=== PATIENT | male | born 1955 | race Caucasian/White ===

== ENCOUNTER 2021-09-05 16:20 | Inpatient (IN) | payer MEDICARE, SELFPAY ==
--- NOTE | ~2021-09-05 | XR_ITS ---
EXAMINATION: XR CHEST CLINICAL INFORMATION: Shortness of breath COMPARISON: 10/08/[address] from 10/10/2021 TECHNIQUE: Frontal view of the chest was obtained. FINDINGS: Cardiac leads overlie the chest. The lungs are well expanded. Patchy bilateral airspace opacities are noted, similar in appearance to prior. No pleural effusion or pneumothorax. The cardiomediastinal silhouette is within normal limits. XR/XR chest 1V IMPRESSION: Similar appearance of patchy bilateral airspace opacities. The cavitation seen on CT is not clearly visualized on this radiograph.
--- NOTE | ~2021-09-05 | XR_ITS ---
EXAMINATION: XR CHEST CLINICAL INFORMATION: Fever COMPARISON: CTA chest 09/23/2021, chest radiographs 09/23/2021, 09/19/2021 TECHNIQUE: Portable upright AP view of the chest was obtained. FINDINGS: There are low lung volumes similar to prior studies. Again, scattered bilateral airspace opacities are present similar in distribution and severity to prior radiographs. There is no interval lobar or segmental airspace consolidation or effusion. The vascularity is normal. The heart is normal in size. XR/XR chest 1V IMPRESSION: Scattered bilateral airspace opacities similar to prior exam.
--- NOTE | ~2021-09-05 | US_ITS ---
EXAMINATION: US ABDOMEN COMPLETE CLINICAL INFORMATION: Elevated liver function tests. COMPARISON: Chest CT from 09/05/2021 TECHNIQUE: Real-time imaging of the abdominal viscera. FINDINGS: PANCREAS: The pancreas is partially obscured by bowel gas. The visualized portions have normal echotexture. No pancreatic ductal dilatation. ABDOMINAL AORTA: The mid, and distal segments are normal in caliber. The proximal segment is obscured by bowel gas. INFERIOR VENA CAVA: Visualized portions are normal. LIVER: Liver has normal size, contour and parenchymal echotexture. No evidence of liver mass or intrahepatic bile duct dilatation. GALLBLADDER: Normal. The gallbladder is underdistended. No evidence of stones, sludge, polyps, wall thickening or pericholecystic fluid. COMMON BILE DUCT: Normal in caliber measuring 0.3 cm in diameter. RIGHT KIDNEY: The kidney measures 10.9 cm in maximum dimension. No nephrolithiasis or hydronephrosis. 1 cm simple cortical cyst in the mid kidney. Renal imaging follow-up is not recommended for simple cysts. Also, there appears to be a 1.8 cm cyst in the interpolar region. LEFT KIDNEY: The kidney measures 11.4 cm in length. Normal cortical thickness and echotexture. No nephrolithiasis, hydronephrosis or mass. SPLEEN: The spleen is incompletely visualized. It measured up to 15.5 cm on the chest CT of 09/05/2021. The spleen measures up to approximately 14 cm maximum dimension on this exam. No perisplenic fluid. FREE FLUID: None. US/US abdomen complete IMPRESSION: * The gallbladder and liver aresonographically normal. * Splenomegaly is noted. * No abdominal free fluid.
--- NOTE | ~2021-09-05 | CT_ITS ---
EXAMINATION: CT ANGIOGRAM OF THE CHEST WITH AND WITHOUT CONTRAST (CT PULMONARY ANGIOGRAM FOR PE) CLINICAL INFORMATION: Elevated d-dimer, hypoxia. COMPARISON: CTA chest dated from 09/12/2021. TECHNIQUE: Prior to contrast administration, noncontrast localization images were obtained. Subsequently, multidetector volumetric imaging was performed from the thoracic inlet to below the diaphragms following the administration of 70 mL Omnipaque 350 intravenous contrast. No contrast reaction reported Sagittal, coronal, and MIP oblique sagittal reformatted images were obtained on the CT workstation, uploaded to PACS, and reviewed. This CT examination was performed using dose optimization techniques as appropriate, variously including the following: *Automated exposure control *Adjustment of mA and/or kV according to patient size (this includes techniques or standardized protocols for targeted exams where dose is matched to indication/reason for exam; i.e. extremities or head) *Use of iterative reconstruction technique Total exam dose-length product 240 mGy-cm FINDINGS: QUALITY OF STUDY/CONTRAST BOLUS: Satisfactory. PULMONARY ARTERIES: As on priors, evaluation of pulmonary emboli is in part limited due to motion and overlying airspace disease. However, accounting for these limitations, no discrete central or segmental pulmonary emboli are identified. THORACIC AORTA: Mild atherosclerotic disease. No aneurysm or dissection. LUNG: There is redemonstration of extensive patchy and groundglass opacities throughout both lungs with increased and new patchy opacities in the anterior aspect of the left upper lobe (for instance image 153 of series 7), new opacities in the right middle lobe and anterior right upper lobe (for example image 217 of series 7) and increase denser opacities in the lung bases. The main airways are patent. PLEURA: There are new small bilateral pleural effusions, larger on the right side with fluid tracking across the major fissure. No pneumothorax. MEDIASTINUM: Normal heart size. No pericardial effusion. No evidence of septal bowing or right heart strain. Coronary calcifications. Mediastinal and hilar lymphadenopathy is not significantly changed. CHEST WALL/AXILLA: No axillary or internal mammary lymphadenopathy. OSSEOUS STRUCTURES: No acute or suspicious osseous abnormality. UPPER ABDOMEN: Unchanged splenomegaly with redemonstration of a hyperattenuating focus in the anterior aspect of the spleen (image 50 of series 5) stable since prior. A too small to characterize hypodensity in the left upper renal pole is unchanged and statistically is likely to represent a simple cyst. No reflux of contrast into the hepatic veins to suggest elevated right heart pressures. CT/CT angio chest PE protocol IMPRESSION: As before, evaluation of pulmonary emboli is somewhat limited due to motion and airspace opacities. However, accounting for these limitations, no discrete central segmental pulmonary emboli identified. No findings to suggest increased right-sided heart pressure. Worsening multifocal airspace opacities with multiple new patchy and more denser opacities in the anterior aspect of both lungs and in the lung bases. There are also new small bilateral pleural effusions, larger on the right side. VTE: negative
--- NOTE | ~2021-09-05 | CT_ITS ---
EXAMINATION: CT ABDOMEN AND PELVIS WITH CONTRAST CLINICAL INFORMATION: fever, gram negative michela bacteremia COMPARISON: CT chest September 23, 2021. Ultrasound abdomen September 07, 2021. TECHNIQUE: Multidetector volumetric images were obtained from the superior aspect of the liver through the pubic symphysis following administration 85 mL of Omnipaque 350 intravenous contrast. Sagittal and coronal reformatted images were obtained on the technologist's workstation. Oral contrast: No This CT examination was performed using dose optimization techniques as appropriate, variously including the following: *Automated exposure control *Adjustment of mA and/or kV according to patient size (this includes techniques or standardized protocols for targeted exams where dose is matched to indication/reason for exam; i.e. extremities or head) *Use of iterative reconstruction technique DLP: 432 mGy-cm FINDINGS: LUNG BASES: Multifocal airspace opacities at both lung bases. There is bronchiectasis at both lung bases with intermixed groundglass opacities. Airspace disease similar to prior CAT scan September 23, 2021. LIVER, GALLBLADDER, AND BILIARY TREE: The liver is normal in size, shape, and attenuation. No focal hepatic lesion or biliary ductal dilatation is present. The gallbladder is unremarkable with no evidence of radiopaque gallstones, gallbladder wall thickening, or obvious pericholecystic inflammatory changes. PANCREAS: Unremarkable. SPLEEN: The spleen is enlarged. Spleen measures about 16 cm AP. There are small segments of poor perfusion at the lower pole of the spleen which could be due to the splenomegaly and timing of the enhancement versus splenic infarct.. There is a persistent hyperdense focus of enhancement at the anterior splenic margin axial image 22/96 series 3 unchanged since prior studies. ADRENAL GLANDS: Unremarkable. KIDNEYS AND URETERS: The kidneys are normal in size, shape, and attenuation. No hydronephrosis, hydroureter, or calculi seen. No perinephric stranding. Stable 7 mm cyst at the upper pole cortex of the left kidney. No follow-up imaging is recommended for simple renal cyst.. BLADDER: Unremarkable. GASTROINTESTINAL TRACT: No acute abnormality. There is no bowel wall thickening /edema. There is no bowel obstruction. There is a moderate to large volume of stool in the colon. The appendix is nonvisualized . The small bowel loops are unremarkable. The stomach is normal. There is no hiatal hernia. ABDOMINAL WALL: No significant hernia is appreciated. LYMPH NODES: Normal. VASCULAR: Unremarkable. PELVIC VISCERA: Unremarkable. OSSEOUS STRUCTURES: Unremarkable. CT/CT abdomen pelvis w con IMPRESSION: 1. Multifocal airspace opacities at both lung bases. There is bronchiectasis at both lung bases with intermixed groundglass opacities. Airspace disease similar to prior CT chest September 23, 2021. 2. No acute abnormality CT scan abdomen and pelvis. 3. Redemonstration of known splenomegaly. Persistent small hypoattenuating focus in the anterior spleen. Regions of low enhancement at the lower pole likely due to timing of enhancement though small infarcts are not excluded.
--- NOTE | ~2021-09-05 | CT_ITS ---
EXAMINATION: CT ANGIOGRAM OF THE CHEST WITH AND WITHOUT CONTRAST (CT PULMONARY ANGIOGRAM FOR PE) CLINICAL INFORMATION: Reason for Exam covid + hypoxia ?PE COMPARISON: CTA of the chest dated from 09/05/2021. TECHNIQUE: Prior to contrast administration, noncontrast localization images were obtained. Subsequently, multidetector volumetric imaging was performed from the thoracic inlet to below the diaphragms following the administration of 80 mL Omnipaque 350 intravenous contrast. No contrast reaction reported Sagittal, coronal, and MIP oblique sagittal reformatted images were obtained on the CT workstation, uploaded to PACS, and reviewed. This CT examination was performed using dose optimization techniques as appropriate, variously including the following: *Automated exposure control *Adjustment of mA and/or kV according to patient size (this includes techniques or standardized protocols for targeted exams where dose is matched to indication/reason for exam; i.e. extremities or head) *Use of iterative reconstruction technique Total exam dose-length product 147 mGy-cm FINDINGS: QUALITY OF STUDY/CONTRAST BOLUS: Suboptimal. PULMONARY ARTERIES: Evaluation of pulmonary emboli is in part limited due to motion and overlying airspace disease. Accounting for these limitations, no discrete central or segmental pulmonary emboli are identified. THORACIC AORTA: Mild atherosclerotic disease. No aneurysm or dissection. LUNG: There are increased and multiple new areas of patchy and groundglass opacities bilaterally, now extending across the entirety of the lungs. The main airways are patent. PLEURA: No pleural effusion or pneumothorax. MEDIASTINUM: Normal heart size. No pericardial effusion. Coronary calcifications. A few enlarged mediastinal lymph nodes are not significantly changed, for instance measuring up to 1.2 cm in maximum short axis in the subcarinal region on image 260 of series 7. No evidence of septal bowing or right heart strain. CHEST WALL/AXILLA: No axillary or internal mammary lymphadenopathy. OSSEOUS STRUCTURES: No acute or suspicious osseous abnormality. Thoracic spondylosis. UPPER ABDOMEN: Similar degree of splenomegaly with redemonstration of a hyperattenuating focus anteriorly within the splenic parenchyma on image 57 of series 5 which is likely perfusional in etiology. No reflux of contrast into the hepatic veins to suggest elevated right heart pressures. CT/CT angio chest PE protocol IMPRESSION: Evaluation of pulmonary emboli is somewhat limited due to motion and airspace opacities. However, accounting for these limitations, no central or segmental pulmonary emboli are identified. No findings to suggest increased right-sided heart pressure. Multifocal airspace opacities are significantly increased since prior, suggesting worsening multifocal pneumonia. Enlarged mediastinal lymph nodes are unchanged. VTE: negative
--- NOTE | ~2021-09-05 | US_ITS ---
EXAMINATION: US VENOUS ULTRASOUND WITH DOPPLER LOWER EXTREMITY, BILATERAL CLINICAL INFORMATION: Edema and pain. COMPARISON: None TECHNIQUE: Ultrasound of the deep veins is performed from the hip to the calf with compression sonography and color and pulse Doppler assessment. Spectral analysis with color-flow imaging is performed. FINDINGS: RIGHT: There is normal venous compression and respiratory variation and augmented flow. The visualized common femoral vein, superficial femoral vein, profunda femoral vein, popliteal vein, and the trifurcation region shows no evidence of deep venous thrombosis. There is no significant popliteal fossa cyst. LEFT: There is normal venous compression and respiratory variation and augmented flow. The visualized common femoral vein, superficial femoral vein, profunda femoral vein, popliteal vein, and the trifurcation region shows no evidence of deep venous thrombosis. There is no significant popliteal fossa cyst. If the patient's symptoms persist, followup ultrasound in 5 days 7 days might be of value to exclude proximal propagation from a non-visualized calf vein. There is prominent cardiac phasicity bilaterally which may be seen with tricuspid regurgitation/right heart dysfunction. US/US venous duplex LE BI IMPRESSION: No DVT demonstrated in the bilateral lower extremities. There is prominent cardiac phasicity in both lower extremities which may be seen with tricuspid regurgitation/right heart dysfunction.
--- NOTE | ~2021-09-05 | CT_ITS ---
EXAMINATION: CT ANGIOGRAM OF THE CHEST WITH AND WITHOUT CONTRAST (CT PULMONARY ANGIOGRAM FOR PE) CLINICAL INFORMATION: Reason for Exam SOB/Tachy COMPARISON: Chest radiograph 10/08/2021. CT 09/23/2021. TECHNIQUE: Prior to contrast administration, noncontrast localization images were obtained. Subsequently, multidetector volumetric imaging was performed from the thoracic inlet to below the diaphragms following the administration of 65 mL Omnipaque 350 intravenous contrast. No contrast reaction reported Sagittal, coronal, and MIP oblique sagittal reformatted images were obtained on the CT workstation, uploaded to PACS, and reviewed. This CT examination was performed using dose optimization techniques as appropriate, variously including the following: *Automated exposure control *Adjustment of mA and/or kV according to patient size (this includes techniques or standardized protocols for targeted exams where dose is matched to indication/reason for exam; i.e. extremities or head) *Use of iterative reconstruction technique Total exam dose-length product 144 mGy-cm FINDINGS: QUALITY OF STUDY/CONTRAST BOLUS: Satisfactory. PULMONARY ARTERIES: No central or segmental pulmonary emboli. THORACIC AORTA: No aneurysm or dissection. LUNG: The central airways are patent. There is worsening multifocal consolidation, now with multiple cavitating lesions seen bilaterally. For instance there is a new cavitation at the left upper lobe measuring 7 cm. Area of cavitation anteriorly in the right upper lobe measures 3.5 cm. Air bronchograms are seen within the separate areas of consolidation. PLEURA: No pleural effusion or pneumothorax. MEDIASTINUM: Normal heart size. No pericardial effusion. No hilar or mediastinal lymphadenopathy. No evidence of septal bowing or right heart strain. CHEST WALL/AXILLA: No axillary or internal mammary lymphadenopathy. OSSEOUS STRUCTURES: No acute or suspicious osseous abnormality. Degenerative changes are seen in the spine. UPPER ABDOMEN: Unremarkable. No reflux of contrast into the hepatic veins to suggest elevated right heart pressures. CT/CT angio chest PE protocol IMPRESSION: 1. No pulmonary embolism. 2. Worsening multifocal consolidation now with multiple areas of cavitation. This is highly concerning for pneumonia. Septic emboli are possible, though this is not the typical appearance. VTE: negative
--- NOTE | ~2021-09-05 | XR_ITS ---
EXAMINATION: XR CHEST CLINICAL INFORMATION: Hypoxia COMPARISON: Previous chest x-ray most recent from yesterday TECHNIQUE: Frontal view of the chest was obtained. FINDINGS: There is an endotracheal tube with tip 0 cm above the reshma. There is a right jugular line with tip projecting over the cavoatrial junction. There is a nasogastric tube projects over the stomach. The cardiac silhouette is enlarged. There is bilateral airspace disease, left greater than right. There is lucency at the left lung apex, likely related to cavitary lesion when compared with previous chest CT scan. This appears unchanged. There are degenerative changes of the spine. No significant pleural effusion. No pneumothorax. There is no pneumothorax. XR/XR chest 1V IMPRESSION: Satisfactory position of support line and tubes. Enlarged cardiac silhouette. Bilateral airspace disease and lucency at the left lung apex likely related to known cavitary lesion.
--- NOTE | ~2021-09-05 | XR_ITS ---
EXAMINATION: XR CHEST CLINICAL INFORMATION: Hypoxia. Covid infection. COMPARISON: Previous chest x-ray most recent 09/19/2021 TECHNIQUE: Frontal view of the chest was obtained. FINDINGS: The cardiac and mediastinal contours are stable. There is diffuse airspace disease similar to previous exam. There is no pleural effusion or pneumothorax. There are degenerative changes of the spine. XR/XR chest 1V IMPRESSION: Diffuse airspace disease similar to previous exam.
--- NOTE | ~2021-09-05 | XR_ITS ---
EXAMINATION: XR CHEST CLINICAL INFORMATION: Hypoxia COMPARISON: CT scan of September 12, 2021 TECHNIQUE: AP portable view of the chest was obtained. FINDINGS: There is again noted to be bilateral diffuse interstitial and airspace disease. Heart normal size. No definite evidence to suggest pulmonary edema. No pneumothorax or significant pleural effusion. XR/XR chest 1V IMPRESSION: Diffuse bilateral interstitial and airspace disease similar to previous CT scan of September 12, 2021
--- NOTE | ~2021-09-05 | XR_ITS ---
EXAMINATION: XR CHEST CLINICAL INFORMATION: Status post lyle catheter placement. COMPARISON: Chest radiograph done earlier today at 3:20 PM, 10/17/2021. CT chest dated from 10/10/2021. TECHNIQUE: AP view of the chest was obtained. FINDINGS: The endotracheal tube terminates at 4.9 cm above the reshma. A right internal jugular approach central venous catheter terminates overlying the proximal right atrium, unchanged. An enteric tube terminates in the gastroesophageal junction/proximal stomach. A left internal jugular approach central venous catheter terminates overlying the area of the left innominate vein. Stable prominence of the cardiomediastinal silhouette. Redemonstration of diffuse airspace opacities, more prominent in the left lung without significant change. Lucencies in the left upper lobe are likely related with cavitation, best seen on the prior CT. No pneumothorax. No acute osseous findings. XR/XR chest 1V IMPRESSION: 1. Endotracheal tube terminates at 4.9 cm above the reshma. 2. New left internal jugular central venous catheter terminates overlying the region of the innominate veins. Correlate for appropriate functioning and consider repositioning. 3. The enteric tube terminates at the level of the gastroesophageal junction/proximal stomach. Consider advancement. 4. Multifocal airspace opacities with cavitation without significant change. The report will be called to the ordering clinician by a [facility] Physician Folder Stitcher Operator.
--- NOTE | ~2021-09-05 | XR_ITS ---
EXAMINATION: XR CHEST CLINICAL INFORMATION: Shortness of breath COMPARISON: Portable chest x-ray October 02, 2021, 8:03 AM TECHNIQUE: Frontal portable view of the chest was obtained. 4:32 PM FINDINGS: Persistent bilateral multifocal airspace opacities. Airspace opacities worse on the left than the right. Severity is similar to prior chest x-ray October 02, 2021. No pleural effusion or pneumothorax. The cardiac and mediastinal contours are unchanged. XR/XR chest 1V IMPRESSION: Persistent multifocal bilateral airspace opacities unchanged since prior study October 02, 2021.
--- NOTE | ~2021-09-05 | CT_ITS ---
EXAMINATION: CT ANGIOGRAM OF THE CHEST WITH AND WITHOUT CONTRAST (CT PULMONARY ANGIOGRAM FOR PE) CLINICAL INFORMATION: Dyspnea, hypoxia, hx of CLL. COMPARISON: None TECHNIQUE: Prior to contrast administration, noncontrast localization images were obtained. Subsequently, multidetector volumetric imaging was performed from the thoracic inlet to below the diaphragms following the administration of 85 mL Omnipaque 350 intravenous contrast. No contrast reaction reported Sagittal, coronal, and MIP oblique sagittal reformatted images were obtained on the CT workstation, uploaded to PACS, and reviewed. This CT examination was performed using dose optimization techniques as appropriate, variously including the following: *Automated exposure control *Adjustment of mA and/or kV according to patient size (this includes techniques or standardized protocols for targeted exams where dose is matched to indication/reason for exam; i.e. extremities or head) *Use of iterative reconstruction technique Total exam dose-length product 301 mGy-cm FINDINGS: QUALITY OF STUDY/CONTRAST BOLUS: Suboptimal. The timing for the intravenous contrast is appropriate. However, evaluation of segmental and subsegmental branches is limited due to motion and overlying airspace opacities. PULMONARY ARTERIES: No central or segmental pulmonary emboli. THORACIC AORTA: Mild atherosclerotic disease. No aneurysm. LUNG: Multifocal patchy airspace opacities which are more prominent in the lower lobes, and posterior upper lobes evaluation of small pulmonary nodules is suboptimal due to motion and overlying airspace opacities. The main airways are patent. PLEURA: No pleural effusion or pneumothorax. MEDIASTINUM: Normal heart size. No pericardial effusion. There are a few enlarged mediastinal lymph nodes, for example measuring up to 1.3 cm in maximum short axis in the subcarinal space (197:7) and 1.4 cm in maximum short axis to the right of the trachea (159:7). No evidence of septal bowing or right heart strain. CHEST WALL/AXILLA: No axillary or internal mammary lymphadenopathy. OSSEOUS STRUCTURES: No acute or suspicious osseous abnormality. Thoracic spondylosis. UPPER ABDOMEN: Splenomegaly measuring up to 15.5 cm. An indeterminate hyperattenuating focus in the spleen (56:5) is likely perfusional due to timing of intravenous contrast. No reflux of contrast into the hepatic veins to suggest elevated right heart pressures. CT/CT angio chest PE protocol IMPRESSION: Evaluation of segmental and subsegmental pulmonary emboli is somewhat limited due to motion and overlying airspace opacities. However, accounting for these limitations, no definite pulmonary emboli are identified. No findings to suggest increased right-sided heart pressures. Multifocal airspace opacities could be related with a multifocal pneumonia. Correlate clinically and follow-up to ensure resolution. Enlarged mediastinal lymph nodes are likely reactive. Mild splenomegaly of uncertain etiology. VTE: negative
--- NOTE | ~2021-09-05 | XR_ITS ---
EXAMINATION: XR CHEST CLINICAL INFORMATION: Status post CPR. COMPARISON: Chest radiograph . CT 10/10/2021. TECHNIQUE: AP view of the chest was obtained. FINDINGS: The endotracheal tube terminates at 1.5 cm above the reshma oriented towards the entrance of the right main bronchus. Increased multifocal airspace opacities since 10/11/2021. I suspect small bilateral pleural effusions. No pneumothorax. No acute osseous findings. XR/XR chest 1V IMPRESSION: The endotracheal tube terminates at 1.5 cm above the reshma. Recommend repositioning. Worsening pulmonary aeration with increased and new patchy airspace opacities bilaterally. Cavitation of some of these airspace opacities are best appreciated on a prior CT This critical result was discussed with Dr. Shruthi Aden at 10/16/2021 6:48 PM and it was ascertained that the content and urgency of the report was understood at the time of direct communication.
--- NOTE | ~2021-09-05 | XR_ITS ---
EXAMINATION: XR CHEST CLINICAL INFORMATION: Hypoxia COMPARISON: September 18, [address] angiography of September 12, 2021 TECHNIQUE: AP portable view of the chest was obtained. FINDINGS: Bilateral regions of interstitial and airspace disease are present similar to previous day's study. No pneumothorax or pleural effusion. Heart normal size. No evidence of pulmonary edema. XR/XR chest 1V IMPRESSION: Stable bilateral regions of interstitial and airspace disease.
[2021-09-05 16:56] VITALS: BP 123/68; PULSE 95; RESP 14; TEMP 37.1; O2SAT 89; BMI 26.6
--- NOTE | 2021-09-05 18:11 | ED_ITS ---
HPI - SOB/Dyspnea General Chief Complaint: Upper Respiratory Symptoms Stated Complaint: SoB, Difficulty Breathing Time Seen by Provider: 09/05/21 18:10 Source: patient Mode of arrival: ambulatory Limitations: no limitations History of Present Illness MD elicited complaint: shortness of breath and cough Pertinent past history: other (CLL remission this year. Dx with COVID 6 weeks ago never got better per him but worsened this past year. He had Moderna vaccines (at the start of availability) and a booster as well) Onset (ago): week(s) (6) Context: recent illness Timing: progressively worsening Severity: severe Exacerbating factors: exertion and coughing Relieving factors: oxygen and rest Known history of: other (COVID) Associated symptoms: cough and sputum production Treatment prior to arrival: oxygen (from triage sats 89%) Related Data Home Medications Medication Instructions Recorded Confirmed allopurinol 300 mg tablet 1 tab PO DAILY 09/05/21 09/05/21 rosuvastatin 40 mg tablet 1 tab PO DAILY 09/05/21 09/05/21 Allergies Allergy/AdvReac Type Severity Reaction Status Date / Time oxacillin Allergy Unknown Unknown Verified 09/05/21 18:16 Review of Systems Review of Systems: Constitutional : No Fever, No Chills ENT/Mouth : No sore throat, No Rhinorrhea, No Swallowing Difficulty Eyes: No Eye Pain, No Swelling, No Redness Cardiovascular : No Chest Pain, positive SOB, No Orthopnea, no Edema Respiratory : pos Cough, pos Sputum, No Wheezing, positive dyspnea Gastrointestinal : No Nausea, No Vomiting, No Diarrhea, No abdominal Pain, No Hematochezia, No Melena Genitourinary : No Dysuria, No Urinary Frequency, No Hematuria Musculoskeletal : No joint pain, No Myalgias Skin : No Skin Lesions, No rash Neuro : No Weakness, No Numbness, No Dizziness, No Headache Psych : No Anxiety/Panic, No Depression Heme/Lymph: No Bruising, No Lymphadenopathy Endocrine : No Polyuria, No Polydipsia All other systems reviewed and are negative [facility] Past Medical History Medical History CLL (chronic lymphocytic leukemia) COVID-19 Social History Social History (Updated 09/05/21 @ 18:21 by Carlene Echevarria DO) Patient Tobacco Use Status: Never used Tobacco Advance Directives: No Advance Directives Information Provided: Yes Physical Exam Vital Signs: Vital Signs: Last Vital Signs Temp 98.7 F 09/05/21 20:00 Pulse 96 09/05/21 20:00 Resp 26 H 09/05/21 20:00 BP 134/79 09/05/21 20:00 Pulse Ox 94 09/05/21 20:00 Body Mass Index 26.6 Appearance: Alert. Oriented X3. mild acute distress. Eyes: Pupils equal, round and reactive to light. ENT: Pharynx normal. Neck: Normal inspection. Neck supple. CVS: Normal heart rate and rhythm. Pulses normal. Respiratory: Mild respiratory distress - appears easily winded, short phrases, mild tachypnea. Breath sounds rhonchi and diminished throughout Abdomen: Soft and nontender. Skin: Skin warm and dry. Normal skin color. Normal skin turgor. Extremities: No lower extremity edema. No calf ttp Neuro: Oriented X 3. No motor deficit. No sensory deficit. Course Course Course Narrative: responding well to O2 supplementation, steroids ordered given positive COVID test and labs concerning for acute COVID though patient reports a pos test 6 weeks ago at this time possible infection suspected will add on antibiotics 818pm 89% on RA, responding to O2 but desats without it. has multifocal pneumonia on CT chest and hypoxia will admit MDM - SOB/Dyspnea MDM Narrative Medical decision making narrative: 66 yo male in remission from CLL dx with COVID 6 weeks ago has felt sick since but notes much worse over the past week - came in hypoxic. He notes a productive cough as well. At this time will need labs, EKG, CTA for PE/pneumonia given his CLL dx and COVID dx. Dispo per results and findings. Has never used O2 in the past Lab Data Result diagrams: 09/05/21 18:43 09/05/21 18:43 Labs: Lab Results 09/05/21 09/05/21 09/05/21 Range/Units 18:43 18:43 18:43 WBC 3.7 L (4.8-10.8) X10*3/uL RBC 3.72 L (4.60-5.80) X10*6/uL Hgb 12.0 L (14.0-18.0) g/dl Hct 34.7 L (42-52) % MCV 93.3 (80-98) fL MCH 32.3 (27.0-33.0) pg MCHC 34.6 (31.0-36.0) g/dl RDW 13.3 (11.0-16.0) % Plt Count 187 (160-400) X10*3/uL MPV 10.6 (9.4-12.4) fL Immature Gran % (Auto) 0.5 H (0.0-0.4) % Neut % (Auto) 83.1 H (45-73) % Lymph % (Auto) 12.0 L (20-40) % Traverse % (Auto) 4.1 (2-11) % Eos % (Auto) 0.3 (0-4) % Baso % (Auto) 0.0 (0-2) % Lymph # (Auto) 0.4 L (1.2-4.9) X10*3/uL Traverse # (Auto) 0.2 (0.1-1.2) X10*3/uL Eos # (Auto) 0.0 (0.0-0.4) X10*3/uL Baso # (Auto) 0.0 (0.0-0.2) X10*3/uL Abs Immat Gran (auto) 0.02 (0.00-0.03) X10*3/uL Absolute Neuts (auto) 3.1 (2.0-8.3) X10*3/uL Absolute Nucleated RBC 0.000 (0.0-0.012) X10*3/uL Nucleated RBC % (auto) 0.0 (0.0-0.2) /100WBC VBG pH (7.32-7.43) VBG pCO2 mmHg VBG pO2 mmHg VBG HCO3 (22-26) mmol/L VBG O2 Saturation % VBG Base Excess mmol/L Sodium 133 L (135-145) mmol/L Potassium 4.2 (3.3-5.1) mmol/L Chloride 97 (96-108) mmol/L Carbon Dioxide 25 (22-29) mmol/L Anion Gap 15 (12-20) BUN 24 H (9-16) mg/dL Creatinine 1.15 (0.5-1.4) mg/dL Estim Creat Clear Calc 58.2 Estimated GFR > 60 Random Glucose 117 H (60-115) mg/dL Lactic Acid 1.9 (0.5-2.0) mmol/L Calcium 8.2 L (8.4-10.2) mg/dL Magnesium 2.3 (1.6-2.6) mg/dL Total Bilirubin 1.8 H (0.0-1.0) mg/dL Direct Bilirubin 1.2 H (0.0-0.5) mg/dL AST 164 H (5-37) U/L ALT 189 H (0-40) U/L Alkaline Phosphatase 213 H (39-117) U/L Lactate Dehydrogenase 761 H (118-273) U/L Troponin I High Sens (<3.5-35.0) ng/L C-Reactive Protein 10.38 H (< or = 0.50) mg/dL B-Natriuretic Peptide (<100) pg/mL Total Protein 5.7 L (6.5-8.0) g/dL Albumin 3.5 (3.5-5.0) g/dL COVID-19 (DAVIDA) (Negative) COVID-19 Clin Com 09/05/21 09/05/21 09/05/21 Range/Units 18:43 18:43 18:55 WBC (4.8-10.8) X10*3/uL RBC (4.60-5.80) X10*6/uL Hgb (14.0-18.0) g/dl Hct (42-52) % MCV (80-98) fL MCH (27.0-33.0) pg MCHC (31.0-36.0) g/dl RDW (11.0-16.0) % Plt Count (160-400) X10*3/uL MPV (9.4-12.4) fL Immature Gran % (Auto) (0.0-0.4) % Neut % (Auto) (45-73) % Lymph % (Auto) (20-40) % Traverse % (Auto) (2-11) % Eos % (Auto) (0-4) % Baso % (Auto) (0-2) % Lymph # (Auto) (1.2-4.9) X10*3/uL Traverse # (Auto) (0.1-1.2) X10*3/uL Eos # (Auto) (0.0-0.4) X10*3/uL Baso # (Auto) (0.0-0.2) X10*3/uL Abs Immat Gran (auto) (0.00-0.03) X10*3/uL Absolute Neuts (auto) (2.0-8.3) X10*3/uL Absolute Nucleated RBC (0.0-0.012) X10*3/uL Nucleated RBC % (auto) (0.0-0.2) /100WBC VBG pH 7.36 (7.32-7.43) VBG pCO2 43 mmHg VBG pO2 37 mmHg VBG HCO3 24 (22-26) mmol/L VBG O2 Saturation 49.0 % VBG Base Excess -0.5 mmol/L Sodium (135-145) mmol/L Potassium (3.3-5.1) mmol/L Chloride (96-108) mmol/L Carbon Dioxide (22-29) mmol/L Anion Gap (12-20) BUN (9-16) mg/dL Creatinine (0.5-1.4) mg/dL Estim Creat Clear Calc Estimated GFR Random Glucose (60-115) mg/dL Lactic Acid (0.5-2.0) mmol/L Calcium (8.4-10.2) mg/dL Magnesium (1.6-2.6) mg/dL Total Bilirubin (0.0-1.0) mg/dL Direct Bilirubin (0.0-0.5) mg/dL AST (5-37) U/L ALT (0-40) U/L Alkaline Phosphatase (39-117) U/L Lactate Dehydrogenase (118-273) U/L Troponin I High Sens 5.5 (<3.5-35.0) ng/L C-Reactive Protein (< or = 0.50) mg/dL B-Natriuretic Peptide < 10 (<100) pg/mL Total Protein (6.5-8.0) g/dL Albumin (3.5-5.0) g/dL COVID-19 (DAVIDA) Positive A (Negative) COVID-19 Clin Com See Note ECG Data Attestation: I personally reviewed and interpreted this ECG as follows: ECG interpretation date: 09/05/21 ECG interpretation time: 18:51 Interpretation: Rate:94 Rhythm: NSR [place]arat: normal Normal P waves. Normal SOFÍA. Normal QRS complex. ST T wave : no ALEXA, normal qTC: normal prior studies: no acute ischemia The study has been interpreted contemporaneously by me. . Critical Care Time Critical Care Time Critical Care Time: Yes Total Critical Care Time: 35 Attestation: O2 supplementation and correction of hypoxia, reassessments I attest to this time spent taking care of the patient Discharge Plan Discharge Clinical Impression: Multifocal pneumonia, COVID-19, Abnormal LFTs Patient Disposition: Admitted As Inpatient
[2021-09-05 18:13] LABS: Adenovirus PCR Not Detected (Not Detect.); Bordetella parapertussis PCR Not Detected (Not Detect.); Bordetella pertussis PCR Not Detected (Not Detect.); Chlamydia pneumoniae PCR Not Detected (Not Detect.); Coronavirus 229E PCR Not Detected (Not Detect.); Coronavirus HKU1 PCR Not Detected (Not Detect.); Coronavirus NL63 PCR Not Detected (Not Detect.); Coronavirus OC43 PCR Not Detected (Not Detect.); Human metapneumovirus PCR Not Detected (Not Detect.); Influenza A PCR Not Detected (Not Detect.); Influenza B PCR Not Detected (Not Detect.); Mycoplasma pneumoniae PCR Not Detected (Not Detect.); Parainfluenza 1 PCR Not Detected (Not Detect.); Parainfluenza 2 PCR Not Detected (Not Detect.); Parainfluenza 3 PCR Not Detected (Not Detect.); Parainfluenza 4 PCR Not Detected (Not Detect.); RSV PCR Not Detected (Not Detect.); Rhino/Enterovirus PCR Not Detected (Not Detect.)
--- NOTE | 2021-09-05 18:17 | ECG_ITS ---
Test Reason : DYSPNEA Blood Pressure : / mmHG Vent. Rate : 094 BPM Atrial Rate : 094 BPM P-R Int : 154 ms QRS Dur : 078 ms QT Int : 368 ms P-R-T Axes : 023 042 034 degrees QTc Int : 460 ms Normal sinus rhythm Normal ECG No previous ECGs available Referred By: Carlene Echevarria Electronically Signed By:DANIELLE ORTA MD
[2021-09-05 18:55] LABS: MANUAL DIFF FLAG NO
[2021-09-05 18:57] LABS: Eosinophils Percent Auto 0.3 % (0-4); Hematocrit 34.7 % (42-52); Imm Gran Abs Auto 0.02 X10*3/uL (0.00-0.03); Imm Gran Pct Auto 0.5 % (0.0-0.4); Lymphocytes Absolute Auto 0.4 X10*3/uL (1.2-4.9); Mean Corpuscular HGB Conc 34.6 g/dl (31.0-36.0); Mean Corpuscular Hemoglobin 32.3 pg (27.0-33.0); Mean Corpuscular Volume 93.3 fL (80-98); Mean Platelet Volume 10.6 fL (9.4-12.4); Monocytes Absolute Auto 0.2 X10*3/uL (0.1-1.2); Monocytes Percent Auto 4.1 % (2-11); Neutrophils Absolute Auto 3.1 X10*3/uL (2.0-8.3); Neutrophils Percent Auto 83.1 % (45-73); Platelet Count 187 X10*3/uL (160-400); Red Blood Count 3.72 X10*6/uL (4.60-5.80); Red Cell Distribution Width 13.3 % (11.0-16.0); White Blood Count 3.7 X10*3/uL (4.8-10.8)
[2021-09-05 19:04] LABS: COVID-19 Test Positive (Negative)
[2021-09-05 19:08] LABS: VBG Base Excess -0.5 mmol/L; VBG HCO3 24 mmol/L (22-26); VBG pCO2 43 mmHg; VBG pH 7.36 (7.32-7.43); VBG pO2 37 mmHg
[2021-09-05 19:12] LABS: Lactic Acid 1.9 mmol/L (0.5-2.0)
[2021-09-05 19:17] LABS: Alanine Aminotransferase 189 U/L (0-40); Albumin Level 3.5 g/dL (3.5-5.0); Alkaline Phosphatase 213 U/L (39-117); Anion Gap 15 (12-20); Aspartate Amino Transferase 164 U/L (5-37); Bilirubin Direct 1.2 mg/dL (0.0-0.5); Bilirubin Total 1.8 mg/dL (0.0-1.0); Blood Urea Nitrogen 24 mg/dL (9-16); C Reactive Protein 10.38 mg/dL (< or = 0.50); Calcium 8.2 mg/dL (8.4-10.2); Carbon Dioxide 25 mmol/L (22-29); Chloride 97 mmol/L (96-108); Creatinine Clr Calc Pharmacy 58.2; Estimated Glomerular Filt Rate > 60; Glucose Random 117 mg/dL (60-115); Magnesium 2.3 mg/dL (1.6-2.6); Potassium 4.2 mmol/L (3.3-5.1); Sodium 133 mmol/L (135-145); Total Protein 5.7 g/dL (6.5-8.0); Venous Blood Gas Refer to POC result
[2021-09-05 19:20] LABS: Troponin-I High Sensitivity 5.5 ng/L (<3.5-35.0)
[2021-09-05 19:29] LABS: Lactate Dehydrogenase 761 U/L (118-273)
[2021-09-05] MEDS: iohexoL 350 MG/ML 100 ML INFUS..BTL 65 ML IV (19:36)
[2021-09-05 20:00] VITALS: BP 134/79; PULSE 96; RESP 26; TEMP 37.1; O2SAT 94
[2021-09-05] MEDS: cefTRIAXone sodium 1 GM in 0.9 % Sodium Chloride 50 ML IV (21:16)
[2021-09-05] MEDS: dexAMETHasone sod phosphate 4 MG/ML VIAL 6 MG IVPUSH (21:16)
[2021-09-05] MEDS: Azithromycin 500 MG in 0.9 % Sodium Chloride 250 ML 125 MG IV (22:13)
--- NOTE | 2021-09-05 23:01 | P.HPHOSP_ITS ---
History of Present Illness Date of Service: 09/05/21 Chief Complaint: Shortness of breath, cough, fever This is a 66-year-old male with past medical history of HLD, as well as gout who presents to the hospital with complaints of non resolving cold symptoms. Patient reports that about 4-5 weeks ago he developed few symptoms compatible with COVID, including shortness of breath, fever, cough, as well as generalized fatigue, that time he was tested positive for COVID-19 but reports that his symptoms have not improved and he is just not feeling or getting any better and therefore decided to come to the hospital. According to him they have a nurse neighbor who checked his oxygen which was low and told him to come to the hospital right away. He does not know or remember how low his oxygen level was. Patient is triple vaccinated and received his 3rd booster shot more than 1 month ago. Patient has history of CLL that is in remission at this time. Patient reports continuous shortness of breath, cough, fever, nausea and vomiting, diarrhea, loss of appetite, fatigue, intermittent headaches. Denies any chest pain, no abdominal pain, no urinary symptoms and no lower extremity edema. On arrival to the ED patient's vitals are significant for temp of 98.7?, heart rate of 95, respiratory rate of 14, satting 89% on room air\ Labs are significant for WBC count of 3.7, hemoglobin of 12, sodium of 133, BUN of 24, creatinine of 1.15, total bili of 1.8, AST of 164, ALT of 189, alk-phos of 213, COVID-[address] angiogram shows no significant evidence for PE, no findings to suggest increased right-sided heart pressure, multifocal airspace opacities and large mediastinal lymph nodes most likely reactive. Patient will be admitted for further management given his hypoxia Review of Systems Review of Systems: Yes all other systems are reviewed and are negative [facility] Medical History (Updated 09/06/21 @ 06:17 by Gilma Dawson MD) CLL (chronic lymphocytic leukemia) COVID-19 Gout Hyperlipidemia Pertinent family history: Denies any family history Surgical History (Updated 09/06/21 @ 06:16 by Gilma Dawson MD) No pertinent past surgical history Social History Patient Tobacco Use Status: Never used Tobacco Advance Directives: No Advance Directives Information Provided: Yes Meds Allergies Allergy/AdvReac Type Severity Reaction Status Date / Time oxacillin Allergy Unknown Unknown Verified 09/05/21 18:16 Active Medications: Current Medications Azithromycin 500 mg/ Sodium (Chloride) 250 mls @ 125 mls/hr IV ONCE ONE Stop: 09/05/21 23:14 Last Infusion: 09/05/21 22:43 Dose: Infused Documented by: Pharmacy Consult (Consult Rx Perform Med Rec) 1 each MISCELLANE ONCE PRN PRN Reason: Consult order Home Medications Medication Instructions Recorded Confirmed Last Taken Type allopurinol 300 mg tablet 1 tab PO DAILY 09/05/21 09/05/21 09/04/21 History rosuvastatin 40 mg tablet 1 tab PO DAILY 09/05/21 09/05/21 09/04/21 History Physical Exam Vital Signs and Narrative: Vital Signs: Last Vital Signs Temp 98.7 F 09/05/21 20:00 Pulse 96 09/05/21 20:00 Resp 26 H 09/05/21 20:00 BP 134/79 09/05/21 20:00 Pulse Ox 94 09/05/21 20:00 Body Mass Index 26.6 Const: General: cooperative and no acute distress Orientation/consciousness: patient oriented x3 Eyes: General: appearance normal, both eyes and all related structures Pupils: Equal, round and reactive pupils present Resp: Other: Crackles throughout the lungs Effort & Inspection: normal respiratory effort Cardio: Rate: regular rate Rhythm: regular rhythm GI: Palpation (GI): Soft to palpation Auscultation: normal bowel sounds Skin: General skin exam: no rashes or lesions noted Neuro: General: patient oriented x3 Cranial nerves: Yes Equal, round and reactive pupils present Cognition (Neuro): normal cognition Extrem: General: Yes normal to inspection and Yes no pedal edema Results Labs CBC and Chem 7: 09/05/21 18:43 09/05/21 18:43 Labs: Laboratory Results - last 24 hr 09/05/21 09/05/21 09/05/21 18:43 18:43 18:43 MCV 93.3 MCH 32.3 MCHC 34.6 RDW 13.3 Plt Count 187 MPV 10.6 Immature Gran % (Auto) 0.5 H Neut % (Auto) 83.1 H Lymph % (Auto) 12.0 L Stevens % (Auto) 4.1 Eos % (Auto) 0.3 Baso % (Auto) 0.0 Lymph # (Auto) 0.4 L Stevens # (Auto) 0.2 Eos # (Auto) 0.0 Baso # (Auto) 0.0 Abs Immat Gran (auto) 0.02 Absolute Neuts (auto) 3.1 Absolute Nucleated RBC 0.000 Nucleated RBC % (auto) 0.0 VBG pH VBG pCO2 VBG pO2 VBG HCO3 VBG O2 Saturation VBG Base Excess Anion Gap 15 Estim Creat Clear Calc 58.2 Estimated GFR > 60 Random Glucose 117 H Lactic Acid 1.9 Calcium 8.2 L Magnesium 2.3 Total Bilirubin 1.8 H Direct Bilirubin 1.2 H AST 164 H ALT 189 H Alkaline Phosphatase 213 H Lactate Dehydrogenase 761 H Troponin I High Sens C-Reactive Protein 10.38 H Total Protein 5.7 L Albumin 3.5 COVID-19 (DAVIDA) COVID-TransferGo 09/05/21 09/05/21 09/05/21 18:43 18:43 18:55 MCV MCH MCHC RDW Plt Count MPV Immature Gran % (Auto) Neut % (Auto) Lymph % (Auto) Stevens % (Auto) Eos % (Auto) Baso % (Auto) Lymph # (Auto) Stevens # (Auto) Eos # (Auto) Baso # (Auto) Abs Immat Gran (auto) Absolute Neuts (auto) Absolute Nucleated RBC Nucleated RBC % (auto) VBG pH 7.36 VBG pCO2 43 VBG pO2 37 VBG HCO3 24 VBG O2 Saturation 49.0 VBG Base Excess -0.5 Anion Gap Estim Creat Clear Calc Estimated GFR Random Glucose Lactic Acid Calcium Magnesium Total Bilirubin Direct Bilirubin AST ALT Alkaline Phosphatase Lactate Dehydrogenase Troponin I High Sens 5.5 C-Reactive Protein Total Protein Albumin COVID-19 (DAVIDA) Positive A COVID-19 Mayi Zhaopin See Note Imaging Radiologist's Impressions: Impressions Chest CTA 09/05/21 18:17 IMPRESSION: Evaluation of segmental and subsegmental pulmonary emboli is somewhat limited due to motion and overlying airspace opacities. However, accounting for these limitations, no definite pulmonary emboli are identified. No findings to suggest increased right-sided heart pressures. Multifocal airspace opacities could be related with a multifocal pneumonia. Correlate clinically and follow-up to ensure resolution. Enlarged mediastinal lymph nodes are likely reactive. Mild splenomegaly of uncertain etiology. VTE: negative Assessment and Plan (1) Multifocal pneumonia: Status: Acute (2) COVID-19: Status: Acute (3) Acute respiratory failure with hypoxia: Status: Acute 66-year-old male past medical history of CLL who presents to the hospital with shortness of breath found to be hypoxic secondary to COVID-19 pneumonia. # acute hypoxic respiratory failure - most likely secondary to COVID-19 pneumonia, no evidence of fluid overload, no PE on CT angiogram - will start patient on dexamethasone - continue O2 supplement # COVID-19 pneumonia - patient is status post 3 doses of COVID-19 vaccination - hypoxic - will consult Infectious Disease - continue med dexamethasone and O2 as required # elevated LFTs - most likely secondary to COVID-19 - follow CMP # gout - continue allopurinol # hyperlipidemia - continue statin DVT prophylaxis: Heparin subQ Quality Stroke Does the patient have a stroke diagnosis?: No VTE Prior VTE?: No VTE Risk Level:: Medical - moderate - high VTE Device Contraindication: Treatment Not Indicated VTE Drug Contraindication: N/A - Med Ordered
[2021-09-06 00:19] LABS: B Type Natriuretic Peptide < 10 pg/mL (<100)
[2021-09-06 02:32] VITALS: PULSE 70; RESP 31; O2SAT 93; O2SAT 94
--- NOTE | 2021-09-06 05:04 | PC.NURSE ---
report from bharath DASILVA at 23:00. pt came in for dyspnea, spo2 89% room air while in triage and not recovering following covid positive dx 3 weeks ago. pt remains on 2 lpm via nc and maintains spo2 in the low 90's. checked on pt around 2 am, pt did not wake when spo2 sensor placed on finger. pt in no distress, good respiratory effort and rate. hospitalist report mentions no P.E. but pt does still have multifocal airspace opacities. pt was given dexamethasone and antibiotics while in er.
--- NOTE | 2021-09-06 05:30 | PC.NURSE ---
REPORT GIVEN TO RN ON FLOOR. PT READY FOR TRANSPORT.
[2021-09-06 05:48] VITALS: BP 112/62; PULSE 84; RESP 16; O2SAT 93
[2021-09-06] MEDS: 0.9 % Sodium Chloride Flush 3 ML SYRINGE IVFLUSH ×4 (05:49→21:52)
[2021-09-06] MEDS: Heparin Sodium,Porcine 5,000 UNIT/ML VIAL 5000 UNIT SUBCUT ×2 (05:54→16:06)
[2021-09-06 06:58] LABS: Hematocrit 33.8 % (42-52); Hemoglobin 11.5 g/dl (14.0-18.0); Imm Gran Abs Auto 0.03 X10*3/uL (0.00-0.03); Imm Gran Pct Auto 0.9 % (0.0-0.4); Lymphocytes Absolute Auto 0.3 X10*3/uL (1.2-4.9); MANUAL DIFF FLAG SCAN; Mean Corpuscular Hemoglobin 31.9 pg (27.0-33.0); Mean Corpuscular Volume 93.9 fL (80-98); Mean Platelet Volume 10.4 fL (9.4-12.4); Monocytes Absolute Auto 0.1 X10*3/uL (0.1-1.2); Monocytes Percent Auto 2.1 % (2-11); Neutrophils Absolute Auto 2.9 X10*3/uL (2.0-8.3); Platelet Count 158 X10*3/uL (160-400); Red Cell Distribution Width 13.2 % (11.0-16.0); SCAN SMEAR FLAG 1; White Blood Count 3.3 X10*3/uL (4.8-10.8)
[2021-09-06 07:21] LABS: Anion Gap 16 (12-20); Blood Urea Nitrogen 25 mg/dL (9-16); Calcium 8.2 mg/dL (8.4-10.2); Carbon Dioxide 23 mmol/L (22-29); Chloride 100 mmol/L (96-108); Creatinine Clr Calc Pharmacy 64.4; Estimated Glomerular Filt Rate > 60; Glucose Random 188 mg/dL (60-115); Potassium 4.6 mmol/L (3.3-5.1); Sodium 134 mmol/L (135-145)
[2021-09-06 07:29] LABS: SLIDE REVIEW VERIFIED
[2021-09-06 08:00] VITALS: BP 101/64; PULSE 75; RESP 24; TEMP 36.4; O2SAT 93
[2021-09-06 08:45] LABS: SARS-CoV-2 PCR Detected (Not Detect.)
[2021-09-06] MEDS: dexAMETHasone sod phosphate 4 MG/ML VIAL 6 MG IVPUSH (08:53)
[2021-09-06] MEDS: Atorvastatin Calcium 80 MG TABLET PO (08:54)
[2021-09-06] MEDS: allopurinoL 300 MG TABLET PO (08:54)
[2021-09-06 12:00] VITALS: BP 106/62; PULSE 79; RESP 20; TEMP 36.6; O2SAT 86
--- NOTE | 2021-09-06 13:56 | HO.PM.IMPN ---
Subjective Subjective Date of Service: 09/06/21 Interval History: seen and examined this morning follow up for COVID 19 mild sob, no significant cough desatrates with ambulation Review of Systems Review of Systems: Yes all other systems are reviewed and are negative Constitutional Constitutional: Denies chills and Denies fever(s) Cardiovascular Cardiovascular: Denies chest pain Respiratory Respiratory: Denies cough Gastrointestinal Gastrointestinal: Denies abdominal pain Physical Exam Vital Signs: Vital Signs: Last Vital Signs Temp 97.8 F 09/06/21 12:00 Pulse 79 09/06/21 12:00 Resp 20 09/06/21 12:00 BP 106/62 09/06/21 12:00 Pulse Ox 86 L 09/06/21 12:00 Oxygen Flow Rate 2 09/06/21 02:32 Body Mass Index 26.6 Const: Nutritional Appearance: well nourished Orientation/consciousness: patient oriented x3 HENMT: Head: Yes normocephalic and Yes atraumatic Eyes: Sclerae: sclerae normal Chest: Chest palpation & inspection: normal inspection of the chest Resp: Effort & Inspection: tachypneic Auscultation: clear to auscultation bilaterally Cardio: Rate: regular rate Rhythm: regular rhythm GI: Palpation (GI): Soft to palpation and nontender Neuro: General: patient oriented x3 Cranial nerves: Yes CN's II-XII intact bilaterally and Yes Bilaterally intact EOM present Objective Data Active Medications Acetaminophen (Acetaminophen 325 Mg Tablet) 650 mg PO Q6H PRN PRN Reason: Pain, Mild (Pain Scale 1-3) Allopurinol (Allopurinol 300 Mg Tablet) 300 mg PO DAILY [facility] Last Admin: 09/06/21 08:54 Dose: 300 mg Documented by: GUY Atorvastatin Calcium (Atorvastatin Calcium 80 Mg Tablet) 80 mg PO DAILY [facility] Last Admin: 09/06/21 08:54 Dose: 80 mg Documented by: GUY Dexamethasone Sodium Phosphate (Dexamethasone Sod Phosphate 4 Mg/Ml Vial) 6 mg IVPUSH DAILY [facility] Last Admin: 09/06/21 08:53 Dose: 6 mg Documented by: GUY Docusate Sodium (Docusate Sodium 100 Mg Capsule) 100 mg PO DAILY PRN PRN Reason: Constipation Heparin Sodium (Porcine) (Heparin Sodium,Porcine 5,000 Unit/Ml Vial) 5,000 unit SUBCUT Q12H [facility] Last Admin: 09/06/21 05:54 Dose: 5,000 unit Documented by: DARVIN Ceftriaxone Sodium 1 gm/ (Sodium Chloride) 50 mls @ 100 mls/hr IV Q24H [facility] Azithromycin 500 mg/ Sodium (Chloride) 250 mls @ 125 mls/hr IV Q24H [facility] Ondansetron HCl (Ondansetron Hcl 4 Mg/2 Ml Vial) 4 mg IVPUSH Q8H PRN PRN Reason: Nausea and Vomiting Pharmacy Consult (Consult Rx Perform Med Rec) 1 each MISCELLANE ONCE PRN PRN Reason: Consult order Sodium Chloride (0.9 % Sodium Chloride Flush 3 Ml Syringe) 3 ml IVFLUSH QSHIFT [facility] Last Admin: 09/06/21 08:54 Dose: 3 ml Documented by: GUY Labs CBC & Chem 7: 09/06/21 06:43 09/06/21 06:43 Labs: Laboratory Results - last 24 hr 09/05/21 09/05/21 09/05/21 17:09 18:43 18:43 MCV 93.3 MCH 32.3 MCHC 34.6 RDW 13.3 Plt Count 187 MPV 10.6 Immature Gran % (Auto) 0.5 H Neut % (Auto) 83.1 H Lymph % (Auto) 12.0 L Cassia % (Auto) 4.1 Eos % (Auto) 0.3 Baso % (Auto) 0.0 Lymph # (Auto) 0.4 L Cassia # (Auto) 0.2 Eos # (Auto) 0.0 Baso # (Auto) 0.0 Abs Immat Gran (auto) 0.02 Absolute Neuts (auto) 3.1 Absolute Nucleated RBC 0.000 Nucleated RBC % (auto) 0.0 Smear Tech's Comments VBG pH VBG pCO2 VBG pO2 VBG HCO3 VBG O2 Saturation VBG Base Excess Anion Gap 15 Estim Creat Clear Calc 58.2 Estimated GFR > 60 Random Glucose 117 H Lactic Acid Calcium 8.2 L Magnesium 2.3 Total Bilirubin 1.8 H Direct Bilirubin 1.2 H AST 164 H ALT 189 H Alkaline Phosphatase 213 H Lactate Dehydrogenase 761 H Troponin I High Sens C-Reactive Protein 10.38 H B-Natriuretic Peptide Total Protein 5.7 L Albumin 3.5 Respiratory Panel Dey See Note Adenovirus (Rapid PCR) Not Detected B.pert (TEM-PCR) Not Detected B.parapertussis DNA PCR Not Detected C. pneumoniae DNA (PCR) Not Detected Coronavirus OC43 (PCR) Not Detected Coronavirus HKU1 (PCR) Not Detected Coronavirus 229E (PCR) Not Detected COVID-19 (DAVIDA) COVID-19 Clin Com Coronavirus NL63 (PCR) Not Detected Human Metapneumovir PCR Not Detected Influenza A (RT-PCR) Not Detected Influenza B (RT-PCR) Not Detected M. pneumoniae (PCR) Not Detected Parainfluenza 1 (PCR) Not Detected Parainfluenza 2 (PCR) Not Detected Parainfluenza 3 (PCR) Not Detected Parainfluenza 4 (PCR) Not Detected RSV (PCR) Not Detected Entero/Rhino (PCR) Not Detected SARS-CoV-2 RNA (RT-PCR) Detected A 09/05/21 09/05/21 09/05/21 18:43 18:43 18:43 MCV MCH MCHC RDW Plt Count MPV Immature Gran % (Auto) Neut % (Auto) Lymph % (Auto) Cassia % (Auto) Eos % (Auto) Baso % (Auto) Lymph # (Auto) Cassia # (Auto) Eos # (Auto) Baso # (Auto) Abs Immat Gran (auto) Absolute Neuts (auto) Absolute Nucleated RBC Nucleated RBC % (auto) Smear Tech's Comments VBG pH VBG pCO2 VBG pO2 VBG HCO3 VBG O2 Saturation VBG Base Excess Anion Gap Estim Creat Clear Calc Estimated GFR Random Glucose Lactic Acid 1.9 Calcium Magnesium Total Bilirubin Direct Bilirubin AST ALT Alkaline Phosphatase Lactate Dehydrogenase Troponin I High Sens 5.5 C-Reactive Protein B-Natriuretic Peptide < 10 Total Protein Albumin Respiratory Panel Dey Adenovirus (Rapid PCR) B.pert (TEM-PCR) B.parapertussis DNA PCR C. pneumoniae DNA (PCR) Coronavirus OC43 (PCR) Coronavirus HKU1 (PCR) Coronavirus 229E (PCR) COVID-19 (DAVIDA) Positive A COVID-19 Clin Com See Note Coronavirus NL63 (PCR) Human Metapneumovir PCR Influenza A (RT-PCR) Influenza B (RT-PCR) M. pneumoniae (PCR) Parainfluenza 1 (PCR) Parainfluenza 2 (PCR) Parainfluenza 3 (PCR) Parainfluenza 4 (PCR) RSV (PCR) Entero/Rhino (PCR) SARS-CoV-2 RNA (RT-PCR) 09/05/21 09/06/21 09/06/21 18:55 06:43 06:43 MCV 93.9 MCH 31.9 MCHC 34.0 RDW 13.2 Plt Count 158 L MPV 10.4 Immature Gran % (Auto) 0.9 H Neut % (Auto) 89.0 H Lymph % (Auto) 8.0 L Cassia % (Auto) 2.1 Eos % (Auto) 0.0 Baso % (Auto) 0.0 Lymph # (Auto) 0.3 L Cassia # (Auto) 0.1 Eos # (Auto) 0.0 Baso # (Auto) 0.0 Abs Immat Gran (auto) 0.03 Absolute Neuts (auto) 2.9 Absolute Nucleated RBC 0.000 Nucleated RBC % (auto) 0.0 Smear Tech's Comments VERIFIED VBG pH 7.36 VBG pCO2 43 VBG pO2 37 VBG HCO3 24 VBG O2 Saturation 49.0 VBG Base Excess -0.5 Anion Gap 16 Estim Creat Clear Calc 64.4 Estimated GFR > 60 Random Glucose 188 H D Lactic Acid Calcium 8.2 L Magnesium Total Bilirubin Direct Bilirubin AST ALT Alkaline Phosphatase Lactate Dehydrogenase Troponin I High Sens C-Reactive Protein B-Natriuretic Peptide Total Protein Albumin Respiratory Panel Dey Adenovirus (Rapid PCR) B.pert (TEM-PCR) B.parapertussis DNA PCR C. pneumoniae DNA (PCR) Coronavirus OC43 (PCR) Coronavirus HKU1 (PCR) Coronavirus 229E (PCR) COVID-19 (DAVIDA) COVID-19 Clin Com Coronavirus NL63 (PCR) Human Metapneumovir PCR Influenza A (RT-PCR) Influenza B (RT-PCR) M. pneumoniae (PCR) Parainfluenza 1 (PCR) Parainfluenza 2 (PCR) Parainfluenza 3 (PCR) Parainfluenza 4 (PCR) RSV (PCR) Entero/Rhino (PCR) SARS-CoV-2 RNA (RT-PCR) Assessment and Plan (1) Acute respiratory failure with hypoxia: Status: Acute (2) Multifocal pneumonia: Status: Acute (3) COVID-19: Status: Acute (4) Abnormal LFTs: Status: Acute Assessment and Plan: 66-year-old male past medical history of CLL who presents to the hospital with shortness of breath found to be hypoxic secondary to COVID-19 pneumonia. acute hypoxic respiratory failure -r/t to underlying pneumonia. no evidence of fluid overload, no PE on CT angiogram COVID-19 pneumonia Patient states he initially tested positive for COVID 3 weeks ago Both DAVIDA and PCR test for covid are + CRP 10.38 Fully vaccinated + has received booster -continue supplemental oxygen as needed -continue IV ceftriaxone/azithromycin for any bacterial component -continue IV dexamethasone -will consult Infectious Disease -check procalcitonin elevated LFTs most likely secondary to COVID-19 no abdominal pain -trend LFTs gout - continue allopurinol hyperlipidemia - continue statin DVT prophylaxis: Heparin subQ Attending-Dr. Lovell Quality Stroke Does the patient have a stroke diagnosis?: No VTE Prior VTE?: No VTE Risk Level:: Medical - moderate - high VTE Device Contraindication: Treatment Not Indicated VTE Drug Contraindication: N/A - Med Ordered
[2021-09-06 14:24] LABS: Alanine Aminotransferase 158 U/L (0-40); Albumin Level 3.3 g/dL (3.5-5.0); Alkaline Phosphatase 202 U/L (39-117); Aspartate Amino Transferase 120 U/L (5-37); Bilirubin Direct 0.9 mg/dL (0.0-0.5); Bilirubin Total 1.6 mg/dL (0.0-1.0); Total Protein 5.4 g/dL (6.5-8.0)
[2021-09-06 15:01] VITALS: BP 113/69; PULSE 82; RESP 20; TEMP 36.6; O2SAT 92
[2021-09-06 19:09] VITALS: BP 114/61; PULSE 98; RESP 20; TEMP 36.1; O2SAT 90
[2021-09-06] MEDS: cefTRIAXone sodium 1 GM in 0.9 % Sodium Chloride 50 ML IV (21:53)
[2021-09-06] MEDS: Azithromycin 500 MG in 0.9 % Sodium Chloride 250 ML 125 MG IV (22:37)
--- NOTE | 2021-09-06 22:50 | P.CNID_ITS ---
History of Present Illness Data of Consult Service Date: 09/06/21 Requesting physician: Sharon Epperson Primary Care Provider: Mabel Alvarez NP HPI Reason for consult: shortness of breath He presents to hospital with shortness of breath as well as dry cough. He reports having COVID six weeks ago. He reports COVID vaccine Moderna 12/25,01/30 and 07/17/ [facility] [place] Review of Systems Review of Systems: Yes all other systems are reviewed and are negative [facility] Past Medical History Medical History CLL (chronic lymphocytic leukemia) COVID-19 Gout Hyperlipidemia Family History Family history: reviewed and not pertinent Surgical History Surgical History No pertinent past surgical history Social History Social History Household Members: Spouse and Children Household Members Other:: & daughter Housing: House Do you presently have visiting nurse or other home services: No Patient Tobacco Use Status: Never used Tobacco Meds Allergies Allergy/AdvReac Type Severity Reaction Status Date / Time oxacillin Allergy Unknown Unknown Verified 09/05/21 18:16 Active Medications: Current Medications Acetaminophen (Acetaminophen 325 Mg Tablet) 650 mg PO Q6H PRN PRN Reason: Pain, Mild (Pain Scale 1-3) Allopurinol (Allopurinol 300 Mg Tablet) 300 mg PO DAILY [facility] Last Admin: 09/06/21 08:54 Dose: 300 mg Documented by: Dexamethasone Sodium Phosphate (Dexamethasone Sod Phosphate 4 Mg/Ml Vial) 6 mg IVPUSH DAILY [facility] Last Admin: 09/06/21 08:53 Dose: 6 mg Documented by: Docusate Sodium (Docusate Sodium 100 Mg Capsule) 100 mg PO DAILY PRN PRN Reason: Constipation Heparin Sodium (Porcine) (Heparin Sodium,Porcine 5,000 Unit/Ml Vial) 5,000 unit SUBCUT Q12H [facility] Last Admin: 09/06/21 16:06 Dose: 5,000 unit Documented by: Ceftriaxone Sodium 1 gm/ (Sodium Chloride) 50 mls @ 100 mls/hr IV Q24H [facility] Last Infusion: 09/06/21 22:37 Dose: Infused Documented by: Azithromycin 500 mg/ Sodium (Chloride) 250 mls @ 125 mls/hr IV Q24H [facility] Last Admin: 09/06/21 22:37 Dose: 125 mls/hr Documented by: Ondansetron HCl (Ondansetron Hcl 4 Mg/2 Ml Vial) 4 mg IVPUSH Q8H PRN PRN Reason: Nausea and Vomiting Pharmacy Consult (Consult Rx Perform Med Rec) 1 each MISCELLANE ONCE PRN PRN Reason: Consult order Sodium Chloride (0.9 % Sodium Chloride Flush 3 Ml Syringe) 3 ml IVFLUSH QSHIFT [facility] Last Admin: 09/06/21 21:52 Dose: 3 ml Documented by: Home Medications Medication Instructions Recorded Confirmed Last Taken Type allopurinol 300 mg tablet 1 tab PO DAILY 09/05/21 09/05/21 09/04/21 History rosuvastatin 40 mg tablet 1 tab PO DAILY 09/05/21 09/05/21 09/04/21 History Physical Exam Vital Signs: Vital Signs: Last Vital Signs Temp 96.9 F 09/06/21 19:09 Pulse 98 09/06/21 19:09 Resp 20 09/06/21 19:09 BP 114/61 09/06/21 19:09 Pulse Ox 90 L 09/06/21 19:09 Oxygen Flow Rate 2 09/06/21 02:32 Body Mass Index 26.6 Const: General: cooperative Orientation/consciousness: patient oriented x3 HENMT: Head: Yes normal to inspection Mouth: Normal oral and palatal mucosa present Resp: Other: 2 liters,comfortable Effort & Inspection: able to speak in complete sentences Cardio: Rate: regular rate Rhythm: regular rhythm GI: Palpation (GI): Soft to palpation and nontender Skin: General skin exam: no rashes or lesions noted Neuro: General: patient oriented x3 Results Labs CBC & Chem 7: 09/06/21 06:43 09/06/21 06:43 Labs: Short CBC 09/06/21 Range/Units 06:43 WBC 3.3 L (4.8-10.8) X10*3/uL Hgb 11.5 L (14.0-18.0) g/dl Hct 33.8 L (42-52) % Plt Count 158 L (160-400) X10*3/uL BMP 09/06/21 06:43 Sodium 134 L Potassium 4.6 Chloride 100 Carbon Dioxide 23 BUN 25 H Creatinine 1.04 Calcium 8.2 L Liver Function 09/06/21 Range/Units 06:43 Total Bilirubin 1.6 H (0.0-1.0) mg/dL Direct Bilirubin 0.9 H (0.0-0.5) mg/dL AST 120 H (5-37) U/L ALT 158 H (0-40) U/L Alkaline Phosphatase 202 H (39-117) U/L Albumin 3.3 L (3.5-5.0) g/dL Microbiology Microbiology Results: Microbiology 09/05/21 18:43 Blood - Venous Blood Culture - Preliminary No growth after 24 hours. 09/05/21 18:43 Blood - Venous Blood Culture - Preliminary No growth after 24 hours. Assessment and Plan (1) Acute respiratory failure with hypoxia: Status: Acute He has likely atypical or typical pneumonia such as Legionella,strep pneum onia COVID test shows persistent presence as may happen after active COVID is done He shouldnt have active COVID if had positive test 6 weeks ago,not supposed to retest 90 d (2) Multifocal pneumonia: Status: Acute No active COVID treatment at this time if true that had COVID six weeks at this time. Likely COVID vaccine didnt work as low cell mediated immunity in CLL even though three vaccines. Would give Ceftriaxone and Zmax as doing then po Ceftin and Zmax finish 7-10 days
[2021-09-07] VITALS (10 sets, daily range): BP systolic 101–131; BP diastolic 47–66; PULSE 91–111; RESP 16–20; TEMP 36.9–39.8; O2SAT 84–95
[2021-09-07] MEDS: Heparin Sodium,Porcine 5,000 UNIT/ML VIAL 5000 UNIT SUBCUT ×2 (00:44→15:10)
[2021-09-07] MEDS: Acetaminophen 325 MG TABLET 650 MG PO (01:19)
[2021-09-07 06:53] LABS: Alanine Aminotransferase 363 U/L (0-40); Albumin Level 2.9 g/dL (3.5-5.0); Alkaline Phosphatase 283 U/L (39-117); Aspartate Amino Transferase 386 U/L (5-37); Bilirubin Total 2.6 mg/dL (0.0-1.0); Total Protein 4.8 g/dL (6.5-8.0)
[2021-09-07] MEDS: 0.9 % Sodium Chloride Flush 3 ML SYRINGE IVFLUSH ×2 (09:51→20:17)
[2021-09-07] MEDS: allopurinoL 300 MG TABLET PO (09:51)
--- NOTE | 2021-09-07 12:32 | P.PNIM_ITS ---
Subjective Subjective Date of Service: 09/07/21 Interval History: seen and examined this morning follow up for pneumonia fever 103 overnight, 100.6 this am mild sob, dry cough oxygen requirement increasing Review of Systems Review of Systems: Yes all other systems are reviewed and are negative Constitutional Constitutional: Denies chills and Reports fever(s) Cardiovascular Cardiovascular: Denies chest pain and Reports dyspnea Respiratory Respiratory: Reports cough and Reports dyspnea Gastrointestinal Gastrointestinal: Denies abdominal pain Physical Exam Vital Signs: Vital Signs: Last Vital Signs Temp 100.5 F H 09/07/21 11:26 Pulse 102 H 09/07/21 11:26 Resp 20 09/07/21 11:26 BP 116/64 09/07/21 11:26 Pulse Ox 89 L 09/07/21 11:26 Oxygen Flow Rate 2 09/06/21 02:32 Body Mass Index 26.6 Const: Nutritional Appearance: well nourished Orientation/consciousness: patient oriented x3 HENMT: Head: Yes normocephalic and Yes atraumatic Eyes: Sclerae: sclerae normal Chest: Chest palpation & inspection: normal inspection of the chest Resp: Other: course breath sounds Effort & Inspection: tachypneic Cardio: Rate: regular rate Rhythm: regular rhythm GI: Palpation (GI): Soft to palpation and nontender Neuro: General: patient oriented x3 Cranial nerves: Yes CN's II-XII intact bilaterally and Yes Bilaterally intact EOM present Objective Data Active Medications Acetaminophen (Acetaminophen 325 Mg Tablet) 650 mg PO Q6H PRN PRN Reason: Pain, Mild (Pain Scale 1-3) Last Admin: 09/07/21 01:19 Dose: 650 mg Documented by: MAC Allopurinol (Allopurinol 300 Mg Tablet) 300 mg PO DAILY [facility] Last Admin: 09/07/21 09:51 Dose: 300 mg Documented by: JI Docusate Sodium (Docusate Sodium 100 Mg Capsule) 100 mg PO DAILY PRN PRN Reason: Constipation Heparin Sodium (Porcine) (Heparin Sodium,Porcine 5,000 Unit/Ml Vial) 5,000 unit SUBCUT Q12H [facility] Last Admin: 09/07/21 00:44 Dose: 5,000 unit Documented by: MAC Levofloxacin (Levaquin) 500 mg in 100 mls @ 100 mls/hr IV Q24H [facility] Doxycycline Hyclate 100 mg/ (Sodium Chloride) 250 mls @ 166.67 mls/hr IV Q12H [facility] Ondansetron HCl (Ondansetron Hcl 4 Mg/2 Ml Vial) 4 mg IVPUSH Q8H PRN PRN Reason: Nausea and Vomiting Pharmacy Consult (Consult Rx Perform Med Rec) 1 each MISCELLANE ONCE PRN PRN Reason: Consult order Sodium Chloride (0.9 % Sodium Chloride Flush 3 Ml Syringe) 3 ml IVFLUSH QSHIFT [facility] Last Admin: 09/07/21 09:51 Dose: 3 ml Documented by: JI Labs CBC & Chem 7: 09/06/21 06:43 09/06/21 06:43 Labs: Laboratory Results - last 24 hr 09/06/21 09/06/21 09/07/21 06:43 06:43 06:01 Total Bilirubin 1.6 H 2.6 H Direct Bilirubin 0.9 H 2.0 H AST 120 H 386 H ALT 158 H 363 H Alkaline Phosphatase 202 H 283 H D Total Protein 5.4 L 4.8 L Albumin 3.3 L 2.9 L Procalcitonin 0.20 Microbiology Microbiology Results: Microbiology 09/05/21 18:43 Blood Culture - Preliminary Blood - Venous No growth after 24 hours. 09/05/21 18:43 Blood Culture - Preliminary Blood - Venous No growth after 24 hours. Assessment and Plan (1) Acute respiratory failure with hypoxia: Status: Acute (2) Multifocal pneumonia: Status: Acute (3) Abnormal LFTs: Status: Acute Assessment and Plan: 66-year-old male past medical history of CLL who presents to the hospital with shortness of breath found to be hypoxic secondary to COVID-19 pneumonia. acute hypoxic respiratory failure -r/t to underlying pneumonia. no evidence of fluid overload, no PE on CT angiogram pneumonia Patient states he initially tested positive for COVID 3 weeks ago (other notes state 6 weeks) Both DAVIDA and PCR test for covid are positive; remainder of RPP negative. Procalcitonin 0.20 Fully vaccinated (moderna) + has received booster Seen by ID, does not feel that this represents active covid at this time, treat for possible bacterial pna -continue supplemental oxygen as needed -dexamethasone d/c -initially started on ceftriaxone, azithromycin, but given elevated LFTs, will d/c ceftriaxone and change to Levaquin and Doxycycline (hives with oxacillin, will avoid zosyn) elevated LFTs. trending up ? r/t possible viral illness vs medication related (ceftraixone), vs primary biliary although no abdominal pain -d/c ceftriaxone -abdominal US -d/c statin -trend LFTs gout - continue allopurinol hyperlipidemia - continue statin DVT prophylaxis: Heparin subQ Attending-Dr. Plaza Quality Stroke Does the patient have a stroke diagnosis?: No VTE Prior VTE?: No VTE Risk Level:: Medical - moderate - high VTE Device Contraindication: Treatment Not Indicated VTE Drug Contraindication: N/A - Med Ordered
[2021-09-07] MEDS: levoFLOXacin/D5W 500 MG/100 ML PIGGYBACK 100 MG IV (13:21)
--- NOTE | 2021-09-07 13:26 | MHC.CM.PN ---
Lives at home with and adult special needs daughter. Fully independent prior to [facility] admission. No prior services or equipment, still drives. Plan is home w/ via at D/C readiness. CM to follow.
[2021-09-07] MEDS: Doxycycline Hyclate 100 MG in 0.9 % Sodium Chloride 250 ML 166.67 MG IV (15:10)
[2021-09-08] MEDS: Doxycycline Hyclate 100 MG in 0.9 % Sodium Chloride 250 ML 166.67 MG IV ×2 (02:37→14:50)
[2021-09-08] MEDS: Heparin Sodium,Porcine 5,000 UNIT/ML VIAL 5000 UNIT SUBCUT ×2 (02:37→14:50)
[2021-09-08 03:11] VITALS: BP 113/53; PULSE 99; RESP 17; TEMP 37.6; O2SAT 95
[2021-09-08 06:43] LABS: Hematocrit 31.8 % (42-52); Hemoglobin 10.7 g/dl (14.0-18.0); Mean Corpuscular HGB Conc 33.6 g/dl (31.0-36.0); Mean Corpuscular Hemoglobin 31.2 pg (27.0-33.0); Mean Corpuscular Volume 92.7 fL (80-98); Mean Platelet Volume 10.9 fL (9.4-12.4); Platelet Count 152 X10*3/uL (160-400); Red Blood Count 3.43 X10*6/uL (4.60-5.80); Red Cell Distribution Width 13.2 % (11.0-16.0); White Blood Count 3.1 X10*3/uL (4.8-10.8)
[2021-09-08 07:17] LABS: Alanine Aminotransferase 224 U/L (0-40); Albumin Level 2.9 g/dL (3.5-5.0); Alkaline Phosphatase 224 U/L (39-117); Anion Gap 12 (12-20); Aspartate Amino Transferase 165 U/L (5-37); Bilirubin Direct 0.9 mg/dL (0.0-0.5); Bilirubin Total 1.5 mg/dL (0.0-1.0); Blood Urea Nitrogen 22 mg/dL (9-16); Calcium 7.9 mg/dL (8.4-10.2); Carbon Dioxide 25 mmol/L (22-29); Chloride 98 mmol/L (96-108); Creatinine Clr Calc Pharmacy 66.3; Estimated Glomerular Filt Rate > 60; Glucose Random 101 mg/dL (60-115); Potassium 4.8 mmol/L (3.3-5.1); Sodium 130 mmol/L (135-145); Total Protein 4.7 g/dL (6.5-8.0)
[2021-09-08 07:29] VITALS: BP 117/61; PULSE 95; RESP 20; TEMP 37.2; O2SAT 94
[2021-09-08] MEDS: 0.9 % Sodium Chloride Flush 3 ML SYRINGE IVFLUSH ×2 (08:14→14:51)
[2021-09-08] MEDS: allopurinoL 300 MG TABLET PO (08:14)
[2021-09-08 11:27] VITALS: BP 106/68; PULSE 94; RESP 20; TEMP 37.1; O2SAT 93
--- NOTE | 2021-09-08 12:11 | PM.IMPN ---
Progress Note: A&P (1) Acute respiratory failure with hypoxia: Status: Acute (2) Multifocal pneumonia: Status: Acute (3) Abnormal LFTs: Status: Acute (4) Hyponatremia: Status: Acute (5) Pancytopenia: Status: Acute Assessment and Plan: 66-year-old male past medical history of CLL who presents to the hospital with shortness of breath found to be hypoxic secondary to COVID-19 pneumonia. Patient states he initially tested positive for COVID 3 weeks ago (other notes state 6 weeks). Fully vaccinated (moderna) + has received booster Covid 19 Seen by ID, does not feel that this represents active covid at this time and more likely bacterial pna -Both DAVIDA and PCR test for covid are positive; remainder of RPP negative. Procalcitonin 0.20 -continue supplemental oxygen as needed -dexamethasone stopped Acute hypoxic respiratory failure, r/t to underlying pneumonia. No evidence of fluid overload, no PE on CT angiogram Levaquin and Doxycycline (hives with oxacillin, will avoid zosyn) Hyponatremia Mild check urine studies trend elevated LFTs. trending up ? r/t possible viral illness vs medication related (ceftraixone), vs primary biliary although no abdominal pain -abdominal US no acute abnormality -d/c statin -trend LFTs Pancytopenia secondary to CLL gout - continue allopurinol hyperlipidemia - continue statin DVT prophylaxis:? Heparin subQ Attending-Dr.? Plaza Subjective Subjective Date of Service: 09/08/21 Interval History: Follow up Hypoxia Breathing is fine, no cough or sob Denies chest pain, nausea, vomiting, diarrhea All other systems reviewed are negative Physical Exam Vital Signs: Vital Signs: Last Vital Signs Temp 98.8 F 09/08/21 11:27 Pulse 94 09/08/21 11:27 Resp 20 09/08/21 11:27 BP 106/68 09/08/21 11:27 Pulse Ox 93 09/08/21 11:27 Oxygen Flow Rate 2 09/06/21 02:32 Body Mass Index 26.6 Appearing in no acute distress lungs normal expansion heart regular rate rhythm, clear S1, S2 positive bowel sounds, abdomen is soft, nontender neuro patient is alert x3, no focal deficits Objective Data Current Medications Acetaminophen (Acetaminophen 325 Mg Tablet) 650 mg PO Q6H PRN PRN Reason: Pain, Mild (Pain Scale 1-3) Last Admin: 09/07/21 01:19 Dose: 650 mg Documented by: Allopurinol (Allopurinol 300 Mg Tablet) 300 mg PO DAILY [facility] Last Admin: 09/08/21 08:14 Dose: 300 mg Documented by: Docusate Sodium (Docusate Sodium 100 Mg Capsule) 100 mg PO DAILY PRN PRN Reason: Constipation Heparin Sodium (Porcine) (Heparin Sodium,Porcine 5,000 Unit/Ml Vial) 5,000 unit SUBCUT Q12H [facility] Last Admin: 09/08/21 02:37 Dose: 5,000 unit Documented by: Levofloxacin (Levaquin) 500 mg in 100 mls @ 100 mls/hr IV Q24H [facility] Last Infusion: 09/07/21 14:23 Dose: Infused Documented by: Doxycycline Hyclate 100 mg/ (Sodium Chloride) 250 mls @ 166.67 mls/hr IV Q12H [facility] Last Infusion: 09/08/21 04:08 Dose: Infused Documented by: Ondansetron HCl (Ondansetron Hcl 4 Mg/2 Ml Vial) 4 mg IVPUSH Q8H PRN PRN Reason: Nausea and Vomiting Pharmacy Consult (Consult Rx Perform Med Rec) 1 each MISCELLANE ONCE PRN PRN Reason: Consult order Sodium Chloride (0.9 % Sodium Chloride Flush 3 Ml Syringe) 3 ml IVFLUSH QSHIFT [facility] Last Admin: 09/08/21 08:14 Dose: 3 ml Documented by: Labs CBC & Chem 7: 09/08/21 05:54 09/08/21 05:54 Labs: Laboratory Results - last 24 hr 09/07/21 09/08/21 09/08/21 12:17 05:54 05:54 MCV 92.7 MCH 31.2 MCHC 33.6 RDW 13.2 Plt Count 152 L MPV 10.9 Absolute Nucleated RBC 0.000 Nucleated RBC % (auto) 0.0 Anion Gap 12 Estim Creat Clear Calc 66.3 Estimated GFR > 60 Random Glucose 101 D Calcium 7.9 L Total Bilirubin 1.5 H Direct Bilirubin 0.9 H AST 165 H ALT 224 H Alkaline Phosphatase 224 H D Total Protein 4.7 L Albumin 2.9 L Ur Strep pneumoniae Ag Cancelled Microbiology Microbiology Results: Microbiology 09/05/21 18:43 Blood - Venous Blood Culture - Preliminary No growth after 48 hours. 09/05/21 18:43 Blood - Venous Blood Culture - Preliminary No growth after 48 hours. Quality Stroke Does the patient have a stroke diagnosis?: No VTE Prior VTE?: No VTE Risk Level:: Medical - moderate - high VTE Device Contraindication: Treatment Not Indicated VTE Drug Contraindication: N/A - Med Ordered
[2021-09-08] MEDS: levoFLOXacin/D5W 500 MG/100 ML PIGGYBACK 100 MG IV (12:41)
[2021-09-08 13:17] LABS: Potassium Urine Random 75.5 mmol/L
[2021-09-08 13:18] LABS: Osmolality Urine 874 mosm/kg (373-1093)
[2021-09-08 15:11] VITALS: BP 111/59; PULSE 98; RESP 20; TEMP 37.3; O2SAT 92
[2021-09-08 19:13] VITALS: BP 109/57; PULSE 90; RESP 20; TEMP 36.7; O2SAT 95
[2021-09-08 23:51] VITALS: BP 114/66; PULSE 95; RESP 20; TEMP 36.6; O2SAT 97
[2021-09-09] VITALS (7 sets, daily range): BP systolic 112–123; BP diastolic 59–69; PULSE 91–104; RESP 20–30; TEMP 36.4–37.3; O2SAT 90–96
[2021-09-09] MEDS: Heparin Sodium,Porcine 5,000 UNIT/ML VIAL 5000 UNIT SUBCUT ×2 (02:32→14:56)
[2021-09-09] MEDS: Doxycycline Hyclate 100 MG in 0.9 % Sodium Chloride 250 ML 166.67 MG IV ×2 (02:32→14:56)
[2021-09-09] MEDS: 0.9 % Sodium Chloride Flush 3 ML SYRINGE IVFLUSH ×3 (02:32→15:07)
[2021-09-09 07:06] LABS: Alanine Aminotransferase 157 U/L (0-40); Albumin Level 2.9 g/dL (3.5-5.0); Alkaline Phosphatase 198 U/L (39-117); Anion Gap 11 (12-20); Aspartate Amino Transferase 108 U/L (5-37); Bilirubin Direct 0.9 mg/dL (0.0-0.5); Bilirubin Total 1.2 mg/dL (0.0-1.0); Blood Urea Nitrogen 20 mg/dL (9-16); Calcium 7.8 mg/dL (8.4-10.2); Carbon Dioxide 25 mmol/L (22-29); Chloride 99 mmol/L (96-108); Estimated Glomerular Filt Rate > 60; Glucose Random 105 mg/dL (60-115); Potassium 4.6 mmol/L (3.3-5.1); Sodium 130 mmol/L (135-145); Total Protein 4.7 g/dL (6.5-8.0)
[2021-09-09] MEDS: allopurinoL 300 MG TABLET PO (07:56)
[2021-09-09] MEDS: 0.9 % Sodium Chloride 500 ML 100 ML IVCONT (08:14)
[2021-09-09 08:53] LABS: ~HepC Num1 0.04 S/CO (0.00-0.79); ~Hepatitis C Antibody Nonreactive (Nonreactive)
[2021-09-09 08:57] LABS: HBS Num1 3.31 mIU/mL (0-7.99); HBc Num1 0.03 S/CO (0.00-0.79); HBsAGNum1 0.19 S/CO (0.00-0.99); Hepatitis B Core Antibody Nonreactive (Nonreactive); Hepatitis B Surface Antigen Negative (Negative); ~Hepatitis B Surface Antibody NONREACTIVE (Nonreactive)
--- NOTE | 2021-09-09 12:55 | PM.IMPN ---
Progress Note: A&P (1) Acute respiratory failure with hypoxia: Status: Acute (2) Multifocal pneumonia: Status: Acute (3) COVID-19: Status: Acute (4) Pancytopenia: Status: Acute (5) Hyponatremia: Status: Acute Assessment and Plan: 66-year-old male past medical history of CLL who presents to the hospital with shortness of breath found to be hypoxic secondary to COVID-19 pneumonia. Patient states he initially tested positive for COVID 3 weeks ago (other notes state 6 weeks). Fully vaccinated (moderna) + has received booster Covid 19 Seen by ID, does not feel that this represents active covid at this time and more likely bacterial pna -Both DAVIDA and PCR test for covid are positive; remainder of RPP negative. Procalcitonin 0.20 -continue supplemental oxygen as needed -dexamethasone stopped Acute hypoxic respiratory failure, r/t to underlying pneumonia. No evidence of fluid overload, no PE on CT angiogram Levaquin and Doxycycline (hives with oxacillin, will avoid zosyn) Titrate oxygen down Hyponatremia Mild check urine studies trend elevated LFTs. trending up ? r/t possible viral illness vs medication related (ceftriaxone), vs primary biliary although no abdominal pain -abdominal US no acute abnormality -d/c statin -trend LFTs Pancytopenia secondary to CLL gout - continue allopurinol hyperlipidemia - continue statin DVT prophylaxis:? Heparin subQ Attending- Subjective Subjective Date of Service: 09/09/21 Review of Systems Follow up with Multifocal pneumonia Feels fine today no resp distress Physical Exam Vital Signs: Vital Signs: Last Vital Signs Temp 98.1 F 09/09/21 11:12 Pulse 94 09/09/21 11:12 Resp 23 H 09/09/21 11:12 BP 122/66 09/09/21 11:12 Pulse Ox 92 09/09/21 12:22 Oxygen Flow Rate 2 09/06/21 02:32 Body Mass Index 26.6 Appearing in no acute distress lungs normal expansion heart regular rate rhythm, clear S1, S2 positive bowel sounds, abdomen is soft, nontender neuro patient is alert x3, no focal deficits Objective Data Current Medications Acetaminophen (Acetaminophen 325 Mg Tablet) 650 mg PO Q6H PRN PRN Reason: Pain, Mild (Pain Scale 1-3) Last Admin: 09/07/21 01:19 Dose: 650 mg Documented by: Allopurinol (Allopurinol 300 Mg Tablet) 300 mg PO DAILY [facility] Last Admin: 09/09/21 07:56 Dose: 300 mg Documented by: Docusate Sodium (Docusate Sodium 100 Mg Capsule) 100 mg PO DAILY PRN PRN Reason: Constipation Heparin Sodium (Porcine) (Heparin Sodium,Porcine 5,000 Unit/Ml Vial) 5,000 unit SUBCUT Q12H [facility] Last Admin: 09/09/21 02:32 Dose: 5,000 unit Documented by: Levofloxacin (Levaquin) 500 mg in 100 mls @ 100 mls/hr IV Q24H [facility] Last Infusion: 09/08/21 13:44 Dose: Infused Documented by: Doxycycline Hyclate 100 mg/ (Sodium Chloride) 250 mls @ 166.67 mls/hr IV Q12H [facility] Last Infusion: 09/09/21 04:09 Dose: Infused Documented by: Sodium Chloride (Ns) 500 mls @ 100 mls/hr IVCONT .Q5H ONE Stop: 09/09/21 13:14 Last Admin: 09/09/21 08:14 Dose: 100 mls/hr Documented by: Ondansetron HCl (Ondansetron Hcl 4 Mg/2 Ml Vial) 4 mg IVPUSH Q8H PRN PRN Reason: Nausea and Vomiting Pharmacy Consult (Consult Rx Perform Med Rec) 1 each MISCELLANE ONCE PRN PRN Reason: Consult order Sodium Chloride (0.9 % Sodium Chloride Flush 3 Ml Syringe) 3 ml IVFLUSH QSHIFT [facility] Last Admin: 09/09/21 08:01 Dose: 3 ml Documented by: Labs CBC & Chem 7: 09/08/21 05:54 09/09/21 06:02 Labs: Laboratory Results - last 24 hr 09/07/21 09/08/21 09/08/21 06:01 13:01 13:01 Anion Gap Estim Creat Clear Calc Estimated GFR Random Glucose Calcium Total Bilirubin Direct Bilirubin AST ALT Alkaline Phosphatase Total Protein Albumin Urine Osmolality 874 Ur Random Sodium 49.0 Ur Random Potassium 75.5 Ur Random Chloride 57.0 Hep Bs Antigen Negative Hep Bs Antibody NONREACTIVE Hep B Core Total Ab Nonreactive Hepatitis C Ab (EIA) Nonreactive 09/09/21 06:02 Anion Gap 11 L Estim Creat Clear Calc 67.0 Estimated GFR > 60 Random Glucose 105 Calcium 7.8 L Total Bilirubin 1.2 H Direct Bilirubin 0.9 H AST 108 H ALT 157 H Alkaline Phosphatase 198 H Total Protein 4.7 L Albumin 2.9 L Urine Osmolality Ur Random Sodium Ur Random Potassium Ur Random Chloride Hep Bs Antigen Hep Bs Antibody Hep B Core Total Ab Hepatitis C Ab (EIA) Microbiology Microbiology Results: Microbiology 09/05/21 18:43 Blood - Venous Blood Culture - Preliminary No growth after 48 hours. 09/05/21 18:43 Blood - Venous Blood Culture - Preliminary No growth after 48 hours. Quality Stroke Does the patient have a stroke diagnosis?: No VTE Prior VTE?: No VTE Risk Level:: Medical - moderate - high VTE Device Contraindication: Treatment Not Indicated VTE Drug Contraindication: N/A - Med Ordered
[2021-09-09] MEDS: levoFLOXacin/D5W 500 MG/100 ML PIGGYBACK 100 MG IV (13:09)
[2021-09-09 16:48] LABS: Anion Gap 14 (12-20); Blood Urea Nitrogen 18 mg/dL (9-16); Calcium 7.5 mg/dL (8.4-10.2); Carbon Dioxide 20 mmol/L (22-29); Chloride 101 mmol/L (96-108); Creatinine Clr Calc Pharmacy 78.8; Estimated Glomerular Filt Rate > 60; Glucose Random 108 mg/dL (60-115); Potassium 4.6 mmol/L (3.3-5.1); Sodium 130 mmol/L (135-145)
[2021-09-10] MEDS: Doxycycline Hyclate 100 MG in 0.9 % Sodium Chloride 250 ML 166.67 MG IV (01:17)
[2021-09-10] MEDS: 0.9 % Sodium Chloride Flush 3 ML SYRINGE IVFLUSH ×3 (01:24→16:52)
[2021-09-10] MEDS: Heparin Sodium,Porcine 5,000 UNIT/ML VIAL 5000 UNIT SUBCUT ×2 (03:02→16:52)
[2021-09-10 03:51] VITALS: BP 123/65; PULSE 98; RESP 18; TEMP 37.1; O2SAT 90
[2021-09-10 07:12] LABS: Anion Gap 13 (12-20); Blood Urea Nitrogen 16 mg/dL (9-16); Calcium 7.8 mg/dL (8.4-10.2); Carbon Dioxide 22 mmol/L (22-29); Chloride 100 mmol/L (96-108); Creatinine Clr Calc Pharmacy 79.7; Estimated Glomerular Filt Rate > 60; Glucose Random 99 mg/dL (60-115); Potassium 4.3 mmol/L (3.3-5.1); Sodium 131 mmol/L (135-145)
[2021-09-10 07:37] LABS: Lactate Dehydrogenase 665 U/L (118-273)
[2021-09-10 08:00] VITALS: BP 100/46; PULSE 100; RESP 36; TEMP 36.8; O2SAT 92
[2021-09-10 08:14] LABS: Ferritin 10122 ng/mL (20-250)
--- NOTE | 2021-09-10 08:59 | PHA.PROG ---
Admission Date/Time: September 05, 2021 23:01 Indication: RESP INFECTION Weight in k.111 kg Adjusted body weight in Kg: [place] body weight in Kg: Obesity Dosing Indication % IBW: Serum Creatinine - Last 168 Hours 09/05/21 09/06/21 09/08/21 18:43 06:43 05:54 Creatinine 1.15 1.04 1.01 09/09/21 09/09/21 09/10/21 06:02 16:17 06:04 Creatinine 1.00 0.85 0.84 Estimated CrCl and GFR - Last 168 Hours 09/05/21 09/06/21 09/08/21 18:43 06:43 05:54 Estim Creat Clear Calc 58.2 64.4 66.3 Estimated GFR > 60 > 60 > 60 09/09/21 09/09/21 09/10/21 06:02 16:17 06:04 Estim Creat Clear Calc 67.0 78.8 79.7 Estimated GFR > 60 > 60 > 60 Vancomycin Loading Dose: Current Vancomycin Dosing Regimen: 1500 MG Q24H Vancomycin Monitoring using AUC goal of 400 - 600 range with trough as surrogate marker: 442 ESTIMATED TROUGH OF 12.0 Date and Time for next Vancomycin Level to be drawn: 09/13 @0800 Pharmacist Comments on Vancomycin Plan: Vancomycin dosing will take advantage of Scheduling Employee Sched[employer] Software as a clinical decision support tool that uses Bayesian modeling to calculate individual patient's pharmacokinetic parameters and forecast the patient's drug concentration time course with the target goal AUC 24 range of 400 - 600 mg/L/hr.
[2021-09-10 09:16] LABS: MANUAL DIFF FLAG NO
[2021-09-10] MEDS: allopurinoL 300 MG TABLET PO (09:19)
[2021-09-10] MEDS: vancomycin HCL 1,500 MG in 0.9 % Sodium Chloride 500 ML 333.33 MG IV (09:19)
[2021-09-10] MEDS: methylPREDNISolone Sod Succ 40 MG/ML VIAL IVPUSH ×2 (09:19→16:52)
[2021-09-10 09:21] LABS: Eosinophils Percent Auto 0.3 % (0-4); Hematocrit 29.3 % (42-52); Hemoglobin 10.1 g/dl (14.0-18.0); Imm Gran Abs Auto 0.02 X10*3/uL (0.00-0.03); Imm Gran Pct Auto 0.6 % (0.0-0.4); Lymphocytes Absolute Auto 0.4 X10*3/uL (1.2-4.9); Lymphocytes Percent Auto 10.6 % (20-40); Mean Corpuscular HGB Conc 34.5 g/dl (31.0-36.0); Mean Corpuscular Hemoglobin 31.3 pg (27.0-33.0); Mean Corpuscular Volume 90.7 fL (80-98); Mean Platelet Volume 11.1 fL (9.4-12.4); Monocytes Absolute Auto 0.1 X10*3/uL (0.1-1.2); Monocytes Percent Auto 3.4 % (2-11); Neutrophils Absolute Auto 3.1 X10*3/uL (2.0-8.3); Neutrophils Percent Auto 85.1 % (45-73); Platelet Count 143 X10*3/uL (160-400); Red Blood Count 3.23 X10*6/uL (4.60-5.80); Red Cell Distribution Width 13.5 % (11.0-16.0); White Blood Count 3.6 X10*3/uL (4.8-10.8)
[2021-09-10 09:30] LABS: D Dimer 1025 NG/ML
--- NOTE | 2021-09-10 09:59 | PM.CNPUL ---
History of Present Illness History of Present Illness Consult date: 09/10/21 Chief complaint: Covid 19 PNA, hypoxic Narrative: THIS 66 YEARS OLD GENTLEMAN, HAS PAST HISTORY OF CLL. WHICH HAS BEEN IN REMISSION OVER THE PAST MANY YEARS. HE DOES NOT HAVE ANY UNDERLYING CHRONIC PULMONARY DISEASE. AND HE DENIES SMOKING. SINCE ABOUT 4 WEEKS HE HAS HISTORY OF INCREASED SHORTNESS OF BREATH SOME COUGH AND LOW-GRADE FEVER, HE WAS CHECKED FOR COVID-19 AND THE TEST WAS POSITIVE ON 09/05/21 INITIALLY HE WAS RECOVERING FAIRLY WELL AT HOME. BUT HAS CONTINUED TO HAVE POOR APPETITE, MILD NAUSEA ONLY OCCASIONAL VOMITING MILD DIARRHEA, JUST BEFORE ADMISSION HERE HE BECAME MORE SHORT OF BREATH AND HIS O2 SAT WAS NOTED TO BE LOW. THUS HE CAME TO THE EMERGENCY ROOM AND HAS BEEN HOSPITALIZED, BECAUSE OF HYPOXEMIA, EVIDENCE OF THE MULTIFOCAL PNEUMONIA. AND GENERAL WEAKNESS. PATIENT IS BEING TREATED WITH THE IV SOLU-MEDROL 40 MG Q.12 HOURS, OXYGEN BY NASAL CANNULA, ON AND ALSO ON [employer]. HIS IMPROVEMENT IS QUITE SLOW. Review of Systems Review of Systems: Yes all other systems are reviewed and are negative Constitutional: Constitutional: Reports fatigue and Reports lethargy Eyes: Eyes: Reports no additional eye complaints ENT: Reports system reviewed and no additional complaints, except as documented Cardiovascular: Cardiovascular: Denies chest pain, Denies irregular heart rhythm and Denies leg edema Respiratory: Respiratory: Reports as per HPI Gastrointestinal: Gastrointestinal: Reports diarrhea and Reports nausea Genitourinary: Genitourinary: Reports no additional male genitourinary complaints Musculoskeletal: Musculoskeletal: Reports muscle weakness Integumentary/Breasts: Skin/Breast: Reports system reviewed and no additional complaints, except as docu Neurologic: Reports system reviewed and no additional complaints, except as documented Psychiatric: Psychiatric: Reports no additional psychiatric complaints Endocrine: Endocrine: Reports fatigue PMFSH Past Medical History Medical History CLL (chronic lymphocytic leukemia) COVID-19 Gout Hyperlipidemia Family History Family history: reviewed and not pertinent Surgical History Surgical History No pertinent past surgical history Social History Social History Household Members: Spouse and Children Household Members Other:: & daughter Housing: House Do you presently have visiting nurse or other home services: No Patient Tobacco Use Status: Never used Tobacco Current occupational status: disabled Meds Allergies Allergy/AdvReac Type Severity Reaction Status Date / Time oxacillin Allergy Unknown Unknown Verified 09/05/21 18:16 Active Medications: Current Medications Acetaminophen (Acetaminophen 325 Mg Tablet) 650 mg PO Q6H PRN PRN Reason: Pain, Mild (Pain Scale 1-3) Last Admin: 09/07/21 01:19 Dose: 650 mg Documented by: Allopurinol (Allopurinol 300 Mg Tablet) 300 mg PO DAILY [facility] Last Admin: 09/10/21 09:19 Dose: 300 mg Documented by: Docusate Sodium (Docusate Sodium 100 Mg Capsule) 100 mg PO DAILY PRN PRN Reason: Constipation Heparin Sodium (Porcine) (Heparin Sodium,Porcine 5,000 Unit/Ml Vial) 5,000 unit SUBCUT Q12H [facility] Last Admin: 09/10/21 03:02 Dose: 5,000 unit Documented by: Vancomycin HCl 1,500 mg/ (Sodium Chloride) 500 mls @ 333.333 mls/hr IV Q24H [facility] Last Admin: 09/10/21 09:19 Dose: 333.33 mls/hr Documented by: Cefepime HCl 2 gm/ Sodium (Chloride) 50 mls @ 100 mls/hr IV Q8H [facility] Levalbuterol HCl (Levalbuterol Hcl 1.25 Mg/0.5 Ml Vial.Neb) 1.25 mg INHALE RQ4H WHILE AWAKE [facility] Methylprednisolone Sodium Succinate (Methylprednisolone Sod Succ 40 Mg/Ml Vial) 40 mg IVPUSH Q8H [facility] Last Admin: 09/10/21 09:19 Dose: 40 mg Documented by: Ondansetron HCl (Ondansetron Hcl 4 Mg/2 Ml Vial) 4 mg IVPUSH Q8H PRN PRN Reason: Nausea and Vomiting Pharmacy Consult (Consult Rx Perform Med Rec) 1 each MISCELLANE ONCE PRN PRN Reason: Consult order Pharmacy Consult (Consult Rx Vancomycin Dosing) 1 each MISCELLANE DAILY PRN PRN Reason: Consult order Sodium Chloride (0.9 % Sodium Chloride Flush 3 Ml Syringe) 3 ml IVFLUSH QSHIFT [facility] Last Admin: 09/10/21 09:19 Dose: 3 ml Documented by: Home Medications Medication Instructions Recorded Confirmed Last Taken Type allopurinol 300 mg tablet 1 tab PO DAILY 09/05/21 09/05/21 09/04/21 History rosuvastatin 40 mg tablet 1 tab PO DAILY 09/05/21 09/05/21 09/04/21 History Physical Exam Vital Signs: Vital Signs: Last Vital Signs Temp 98.2 F 09/10/21 08:00 Pulse 100 09/10/21 08:00 Resp 36 H 09/10/21 08:00 BP 100/46 L 09/10/21 08:00 Pulse Ox 92 09/10/21 08:00 Oxygen Flow Rate 2 09/06/21 02:32 Body Mass Index 26.6 Const: General: comfortable, no acute distress, alert and awake Orientation/consciousness: patient oriented x3 HENMT: Head: Yes normal to inspection General nose exam: No nasal polyps present and No nasal discharge present Face and sinus: Yes sinuses nontender Mouth: oropharynx normal Throat: Yes posterior oropharynx normal Eyes: General: appearance normal, both eyes and all related structures Neck: Neck: Yes normal visual inspection, Yes no lymphadenopathy, Yes trachea midline and Yes no JVD Thyroid: Thyroid normal Chest: Chest palpation & inspection: normal inspection of the chest, normal palpation of entire chest wall and no tenderness Resp: Other: PERCUSSION NOTE RESONANT, BREATH SOUNDS ARE EQUAL ON BOTH SIDES. SCATTERED INTER SPIT [place] CREPITATIONS ARE PRESENT , OVER THE LOWER LOBES ON BOTH SIDES. Cardio: Palpation: normal PMI Rate: regular rate Rhythm: regular rhythm Heart sounds: no gallops and no murmurs GI: Palpation (GI): Soft to palpation, nontender, No hepatosplenomegaly present and no masses Auscultation: normal bowel sounds Back/Spine/Pelvis: Thoracic/Lumbar Spine: thoracic and lumbar spine normal to inspection Skin: General skin exam: no rashes or lesions noted Neuro: General: patient oriented x3 and no focal motor deficits Cranial nerves: Yes CN's II-XII intact bilaterally Extrem: General: Yes normal to inspection, Yes no clubbing, cyanosis or edema and Yes no calf tenderness Psych: Appearance: grossly normal Speech and movement: Normal speech and movement present Results Laboratory Findings CBC and BMP: 09/10/21 09:07 09/10/21 06:04 ABG, PT/INR, D-dimer: PT/INR, D-dimer D-Dimer 1025 NG/ML 09/10/21 09:08 Abnormal lab findings: Abnormal Labs 09/05/21 09/05/21 09/05/21 17:09 18:43 18:43 WBC 3.7 L RBC 3.72 L Hgb 12.0 L Hct 34.7 L Plt Count Immature Gran % (Auto) 0.5 H Neut % (Auto) 83.1 H Lymph % (Auto) 12.0 L Lymph # (Auto) 0.4 L Sodium 133 L Carbon Dioxide Anion Gap BUN 24 H Random Glucose 117 H Calcium 8.2 L Ferritin Total Bilirubin 1.8 H Direct Bilirubin 1.2 H AST 164 H ALT 189 H Alkaline Phosphatase 213 H Lactate Dehydrogenase 761 H C-Reactive Protein 10.38 H Total Protein 5.7 L Albumin COVID-19 (DAVIDA) SARS-CoV-2 RNA (RT-PCR) Detected A 09/05/21 09/06/21 09/06/21 18:43 06:43 06:43 WBC 3.3 L RBC 3.60 L Hgb 11.5 L Hct 33.8 L Plt Count 158 L Immature Gran % (Auto) 0.9 H Neut % (Auto) 89.0 H Lymph % (Auto) 8.0 L Lymph # (Auto) 0.3 L Sodium 134 L Carbon Dioxide Anion Gap BUN 25 H Random Glucose 188 H D Calcium 8.2 L Ferritin Total Bilirubin 1.6 H Direct Bilirubin 0.9 H AST 120 H ALT 158 H Alkaline Phosphatase 202 H Lactate Dehydrogenase C-Reactive Protein Total Protein 5.4 L Albumin 3.3 L COVID-19 (DAVIDA) Positive A SARS-CoV-2 RNA (RT-PCR) 09/07/21 09/08/21 09/08/21 06:01 05:54 05:54 WBC 3.1 L RBC 3.43 L Hgb 10.7 L Hct 31.8 L Plt Count 152 L Immature Gran % (Auto) Neut % (Auto) Lymph % (Auto) Lymph # (Auto) Sodium 130 L Carbon Dioxide Anion Gap BUN 22 H Random Glucose Calcium 7.9 L Ferritin Total Bilirubin 2.6 H 1.5 H Direct Bilirubin 2.0 H 0.9 H AST 386 H 165 H ALT 363 H 224 H Alkaline Phosphatase 283 H D 224 H D Lactate Dehydrogenase C-Reactive Protein Total Protein 4.8 L 4.7 L Albumin 2.9 L 2.9 L COVID-19 (DAVIDA) SARS-CoV-2 RNA (RT-PCR) 09/09/21 09/09/21 09/10/21 06:02 16:17 06:04 WBC RBC Hgb Hct Plt Count Immature Gran % (Auto) Neut % (Auto) Lymph % (Auto) Lymph # (Auto) Sodium 130 L 130 L 131 L Carbon Dioxide 20 L Anion Gap 11 L BUN 20 H 18 H Random Glucose Calcium 7.8 L 7.5 L 7.8 L Ferritin 78624 H Total Bilirubin 1.2 H Direct Bilirubin 0.9 H AST 108 H ALT 157 H Alkaline Phosphatase 198 H Lactate Dehydrogenase 665 H C-Reactive Protein Total Protein 4.7 L Albumin 2.9 L COVID-19 (DAVIDA) SARS-CoV-2 RNA (RT-PCR) 09/10/21 09:07 WBC 3.6 L RBC 3.23 L Hgb 10.1 L Hct 29.3 L Plt Count 143 L Immature Gran % (Auto) 0.6 H Neut % (Auto) 85.1 H Lymph % (Auto) 10.6 L Lymph # (Auto) 0.4 L Sodium Carbon Dioxide Anion Gap BUN Random Glucose Calcium Ferritin Total Bilirubin Direct Bilirubin AST ALT Alkaline Phosphatase Lactate Dehydrogenase C-Reactive Protein Total Protein Albumin COVID-19 (DAVIDA) SARS-CoV-2 RNA (RT-PCR) Microbiology: Microbiology 09/05/21 18:43 Blood - Venous Blood Culture - Preliminary No growth after 48 hours. 09/05/21 18:43 Blood - Venous Blood Culture - Preliminary No growth after 48 hours. Diagnostic Findings Chest x-ray: report reviewed and image reviewed CT scan - chest: report reviewed and image reviewed Assessment and Plan (1) Multifocal pneumonia: Status: Acute I HAVE REVIEWED THE CT SCAN. THE FINDINGS ARE CONSISTENT WITH BILATERAL POST COVID PNEUMONITIS. I DOUBT THAT HE HAS SECONDARY BACTERIAL INFECTION. TX IV SOLU-MEDROL 40 MG Q.8 HOURS FOR A FEW MORE DAYS AND THEN MAY BE ON PREDNISONE TAPER. MAY CONTINUE [employer] C[employer] EMPIRICALLY FOR THE NEXT FEW DAYS. (2) COVID-19: Status: Acute COVID-19 TEST POSITIVE ON 09/05, SO CURRENTLY HE IS SUFFERING FROM POST COVID, SYNDROME, PREDOMINANTLY WITH COVID PNEUMONIA. (3) Acute respiratory failure with hypoxia: Status: Acute HE HAS PICTURE OF ARDS DUE TO COVID PNEUMONIA/ PNEUMONITIS. CONTINUE TO TREAT WITH OXYGEN SUPPLEMENTATION, WITH THE GOAL TO MAINTAIN O2 SAT 92% OR ABOVE. IF HYPOXEMIA GETS WORSE THAN HE COULD BE STARTED ON HIGH-FLOW O2. Procedures Date of Service Date of Service: 09/10/21
[2021-09-10] MEDS: cefEPime HCl 2 GM in 0.9 % Sodium Chloride 50 ML IV ×2 (11:00→18:18)
[2021-09-10 11:32] VITALS: BP 115/66; PULSE 93; RESP 35; TEMP 36.8; O2SAT 92
--- NOTE | 2021-09-10 14:22 | PM.IMPN ---
Progress Note: A&P (1) Post-COVID syndrome: Status: Acute (2) Hyponatremia: Status: Acute (3) Acute respiratory failure with hypoxia: Status: Acute (4) Multifocal pneumonia: Status: Acute (5) Abnormal LFTs: Status: Acute Assessment and Plan: 66-year-old male past medical history of CLL who presents to the hospital with shortness of breath found to be hypoxic secondary to COVID-19 pneumonia. Patient states he initially tested positive for COVID 3 weeks ago (other notes state 6 weeks). Fully vaccinated (moderna) + has received booster Post Covid 19 syndrome Both DAVIDA and PCR test for covid are positive; remainder of RPP negative. Procalcitonin 0.20 Seen by pulmonology with rec to continue IV Solumedrol, oxygen and abx slow recovery inflammatory markers high Acute hypoxic respiratory failure, r/t to post covid pneumonia/pneumonitis No evidence of fluid overload, no PE on CT angiogram Antibiotics escalated to vancomycin and Cefepime due to worsening symptoms. oxygen requirements still high, goal sat 92% start high flow if hypoxemia gets worse Hyponatremia Mild urine studies ok trend elevated LFTs. trending up ? r/t possible viral illness vs medication related (ceftriaxone), vs primary biliary although no abdominal pain -abdominal US no acute abnormality -d/c statin -trend LFTs Pancytopenia secondary to CLL gout - continue allopurinol hyperlipidemia - continue statin DVT prophylaxis:? Heparin subQ Attending- Subjective Subjective Date of Service: 09/10/21 Review of Systems Follow up post covid pneumonia laying in bed no pain good appetite Physical Exam Vital Signs: Vital Signs: Last Vital Signs Temp 98.3 F 09/10/21 11:32 Pulse 93 09/10/21 11:32 Resp 35 H 09/10/21 11:32 BP 115/66 09/10/21 11:32 Pulse Ox 92 09/10/21 11:32 Oxygen Flow Rate 2 09/06/21 02:32 Body Mass Index 26.6 Appearing in no acute distress lung sounds normal expansion heart regular rate rhythm, clear S1, S2 positive bowel sounds, abdomen is soft, nontender neuro patient is alert x3, no focal deficits Objective Data Current Medications Acetaminophen (Acetaminophen 325 Mg Tablet) 650 mg PO Q6H PRN PRN Reason: Pain, Mild (Pain Scale 1-3) Last Admin: 09/07/21 01:19 Dose: 650 mg Documented by: Allopurinol (Allopurinol 300 Mg Tablet) 300 mg PO DAILY [facility] Last Admin: 09/10/21 09:19 Dose: 300 mg Documented by: Docusate Sodium (Docusate Sodium 100 Mg Capsule) 100 mg PO DAILY PRN PRN Reason: Constipation Heparin Sodium (Porcine) (Heparin Sodium,Porcine 5,000 Unit/Ml Vial) 5,000 unit SUBCUT Q12H [facility] Last Admin: 09/10/21 03:02 Dose: 5,000 unit Documented by: Vancomycin HCl 1,500 mg/ (Sodium Chloride) 500 mls @ 333.333 mls/hr IV Q24H [facility] Last Infusion: 09/10/21 11:00 Dose: Infused Documented by: Cefepime HCl 2 gm/ Sodium (Chloride) 50 mls @ 100 mls/hr IV Q8H [facility] Levalbuterol HCl (Levalbuterol Hcl 1.25 Mg/0.5 Ml Vial.Neb) 1.25 mg INHALE RQ4H WHILE AWAKE [facility] Last Admin: 09/10/21 12:09 Dose: Not Given Documented by: Methylprednisolone Sodium Succinate (Methylprednisolone Sod Succ 40 Mg/Ml Vial) 40 mg IVPUSH Q8H [facility] Last Admin: 09/10/21 09:19 Dose: 40 mg Documented by: Ondansetron HCl (Ondansetron Hcl 4 Mg/2 Ml Vial) 4 mg IVPUSH Q8H PRN PRN Reason: Nausea and Vomiting Pharmacy Consult (Consult Rx Perform Med Rec) 1 each MISCELLANE ONCE PRN PRN Reason: Consult order Pharmacy Consult (Consult Rx Vancomycin Dosing) 1 each MISCELLANE DAILY PRN PRN Reason: Consult order Sodium Chloride (0.9 % Sodium Chloride Flush 3 Ml Syringe) 3 ml IVFLUSH QSHIFT [facility] Last Admin: 09/10/21 09:19 Dose: 3 ml Documented by: Labs CBC & Chem 7: 09/10/21 09:07 09/10/21 06:04 Labs: Laboratory Results - last 24 hr 09/09/21 09/10/21 09/10/21 16:17 06:04 09:07 MCV 90.7 MCH 31.3 MCHC 34.5 RDW 13.5 Plt Count 143 L MPV 11.1 Immature Gran % (Auto) 0.6 H Neut % (Auto) 85.1 H Lymph % (Auto) 10.6 L [place] % (Auto) 3.4 Eos % (Auto) 0.3 Baso % (Auto) 0.0 Lymph # (Auto) 0.4 L [place] # (Auto) 0.1 Eos # (Auto) 0.0 Baso # (Auto) 0.0 Abs Immat Gran (auto) 0.02 Absolute Neuts (auto) 3.1 Absolute Nucleated RBC 0.000 Nucleated RBC % (auto) 0.0 D-Dimer Anion Gap 14 13 Estim Creat Clear Calc 78.8 79.7 Estimated GFR > 60 > 60 Random Glucose 108 99 Calcium 7.5 L 7.8 L Ferritin 93872 H Lactate Dehydrogenase 665 H 09/10/21 09:08 MCV MCH MCHC RDW Plt Count MPV Immature Gran % (Auto) Neut % (Auto) Lymph % (Auto) [place] % (Auto) Eos % (Auto) Baso % (Auto) Lymph # (Auto) [place] # (Auto) Eos # (Auto) Baso # (Auto) Abs Immat Gran (auto) Absolute Neuts (auto) Absolute Nucleated RBC Nucleated RBC % (auto) D-Dimer 1025 Anion Gap Estim Creat Clear Calc Estimated GFR Random Glucose Calcium Ferritin Lactate Dehydrogenase Microbiology Microbiology Results: Microbiology 09/05/21 18:43 Blood - Venous Blood Culture - Preliminary No growth after 48 hours. 09/05/21 18:43 Blood - Venous Blood Culture - Preliminary No growth after 48 hours. Quality Stroke Does the patient have a stroke diagnosis?: No VTE Prior VTE?: No VTE Risk Level:: Medical - moderate - high VTE Device Contraindication: Treatment Not Indicated VTE Drug Contraindication: N/A - Med Ordered
[2021-09-10 15:22] VITALS: BP 99/51; PULSE 81; RESP 20; TEMP 36.7; O2SAT 98
--- NOTE | 2021-09-10 16:16 | MHC.CM.PN ---
Male 66 DX Covid lives w . He is independent. DP home no services family transport. Pulmonary consult ordered today.
[2021-09-10 19:14] VITALS: BP 100/53; PULSE 73; RESP 20; TEMP 36.7; O2SAT 97
[2021-09-10 23:12] VITALS: BP 99/60; PULSE 75; RESP 18; TEMP 36; O2SAT 97
[2021-09-11] VITALS (11 sets, daily range): BP systolic 100–119; BP diastolic 56–62; PULSE 65–101; RESP 15–20; TEMP 36.1–37; O2SAT 92–98
[2021-09-11 00:27] LABS: Strep Pneumo Ag urine Not Detected (Not Detected)
[2021-09-11] MEDS: methylPREDNISolone Sod Succ 40 MG/ML VIAL IVPUSH ×3 (00:45→15:09)
[2021-09-11] MEDS: 0.9 % Sodium Chloride Flush 3 ML SYRINGE IVFLUSH ×3 (00:45→15:09)
[2021-09-11] MEDS: cefEPime HCl 2 GM in 0.9 % Sodium Chloride 50 ML IV ×3 (03:31→18:44)
[2021-09-11] MEDS: Heparin Sodium,Porcine 5,000 UNIT/ML VIAL 5000 UNIT SUBCUT ×2 (03:45→15:09)
[2021-09-11 06:35] LABS: Anion Gap 11 (12-20); Blood Urea Nitrogen 25 mg/dL (9-16); Calcium 7.6 mg/dL (8.4-10.2); Carbon Dioxide 22 mmol/L (22-29); Chloride 104 mmol/L (96-108); Estimated Glomerular Filt Rate > 60; Glucose Random 217 mg/dL (60-115); Potassium 4.4 mmol/L (3.3-5.1); Sodium 133 mmol/L (135-145)
[2021-09-11 07:43] LABS: Ferritin 9279 ng/mL (20-250)
[2021-09-11 08:22] LABS: Lactate Dehydrogenase 478 U/L (118-273)
[2021-09-11] MEDS: vancomycin HCL 1,500 MG in 0.9 % Sodium Chloride 500 ML 333.33 MG IV (08:30)
[2021-09-11] MEDS: allopurinoL 300 MG TABLET PO (08:30)
[2021-09-11 08:47] LABS: C Reactive Protein 11.85 mg/dL (< or = 0.50)
--- NOTE | 2021-09-11 12:31 | HO.PM.IMPN ---
Subjective Subjective Date of Service: 09/11/21 Interval History: Seen and examined this morning Follow-up for post COVID syndrome Still requiring oxygen Review of Systems Review of Systems: Yes all other systems are reviewed and are negative Cardiovascular Cardiovascular: Denies chest pain Gastrointestinal Gastrointestinal: Denies abdominal pain Physical Exam Vital Signs: Vital Signs: Last Vital Signs Temp 97 F 09/11/21 11:15 Pulse 87 09/11/21 11:42 Resp 20 09/11/21 11:15 BP 100/62 09/11/21 11:15 Pulse Ox 97 09/11/21 11:49 Oxygen Flow Rate 2 09/06/21 02:32 Body Mass Index 26.6 Const: General: alert and awake Nutritional Appearance: well nourished Orientation/consciousness: patient oriented x3 HENMT: Head: Yes normocephalic and Yes atraumatic Eyes: Sclerae: sclerae normal Resp: Effort & Inspection: normal respiratory effort and no respiratory distress Cardio: Rate: regular rate Rhythm: regular rhythm GI: Palpation (GI): Soft to palpation and nontender Neuro: General: patient oriented x3 Cranial nerves: Yes CN's II-XII intact bilaterally and Yes Bilaterally intact EOM present Objective Data Active Medications Acetaminophen (Acetaminophen 325 Mg Tablet) 650 mg PO Q6H PRN PRN Reason: Pain, Mild (Pain Scale 1-3) Last Admin: 09/07/21 01:19 Dose: 650 mg Documented by: MAC Allopurinol (Allopurinol 300 Mg Tablet) 300 mg PO DAILY [facility] Last Admin: 09/11/21 08:30 Dose: 300 mg Documented by: JOSE GUADALUPE Docusate Sodium (Docusate Sodium 100 Mg Capsule) 100 mg PO DAILY PRN PRN Reason: Constipation Heparin Sodium (Porcine) (Heparin Sodium,Porcine 5,000 Unit/Ml Vial) 5,000 unit SUBCUT Q12H [facility] Last Admin: 09/11/21 03:45 Dose: 5,000 unit Documented by: LIANA Vancomycin HCl 1,500 mg/ (Sodium Chloride) 500 mls @ 333.333 mls/hr IV Q24H [facility] Last Infusion: 09/11/21 10:37 Dose: 0 mls/hr Documented by: JOSE GUADALUPE Cefepime HCl 2 gm/ Sodium (Chloride) 50 mls @ 100 mls/hr IV Q8H [facility] Last Infusion: 09/11/21 11:47 Dose: 0 mls/hr Documented by: JOSE GUADALUPE Levalbuterol HCl (Levalbuterol Hcl 1.25 Mg/0.5 Ml Vial.Neb) 1.25 mg INHALE RQ4H WHILE AWAKE [facility] Last Admin: 09/11/21 11:42 Dose: 1.25 mg Documented by: ALISSON Methylprednisolone Sodium Succinate (Methylprednisolone Sod Succ 40 Mg/Ml Vial) 40 mg IVPUSH Q8H [facility] Last Admin: 09/11/21 08:30 Dose: 40 mg Documented by: JOSE GUADALUPE Ondansetron HCl (Ondansetron Hcl 4 Mg/2 Ml Vial) 4 mg IVPUSH Q8H PRN PRN Reason: Nausea and Vomiting Pharmacy Consult (Consult Rx Perform Med Rec) 1 each MISCELLANE ONCE PRN PRN Reason: Consult order Pharmacy Consult (Consult Rx Vancomycin Dosing) 1 each MISCELLANE DAILY PRN PRN Reason: Consult order Sodium Chloride (0.9 % Sodium Chloride Flush 3 Ml Syringe) 3 ml IVFLUSH QSHIFT [facility] Last Admin: 09/11/21 08:30 Dose: 3 ml Documented by: JOSE GUADALUPE Labs CBC & Chem 7: 09/10/21 09:07 09/11/21 05:54 Labs: Laboratory Results - last 24 hr 09/07/21 09/11/21 12:17 05:54 Anion Gap 11 L Estim Creat Clear Calc 93.0 Estimated GFR > 60 Random Glucose 217 H D Calcium 7.6 L Ferritin 9279 H Lactate Dehydrogenase 478 H C-Reactive Protein 11.85 H Ur Strep pneumoniae Ag Not Detected Microbiology Microbiology Results: Microbiology 09/05/21 18:43 Blood Culture - Final Blood - Venous No growth after 5 days. 09/05/21 18:43 Blood Culture - Final Blood - Venous No growth after 5 days. Assessment and Plan (1) Post-COVID syndrome: Status: Acute (2) Pancytopenia: Status: Acute (3) Hyponatremia: Status: Acute (4) Acute respiratory failure with hypoxia: Status: Acute (5) Multifocal pneumonia: Status: Acute Assessment and Plan: 66-year-old male past medical history of CLL who presents to the hospital with shortness of breath found to be hypoxic secondary to COVID-19 pneumonia. Patient states he initially tested positive for COVID 3 weeks ago (other notes state 6 weeks). Fully vaccinated (moderna) + has received booster Post Covid 19 syndrome/pneumonitis Both DAVIDA and PCR test for covid are positive; remainder of RPP negative. Procalcitonin 0.20 Seen by pulmonology with rec to continue IV Solumedrol, abx although less likey bacterial component inflammatory markers high Acute hypoxic respiratory failure, r/t to post covid pneumonia/pneumonitis No evidence of fluid overload, no PE on CT angiogram Antibiotics escalated to vancomycin and Cefepime due to worsening symptoms. oxygen requirements still high, goal sat 92% start high flow if hypoxemia gets worse Hyponatremia Mild urine studies ok elevated LFTs. ? r/t possible viral illness vs medication related (ceftriaxone), vs primary biliary although no abdominal pain abdominal US no acute abnormality. Hepatitis screen negative d/c statin trending down Pancytopenia secondary to CLL gout - continue allopurinol hyperlipidemia -statin on hold DVT prophylaxis:? Heparin subQ Attending-Dr.?Patel Miller Stroke Does the patient have a stroke diagnosis?: No VTE Prior VTE?: No VTE Risk Level:: Medical - moderate - high VTE Device Contraindication: Treatment Not Indicated VTE Drug Contraindication: N/A - Med Ordered
--- NOTE | 2021-09-11 17:07 | P.PNPL_ITS ---
Subjective Subjective Date of Service: 09/11/21 Interval history: This gentleman is relatively comfortable and claims that he is feeling somewhat better. Denies any respiratory distress, has no fever or chills. Remains quite weak in general. Objective Data Labs CBC & Chem 7: 09/10/21 09:07 09/11/21 05:54 Labs: Laboratory Results - last 24 hr 09/07/21 09/11/21 12:17 05:54 Sodium 133 L Potassium 4.4 Chloride 104 Carbon Dioxide 22 Anion Gap 11 L BUN 25 H D Creatinine 0.72 Estim Creat Clear Calc 93.0 Estimated GFR > 60 Random Glucose 217 H D Calcium 7.6 L Ferritin 9279 H Lactate Dehydrogenase 478 H C-Reactive Protein 11.85 H Ur Strep pneumoniae Ag Not Detected Microbiology Microbiology Results: Microbiology 09/05/21 18:43 Blood - Venous Blood Culture - Final No growth after 5 days. 09/05/21 18:43 Blood - Venous Blood Culture - Final No growth after 5 days. Physical Exam Vital Signs: Vital Signs: Last Vital Signs Temp 98.0 F 09/11/21 16:00 Pulse 93 09/11/21 16:00 Resp 18 09/11/21 16:00 BP 104/57 L 09/11/21 16:00 Pulse Ox 93 09/11/21 16:00 Oxygen Flow Rate 2 09/06/21 02:32 Body Mass Index 26.6 Const: General: comfortable (But quite weak), no acute distress, alert and awake Orientation/consciousness: patient oriented x3 HENMT: Head: Yes normal to inspection General nose exam: No nasal polyps present and No nasal discharge present Face and sinus: Yes sinuses nontender Mouth: oropharynx normal Throat: Yes posterior oropharynx normal Eyes: General: appearance normal, both eyes and all related structures Neck: Neck: Yes normal visual inspection, Yes no lymphadenopathy, Yes trachea midline and Yes no JVD Thyroid: Thyroid normal Chest: Chest palpation & inspection: normal inspection of the chest, normal palpation of entire chest wall and no tenderness Resp: Other: Percussion note is resonant. Breath sounds are somewhat diminished but equal on both sides. Has scattered inspiratory crackles over the lower lobes Cardio: Palpation: normal PMI Rate: regular rate Rhythm: regular rhythm Heart sounds: no gallops and no murmurs GI: Palpation (GI): Soft to palpation, nontender, No hepatosplenomegaly present and no masses Auscultation: normal bowel sounds Back/Spine/Pelvis: Other: Could not examine Skin: General skin exam: no rashes or lesions noted Neuro: General: patient oriented x3 and no focal motor deficits Cranial nerves: Yes CN's II-XII intact bilaterally Extrem: General: Yes normal to inspection, Yes no clubbing, cyanosis or edema and Yes no calf tenderness Psych: Speech and movement: Normal speech and movement present Procedures Date of Service Date of Service: 09/11/21 Assessment and Plan Assessment and plan (1) Post-COVID syndrome: Problem details: He is recovering from acute COVID infection, still has general deconditioning and weakness. Status: Acute (2) Multifocal pneumonia: Problem details: Bilateral multi focal pneumonitis, secondary to COVID pneumonia. [place] : Continue IV Solu-Medrol Status: Acute (3) Acute respiratory failure with hypoxia: Problem details: He has ARDS, secondary to COVID pneumonia. O2 requirement is gradually improving. Now he is comfortable at 8 L/minute. Status: Acute Time Spent With Patient Time: Total time spent is greater than 50% in coordination of care (as docum ented) at patient's floor/unit and/or counseling patient: Time with patient: 15 - 24 minutes Progress Note: Quality Stroke Does the patient have a stroke diagnosis?: No
[2021-09-12] VITALS (7 sets, daily range): BP systolic 107–141; BP diastolic 54–81; PULSE 85–95; RESP 20–22; TEMP 36.1–36.7; O2SAT 90–97
[2021-09-12] MEDS: methylPREDNISolone Sod Succ 40 MG/ML VIAL IVPUSH ×3 (00:34→16:46)
[2021-09-12] MEDS: 0.9 % Sodium Chloride Flush 3 ML SYRINGE IVFLUSH ×3 (00:34→16:47)
[2021-09-12] MEDS: cefEPime HCl 2 GM in 0.9 % Sodium Chloride 50 ML IV ×3 (03:37→18:47)
[2021-09-12] MEDS: Heparin Sodium,Porcine 5,000 UNIT/ML VIAL 5000 UNIT SUBCUT ×2 (03:38→16:46)
[2021-09-12 07:06] LABS: D Dimer 891 NG/ML
[2021-09-12] MEDS: vancomycin HCL 1,500 MG in 0.9 % Sodium Chloride 500 ML 333.33 MG IV (09:10)
[2021-09-12] MEDS: allopurinoL 300 MG TABLET PO (09:10)
[2021-09-12 09:13] LABS: Anion Gap 9 (12-20); Blood Urea Nitrogen 24 mg/dL (9-16); Calcium 7.7 mg/dL (8.4-10.2); Carbon Dioxide 25 mmol/L (22-29); Chloride 103 mmol/L (96-108); Creatinine Clr Calc Pharmacy 91.8; Estimated Glomerular Filt Rate > 60; Glucose Random 192 mg/dL (60-115); Potassium 4.8 mmol/L (3.3-5.1); Sodium 132 mmol/L (135-145)
--- NOTE | 2021-09-12 11:24 | MHC.CM.PN ---
Per ROUNDS discussion, Patient is not yet medically cleared for dc (desated, O2 increased to 7L). Home is the goal for dc and CM will continue to follow.
--- NOTE | 2021-09-12 15:29 | HO.PM.IMPN ---
Subjective Subjective Date of Service: 09/12/21 Interval History: seen and examined this morning follow up for hypoxic respiratory failure/post covid syndrome continues to desaturate with movement, oxygen requirements increased again overnight denies shortness of breath/cough no fever/chills Review of Systems Review of Systems: Yes all other systems are reviewed and are negative Constitutional Constitutional: Denies chills and Denies fever(s) Cardiovascular Cardiovascular: Denies chest pain Respiratory Respiratory: Denies cough Gastrointestinal Gastrointestinal: Denies abdominal pain Physical Exam Vital Signs: Vital Signs: Last Vital Signs Temp 96.9 F 09/12/21 15:06 Pulse 87 09/12/21 15:06 Resp 20 09/12/21 15:06 BP 116/58 L 09/12/21 15:06 Pulse Ox 90 L 09/12/21 15:06 Oxygen Flow Rate 2 09/06/21 02:32 Body Mass Index 26.6 Const: General: alert and awake Nutritional Appearance: well nourished Orientation/consciousness: patient oriented x3 HENMT: Head: Yes normocephalic and Yes atraumatic Eyes: Sclerae: sclerae normal Chest: Chest palpation & inspection: normal inspection of the chest Resp: Other: course breath sounds Effort & Inspection: normal respiratory effort, no respiratory distress and tachypneic Auscultation: clear to auscultation bilaterally Cardio: Rate: regular rate Rhythm: regular rhythm GI: Palpation (GI): Soft to palpation and nontender Neuro: General: patient oriented x3 Cranial nerves: Yes CN's II-XII intact bilaterally and Yes Bilaterally intact EOM present Objective Data Active Medications Acetaminophen (Acetaminophen 325 Mg Tablet) 650 mg PO Q6H PRN PRN Reason: Pain, Mild (Pain Scale 1-3) Last Admin: 09/07/21 01:19 Dose: 650 mg Documented by: ANTJO-ANN Allopurinol (Allopurinol 300 Mg Tablet) 300 mg PO DAILY [facility] Last Admin: 09/12/21 09:10 Dose: 300 mg Documented by: JOSE GUADALUPE Docusate Sodium (Docusate Sodium 100 Mg Capsule) 100 mg PO DAILY PRN PRN Reason: Constipation Heparin Sodium (Porcine) (Heparin Sodium,Porcine 5,000 Unit/Ml Vial) 5,000 unit SUBCUT Q12H [facility] Last Admin: 09/12/21 03:38 Dose: 5,000 unit Documented by: LIANA Vancomycin HCl 1,500 mg/ (Sodium Chloride) 500 mls @ 333.333 mls/hr IV Q24H [facility] Last Infusion: 09/12/21 10:52 Dose: 0 mls/hr Documented by: JOSE GUADALUPE Cefepime HCl 2 gm/ Sodium (Chloride) 50 mls @ 100 mls/hr IV Q8H [facility] Last Infusion: 09/12/21 12:01 Dose: 0 mls/hr Documented by: JOSE GUADALUPE Levalbuterol HCl (Levalbuterol Hcl 1.25 Mg/0.5 Ml Vial.Neb) 1.25 mg INHALE RQ4H WHILE AWAKE [facility] Last Admin: 09/12/21 11:32 Dose: Not Given Documented by: SAUL Non-Admin Reason: pt unavail Methylprednisolone Sodium Succinate (Methylprednisolone Sod Succ 40 Mg/Ml Vial) 40 mg IVPUSH Q8H [facility] Last Admin: 09/12/21 09:10 Dose: 40 mg Documented by: JOSE GUADALUPE Ondansetron HCl (Ondansetron Hcl 4 Mg/2 Ml Vial) 4 mg IVPUSH Q8H PRN PRN Reason: Nausea and Vomiting Pharmacy Consult (Consult Rx Perform Med Rec) 1 each MISCELLANE ONCE PRN PRN Reason: Consult order Pharmacy Consult (Consult Rx Vancomycin Dosing) 1 each MISCELLANE DAILY PRN PRN Reason: Consult order Sodium Chloride (0.9 % Sodium Chloride Flush 3 Ml Syringe) 3 ml IVFLUSH QSHIFT [facility] Last Admin: 09/12/21 09:10 Dose: 3 ml Documented by: JOSE GUADALUPE Labs CBC & Chem 7: 09/10/21 09:07 09/12/21 08:09 Labs: Laboratory Results - last 24 hr 09/12/21 09/12/21 06:09 08:09 D-Dimer 891 Anion Gap 9 L Estim Creat Clear Calc 91.8 Estimated GFR > 60 Random Glucose 192 H Calcium 7.7 L Assessment and Plan (1) Post-COVID syndrome: Status: Acute (2) Acute respiratory failure with hypoxia: Status: Acute (3) Pancytopenia: Status: Acute (4) Hyponatremia: Status: Acute (5) COVID-19: Status: Acute Assessment and Plan: 66-year-old male past medical history of CLL who presents to the hospital with shortness of breath found to be hypoxic secondary to COVID-19 pneumonia. Patient states he initially tested positive for COVID 3 weeks ago (other notes state 6 weeks). Fully vaccinated (moderna) + has received booster Acute hypoxic respiratory failure, r/t to post covid 19 pneumonia/pneumonitis. worsening oxygen requirements overnight Both DAVIDA and PCR test for covid are positive; remainder of RPP negative. Procalcitonin 0.20 Seen by pulmonology with rec to continue IV Solumedrol, abx although less likey bacterial component inflammatory markers high Antibiotics escalated to vancomycin and Cefepime due to worsening symptoms. oxygen requirements still high, goal sat 92% start high flow if hypoxemia gets worse Hyponatremia Mild urine studies ok elevated LFTs. ? r/t possible viral illness vs medication related (ceftriaxone), vs primary biliary although no abdominal pain abdominal US no acute abnormality. Hepatitis screen negative d/c statin Pancytopenia secondary to CLL gout - continue allopurinol hyperlipidemia -statin on hold DVT prophylaxis:? Heparin subQ Attending-?Patricio Quality Stroke Does the patient have a stroke diagnosis?: No VTE Prior VTE?: No VTE Risk Level:: Medical - moderate - high VTE Device Contraindication: Treatment Not Indicated VTE Drug Contraindication: N/A - Med Ordered
[2021-09-12 19:36] LABS: Legionella Ag Urine Not Detected (Not Detected)
--- NOTE | 2021-09-12 19:40 | PC.NURSE ---
CT angio vs IV insertion Radiology called for a CT angio, however he only has 22 gauge in his left wrist and they need one for contrast or the CT. I attempted twice for insertion and unfortunately didn't have any success, I then asked the blackjack supervisor who them attempted and got the same results as I. Called back the hospitalist, who directed me that pt can eat and be NPO for 3 hours prior to scan; which was also confirmed with radiology. Someone else will attempt the insertion and if successful will call radiology for the scan . PT and RN that took over is aware.
[2021-09-13] VITALS (12 sets, daily range): BP systolic 118–138; BP diastolic 59–71; PULSE 78–125; RESP 18–20; TEMP 35.8–37.3; O2SAT 84–100
[2021-09-13] MEDS: iohexoL 350 MG/ML 100 ML INFUS..BTL 65 ML IV (00:09)
[2021-09-13] MEDS: methylPREDNISolone Sod Succ 40 MG/ML VIAL IVPUSH ×4 (00:11→23:04)
[2021-09-13] MEDS: 0.9 % Sodium Chloride Flush 3 ML SYRINGE IVFLUSH ×4 (00:11→20:42)
[2021-09-13] MEDS: Heparin Sodium,Porcine 5,000 UNIT/ML VIAL 5000 UNIT SUBCUT ×2 (03:05→15:58)
[2021-09-13] MEDS: cefEPime HCl 2 GM in 0.9 % Sodium Chloride 50 ML IV ×3 (03:05→20:42)
[2021-09-13] MEDS: vancomycin HCL 1,500 MG in 0.9 % Sodium Chloride 500 ML 333.33 MG IV (08:25)
[2021-09-13] MEDS: allopurinoL 300 MG TABLET PO (08:26)
[2021-09-13 08:58] LABS: Vancomycin Trough 3.9 mcg/mL (10.0-20.0)
--- NOTE | 2021-09-13 09:10 | HE.PHANOTE ---
Vancomycin Dosing Addendum Vanco trough low 3.9. Adjusted dose to vancomycin 1250 mg q12h for a predicted AUC of 486 nad predicted trough of 13.1. Ordered Scr for today and daily therafter. Continue to monitor renal fxn. Next trough due 09/14/21 @1900.
--- NOTE | 2021-09-13 11:37 | PM.PNPUL ---
Subjective Subjective Date of Service: 09/13/21 Principal diagnosis: COVID PNEUMINA Interval history: This 66 years old gentleman was slowly improving, But since yesterday he has developed increased shortness of breath and increased requirement for O2. Still doing okay with nasal cannula, and FiO2 12-15 L/minute. Denies any chest pain fever or chills. Objective Data Labs CBC & Chem 7: 09/10/21 09:07 09/12/21 08:09 Labs: Laboratory Results - last 24 hr 09/07/21 09/13/21 12:17 07:52 Vancomycin Trough 3.9 L Ur L.pneumophila Ag Not Detected Microbiology Microbiology Results: Microbiology 09/05/21 18:43 Blood - Venous Blood Culture - Final No growth after 5 days. 09/05/21 18:43 Blood - Venous Blood Culture - Final No growth after 5 days. Review of Systems Review of Systems Patient remains generally weak, and short of breath on minimal exertion. Denies chest pain, denies fever or chills Yes all other systems are reviewed and are negative Physical Exam Vital Signs: Vital Signs: Last Vital Signs Temp 99.2 F 09/13/21 11:08 Pulse 90 09/13/21 11:33 Resp 20 09/13/21 11:08 BP 122/64 09/13/21 11:08 Pulse Ox 85 L 09/13/21 11:08 Oxygen Flow Rate 2 09/06/21 02:32 Body Mass Index 26.6 Const: General: comfortable (But more weak), no acute distress, alert and awake Orientation/consciousness: patient oriented x3 HENMT: Head: Yes normal to inspection General nose exam: No nasal polyps present and No nasal discharge present Face and sinus: Yes sinuses nontender Mouth: oropharynx normal Throat: Yes posterior oropharynx normal Eyes: General: appearance normal, both eyes and all related structures Neck: Neck: Yes normal visual inspection, Yes no lymphadenopathy, Yes trachea midline and Yes no JVD Thyroid: Thyroid normal Chest: Chest palpation & inspection: normal inspection of the chest, normal palpation of entire chest wall and no tenderness Resp: Other: He does have good and equal breath sounds on both sides. There are inspiratory crepitations over lower lobes, no wheezes . Cardio: Palpation: normal PMI Rate: regular rate Rhythm: regular rhythm Heart sounds: no gallops and no murmurs Peripheral pulses: Peripheral pulses 2+ throughout GI: Palpation (GI): Soft to palpation, nontender, No hepatosplenomegaly present and no masses Auscultation: normal bowel sounds Back/Spine/Pelvis: Thoracic/Lumbar Spine: thoracic and lumbar spine normal to inspection Skin: General skin exam: no rashes or lesions noted Neuro: General: patient oriented x3 and no focal motor deficits Cranial nerves: Yes CN's II-XII intact bilaterally Extrem: General: Yes normal to inspection, Yes no clubbing, cyanosis or edema and Yes no calf tenderness Psych: Appearance: grossly normal Speech and movement: Normal speech and movement present Procedures Date of Service Date of Service: 09/13/21 Assessment and Plan Assessment and plan (1) Post-COVID syndrome: Problem details: He is recovering from acute COVID infection, still h slowly. I think we are dealing with a long COVID syndrome. Status: Acute (2) Multifocal pneumonia: Problem details: Bilateral multi focal pneumonitis, secondary to COVID pneumonia. Repeat CT scan on 09/12, show somewhat more prominent bilateral Alveolar/ Interstitial opacities, I think these represent, slight worsening of the COVID pneumonitis, and not essentially any bacterial pneumonia. [place] : Continue IV Solu-Medrol 40 mg q 8 hrs Patient is on vancomycin and cefepime , I suggest that we can DC vancomycin, continue cefepime I am over the weekend and then consider discontinuing this agent also. I added famotidine 20 mg b.i.d. empirically. Status: Acute (3) Acute respiratory failure with hypoxia: Problem details: He has ARDS, secondary to COVID pneumonia. Still requiring high E concentrations of FiO2. Recc . Continue O2 10-14 L/minute via nasal cannula and wean down slowly as tolerated, goal is to keep O2 sat above 90% Status: Acute Time Spent With Patient Time: Total time spent is greater than 50% in coordination of care (as documented) at patient's floor/unit and/or counseling patient: Time with patient: 15 - 24 minutes Progress Note: Quality Stroke Does the patient have a stroke diagnosis?: No
[2021-09-13 12:02] LABS: Creatinine Clr Calc Pharmacy 95.7; Estimated Glomerular Filt Rate > 60
--- NOTE | 2021-09-13 15:04 | PM.IMPN ---
Progress Note: A&P (1) Post-COVID syndrome: Status: Acute (2) Abnormal LFTs: Status: Acute (3) Pancytopenia: Status: Acute (4) Hyponatremia: Status: Acute Assessment and Plan: 66-year-old male past medical history of CLL who presents to the hospital with shortness of breath found to be hypoxic secondary to COVID-19 pneumonia. Patient states he initially tested positive for COVID 3 weeks ago (other notes state 6 weeks). Fully vaccinated (moderna) + has received booster Acute hypoxic respiratory failure, r/t to post covid 19 pneumonia/pneumonitis. worsening oxygen requirements Both DAVIDA and PCR test for covid are positive; remainder of RPP negative. Procalcitonin 0.20 Seen by pulmonology with rec to continue IV Solumedrol, stop vanco and continue cefepime over the weekend and then stop oxygen requirements still high, goal sat 92% start high flow if hypoxemia gets worse Famotidine 20mg BID added Hyponatremia Mild urine studies ok elevated LFTs. ? r/t possible viral illness vs medication related (ceftriaxone), vs primary biliary although no abdominal pain abdominal US no acute abnormality. Hepatitis screen negative d/c statin Pancytopenia secondary to CLL gout continue allopurinol hyperlipidemia statin on hold DVT prophylaxis:? Heparin subQ Attending- Subjective Subjective Date of Service: 09/13/21 Review of Systems Follow up covid 19 no sob oxygen demand increasing Physical Exam Vital Signs: Vital Signs: Last Vital Signs Temp 99.2 F 09/13/21 11:08 Pulse 90 09/13/21 11:33 Resp 20 09/13/21 11:08 BP 122/64 09/13/21 11:08 Pulse Ox 85 L 09/13/21 11:08 Oxygen Flow Rate 2 09/06/21 02:32 Body Mass Index 26.6 Appearing in no acute distress lung sounds normal expansion heart regular rate rhythm, clear S1, S2 positive bowel sounds, abdomen is soft, nontender neuro patient is alert x3, no focal deficits Objective Data Current Medications Acetaminophen (Acetaminophen 325 Mg Tablet) 650 mg PO Q6H PRN PRN Reason: Pain, Mild (Pain Scale 1-3) Last Admin: 09/07/21 01:19 Dose: 650 mg Documented by: Allopurinol (Allopurinol 300 Mg Tablet) 300 mg PO DAILY [facility] Last Admin: 09/13/21 08:26 Dose: 300 mg Documented by: Docusate Sodium (Docusate Sodium 100 Mg Capsule) 100 mg PO DAILY PRN PRN Reason: Constipation Famotidine (Famotidine 20 Mg Tablet) 20 mg PO BID [facility] Heparin Sodium (Porcine) (Heparin Sodium,Porcine 5,000 Unit/Ml Vial) 5,000 unit SUBCUT Q12H [facility] Last Admin: 09/13/21 03:05 Dose: 5,000 unit Documented by: Cefepime HCl 2 gm/ Sodium (Chloride) 50 mls @ 100 mls/hr IV Q8H [facility] Last Infusion: 09/13/21 10:52 Dose: Infused Documented by: Vancomycin HCl 1,250 mg/ (Sodium Chloride) 250 mls @ 166.667 mls/hr IV Q12H [facility] Levalbuterol HCl (Levalbuterol Hcl 1.25 Mg/0.5 Ml Vial.Neb) 1.25 mg INHALE RQ4H WHILE AWAKE [facility] Last Admin: 09/13/21 11:32 Dose: 1.25 mg Documented by: Methylprednisolone Sodium Succinate (Methylprednisolone Sod Succ 40 Mg/Ml Vial) 40 mg IVPUSH Q8H [facility] Last Admin: 09/13/21 08:26 Dose: 40 mg Documented by: Ondansetron HCl (Ondansetron Hcl 4 Mg/2 Ml Vial) 4 mg IVPUSH Q8H PRN PRN Reason: Nausea and Vomiting Pharmacy Consult (Consult Rx Perform Med Rec) 1 each MISCELLANE ONCE PRN PRN Reason: Consult order Pharmacy Consult (Consult Rx Vancomycin Dosing) 1 each MISCELLANE DAILY PRN PRN Reason: Consult order Sodium Chloride (0.9 % Sodium Chloride Flush 3 Ml Syringe) 3 ml IVFLUSH QSHIFT [facility] Last Admin: 09/13/21 08:26 Dose: 3 ml Documented by: Labs CBC & Chem 7: 09/10/21 09:07 09/13/21 07:52 Labs: Laboratory Results - last 24 hr 09/07/21 09/13/21 09/13/21 12:17 07:52 07:52 Estim Creat Clear Calc 95.7 Estimated GFR > 60 Vancomycin Trough 3.9 L Ur L.pneumophila Ag Not Detected Microbiology Microbiology Results: Microbiology 09/05/21 18:43 Blood - Venous Blood Culture - Final No growth after 5 days. 09/05/21 18:43 Blood - Venous Blood Culture - Final No growth after 5 days. Quality Stroke Does the patient have a stroke diagnosis?: No VTE Prior VTE?: No VTE Risk Level:: Medical - moderate - high VTE Device Contraindication: Treatment Not Indicated VTE Drug Contraindication: N/A - Med Ordered
--- NOTE | 2021-09-13 19:16 | PC.NURSE ---
Patient continuously de-satting to 70s; placed NRB on top of 15L Raza. Patient satting mid 90s at rest, in recliner for most of the day. Will pass to oncoming RN.
[2021-09-13] MEDS: Famotidine 20 MG TABLET PO (20:41)
[2021-09-14] VITALS (12 sets, daily range): BP systolic 117–140; BP diastolic 64–76; PULSE 72–111; RESP 17–22; TEMP 36.3–38; O2SAT 91–98
[2021-09-14] MEDS: Heparin Sodium,Porcine 5,000 UNIT/ML VIAL 5000 UNIT SUBCUT ×2 (03:01→15:08)
[2021-09-14] MEDS: cefEPime HCl 2 GM in 0.9 % Sodium Chloride 50 ML IV (03:02)
[2021-09-14 07:41] LABS: Creatinine Clr Calc Pharmacy 103.1; Estimated Glomerular Filt Rate > 60
--- NOTE | 2021-09-14 08:47 | P.PNIM_ITS ---
Progress Note: A&P (1) Acute respiratory failure with hypoxia: Status: Acute (2) COVID-19: Status: Acute (3) Post-COVID syndrome: Status: Acute (4) Pancytopenia: Status: Acute Assessment and Plan: 66-year-old male past medical history of CLL who presents to the hospital with shortness of breath found to be hypoxic secondary to COVID-19 pneumonia. Patient states he initially tested positive for COVID 3 weeks ago (other notes state 6 weeks). Fully vaccinated (moderna) + has received booster Acute hypoxic respiratory failure, r/t to post covid 19 pneumonia/pneumonitis. worsening oxygen requirements Both DAVIDA and PCR test for covid are positive; remainder of RPP negative. Procalcitonin 0.20 Seen by pulmonology with rec to continue IV Solumedrol, stop vanco and continue cefepime over the weekend and then stop oxygen requirements still high, goal sat 92% start high flow if hypoxemia gets worse Famotidine 20mg BID added Hyponatremia Mild urine studies ok elevated LFTs. ? r/t possible viral illness vs medication related (ceftriaxone), vs primary biliary although no abdominal pain abdominal US no acute abnormality. Hepatitis screen negative d/c statin Pancytopenia secondary to CLL gout continue allopurinol hyperlipidemia statin on hold DVT prophylaxis:? Heparin subQ Attending- Subjective Subjective Date of Service: 09/14/21 Review of Systems Follow up covid 19 no sob oxygen demand increasing Physical Exam Vital Signs: Vital Signs: Last Vital Signs Temp 97.5 F 09/14/21 08:00 Pulse 72 09/14/21 08:00 Resp 18 09/14/21 08:00 BP 135/76 09/14/21 08:00 Pulse Ox 98 09/14/21 08:00 Oxygen Flow Rate 2 09/06/21 02:32 Body Mass Index 26.6 Appearing in no acute distress lung sounds normal expansion heart regular rate rhythm, clear S1, S2 positive bowel sounds, abdomen is soft, nontender neuro patient is alert x3, no focal deficits Objective Data Current Medications Acetaminophen (Acetaminophen 325 Mg Tablet) 650 mg PO Q6H PRN PRN Reason: Pain, Mild (Pain Scale 1-3) Last Admin: 09/07/21 01:19 Dose: 650 mg Documented by: Allopurinol (Allopurinol 300 Mg Tablet) 300 mg PO DAILY [facility] Last Admin: 09/13/21 08:26 Dose: 300 mg Documented by: Docusate Sodium (Docusate Sodium 100 Mg Capsule) 100 mg PO DAILY PRN PRN Reason: Constipation Famotidine (Famotidine 20 Mg Tablet) 20 mg PO BID [facility] Last Admin: 09/13/21 20:41 Dose: 20 mg Documented by: Heparin Sodium (Porcine) (Heparin Sodium,Porcine 5,000 Unit/Ml Vial) 5,000 unit SUBCUT Q12H [facility] Last Admin: 09/14/21 03:01 Dose: 5,000 unit Documented by: Levalbuterol HCl (Levalbuterol Hcl 1.25 Mg/0.5 Ml Vial.Neb) 1.25 mg INHALE RQ4H WHILE AWAKE [facility] Last Admin: 09/13/21 19:24 Dose: 1.25 mg Documented by: Methylprednisolone Sodium Succinate (Methylprednisolone Sod Succ 40 Mg/Ml Vial) 40 mg IVPUSH Q8H [facility] Last Admin: 09/13/21 23:04 Dose: 40 mg Documented by: Ondansetron HCl (Ondansetron Hcl 4 Mg/2 Ml Vial) 4 mg IVPUSH Q8H PRN PRN Reason: Nausea and Vomiting Pharmacy Consult (Consult Rx Perform Med Rec) 1 each MISCELLANE ONCE PRN PRN Reason: Consult order Pharmacy Consult (Consult Rx Vancomycin Dosing) 1 each MISCELLANE DAILY PRN PRN Reason: Consult order Sodium Chloride (0.9 % Sodium Chloride Flush 3 Ml Syringe) 3 ml IVFLUSH QSHIFT [facility] Last Admin: 09/13/21 20:42 Dose: 3 ml Documented by: Labs CBC & Chem 7: 09/10/21 09:07 09/14/21 06:33 Labs: Laboratory Results - last 24 hr 09/13/21 09/13/21 09/14/21 07:52 07:52 06:33 Estim Creat Clear Calc 95.7 103.1 Estimated GFR > 60 > 60 Vancomycin Trough 3.9 L Microbiology Microbiology Results: Microbiology 09/05/21 18:43 Blood - Venous Blood Culture - Final No growth after 5 days. 09/05/21 18:43 Blood - Venous Blood Culture - Final No growth after 5 days. Quality Stroke Does the patient have a stroke diagnosis?: No VTE Prior VTE?: No VTE Risk Level:: Medical - moderate - high VTE Device Contraindication: Treatment Not Indicated VTE Drug Contraindication: N/A - Med Ordered
[2021-09-14] MEDS: methylPREDNISolone Sod Succ 40 MG/ML VIAL IVPUSH ×2 (09:23→17:41)
[2021-09-14] MEDS: 0.9 % Sodium Chloride Flush 3 ML SYRINGE IVFLUSH ×2 (09:23→15:08)
[2021-09-14] MEDS: Famotidine 20 MG TABLET PO ×2 (09:23→21:53)
[2021-09-14] MEDS: allopurinoL 300 MG TABLET PO (09:23)
[2021-09-15] VITALS (13 sets, daily range): BP systolic 101–126; BP diastolic 59–69; PULSE 74–100; RESP 18–22; TEMP 36.1–36.7; O2SAT 86–99
[2021-09-15] MEDS: 0.9 % Sodium Chloride Flush 3 ML SYRINGE IVFLUSH ×4 (00:47→22:00)
[2021-09-15] MEDS: methylPREDNISolone Sod Succ 40 MG/ML VIAL IVPUSH ×2 (00:47→11:32)
[2021-09-15] MEDS: Heparin Sodium,Porcine 5,000 UNIT/ML VIAL 5000 UNIT SUBCUT ×2 (03:40→17:04)
--- NOTE | 2021-09-15 06:32 | PC.NURSE ---
Pt still desatting with minimal activity and taking a fair amount of time to recover to baseline O2 sat. Pt is on high-flow 50L, 80% satting 91-95% at rest.
[2021-09-15 07:20] LABS: Creatinine Clr Calc Pharmacy 97.1; Estimated Glomerular Filt Rate > 60
[2021-09-15] MEDS: allopurinoL 300 MG TABLET PO (11:32)
[2021-09-15] MEDS: Famotidine 20 MG TABLET PO ×2 (11:32→22:00)
--- NOTE | 2021-09-15 11:41 | P.PNIM_ITS ---
Progress Note: A&P (1) Post-COVID syndrome: Status: Acute (2) Acute respiratory failure with hypoxia: Status: Acute Assessment and Plan: 66-year-old male past medical history of CLL who presents to the hospital with shortness of breath found to be hypoxic secondary to COVID-19 pneumonia. Patient states he initially tested positive for COVID 3 weeks ago (other notes state 6 weeks). Fully vaccinated (moderna) + has received booster Acute hypoxic respiratory failure, r/t to post covid 19 pneumonia/pneumonitis. worsening oxygen requirements Now on high flow oxygen Increase solumedrol to 80mg BID Famotidine 20mg BID added IV abx stopped as per rec from pumonology, not bacterial Long haul post covid syndrome Hyponatremia Mild urine studies ok elevated LFTs. ? r/t possible viral illness vs medication related (ceftriaxone), vs primary biliary although no abdominal pain abdominal US no acute abnormality. Hepatitis screen negative d/c statin Pancytopenia secondary to CLL gout continue allopurinol hyperlipidemia statin on hold DVT prophylaxis:? Heparin subQ Attending-Dr. Curry Subjective Subjective Date of Service: 09/15/21 Review of Systems Follow up covid 19/post covid syndrome no sob, but more hypoxic On high flow denies chest pain, nausea or vomiting Physical Exam Vital Signs: Vital Signs: Last Vital Signs Temp 96.9 F 09/15/21 07:41 Pulse 74 09/15/21 07:41 Resp 20 09/15/21 11:17 BP 110/68 09/15/21 07:41 Pulse Ox 96 09/15/21 07:41 Oxygen Flow Rate 2 09/06/21 02:32 Body Mass Index 26.6 Appearing in no acute distress lung sounds normal expansion heart regular rate rhythm, clear S1, S2 positive bowel sounds, abdomen is soft, nontender neuro patient is alert x3, no focal deficits Objective Data Current Medications Acetaminophen (Acetaminophen 325 Mg Tablet) 650 mg PO Q6H PRN PRN Reason: Pain, Mild (Pain Scale 1-3) Last Admin: 09/07/21 01:19 Dose: 650 mg Documented by: Allopurinol (Allopurinol 300 Mg Tablet) 300 mg PO DAILY [facility] Last Admin: 09/15/21 11:32 Dose: 300 mg Documented by: Docusate Sodium (Docusate Sodium 100 Mg Capsule) 100 mg PO DAILY PRN PRN Reason: Constipation Famotidine (Famotidine 20 Mg Tablet) 20 mg PO BID [facility] Last Admin: 09/15/21 11:32 Dose: 20 mg Documented by: Heparin Sodium (Porcine) (Heparin Sodium,Porcine 5,000 Unit/Ml Vial) 5,000 unit SUBCUT Q12H [facility] Last Admin: 09/15/21 03:40 Dose: 5,000 unit Documented by: Levalbuterol HCl (Levalbuterol Hcl 1.25 Mg/0.5 Ml Vial.Neb) 1.25 mg INHALE RQ4H WHILE AWAKE [facility] Last Admin: 09/15/21 11:17 Dose: 1.25 mg Documented by: Methylprednisolone Sodium Succinate (Methylprednisolone Sod Succ 40 Mg/Ml Vial) 40 mg IVPUSH Q8H [facility] Last Admin: 09/15/21 11:32 Dose: 40 mg Documented by: Ondansetron HCl (Ondansetron Hcl 4 Mg/2 Ml Vial) 4 mg IVPUSH Q8H PRN PRN Reason: Nausea and Vomiting Pharmacy Consult (Consult Rx Perform Med Rec) 1 each MISCELLANE ONCE PRN PRN Reason: Consult order Pharmacy Consult (Consult Rx Vancomycin Dosing) 1 each MISCELLANE DAILY PRN PRN Reason: Consult order Sodium Chloride (0.9 % Sodium Chloride Flush 3 Ml Syringe) 3 ml IVFLUSH QSHIFT [facility] Last Admin: 09/15/21 11:32 Dose: 3 ml Documented by: Labs CBC & Chem 7: 09/10/21 09:07 09/15/21 06:33 Labs: Laboratory Results - last 24 hr 09/15/21 06:33 Estim Creat Clear Calc 97.1 Estimated GFR > 60 Microbiology Microbiology Results: Microbiology 09/05/21 18:43 Blood - Venous Blood Culture - Final No growth after 5 days. 09/05/21 18:43 Blood - Venous Blood Culture - Final No growth after 5 days. Quality Stroke Does the patient have a stroke diagnosis?: No VTE Prior VTE?: No VTE Risk Level:: Medical - moderate - high VTE Device Contraindication: Treatment Not Indicated VTE Drug Contraindication: N/A - Med Ordered
[2021-09-15] MEDS: methylPREDNISolone Sod Succ 40 MG/ML VIAL 80 MG IVPUSH (21:59)
[2021-09-16] VITALS (12 sets, daily range): BP systolic 109–154; BP diastolic 57–69; PULSE 65–94; RESP 18–24; TEMP 36.1–37.1; O2SAT 90–98
[2021-09-16 04:25] LABS: SARS COV2 IgG Negative (Negative)
[2021-09-16] MEDS: Heparin Sodium,Porcine 5,000 UNIT/ML VIAL 5000 UNIT SUBCUT (06:02)
[2021-09-16 06:50] LABS: Hematocrit 30.2 % (42-52); Hemoglobin 10.5 g/dl (14.0-18.0); Mean Corpuscular HGB Conc 34.8 g/dl (31.0-36.0); Mean Corpuscular Volume 92.1 fL (80-98); Mean Platelet Volume 11.2 fL (9.4-12.4); Platelet Count 115 X10*3/uL (160-400); Red Blood Count 3.28 X10*6/uL (4.60-5.80); Red Cell Distribution Width 13.7 % (11.0-16.0); White Blood Count 5.4 X10*3/uL (4.8-10.8)
[2021-09-16 07:07] LABS: Anion Gap 15 (12-20); Blood Urea Nitrogen 20 mg/dL (9-16); Carbon Dioxide 25 mmol/L (22-29); Chloride 98 mmol/L (96-108); Creatinine Clr Calc Pharmacy 91.8; Estimated Glomerular Filt Rate > 60; Glucose Random 238 mg/dL (60-115); Lactate Dehydrogenase 604 U/L (118-273); Potassium 4.9 mmol/L (3.3-5.1); Sodium 133 mmol/L (135-145)
[2021-09-16 08:10] LABS: Ferritin 5968 ng/mL (20-250)
[2021-09-16 08:54] LABS: C Reactive Protein 5.53 mg/dL (< or = 0.50)
[2021-09-16] MEDS: Famotidine 20 MG TABLET PO ×2 (09:12→23:01)
[2021-09-16] MEDS: methylPREDNISolone Sod Succ 40 MG/ML VIAL 80 MG IVPUSH ×2 (09:12→23:01)
[2021-09-16] MEDS: 0.9 % Sodium Chloride Flush 3 ML SYRINGE IVFLUSH (09:12)
[2021-09-16] MEDS: allopurinoL 300 MG TABLET PO (09:12)
--- NOTE | 2021-09-16 10:03 | PM.IMPN ---
Progress Note: A&P (1) Post-COVID syndrome: Status: Acute (2) Pancytopenia: Status: Acute (3) Hyponatremia: Status: Acute (4) Acute respiratory failure with hypoxia: Status: Acute (5) COVID-19: Status: Acute Assessment and Plan: 66-year-old male past medical history of CLL who presents to the hospital with shortness of breath found to be hypoxic secondary to COVID-19 pneumonia. Patient states he initially tested positive for COVID 3 weeks ago (other notes state 6 weeks). Fully vaccinated (moderna) + has received booster Acute hypoxic respiratory failure, r/t to post covid 19 pneumonia/pneumonitis. worsening oxygen requirements Now on high flow oxygen 90% Increase solumedrol to 80mg BID Famotidine 20mg BID added IV abx stopped as per rec from pumonology, not bacterial Also compliance nurse thought patient would benefit from convalescent plasma Long haul post covid syndrome Hyponatremia Mild urine studies ok elevated LFTs. ? r/t possible viral illness vs medication related (ceftriaxone), vs primary biliary although no abdominal pain abdominal US no acute abnormality. Hepatitis screen negative d/c statin Pancytopenia secondary to CLL gout continue allopurinol hyperlipidemia statin on hold DVT prophylaxis Lovenox Attending-Dr. Curry Subjective Subjective Date of Service: 09/16/21 Review of Systems Follow up Covid 19/post covid syndrome no sob, mild non productive cough Physical Exam Vital Signs: Vital Signs: Last Vital Signs Temp 97.7 F 09/16/21 07:56 Pulse 90 09/16/21 07:56 Resp 22 H 09/16/21 07:56 BP 120/58 L 09/16/21 07:56 Pulse Ox 96 09/16/21 07:56 Oxygen Flow Rate 2 09/06/21 02:32 Body Mass Index 26.6 Appearing in no acute distress lung sounds normal lung expansion heart regular rate rhythm, clear S1, S2 positive bowel sounds, abdomen is soft, nontender neuro patient is alert x3, no focal deficits Objective Data Current Medications Acetaminophen (Acetaminophen 325 Mg Tablet) 650 mg PO Q6H PRN PRN Reason: Pain, Mild (Pain Scale 1-3) Last Admin: 09/07/21 01:19 Dose: 650 mg Documented by: Allopurinol (Allopurinol 300 Mg Tablet) 300 mg PO DAILY [facility] Last Admin: 09/16/21 09:12 Dose: 300 mg Documented by: Docusate Sodium (Docusate Sodium 100 Mg Capsule) 100 mg PO DAILY PRN PRN Reason: Constipation Famotidine (Famotidine 20 Mg Tablet) 20 mg PO BID [facility] Last Admin: 09/16/21 09:12 Dose: 20 mg Documented by: Heparin Sodium (Porcine) (Heparin Sodium,Porcine 5,000 Unit/Ml Vial) 5,000 unit SUBCUT Q12H [facility] Last Admin: 09/16/21 06:02 Dose: 5,000 unit Documented by: Levalbuterol HCl (Levalbuterol Hcl 1.25 Mg/0.5 Ml Vial.Neb) 1.25 mg INHALE RQ4H WHILE AWAKE [facility] Last Admin: 09/16/21 07:42 Dose: 1.25 mg Documented by: Methylprednisolone Sodium Succinate (Methylprednisolone Sod Succ 40 Mg/Ml Vial) 80 mg IVPUSH BID [facility] Last Admin: 09/16/21 09:12 Dose: 80 mg Documented by: Ondansetron HCl (Ondansetron Hcl 4 Mg/2 Ml Vial) 4 mg IVPUSH Q8H PRN PRN Reason: Nausea and Vomiting Pharmacy Consult (Consult Rx Perform Med Rec) 1 each MISCELLANE ONCE PRN PRN Reason: Consult order Pharmacy Consult (Consult Rx Vancomycin Dosing) 1 each MISCELLANE DAILY PRN PRN Reason: Consult order Sodium Chloride (0.9 % Sodium Chloride Flush 3 Ml Syringe) 3 ml IVFLUSH QSHIFT [facility] Last Admin: 09/16/21 09:12 Dose: 3 ml Documented by: Labs CBC & Chem 7: 09/16/21 06:20 09/16/21 06:20 Labs: Laboratory Results - last 24 hr 09/15/21 09/16/21 09/16/21 08:52 06:20 06:20 MCV 92.1 MCH 32.0 MCHC 34.8 RDW 13.7 Plt Count 115 L MPV 11.2 Absolute Nucleated RBC 0.000 Nucleated RBC % (auto) 0.0 Anion Gap 15 Estim Creat Clear Calc 91.8 Estimated GFR > 60 Random Glucose 238 H Calcium 8.0 L Ferritin 5968 H Lactate Dehydrogenase 604 H C-Reactive Protein 5.53 H SARS-CoV-2 IgG Ab Negative Microbiology Microbiology Results: Microbiology 09/05/21 18:43 Blood - Venous Blood Culture - Final No growth after 5 days. 09/05/21 18:43 Blood - Venous Blood Culture - Final No growth after 5 days. Quality Stroke Does the patient have a stroke diagnosis?: No VTE Prior VTE?: No VTE Risk Level:: Medical - moderate - high VTE Device Contraindication: Treatment Not Indicated VTE Drug Contraindication: N/A - Med Ordered
[2021-09-16] MEDS: Enoxaparin Sodium 40 MG/0.4 ML SYRINGE SUBCUT (14:40)
[2021-09-16 14:51] LABS: Immunoglobulin G 248 mg/dL (600-1540)
--- NOTE | 2021-09-16 16:39 | PM.PNPUL ---
Subjective Subjective Date of Service: 09/16/21 Principal diagnosis: COVID PNEUMINA Interval history: The patient was seen and examined. Continues to require high-flow. His COVID-19 antibodies have been negative. Therefore, we talked about considering convalescent plasma. However, the convalescent plasma is not available at this time. Only way to get it is if there is a donor. Therefore recheck the IgG levels that were critically low Objective Data Labs CBC & Chem 7: 09/16/21 06:20 09/16/21 06:20 Labs: Laboratory Results - last 24 hr 09/15/21 09/15/21 09/16/21 08:52 14:08 06:20 WBC 5.4 RBC 3.28 L Hgb 10.5 L Hct 30.2 L MCV 92.1 MCH 32.0 MCHC 34.8 RDW 13.7 Plt Count 115 L MPV 11.2 Absolute Nucleated RBC 0.000 Nucleated RBC % (auto) 0.0 Sodium Potassium Chloride Carbon Dioxide Anion Gap BUN Creatinine Estim Creat Clear Calc Estimated GFR Random Glucose Calcium Ferritin Lactate Dehydrogenase C-Reactive Protein IgG 248 L SARS-CoV-2 IgG Ab Negative Blood Type Antibody Screen 09/16/21 09/16/21 06:20 13:43 WBC RBC Hgb Hct MCV MCH MCHC RDW Plt Count MPV Absolute Nucleated RBC Nucleated RBC % (auto) Sodium 133 L Potassium 4.9 Chloride 98 Carbon Dioxide 25 Anion Gap 15 BUN 20 H Creatinine 0.73 Estim Creat Clear Calc 91.8 Estimated GFR > 60 Random Glucose 238 H Calcium 8.0 L Ferritin 5968 H Lactate Dehydrogenase 604 H C-Reactive Protein 5.53 H IgG SARS-CoV-2 IgG Ab Blood Type A Negative Antibody Screen NEGATIVE Microbiology Microbiology Results: Microbiology 09/05/21 18:43 Blood - Venous Blood Culture - Final No growth after 5 days. 09/05/21 18:43 Blood - Venous Blood Culture - Final No growth after 5 days. Review of Systems Review of Systems Yes all other systems are reviewed and are negative Constitutional: Reports fatigue and Reports lethargy Eyes: Reports no additional eye complaints Reports system reviewed and no additional complaints, except as documented Cardiovascular: Denies chest pain, Denies irregular heart rhythm and Denies leg edema Respiratory: Reports as per HPI Gastrointestinal: Reports diarrhea and Reports nausea Genitourinary: Reports no additional male genitourinary complaints Musculoskeletal: Reports muscle weakness Skin/Breast: Reports system reviewed and no additional complaints, except as docu Reports system reviewed and no additional complaints, except as documented Psychiatric: Reports no additional psychiatric complaints Endocrine: Reports fatigue Physical Exam Vital Signs: Vital Signs: Last Vital Signs Temp 98.7 F 09/16/21 16:00 Pulse 65 09/16/21 16:00 Resp 20 09/16/21 16:00 BP 154/66 H 09/16/21 16:00 Pulse Ox 97 09/16/21 16:00 Oxygen Flow Rate 2 09/06/21 02:32 Body Mass Index 26.6 Const: General: alert Neck: Neck: Yes normal visual inspection, Yes full ROM and Yes no lymphadenopathy Chest: Chest palpation & inspection: normal inspection of the chest Resp: Auscultation: diminished lung sounds Cardio: Rate: regular rate Rhythm: regular rhythm Heart sounds: S1 normal heart sound present and S2 normal heart sound present GI: Palpation (GI): Soft to palpation and nontender Auscultation: normal bowel sounds Skin: General skin exam: rashes and/or lesions noted Procedures Date of Service Date of Service: 09/16/21 Assessment and Plan Assessment and plan (1) COVID-19: Status: Acute (2) Acute respiratory failure with hypoxia: Problem details: He has ARDS, secondary to COVID pneumonia. Still requiring high E concentrations of FiO2. Recc . Continue O2 10-14 L/minute via nasal cannula and wean down slowly as tolerated, goal is to keep O2 sat above 90% Status: Acute (3) CLL (chronic lymphocytic leukemia): Status: Acute (4) Hypogammaglobulinemia: Status: Acute Assessment and Plan: give IVIG 40gm x 1 now Time Spent With Patient Time: Total time spent is greater than 50% in coordination of care (as documented) at patient's floor/unit and/or counseling patient: Time with patient: 25 - 35 minutes Progress Note: Quality Stroke Does the patient have a stroke diagnosis?: No
--- NOTE | 2021-09-16 22:23 | PC.NURSE ---
pt desatted to 70% while on HF 90% 55L. PT sat upright in bed and instructed to deep breathe and cough a few times. O2 slowly recovering - currently at 88-90%. Pt alert and oriented, no complaints of shortness of breath or chest pain.
[2021-09-17] VITALS (18 sets, daily range): BP systolic 107–133; BP diastolic 60–67; PULSE 80–99; RESP 18–22; TEMP 36.1–36.8; O2SAT 89–95
[2021-09-17] MEDS: 0.9 % Sodium Chloride Flush 3 ML SYRINGE IVFLUSH ×4 (00:39→21:05)
[2021-09-17] MEDS: Famotidine 20 MG TABLET PO ×2 (09:26→21:05)
[2021-09-17] MEDS: allopurinoL 300 MG TABLET PO (09:26)
[2021-09-17] MEDS: methylPREDNISolone Sod Succ 40 MG/ML VIAL 80 MG IVPUSH (09:26)
[2021-09-17 10:33] LABS: Hematocrit 30.8 % (42-52); Hemoglobin 10.6 g/dl (14.0-18.0); Mean Corpuscular HGB Conc 34.4 g/dl (31.0-36.0); Mean Corpuscular Hemoglobin 31.5 pg (27.0-33.0); Mean Corpuscular Volume 91.7 fL (80-98); Mean Platelet Volume 11.3 fL (9.4-12.4); Platelet Count 121 X10*3/uL (160-400); Red Blood Count 3.36 X10*6/uL (4.60-5.80); Red Cell Distribution Width 13.7 % (11.0-16.0); White Blood Count 4.1 X10*3/uL (4.8-10.8)
[2021-09-17 10:46] LABS: Anion Gap 14 (12-20); Blood Urea Nitrogen 26 mg/dL (9-16); C Reactive Protein 5.78 mg/dL (< or = 0.50); Carbon Dioxide 26 mmol/L (22-29); Chloride 96 mmol/L (96-108); Creatinine Clr Calc Pharmacy 89.3; Estimated Glomerular Filt Rate > 60; Glucose Random 189 mg/dL (60-115); Potassium 5.1 mmol/L (3.3-5.1); Sodium 131 mmol/L (135-145)
--- NOTE | 2021-09-17 12:27 | PM.PNPUL ---
Subjective Subjective Date of Service: 09/17/21 Principal diagnosis: COVID PNEUMINA Interval history: Patient was seen. He did receive the IVIG 40 g last night. Tolerated well. The patient has critically low IgG. I am hopeful that the IVIG will provide some support. There is also beta about using IgG for the treatment severe COVID-19 infections. Will continue to monitor the patient's progress. Consider give him additional IVIG tomorrow. Objective Data Labs CBC & Chem 7: 09/17/21 10:20 09/17/21 10:20 Labs: Laboratory Results - last 24 hr 09/15/21 09/16/21 09/17/21 14:08 13:43 10:20 WBC 4.1 L RBC 3.36 L Hgb 10.6 L Hct 30.8 L MCV 91.7 MCH 31.5 MCHC 34.4 RDW 13.7 Plt Count 121 L MPV 11.3 Absolute Nucleated RBC 0.000 Nucleated RBC % (auto) 0.0 Sodium Potassium Chloride Carbon Dioxide Anion Gap BUN Creatinine Estim Creat Clear Calc Estimated GFR Random Glucose Calcium C-Reactive Protein IgG 248 L Blood Type A Negative Antibody Screen NEGATIVE 09/17/21 10:20 WBC RBC Hgb Hct MCV MCH MCHC RDW Plt Count MPV Absolute Nucleated RBC Nucleated RBC % (auto) Sodium 131 L Potassium 5.1 Chloride 96 Carbon Dioxide 26 Anion Gap 14 BUN 26 H Creatinine 0.75 Estim Creat Clear Calc 89.3 Estimated GFR > 60 Random Glucose 189 H Calcium 8.0 L C-Reactive Protein 5.78 H IgG Blood Type Antibody Screen Microbiology Microbiology Results: Microbiology 09/05/21 18:43 Blood - Venous Blood Culture - Final No growth after 5 days. 09/05/21 18:43 Blood - Venous Blood Culture - Final No growth after 5 days. Review of Systems Review of Systems Yes all other systems are reviewed and are negative Constitutional: Reports fatigue and Reports lethargy Eyes: Reports no additional eye complaints Reports system reviewed and no additional complaints, except as documented Cardiovascular: Denies chest pain, Denies irregular heart rhythm and Denies leg edema Respiratory: Reports as per HPI Gastrointestinal: Reports diarrhea and Reports nausea Genitourinary: Reports no additional male genitourinary complaints Musculoskeletal: Reports muscle weakness Skin/Breast: Reports system reviewed and no additional complaints, except as docu Reports system reviewed and no additional complaints, except as documented Psychiatric: Reports no additional psychiatric complaints Endocrine: Reports fatigue Physical Exam Vital Signs: Vital Signs: Last Vital Signs Temp 97 F 09/17/21 11:45 Pulse 94 09/17/21 11:45 Resp 18 09/17/21 11:45 BP 107/64 09/17/21 11:45 Pulse Ox 91 L 09/17/21 11:45 Oxygen Flow Rate 2 09/06/21 02:32 Body Mass Index 26.6 Const: General: alert Eyes: Pupils: Equal, round and reactive pupils present Neck: Neck: Yes normal visual inspection, Yes full ROM and Yes no lymphadenopathy Chest: Chest palpation & inspection: normal inspection of the chest Resp: Effort & Inspection: normal respiratory effort Cardio: Rate: regular rate Rhythm: regular rhythm Skin: General skin exam: rashes and/or lesions noted Neuro: Cranial nerves: Yes Equal, round and reactive pupils present Procedures Date of Service Date of Service: 09/17/21 Assessment and Plan Assessment and plan (1) Hypogammaglobulinemia: Status: Acute (2) CLL (chronic lymphocytic leukemia): Status: Acute (3) COVID-19: Status: Acute (4) Acute respiratory failure with hypoxia: Status: Acute Assessment and Plan: Titrate oxygen to maintain a pulse ox above 87%, hopefully wean to an Oxymizer pendant Change to p.o. prednisone Repeat chest x-ray in the morning Consider repeating IVIG tomorrow Time Spent With Patient Time: Total time spent is greater than 50% in coordination of care (as documented) at patient's floor/unit and/or counseling patient: Time with patient: 15 - 24 minutes Progress Note: Quality Stroke Does the patient have a stroke diagnosis?: No
[2021-09-17] MEDS: Enoxaparin Sodium 40 MG/0.4 ML SYRINGE SUBCUT (14:19)
--- NOTE | 2021-09-17 14:37 | HO.PM.IMPN ---
Subjective Subjective Date of Service: 09/17/21 Interval History: seen and examined tolerated IVIG last night he reports no new complaints breathing comfortable on HFNC continues to desaturate with minimal movement Review of Systems no fevers or chills no cp +sob no abd pain Physical Exam Vital Signs: Vital Signs: Last Vital Signs Temp 97 F 09/17/21 11:45 Pulse 94 09/17/21 11:45 Resp 18 09/17/21 11:45 BP 107/64 09/17/21 11:45 Pulse Ox 91 L 09/17/21 11:45 Oxygen Flow Rate 2 09/06/21 02:32 Body Mass Index 26.6 Const: Other: General - comfortable on HFNC but desaturates with prolonged recovery with minimal movement/exertion Cardiovascular - regular rate and rhythm, S1-S2 Lungs - saturations in the 90s, no tachypnea when at rest Abdomen - soft, nontender, no rebound or guarding Extremities - no edema bilaterally Neuro - awake and alert, no focal deficits Objective Data Active Medications Acetaminophen (Acetaminophen 325 Mg Tablet) 650 mg PO Q6H PRN PRN Reason: Pain, Mild (Pain Scale 1-3) Last Admin: 09/07/21 01:19 Dose: 650 mg Documented by: ANTOIC Allopurinol (Allopurinol 300 Mg Tablet) 300 mg PO DAILY [facility] Last Admin: 09/17/21 09:26 Dose: 300 mg Documented by: TRACEY Docusate Sodium (Docusate Sodium 100 Mg Capsule) 100 mg PO DAILY PRN PRN Reason: Constipation Enoxaparin Sodium (Enoxaparin Sodium 40 Mg/0.4 Ml Syringe) 40 mg SUBCUT Q24H [facility] Last Admin: 09/17/21 14:19 Dose: 40 mg Documented by: TRACEY Famotidine (Famotidine 20 Mg Tablet) 20 mg PO BID [facility] Last Admin: 09/17/21 09:26 Dose: 20 mg Documented by: TRACEY Levalbuterol HCl (Levalbuterol Hcl 1.25 Mg/0.5 Ml Vial.Neb) 1.25 mg INHALE RQ4H WHILE AWAKE [facility] Last Admin: 09/17/21 11:18 Dose: 1.25 mg Documented by: JIA Ondansetron HCl (Ondansetron Hcl 4 Mg/2 Ml Vial) 4 mg IVPUSH Q8H PRN PRN Reason: Nausea and Vomiting Pharmacy Consult (Consult Rx Perform Med Rec) 1 each MISCELLANE ONCE PRN PRN Reason: Consult order Prednisone (Prednisone 20 Mg Tablet) 40 mg PO DAILY [facility] Sodium Chloride (0.9 % Sodium Chloride Flush 3 Ml Syringe) 3 ml IVFLUSH QSHIFT [facility] Last Admin: 09/17/21 09:26 Dose: 3 ml Documented by: TRACEY Labs CBC & Chem 7: 09/17/21 10:20 09/17/21 10:20 Labs: Laboratory Results - last 24 hr 09/15/21 09/17/21 09/17/21 14:08 10:20 10:20 MCV 91.7 MCH 31.5 MCHC 34.4 RDW 13.7 Plt Count 121 L MPV 11.3 Absolute Nucleated RBC 0.000 Nucleated RBC % (auto) 0.0 Anion Gap 14 Estim Creat Clear Calc 89.3 Estimated GFR > 60 Random Glucose 189 H Calcium 8.0 L C-Reactive Protein 5.78 H IgG 248 L Assessment and Plan (1) Acute respiratory failure with hypoxia: Status: Acute Assessment and Plan: 66-year-old male past medical history of CLL who presents to the hospital with shortness of breath found to be hypoxic secondary to COVID-19 pneumonia. Patient states he initially tested positive for COVID 3 weeks ago (other notes state 6 weeks). Fully vaccinated (moderna) + has received booster Acute hypoxic respiratory failure Prolonged COVID s/p treatment with broad spec IV antibitoics -- discontinued as his infection deemed COVID related and no secondary superimposed bacterial infection continue HFNC taper solu-medrol to prednisone 40mg daily starting tomorrow pecid 20mg bid s/p IVIG 09/16; may repeat tomorrow trend biomakers (generally a downward trend) Hyponatremia monitor elevated LFTs. trend tomorrow likely due to viral infection history of CLL pt reports he is in remission gout continue allopurinol hyperlipidemia statin on hold -- if LFTs improved, restart full code dvt pptx, lovenox Quality Stroke Does the patient have a stroke diagnosis?: No VTE Prior VTE?: No VTE Risk Level:: Medical - moderate - high VTE Device Contraindication: Treatment Not Indicated VTE Drug Contraindication: N/A - Med Ordered
[2021-09-18] VITALS (16 sets, daily range): BP systolic 86–127; BP diastolic 50–72; PULSE 78–122; RESP 18–28; TEMP 36.1–37.3; O2SAT 85–99
[2021-09-18 06:45] LABS: Hematocrit 34.3 % (42-52); Hemoglobin 11.5 g/dl (14.0-18.0); Mean Corpuscular HGB Conc 33.5 g/dl (31.0-36.0); Mean Corpuscular Hemoglobin 30.9 pg (27.0-33.0); Mean Corpuscular Volume 92.2 fL (80-98); Mean Platelet Volume 10.9 fL (9.4-12.4); Platelet Count 118 X10*3/uL (160-400); Red Blood Count 3.72 X10*6/uL (4.60-5.80); Red Cell Distribution Width 13.8 % (11.0-16.0); White Blood Count 5.8 X10*3/uL (4.8-10.8)
[2021-09-18 07:08] LABS: Anion Gap 12 (12-20); Blood Urea Nitrogen 24 mg/dL (9-16); Calcium 8.1 mg/dL (8.4-10.2); Carbon Dioxide 29 mmol/L (22-29); Chloride 97 mmol/L (96-108); Creatinine Clr Calc Pharmacy 91.8; Estimated Glomerular Filt Rate > 60; Glucose Random 117 mg/dL (60-115); Potassium 4.9 mmol/L (3.3-5.1); Sodium 133 mmol/L (135-145)
[2021-09-18 07:17] LABS: Procalcitonin 0.14 ng/mL
[2021-09-18 07:31] LABS: Alanine Aminotransferase 111 U/L (0-40); Albumin Level 2.8 g/dL (3.5-5.0); Alkaline Phosphatase 188 U/L (39-117); Aspartate Amino Transferase 51 U/L (5-37); Bilirubin Direct 0.6 mg/dL (0.0-0.5); C Reactive Protein 6.37 mg/dL (< or = 0.50); Total Protein 5.8 g/dL (6.5-8.0)
[2021-09-18] MEDS: predniSONE 20 MG TABLET 40 MG PO (10:08)
[2021-09-18] MEDS: allopurinoL 300 MG TABLET PO (10:08)
[2021-09-18] MEDS: 0.9 % Sodium Chloride Flush 3 ML SYRINGE IVFLUSH ×3 (10:09→22:41)
[2021-09-18] MEDS: Famotidine 20 MG TABLET PO ×2 (10:09→22:41)
--- NOTE | 2021-09-18 11:43 | P.PNIM_ITS ---
Subjective Subjective Date of Service: 09/18/21 Interval History: seen and examined this morning patient reporting shortness of breathing with any movement ongoing coughing, primarily dry repeat cxr this morning unchanged Review of Systems Review of Systems: Yes all other systems are reviewed and are negative Constitutional Constitutional: Denies chills and Denies fever(s) Cardiovascular Cardiovascular: Denies chest pain and Reports dyspnea Respiratory Respiratory: Reports cough and Reports dyspnea Gastrointestinal Gastrointestinal: Denies abdominal pain Physical Exam Vital Signs: Vital Signs: Last Vital Signs Temp 98.1 F 09/18/21 11:23 Pulse 117 H 09/18/21 11:40 Resp 28 H 09/18/21 11:38 BP 86/61 L 09/18/21 11:23 Pulse Ox 85 L 09/18/21 11:23 Oxygen Flow Rate 2 09/06/21 02:32 Body Mass Index 26.6 Const: General: alert and awake Nutritional Appearance: well nourished Orientation/consciousness: patient oriented x3 HENMT: Head: Yes normocephalic and Yes atraumatic Eyes: Sclerae: sclerae normal Chest: Chest palpation & inspection: normal inspection of the chest Resp: Effort & Inspection: tachypneic Auscultation: diminished lung sounds Cardio: Rate: regular rate Rhythm: regular rhythm GI: Palpation (GI): Soft to palpation and nontender Neuro: General: patient oriented x3 Cranial nerves: Yes CN's II-XII intact bilaterally and Yes Bilaterally intact EOM present Objective Data Active Medications Acetaminophen (Acetaminophen 325 Mg Tablet) 650 mg PO Q6H PRN PRN Reason: Pain, Mild (Pain Scale 1-3) Last Admin: 09/07/21 01:19 Dose: 650 mg Documented by: ANTOIC Allopurinol (Allopurinol 300 Mg Tablet) 300 mg PO DAILY [facility] Last Admin: 09/18/21 10:08 Dose: 300 mg Documented by: DOBROB Docusate Sodium (Docusate Sodium 100 Mg Capsule) 100 mg PO DAILY PRN PRN Reason: Constipation Enoxaparin Sodium (Enoxaparin Sodium 40 Mg/0.4 Ml Syringe) 40 mg SUBCUT Q24H [facility] Last Admin: 09/17/21 14:19 Dose: 40 mg Documented by: DOBROB Famotidine (Famotidine 20 Mg Tablet) 20 mg PO BID [facility] Last Admin: 09/18/21 10:09 Dose: 20 mg Documented by: TRACEY Immune Globulin (Gammagard 10%) 200 mls @ 40 mls/hr IV ONCE ONE Stop: 09/18/21 15:59 Immune Globulin (Gammagard 10%) 200 mls @ 40 mls/hr IV ONCE ONE Stop: 09/18/21 20:59 Levalbuterol HCl (Levalbuterol Hcl 1.25 Mg/0.5 Ml Vial.Neb) 1.25 mg INHALE RQ4H WHILE AWAKE [facility] Last Admin: 09/18/21 11:34 Dose: 1.25 mg Documented by: JIA Ondansetron HCl (Ondansetron Hcl 4 Mg/2 Ml Vial) 4 mg IVPUSH Q8H PRN PRN Reason: Nausea and Vomiting Pharmacy Consult (Consult Rx Perform Med Rec) 1 each MISCELLANE ONCE PRN PRN Reason: Consult order Prednisone (Prednisone 20 Mg Tablet) 40 mg PO DAILY [facility] Last Admin: 09/18/21 10:08 Dose: 40 mg Documented by: TRACEY Sodium Chloride (0.9 % Sodium Chloride Flush 3 Ml Syringe) 3 ml IVFLUSH QSHIFT [facility] Last Admin: 09/18/21 10:09 Dose: 3 ml Documented by: TRACEY Labs CBC & Chem 7: 09/18/21 06:03 09/18/21 06:03 Labs: Laboratory Results - last 24 hr 09/18/21 09/18/21 09/18/21 06:03 06:03 06:03 MCV 92.2 MCH 30.9 MCHC 33.5 RDW 13.8 Plt Count 118 L MPV 10.9 Absolute Nucleated RBC 0.000 Nucleated RBC % (auto) 0.0 Anion Gap 12 Estim Creat Clear Calc 91.8 Estimated GFR > 60 Random Glucose 117 H D Calcium 8.1 L Total Bilirubin 1.0 Direct Bilirubin 0.6 H AST 51 H ALT 111 H Alkaline Phosphatase 188 H C-Reactive Protein 6.37 H Total Protein 5.8 L D Albumin 2.8 L Procalcitonin 09/18/21 06:03 MCV MCH MCHC RDW Plt Count MPV Absolute Nucleated RBC Nucleated RBC % (auto) Anion Gap Estim Creat Clear Calc Estimated GFR Random Glucose Calcium Total Bilirubin Direct Bilirubin AST ALT Alkaline Phosphatase C-Reactive Protein Total Protein Albumin Procalcitonin 0.14 Assessment and Plan (1) Acute respiratory failure with hypoxia: Status: Acute (2) Post-COVID syndrome: Status: Acute (3) Pancytopenia: Status: Acute (4) Hyponatremia: Status: Acute (5) Hypogammaglobulinemia: Status: Acute (6) COVID-19: Status: Acute Assessment and Plan: 66-year-old male past medical history of CLL who presents to the hospital with shortness of breath found to be hypoxic secondary to COVID-19 pneumonia. Patient states he initially tested positive for COVID 3 weeks ago (other notes state 6 weeks). Fully vaccinated (moderna) + has received booster Acute hypoxic respiratory failure r/t prolonged COVID. Tachypneic today, desaturates with movement. still requiring high flow - monitor respiratory status closely s/p treatment with broad spec IV antibiotics - discontinued as his infection deemed COVID related and no secondary superimposed bacterial infection continue HFNC taper solu-medrol to prednisone 40mg daily starting tomorrow pecid 20mg bid s/p IVIG 09/16; will repeat today per pulm rec trend biomakers (generally a downward trend) Hyponatremia monitor elevated LFTs. trend tomorrow likely due to viral infection history of CLL pt reports he is in remission gout continue allopurinol hyperlipidemia statin on hold -- if LFTs improved, restart full code dvt lety malone Attending; Dr. Curry Quality Stroke Does the patient have a stroke diagnosis?: No VTE Prior VTE?: No VTE Risk Level:: Medical - moderate - high VTE Device Contraindication: Treatment Not Indicated VTE Drug Contraindication: N/A - Med Ordered
[2021-09-18] MEDS: Immun Glob G(IgG)/Gly/IGA Ov50 200 ML IV ×2 (12:31→17:36)
--- NOTE | 2021-09-18 12:56 | PM.PNPUL ---
Subjective Subjective Date of Service: 09/18/21 Principal diagnosis: COVID PNEUMINA Interval history: The patient continues to require high-flow oxygen. He has been working awake proning. CXR is about the same. He is considered immunocompromised with severe hypogammaglobulinemia. Will plan to give my dish in all IVIG today. Objective Data Labs CBC & Chem 7: 09/18/21 06:03 09/18/21 06:03 Labs: Laboratory Results - last 24 hr 09/18/21 09/18/21 09/18/21 06:03 06:03 06:03 WBC 5.8 RBC 3.72 L Hgb 11.5 L Hct 34.3 L MCV 92.2 MCH 30.9 MCHC 33.5 RDW 13.8 Plt Count 118 L MPV 10.9 Absolute Nucleated RBC 0.000 Nucleated RBC % (auto) 0.0 Sodium 133 L Potassium 4.9 Chloride 97 Carbon Dioxide 29 Anion Gap 12 BUN 24 H Creatinine 0.73 Estim Creat Clear Calc 91.8 Estimated GFR > 60 Random Glucose 117 H D Calcium 8.1 L Total Bilirubin 1.0 Direct Bilirubin 0.6 H AST 51 H ALT 111 H Alkaline Phosphatase 188 H C-Reactive Protein 6.37 H Total Protein 5.8 L D Albumin 2.8 L Procalcitonin 09/18/21 06:03 WBC RBC Hgb Hct MCV MCH MCHC RDW Plt Count MPV Absolute Nucleated RBC Nucleated RBC % (auto) Sodium Potassium Chloride Carbon Dioxide Anion Gap BUN Creatinine Estim Creat Clear Calc Estimated GFR Random Glucose Calcium Total Bilirubin Direct Bilirubin AST ALT Alkaline Phosphatase C-Reactive Protein Total Protein Albumin Procalcitonin 0.14 Microbiology Microbiology Results: Microbiology 09/05/21 18:43 Blood - Venous Blood Culture - Final No growth after 5 days. 09/05/21 18:43 Blood - Venous Blood Culture - Final No growth after 5 days. Review of Systems Review of Systems Yes all other systems are reviewed and are negative Constitutional: Reports fatigue and Reports lethargy Eyes: Reports no additional eye complaints Reports system reviewed and no additional complaints, except as documented Cardiovascular: Denies chest pain, Denies irregular heart rhythm and Denies leg edema Respiratory: Reports as per HPI Gastrointestinal: Reports diarrhea and Reports nausea Genitourinary: Reports no additional male genitourinary complaints Musculoskeletal: Reports muscle weakness Skin/Breast: Reports system reviewed and no additional complaints, except as docu Reports system reviewed and no additional complaints, except as documented Psychiatric: Reports no additional psychiatric complaints Endocrine: Reports fatigue Physical Exam Vital Signs: Vital Signs: Last Vital Signs Temp 98.1 F 09/18/21 11:23 Pulse 117 H 09/18/21 11:40 Resp 28 H 09/18/21 11:38 BP 96/60 09/18/21 11:50 Pulse Ox 87 L 09/18/21 11:50 Oxygen Flow Rate 2 09/06/21 02:32 Body Mass Index 26.6 Const: General: alert Neck: Neck: Yes normal visual inspection, Yes full ROM and Yes no lymphadenopathy Chest: Chest palpation & inspection: normal inspection of the chest Resp: Effort & Inspection: normal respiratory effort Cardio: Rate: regular rate Rhythm: regular rhythm GI: Inspection: Yes normal to inspection Skin: General skin exam: rashes and/or lesions noted Procedures Date of Service Date of Service: 09/18/21 Assessment and Plan Assessment and plan (1) Hypogammaglobulinemia: Status: Acute (2) CLL (chronic lymphocytic leukemia): Status: Acute (3) COVID-19: Status: Acute (4) Multifocal pneumonia: Problem details: Bilateral multi focal pneumonitis, secondary to COVID pneumonia. Repeat CT scan on 09/12, show somewhat more prominent bilateral Alveolar/ Interstitial opacities, I think these represent, slight worsening of the COVID pneumonitis, and not essentially any bacterial pneumonia. [place] : Continue IV Solu-Medrol 40 mg q 8 hrs Patient is on vancomycin and cefepime , I suggest that we can DC vancomycin, continue cefepime I am over the weekend and then consider discontinuing this agent also. I added famotidine 20 mg b.i.d. empirically. Status: Acute (5) Acute respiratory failure with hypoxia: Status: Acute Assessment and Plan: Continue HF Awake proning corticosteroids Additional IVIG 40gm x 1 Monitor volume status, keep negative Time Spent With Patient Time: Total time spent is greater than 50% in coordination of care (as documented) at patient's floor/unit and/or counseling patient: Time with patient: 15 - 24 minutes Progress Note: Quality Stroke Does the patient have a stroke diagnosis?: No
[2021-09-18] MEDS: Enoxaparin Sodium 40 MG/0.4 ML SYRINGE SUBCUT (14:44)
[2021-09-19] VITALS (11 sets, daily range): BP systolic 97–116; BP diastolic 52–63; PULSE 82–117; RESP 18–30; TEMP 35.5–36.8; O2SAT 85–98
[2021-09-19 09:07] LABS: Venous Blood Gas Refer to POC result
[2021-09-19 09:07] LABS: VBG Base Excess 8.1 mmol/L; VBG HCO3 33 mmol/L (22-26); VBG pCO2 48 mmHg; VBG pH 7.44 (7.32-7.43); VBG pO2 28 mmHg
--- NOTE | 2021-09-19 10:04 | PM.PNPUL ---
Subjective Subjective Date of Service: 09/19/21 Principal diagnosis: COVID PNEUMINA Interval history: The patient was seen and examined. Received 2nd dose of IVIG yesterday. Still on high levels of oxygen requirement. Trying to perform the awake proninig. His CXR today did look a little better. Objective Data Labs CBC & Chem 7: 09/18/21 06:03 09/18/21 06:03 Labs: Laboratory Results - last 24 hr 09/19/21 09:02 VBG pH 7.44 H VBG pCO2 48 VBG pO2 28 VBG HCO3 33 H VBG O2 Saturation 33.0 VBG Base Excess 8.1 Microbiology Microbiology Results: Microbiology 09/05/21 18:43 Blood - Venous Blood Culture - Final No growth after 5 days. 09/05/21 18:43 Blood - Venous Blood Culture - Final No growth after 5 days. Review of Systems Review of Systems Yes all other systems are reviewed and are negative Constitutional: Reports fatigue and Reports lethargy Eyes: Reports no additional eye complaints Reports system reviewed and no additional complaints, except as documented Cardiovascular: Denies chest pain, Denies irregular heart rhythm, Denies leg edema, Reports dyspnea and Reports dyspnea on exertion Respiratory: Reports cough, Reports dyspnea and Reports dyspnea on exertion Gastrointestinal: Reports nausea Genitourinary: Reports no additional male genitourinary complaints Musculoskeletal: Reports muscle weakness Skin/Breast: Reports system reviewed and no additional complaints, except as docu Reports system reviewed and no additional complaints, except as documented Psychiatric: Reports no additional psychiatric complaints Endocrine: Reports fatigue Physical Exam Vital Signs: Vital Signs: Last Vital Signs Temp 98.2 F 09/19/21 07:13 Pulse 112 H 09/19/21 08:19 Resp 30 H 09/19/21 08:20 BP 114/59 L 09/19/21 07:13 Pulse Ox 89 L 09/19/21 07:13 Oxygen Flow Rate 2 09/06/21 02:32 Body Mass Index 26.6 Const: General: alert Neck: Neck: Yes normal visual inspection, Yes full ROM and Yes no lymphadenopathy Chest: Chest palpation & inspection: normal inspection of the chest Resp: Auscultation: diminished lung sounds Cardio: Rate: regular rate Rhythm: regular rhythm Heart sounds: S1 normal heart sound present and S2 normal heart sound present GI: Palpation (GI): Soft to palpation and nontender Auscultation: normal bowel sounds Skin: General skin exam: rashes and/or lesions noted Procedures Date of Service Date of Service: 09/19/21 Assessment and Plan Assessment and plan (1) Hypogammaglobulinemia: Status: Acute (2) CLL (chronic lymphocytic leukemia): Status: Acute (3) Post-COVID syndrome: Problem details: He is recovering from acute COVID infection, still h slowly. I think we are dealing with a long COVID syndrome. Status: Acute (4) Multifocal pneumonia: Problem details: Bilateral multi focal pneumonitis, secondary to COVID pneumonia. Repeat CT scan on 09/12, show somewhat more prominent bilateral Alveolar/ Interstitial opacities, I think these represent, slight worsening of the COVID pneumonitis, and not essentially any bacterial pneumonia. [place] : Continue IV Solu-Medrol 40 mg q 8 hrs Patient is on vancomycin and cefepime , I suggest that we can DC vancomycin, continue cefepime I am over the weekend and then consider discontinuing this agent also. I added famotidine 20 mg b.i.d. empirically. Status: Acute (5) Acute respiratory failure with hypoxia: Status: Acute Assessment and Plan: Continue HF/NRB mask Start Doxy awake proning Time Spent With Patient Time: Total time spent is greater than 50% in coordination of care (as documented) at patient's floor/unit and/or counseling patient: Time with patient: 15 - 24 minutes Progress Note: Quality Stroke Does the patient have a stroke diagnosis?: No
[2021-09-19] MEDS: allopurinoL 300 MG TABLET PO (11:14)
[2021-09-19] MEDS: predniSONE 20 MG TABLET 40 MG PO (11:14)
[2021-09-19] MEDS: Famotidine 20 MG TABLET PO ×2 (11:14→20:19)
[2021-09-19] MEDS: 0.9 % Sodium Chloride Flush 3 ML SYRINGE IVFLUSH ×3 (11:15→20:19)
--- NOTE | 2021-09-19 12:08 | P.PNIM_ITS ---
Subjective Subjective Date of Service: 09/19/21 Interval History: seen and examined this morning still requiring high flow oxygen; desaturates with movement awake proning when able feels sob with movement Review of Systems Review of Systems: Yes all other systems are reviewed and are negative Constitutional Constitutional: Denies chills and Denies fever(s) Cardiovascular Cardiovascular: Denies chest pain and Reports dyspnea Respiratory Respiratory: Reports cough and Reports dyspnea Gastrointestinal Gastrointestinal: Denies abdominal pain Physical Exam Vital Signs: Vital Signs: Last Vital Signs Temp 96 F L 09/19/21 11:23 Pulse 110 H 09/19/21 11:23 Resp 24 H 09/19/21 11:41 BP 111/59 L 09/19/21 11:23 Pulse Ox 95 09/19/21 11:23 Oxygen Flow Rate 2 09/06/21 02:32 Body Mass Index 26.6 Const: Other: appears more tired General: alert, awake and tired appearing Nutritional Appearance: well nourished Orientation/consciousness: patient oriented x3 HENMT: Head: Yes normocephalic and Yes atraumatic Eyes: Sclerae: sclerae normal Pupils: Equal, round and reactive pupils present Resp: Effort & Inspection: tachypneic Auscultation: diminished lung sounds GI: Palpation (GI): Soft to palpation and nontender Neuro: General: patient oriented x3 Cranial nerves: Yes CN's II-XII intact bilaterally, Yes Equal, round and reactive pupils present and Yes Bilaterally intact EOM present Extrem: Other: no leg edema Objective Data Active Medications Acetaminophen (Acetaminophen 325 Mg Tablet) 650 mg PO Q6H PRN PRN Reason: Pain, Mild (Pain Scale 1-3) Last Admin: 09/07/21 01:19 Dose: 650 mg Documented by: MAC Allopurinol (Allopurinol 300 Mg Tablet) 300 mg PO DAILY [facility] Last Admin: 09/19/21 11:14 Dose: 300 mg Documented by: LEONARDA Docusate Sodium (Docusate Sodium 100 Mg Capsule) 100 mg PO DAILY PRN PRN Reason: Constipation Doxycycline Hyclate (Doxycycline Hyclate 100 Mg Tablet) 100 mg PO Q12H [facility] Last Admin: 09/19/21 11:14 Dose: 100 mg Documented by: LEONARDA Enoxaparin Sodium (Enoxaparin Sodium 40 Mg/0.4 Ml Syringe) 40 mg SUBCUT Q24H [facility] Last Admin: 09/18/21 14:44 Dose: 40 mg Documented by: TRACEY Famotidine (Famotidine 20 Mg Tablet) 20 mg PO BID [facility] Last Admin: 09/19/21 11:14 Dose: 20 mg Documented by: LEONARDA Ondansetron HCl (Ondansetron Hcl 4 Mg/2 Ml Vial) 4 mg IVPUSH Q8H PRN PRN Reason: Nausea and Vomiting Pharmacy Consult (Consult Rx Perform Med Rec) 1 each MISCELLANE ONCE PRN PRN Reason: Consult order Prednisone (Prednisone 20 Mg Tablet) 40 mg PO DAILY [facility] Last Admin: 09/19/21 11:14 Dose: 40 mg Documented by: LEONARDA Sodium Chloride (0.9 % Sodium Chloride Flush 3 Ml Syringe) 3 ml IVFLUSH QSHIFT [facility] Last Admin: 09/19/21 11:15 Dose: 3 ml Documented by: LEONARDA Labs CBC & Chem 7: 09/18/21 06:03 09/18/21 06:03 Labs: Laboratory Results - last 24 hr 09/19/21 09:02 VBG pH 7.44 H VBG pCO2 48 VBG pO2 28 VBG HCO3 33 H VBG O2 Saturation 33.0 VBG Base Excess 8.1 Assessment and Plan (1) Hypogammaglobulinemia: Status: Acute (2) CLL (chronic lymphocytic leukemia): Status: Acute (3) Post-COVID syndrome: Status: Acute (4) COVID-19: Status: Acute Assessment and Plan: 66-year-old male past medical history of CLL who presents to the hospital with shortness of breath found to be hypoxic secondary to COVID-19 pneumonia. Patient states he initially tested positive for COVID 3 weeks ago (other notes state 6 weeks). Fully vaccinated (moderna) + has received booster Acute hypoxic respiratory failure r/t prolonged COVID. Tachypneic, desaturates with movement. still requiring high flow s/p treatment with broad spec IV antibiotics - now started on doxycycline per pulmonolgy continue HFNC continue po prednisone pepcid 20mg bid s/p IVIG 09/16 and 09/18 trend biomakers (generally a downward trend) pulmonology following monitor respiratory status closely. Hyponatremia monitor elevated LFTs. trending down likely due to viral infection history of CLL pt reports he is in remission gout continue allopurinol hyperlipidemia statin on hold -- if LFTs improved, restart full code dvt pptx, lety Attending; Dr. Curry Quality Stroke Does the patient have a stroke diagnosis?: No VTE Prior VTE?: No VTE Risk Level:: Medical - moderate - high VTE Device Contraindication: Treatment Not Indicated VTE Drug Contraindication: N/A - Med Ordered
--- NOTE | 2021-09-19 14:43 | MHC.CM.PN ---
Male 66 DX Covid
[2021-09-19] MEDS: Enoxaparin Sodium 40 MG/0.4 ML SYRINGE SUBCUT (15:08)
[2021-09-20] VITALS (10 sets, daily range): BP systolic 100–125; BP diastolic 54–73; PULSE 82–100; RESP 18–24; TEMP 36.4–37.1; O2SAT 90–99
[2021-09-20 07:33] LABS: Hematocrit 30.6 % (42-52); Hemoglobin 10.5 g/dl (14.0-18.0); Imm Gran Abs Auto 0.03 X10*3/uL (0.00-0.03); Imm Gran Pct Auto 0.5 % (0.0-0.4); Lymphocytes Absolute Auto 0.4 X10*3/uL (1.2-4.9); Lymphocytes Percent Auto 6.5 % (20-40); MANUAL DIFF FLAG SCAN; Mean Corpuscular HGB Conc 34.3 g/dl (31.0-36.0); Mean Corpuscular Hemoglobin 31.3 pg (27.0-33.0); Mean Corpuscular Volume 91.3 fL (80-98); Mean Platelet Volume 11.9 fL (9.4-12.4); Monocytes Absolute Auto 0.1 X10*3/uL (0.1-1.2); Monocytes Percent Auto 2.3 % (2-11); Neutrophils Absolute Auto 5.6 X10*3/uL (2.0-8.3); Neutrophils Percent Auto 90.7 % (45-73); Red Blood Count 3.35 X10*6/uL (4.60-5.80); Red Cell Distribution Width 13.6 % (11.0-16.0); SCAN SMEAR FLAG 1; White Blood Count 6.2 X10*3/uL (4.8-10.8)
[2021-09-20 07:43] LABS: Platelet Count 87 X10*3/uL (160-400)
[2021-09-20 07:57] LABS: SLIDE REVIEW VERIFIED
[2021-09-20 07:58] LABS: Anion Gap 11 (12-20); Blood Urea Nitrogen 24 mg/dL (9-16); Calcium 7.7 mg/dL (8.4-10.2); Carbon Dioxide 28 mmol/L (22-29); Chloride 96 mmol/L (96-108); Creatinine Clr Calc Pharmacy 98.5; Estimated Glomerular Filt Rate > 60; Glucose Random 117 mg/dL (60-115); Potassium 4.6 mmol/L (3.3-5.1); Sodium 130 mmol/L (135-145)
[2021-09-20] MEDS: Famotidine 20 MG TABLET PO ×2 (09:09→20:20)
[2021-09-20] MEDS: predniSONE 20 MG TABLET 40 MG PO (09:09)
[2021-09-20] MEDS: allopurinoL 300 MG TABLET PO (09:09)
[2021-09-20] MEDS: 0.9 % Sodium Chloride Flush 3 ML SYRINGE IVFLUSH ×3 (09:09→20:21)
--- NOTE | 2021-09-20 10:41 | P.PNIM_ITS ---
Subjective Subjective Date of Service: 09/20/21 Interval History: seen and examined this morning follow up for respiratory failure on high flow, need NRB in addition with exertion Review of Systems Review of Systems: Yes all other systems are reviewed and are negative Constitutional Constitutional: Denies chills and Denies fever(s) Cardiovascular Cardiovascular: Denies chest pain Gastrointestinal Gastrointestinal: Denies abdominal pain Physical Exam Vital Signs: Vital Signs: Last Vital Signs Temp 97.9 F 09/20/21 08:00 Pulse 99 09/20/21 08:00 Resp 24 H 09/20/21 08:12 BP 111/60 09/20/21 08:00 Pulse Ox 97 09/20/21 08:00 Oxygen Flow Rate 2 09/06/21 02:32 Body Mass Index 26.6 Const: Other: appears more tired General: alert, awake and tired appearing Nutritional Appearance: well nourished Orientation/consciousness: patient oriented x3 HENMT: Head: Yes normocephalic and Yes atraumatic Eyes: Sclerae: sclerae normal Pupils: Equal, round and reactive pupils present Chest: Chest palpation & inspection: normal inspection of the chest Resp: Other: course breath sounds Effort & Inspection: tachypneic Ausc ultation: clear to auscultation bilaterally and diminished lung sounds Cardio: Rate: regular rate Rhythm: regular rhythm GI: Palpation (GI): Soft to palpation and nontender Neuro: General: patient oriented x3 Cranial nerves: Yes CN's II-XII intact bilaterally, Yes Equal, round and reactive pupils present and Yes Bilaterally intact EOM present Extrem: Other: no leg edema Objective Data Active Medications Acetaminophen (Acetaminophen 325 Mg Tablet) 650 mg PO Q6H PRN PRN Reason: Pain, Mild (Pain Scale 1-3) Last Admin: 09/07/21 01:19 Dose: 650 mg Documented by: MAC Allopurinol (Allopurinol 300 Mg Tablet) 300 mg PO DAILY [facility] Last Admin: 09/20/21 09:09 Dose: 300 mg Documented by: JOSE GUADALUPE Docusate Sodium (Docusate Sodium 100 Mg Capsule) 100 mg PO DAILY PRN PRN Reason: Constipation Doxycycline Hyclate (Doxycycline Hyclate 100 Mg Tablet) 100 mg PO Q12H [facility] Last Admin: 09/20/21 09:12 Dose: 100 mg Documented by: JOSE GUADALUPE Enoxaparin Sodium (Enoxaparin Sodium 40 Mg/0.4 Ml Syringe) 40 mg SUBCUT Q24H [facility] Last Admin: 09/19/21 15:08 Dose: 40 mg Documented by: LEONARDA Famotidine (Famotidine 20 Mg Tablet) 20 mg PO BID [facility] Last Admin: 09/20/21 09:09 Dose: 20 mg Documented by: JOSE GUADALUPE Ondansetron HCl (Ondansetron Hcl 4 Mg/2 Ml Vial) 4 mg IVPUSH Q8H PRN PRN Reason: Nausea and Vomiting Pharmacy Consult (Consult Rx Perform Med Rec) 1 each MISCELLANE ONCE PRN PRN Reason: Consult order Prednisone (Prednisone 20 Mg Tablet) 40 mg PO DAILY [facility] Last Admin: 09/20/21 09:09 Dose: 40 mg Documented by: JOSE GUADALUPE Sodium Chloride (0.9 % Sodium Chloride Flush 3 Ml Syringe) 3 ml IVFLUSH QSHIFT [facility] Last Admin: 09/20/21 09:09 Dose: 3 ml Documented by: JOSE GUADALUPE Labs CBC & Chem 7: 09/20/21 06:32 09/20/21 06:32 Labs: Laboratory Results - last 24 hr 09/20/21 09/20/21 06:32 06:32 MCV 91.3 MCH 31.3 MCHC 34.3 RDW 13.6 Plt Count 87 L D MPV 11.9 Immature Gran % (Auto) 0.5 H Neut % (Auto) 90.7 H Lymph % (Auto) 6.5 L [place] % (Auto) 2.3 Eos % (Auto) 0.0 Baso % (Auto) 0.0 Lymph # (Auto) 0.4 L [place] # (Auto) 0.1 Eos # (Auto) 0.0 Baso # (Auto) 0.0 Abs Immat Gran (auto) 0.03 Absolute Neuts (auto) 5.6 Absolute Nucleated RBC 0.000 Nucleated RBC % (auto) 0.0 Smear Tech's Comments VERIFIED Anion Gap 11 L Estim Creat Clear Calc 98.5 Estimated GFR > 60 Random Glucose 117 H Calcium 7.7 L Assessment and Plan (1) Post-COVID syndrome: Status: Acute (2) Acute respiratory failure with hypoxia: Status: Acute Assessment and Plan: 66-year-old male past medical history of CLL who presents to the hospital with shortness of breath found to be hypoxic secondary to COVID-19 pneumonia. Patient states he initially tested positive for COVID 3 weeks ago (other notes state 6 weeks). Fully vaccinated (moderna) + has received booster Acute hypoxic respiratory failure r/t prolonged COVID. Tachypneic, desaturates with movement. still requiring high flow s/p treatment with broad spec IV antibiotics - now started on doxycycline per pulmonology continue HFNC continue po prednisone pepcid 20mg bid s/p IVIG 09/16 and 09/18 trend biomakers (generally a downward trend) pulmonology following monitor respiratory status closely. Hyponatremia sodium up and down monitor thrombocytopenia platelets trending down follow cbc elevated LFTs. trending down likely due to viral infection history of CLL pt reports he is in remission gout continue allopurinol hyperlipidemia statin on hold -- if LFTs improved, restart full code dvt pptxlety Attending; Dr. english Quality Stroke Does the patient have a stroke diagnosis?: No VTE Prior VTE?: No VTE Risk Level:: Medical - moderate - high VTE Device Contraindication: Treatment Not Indicated VTE Drug Contraindication: N/A - Med Ordered
[2021-09-20] MEDS: Enoxaparin Sodium 40 MG/0.4 ML SYRINGE SUBCUT (14:50)
[2021-09-21] VITALS (13 sets, daily range): BP systolic 102–126; BP diastolic 56–67; PULSE 77–104; RESP 18–24; TEMP 36.2–37.2; O2SAT 89–99
[2021-09-21 06:17] LABS: Hemoglobin 9.9 g/dl (14.0-18.0); PLT CLUMP 1; Red Cell Distribution Width 13.7 % (11.0-16.0)
[2021-09-21 06:19] LABS: Hematocrit 28.4 % (42-52); Mean Corpuscular HGB Conc 34.9 g/dl (31.0-36.0); Mean Corpuscular Hemoglobin 31.7 pg (27.0-33.0); Mean Platelet Volume 10.9 fL (9.4-12.4); Red Blood Count 3.12 X10*6/uL (4.60-5.80); White Blood Count 6.1 X10*3/uL (4.8-10.8)
[2021-09-21 06:23] LABS: Platelet Count 77 X10*3/uL (160-400)
[2021-09-21 06:37] LABS: Anion Gap 10 (12-20); Blood Urea Nitrogen 21 mg/dL (9-16); Calcium 7.8 mg/dL (8.4-10.2); Carbon Dioxide 30 mmol/L (22-29); Chloride 99 mmol/L (96-108); Estimated Glomerular Filt Rate > 60; Glucose Random 104 mg/dL (60-115); Potassium 4.6 mmol/L (3.3-5.1); Sodium 134 mmol/L (135-145)
[2021-09-21] MEDS: Famotidine 20 MG TABLET PO ×2 (09:20→19:50)
[2021-09-21] MEDS: allopurinoL 300 MG TABLET PO (09:20)
[2021-09-21] MEDS: predniSONE 20 MG TABLET 40 MG PO (09:20)
[2021-09-21] MEDS: 0.9 % Sodium Chloride Flush 3 ML SYRINGE IVFLUSH ×3 (09:21→19:50)
--- NOTE | 2021-09-21 10:00 | HO.PM.IMPN ---
Subjective Subjective Date of Service: 09/21/21 Interval History: seen and examined this morning follow up for respiratory failure/post covid still requiring high flow oxygen reports feeling well overall, gets breathless with long conversation, movement Review of Systems Review of Systems: Yes all other systems are reviewed and are negative Constitutional Constitutional: Denies chills and Denies fever(s) Cardiovascular Cardiovascular: Denies chest pain Gastrointestinal Gastrointestinal: Denies abdominal pain Physical Exam Vital Signs: Vital Signs: Last Vital Signs Temp 97.1 F 09/21/21 07:50 Pulse 96 09/21/21 07:50 Resp 22 H 09/21/21 08:07 BP 104/57 L 09/21/21 07:50 Pulse Ox 91 L 09/21/21 07:50 Oxygen Flow Rate 2 09/06/21 02:32 Body Mass Index 26.6 Const: Other: appears more tired General: alert and awake Nutritional Appearance: well nourished Orientation/consciousness: patient oriented x3 HENMT: Head: Yes normocephalic and Yes atraumatic Eyes: Sclerae: sclerae normal Pupils: Equal, round and reactive pupils present Chest: Chest palpation & inspection: normal inspection of the chest Resp: Other: course breath sounds Effort & Inspection: tachypneic Auscultation: diminished lung sounds Cardio: Rate: regular rate Rhythm: regular rhythm Heart sounds: S1 normal heart sound present and S2 normal heart sound present GI: Palpation (GI): Soft to palpation and nontender Neuro: General: patient oriented x3 Cranial nerves: Yes CN's II-XII intact bilaterally, Yes Equal, round and reactive pupils present and Yes Bilaterally intact EOM present Extrem: Other: no leg edema Objective Data Active Medications Acetaminophen (Acetaminophen 325 Mg Tablet) 650 mg PO Q6H PRN PRN Reason: Pain, Mild (Pain Scale 1-3) Last Admin: 09/07/21 01:19 Dose: 650 mg Documented by: ANTOIC Allopurinol (Allopurinol 300 Mg Tablet) 300 mg PO DAILY [facility] Last Admin: 09/21/21 09:20 Dose: 300 mg Documented by: JOSE GUADALUPE Docusate Sodium (Docusate Sodium 100 Mg Capsule) 100 mg PO DAILY PRN PRN Reason: Constipation Doxycycline Hyclate (Doxycycline Hyclate 100 Mg Tablet) 100 mg PO Q12H [facility] Last Admin: 09/20/21 20:20 Dose: 100 mg Documented by: KARTHIK Enoxaparin Sodium (Enoxaparin Sodium 40 Mg/0.4 Ml Syringe) 40 mg SUBCUT Q24H [facility] Last Admin: 09/20/21 14:50 Dose: 40 mg Documented by: JOSE GUADALUPE Famotidine (Famotidine 20 Mg Tablet) 20 mg PO BID [facility] Last Admin: 09/21/21 09:20 Dose: 20 mg Documented by: JOSE GUADALUPE Ondansetron HCl (Ondansetron Hcl 4 Mg/2 Ml Vial) 4 mg IVPUSH Q8H PRN PRN Reason: Nausea and Vomiting Pharmacy Consult (Consult Rx Perform Med Rec) 1 each MISCELLANE ONCE PRN PRN Reason: Consult order Prednisone (Prednisone 20 Mg Tablet) 40 mg PO DAILY [facility] Last Admin: 09/21/21 09:20 Dose: 40 mg Documented by: JOSE GUADALUPE Sodium Chloride (0.9 % Sodium Chloride Flush 3 Ml Syringe) 3 ml IVFLUSH QSHIFT [facility] Last Admin: 09/21/21 09:21 Dose: 3 ml Documented by: JOSE GUADALUPE Labs CBC & Chem 7: 09/21/21 05:50 09/21/21 05:50 Labs: Laboratory Results - last 24 hr 09/21/21 09/21/21 05:50 05:50 MCV 91.0 MCH 31.7 MCHC 34.9 RDW 13.7 Plt Count 77 L MPV 10.9 Absolute Nucleated RBC 0.000 Nucleated RBC % (auto) 0.0 Anion Gap 10 L Estim Creat Clear Calc 108.0 Estimated GFR > 60 Random Glucose 104 Calcium 7.8 L Assessment and Plan (1) Acute respiratory failure with hypoxia: Status: Acute (2) Post-COVID syndrome: Status: Acute (3) Thrombocytopenia: Status: Acute (4) Hyponatremia: Status: Acute (5) CLL (chronic lymphocytic leukemia): Status: Acute (6) Hypogammaglobulinemia: Status: Acute (7) Abnormal LFTs: Status: Acute Assessment and Plan: 66-year-old male past medical history of CLL who presents to the hospital with shortness of breath found to be hypoxic secondary to COVID-19 pneumonia. Patient states he initially tested positive for COVID 3 weeks ago (other notes state 6 weeks). Fully vaccinated (moderna) + has received booster Acute hypoxic respiratory failure r/t prolonged COVID. Tachypneic, desaturates with movement. still requiring high flow s/p treatment with broad spec IV antibiotics - now started on doxycycline per pulmonology continue HFNC continue po prednisone pepcid 20mg bid s/p IVIG 09/16 and 09/18 trend biomakers (generally a downward trend) pulmonology following monitor respiratory status closely. Hyponatremia sodium up and down monitor thrombocytopenia platelets trending down follow cbc elevated LFTs. trending down likely due to viral infection history of CLL pt reports he is in remission gout continue allopurinol hyperlipidemia statin on hold - if LFTs improved, restart full code dvt pptx, lovemerix Attending; Dr. Linder Quality Stroke Does the patient have a stroke diagnosis?: No VTE Prior VTE?: No VTE Risk Level:: Medical - moderate - high VTE Device Contraindication: Treatment Not Indicated VTE Drug Contraindication: N/A - Med Ordered
[2021-09-21] MEDS: Enoxaparin Sodium 40 MG/0.4 ML SYRINGE SUBCUT (14:01)
[2021-09-22] VITALS (13 sets, daily range): BP systolic 98–122; BP diastolic 56–66; PULSE 74–125; RESP 18–26; TEMP 36.3–36.9; O2SAT 84–96
[2021-09-22] MEDS: Acetaminophen 325 MG TABLET 650 MG PO ×4 (02:34→23:19)
[2021-09-22 07:03] LABS: Hematocrit 27.9 % (42-52); Hemoglobin 9.8 g/dl (14.0-18.0); Mean Corpuscular HGB Conc 35.1 g/dl (31.0-36.0); Mean Corpuscular Hemoglobin 31.7 pg (27.0-33.0); Mean Corpuscular Volume 90.3 fL (80-98); Mean Platelet Volume 12.3 fL (9.4-12.4); Red Blood Count 3.09 X10*6/uL (4.60-5.80); Red Cell Distribution Width 13.8 % (11.0-16.0); White Blood Count 5.3 X10*3/uL (4.8-10.8)
[2021-09-22 07:16] LABS: Platelet Count 75 X10*3/uL (160-400)
[2021-09-22 07:48] LABS: Alanine Aminotransferase 157 U/L (0-40); Albumin Level 2.4 g/dL (3.5-5.0); Alkaline Phosphatase 170 U/L (39-117); Anion Gap 10 (12-20); Aspartate Amino Transferase 88 U/L (5-37); Bilirubin Direct 0.5 mg/dL (0.0-0.5); Blood Urea Nitrogen 18 mg/dL (9-16); Calcium 7.8 mg/dL (8.4-10.2); Carbon Dioxide 28 mmol/L (22-29); Chloride 100 mmol/L (96-108); Creatinine Clr Calc Pharmacy 106.3; Estimated Glomerular Filt Rate > 60; Glucose Random 106 mg/dL (60-115); Potassium 4.3 mmol/L (3.3-5.1); Sodium 134 mmol/L (135-145); Total Protein 4.9 g/dL (6.5-8.0)
[2021-09-22] MEDS: predniSONE 20 MG TABLET 40 MG PO (09:27)
[2021-09-22] MEDS: 0.9 % Sodium Chloride Flush 3 ML SYRINGE IVFLUSH ×3 (09:28→19:59)
[2021-09-22] MEDS: Famotidine 20 MG TABLET PO ×2 (09:28→19:59)
[2021-09-22] MEDS: allopurinoL 300 MG TABLET PO (09:28)
[2021-09-22 09:29] LABS: C Reactive Protein 7.78 mg/dL (< or = 0.50)
[2021-09-22 09:33] LABS: Lactate Dehydrogenase 411 U/L (118-273)
--- NOTE | 2021-09-22 10:21 | PM.IMPN ---
Progress Note: A&P (1) Post-COVID syndrome: Status: Acute (2) Hyponatremia: Status: Acute (3) Thrombocytopenia: Status: Acute Assessment and Plan: 66-year-old male past medical history of CLL who presents to the hospital with shortness of breath found to be hypoxic secondary to COVID-19 pneumonia. Patient states he initially tested positive for COVID 3 weeks ago (other notes state 6 weeks). Fully vaccinated (moderna) + has received booster Acute hypoxic respiratory failure r/t prolonged COVID.? Tachypneic, desaturates with movement. still requiring high flow s/p treatment with broad spec IV antibiotics - now started on doxycycline per pulmonology continue HFNC continue po prednisone pepcid 20mg bid s/p IVIG 09/16 and 09/18 trend biomakers (generally a downward trend) pulmonology following monitor respiratory status closely. Hyponatremia sodium up and down monitor thrombocytopenia platelets trending down follow cbc elevated LFTs. trending down likely due to viral infection history of CLL pt reports he is in remission gout continue allopurinol hyperlipidemia statin on hold - if LFTs improved, restart full code dvt pptx, lovenox Attending; Dr. Curry Subjective Subjective Date of Service: 09/22/21 Review of Systems Follow up covid 19 Some sob with movement good appetite Physical Exam Vital Signs: Vital Signs: Last Vital Signs Temp 98.4 F 09/22/21 07:49 Pulse 88 09/22/21 07:49 Resp 26 H 09/22/21 07:49 BP 110/60 09/22/21 07:49 Pulse Ox 90 L 09/22/21 07:49 Oxygen Flow Rate 2 09/06/21 02:32 Body Mass Index 26.6 Appearing in no acute distress lungs normal expansion heart regular rate rhythm, clear S1, S2 positive bowel sounds, abdomen is soft, nontender neuro patient is alert x3, no focal deficits Objective Data Current Medications Acetaminophen (Acetaminophen 325 Mg Tablet) 650 mg PO Q6H PRN PRN Reason: Pain, Mild (Pain Scale 1-3) Last Admin: 09/22/21 02:34 Dose: 650 mg Documented by: Allopurinol (Allopurinol 300 Mg Tablet) 300 mg PO DAILY [facility] Last Admin: 09/22/21 09:28 Dose: 300 mg Documented by: Docusate Sodium (Docusate Sodium 100 Mg Capsule) 100 mg PO DAILY PRN PRN Reason: Constipation Doxycycline Hyclate (Doxycycline Hyclate 100 Mg Tablet) 100 mg PO Q12H [facility] Last Admin: 09/22/21 09:28 Dose: 100 mg Documented by: Enoxaparin Sodium (Enoxaparin Sodium 40 Mg/0.4 Ml Syringe) 40 mg SUBCUT Q24H [facility] Last Admin: 09/21/21 14:01 Dose: 40 mg Documented by: Famotidine (Famotidine 20 Mg Tablet) 20 mg PO BID [facility] Last Admin: 09/22/21 09:28 Dose: 20 mg Documented by: Ondansetron HCl (Ondansetron Hcl 4 Mg/2 Ml Vial) 4 mg IVPUSH Q8H PRN PRN Reason: Nausea and Vomiting Pharmacy Consult (Consult Rx Perform Med Rec) 1 each MISCELLANE ONCE PRN PRN Reason: Consult order Prednisone (Prednisone 20 Mg Tablet) 40 mg PO DAILY [facility] Last Admin: 09/22/21 09:27 Dose: 40 mg Documented by: Sodium Chloride (0.9 % Sodium Chloride Flush 3 Ml Syringe) 3 ml IVFLUSH QSHIFT [facility] Last Admin: 09/22/21 09:28 Dose: 3 ml Documented by: Labs CBC & Chem 7: 09/22/21 06:35 09/22/21 06:35 Labs: Laboratory Results - last 24 hr 09/22/21 09/22/21 06:35 06:35 MCV 90.3 MCH 31.7 MCHC 35.1 RDW 13.8 Plt Count 75 L MPV 12.3 Absolute Nucleated RBC 0.000 Nucleated RBC % (auto) 0.0 Anion Gap 10 L Estim Creat Clear Calc 106.3 Estimated GFR > 60 Random Glucose 106 Calcium 7.8 L Total Bilirubin 1.0 Direct Bilirubin 0.5 AST 88 H ALT 157 H Alkaline Phosphatase 170 H Lactate Dehydrogenase 411 H C-Reactive Protein 7.78 H Total Protein 4.9 L Albumin 2.4 L Microbiology Microbiology Results: Microbiology 09/05/21 18:43 Blood - Venous Blood Culture - Final No growth after 5 days. 09/05/21 18:43 Blood - Venous Blood Culture - Final No growth after 5 days. Quality Stroke Does the patient have a stroke diagnosis?: No VTE Prior VTE?: No VTE Risk Level:: Medical - moderate - high VTE Device Contraindication: Treatment Not Indicated VTE Drug Contraindication: N/A - Med Ordered
[2021-09-22 10:35] LABS: Ferritin 3821 ng/mL (20-250)
--- NOTE | 2021-09-22 14:20 | MHC.CLN ---
NUTRITION CONSULT CONSULT FOR SKIN. STAGE I TO LEFT BUTTOCKS AND REDNESS TO RIGHT BUTTOCKS. INTAKE VARIABLE, WITH MANY MEALS 100%. DIET=REGULAR. ADDING ENSURE BID TO PROVIDE ADDITIONAL 700 KCAL, 40 G PROTEIN.
--- NOTE | 2021-09-22 15:15 | PC.NURSE ---
Skin assessment completed. Patient has a stage 1 to left buttocks and blanchable redness to right buttocks. Barrier cream applied to buttocks. Turning and repositioning q 2 hr and airloss bed ordered and in place. No other skin issues noted at this time.
--- NOTE | 2021-09-22 15:16 | MHC.CM.PN ---
Male 66 DX Covid. No discharge planned today. Patient continues to require oxygen 50% SPO2 50%. Likely home with oxygen and VNA. DP will be developed as patient recovers. CM will follow.
[2021-09-22] MEDS: Enoxaparin Sodium 40 MG/0.4 ML SYRINGE SUBCUT (15:27)
[2021-09-23] VITALS (12 sets, daily range): BP systolic 104–124; BP diastolic 59–67; PULSE 79–100; RESP 15–30; TEMP 36.2–37; O2SAT 90–99
[2021-09-23] MEDS: predniSONE 20 MG TABLET 40 MG PO (08:47)
[2021-09-23] MEDS: Acetaminophen 325 MG TABLET 650 MG PO (08:47)
[2021-09-23] MEDS: 0.9 % Sodium Chloride Flush 3 ML SYRINGE IVFLUSH ×3 (08:47→22:53)
[2021-09-23] MEDS: Famotidine 20 MG TABLET PO ×2 (08:47→20:19)
[2021-09-23] MEDS: allopurinoL 300 MG TABLET PO (08:47)
[2021-09-23 10:33] LABS: Alanine Aminotransferase 129 U/L (0-40); Albumin Level 2.6 g/dL (3.5-5.0); Alkaline Phosphatase 170 U/L (39-117); Aspartate Amino Transferase 52 U/L (5-37); Bilirubin Direct 0.5 mg/dL (0.0-0.5); Total Protein 5.2 g/dL (6.5-8.0)
[2021-09-23 10:56] LABS: D Dimer 13605 NG/ML
[2021-09-23] MEDS: Morphine Sulfate 2 MG/ML CARTRIDGE IVPUSH ×2 (12:00→22:53)
[2021-09-23 13:41] LABS: CRP High Sensitivity >10.0 mg/L
--- NOTE | 2021-09-23 14:07 | P.PNIM_ITS ---
Progress Note: A&P (1) Acute respiratory failure with hypoxia: Status: Acute (2) COVID-19: Status: Acute (3) Post-COVID syndrome: Status: Acute Assessment and Plan: 66-year-old male past medical history of CLL who presents to the hospital with shortness of breath found to be hypoxic secondary to COVID-19 pneumonia. Patient states he initially tested positive for COVID 3 weeks ago (other notes state 6 weeks). Fully vaccinated (moderna) + has received booster Acute hypoxic respiratory failure r/t prolonged COVID.? Tachypneic, desaturates with movement. still requiring high flow s/p treatment with broad spec IV antibiotics - now started on doxycycline per pulmonology continue HFNC 50 liters, 75% continue po prednisone pepcid 20mg bid s/p IVIG 09/16 and 09/18 repeat inflammatory markers: Ddimer [id number], will obtain repeat CTA as patient remains hypoxic and he received IVIG and this could put the patient at higher risk for thrombosis pulmonology following Left sided rib pain. possibly MSK from coughing seems reproducible pain management Hyponatremia sodium up and down monitor thrombocytopenia platelets trending down follow cbc elevated LFTs. trending down likely due to viral infection history of CLL pt reports he is in remission gout continue allopurinol hyperlipidemia statin on hold - if LFTs improved, restart full code dvt pptx, lovenox Attending; Dr. Curry Subjective Subjective Date of Service: 09/23/21 Review of Systems Follow up covid 19 Some sob with movement more tired today let sided rib pain Physical Exam Vital Signs: Vital Signs: Last Vital Signs Temp 97.8 F 09/23/21 11:15 Pulse 84 09/23/21 11:15 Resp 26 H 09/23/21 11:31 BP 111/67 09/23/21 11:15 Pulse Ox 99 09/23/21 11:15 Oxygen Flow Rate 2 09/06/21 02:32 Body Mass Index 26.6 Appearing in no acute distress, more tired today lungs normal expansion heart regular rate rhythm, clear S1, S2 positive bowel sounds, abdomen is soft, nontender neuro patient is alert x3, no focal deficits Objective Data Current Medications Acetaminophen (Acetaminophen 325 Mg Tablet) 650 mg PO Q6H PRN PRN Reason: Pain, Mild (Pain Scale 1-3) Last Admin: 09/23/21 08:47 Dose: 650 mg Documented by: Allopurinol (Allopurinol 300 Mg Tablet) 300 mg PO DAILY [facility] Last Admin: 09/23/21 08:47 Dose: 300 mg Documented by: Docusate Sodium (Docusate Sodium 100 Mg Capsule) 100 mg PO DAILY PRN PRN Reason: Constipation Doxycycline Hyclate (Doxycycline Hyclate 100 Mg Tablet) 100 mg PO Q12H [facility] Last Admin: 09/23/21 09:12 Dose: 100 mg Documented by: Enoxaparin Sodium (Enoxaparin Sodium 40 Mg/0.4 Ml Syringe) 40 mg SUBCUT Q24H [facility] Last Admin: 09/22/21 15:27 Dose: 40 mg Documented by: Famotidine (Famotidine 20 Mg Tablet) 20 mg PO BID [facility] Last Admin: 09/23/21 08:47 Dose: 20 mg Documented by: Morphine Sulfate (Morphine Sulfate 2 Mg/Ml Cartridge) 2 mg IVPUSH Q4H PRN; Protocol PRN Reason: pain Last Admin: 09/23/21 12:00 Dose: 2 mg Documented by: Ondansetron HCl (Ondansetron Hcl 4 Mg/2 Ml Vial) 4 mg IVPUSH Q8H PRN PRN Reason: Nausea and Vomiting Pharmacy Consult (Consult Rx Perform Med Rec) 1 each MISCELLANE ONCE PRN PRN Reason: Consult order Prednisone (Prednisone 20 Mg Tablet) 40 mg PO DAILY [facility] Last Admin: 09/23/21 08:47 Dose: 40 mg Documented by: Sodium Chloride (0.9 % Sodium Chloride Flush 3 Ml Syringe) 3 ml IVFLUSH QSHIFT [facility] Last Admin: 09/23/21 08:47 Dose: 3 ml Documented by: Labs CBC & Chem 7: 09/22/21 06:35 09/22/21 06:35 Labs: Laboratory Results - last 24 hr 09/22/21 09/23/21 09/23/21 06:35 10:02 10:02 D-Dimer 16072 Total Bilirubin 1.0 Direct Bilirubin 0.5 AST 52 H ALT 129 H Alkaline Phosphatase 170 H C-React Prot High Sens >10.0 H Total Protein 5.2 L Albumin 2.6 L Microbiology Microbiology Results: Microbiology 09/05/21 18:43 Blood - Venous Blood Culture - Final No growth after 5 days. 09/05/21 18:43 Blood - Venous Blood Culture - Final No growth after 5 days. Quality Stroke Does the patient have a stroke diagnosis?: No VTE Prior VTE?: No VTE Risk Level:: Medical - moderate - high VTE Device Contraindication: Treatment Not Indicated VTE Drug Contraindication: N/A - Med Ordered
[2021-09-23] MEDS: Enoxaparin Sodium 40 MG/0.4 ML SYRINGE SUBCUT (15:43)
[2021-09-24] VITALS (12 sets, daily range): BP systolic 103–136; BP diastolic 55–75; PULSE 77–112; RESP 18–28; TEMP 35.5–36.6; O2SAT 88–99
--- NOTE | 2021-09-24 | ECG_ITS ---
Test Reason : pain Blood Pressure : / mmHG Vent. Rate : 081 BPM Atrial Rate : 081 BPM P-R Int : 150 ms QRS Dur : 066 ms QT Int : 392 ms P-R-T Axes : 011 042 059 degrees QTc Int : 455 ms Normal sinus rhythm Nonspecific T wave abnormality Inferior leads Abnormal ECG ST less depressed in Inferior leads Heart rate has decreased Referred By: Carlo Gore Electronically Signed By:DANIELLE ORTA MD
--- NOTE | 2021-09-24 | ECG_ITS ---
Test Reason : CHEST PAIN Blood Pressure : / mmHG Vent. Rate : 115 BPM Atrial Rate : 115 BPM P-R Int : 116 ms QRS Dur : 072 ms QT Int : 328 ms P-R-T Axes : 029 049 041 degrees QTc Int : 453 ms Sinus tachycardia Nonspecific ST abnormality Anterior leads Abnormal ECG When compared with ECG of 05-SEP-2021 18:43, ST now depressed in Anterior leads Referred By: Marichuy Rivera Electronically Signed By:DANIELLE ORTA MD
[2021-09-24] MEDS: Morphine Sulfate 2 MG/ML CARTRIDGE IVPUSH ×2 (08:11→22:20)
--- NOTE | 2021-09-24 08:39 | P.PNIM_ITS ---
Progress Note: A&P (1) CLL (chronic lymphocytic leukemia): Status: Chronic <Marichuy Rivera CVICU NURSE - Last Filed: 09/24/21 15:16> (2) Post-COVID syndrome: Status: Acute <Marichuy Rivera NP - Last Filed: 09/24/21 15:16> (3) Acute respiratory failure with hypoxia: Status: Acute <Marichuy Rivera NP - Last Filed: 09/24/21 15:16> (4) Chest pain: Status: Acute <Marichuy Rivera NP - Last Filed: 09/24/21 15:16> (5) Rib pain: Status: Acute <Marichuy Rivera NP - Last Filed: 09/24/21 15:16> Assessment and Plan: 66-year-old male past medical history of CLL who presents to the hospital with shortness of breath found to be hypoxic secondary to COVID-19 pneumonia. Patient states he initially tested positive for COVID 3 weeks ago (other notes state 6 weeks). Fully vaccinated (moderna) + has received booster Acute hypoxic respiratory failure r/t prolonged COVID.? Tachypneic, desaturates with movement. s/p treatment with broad spec IV antibiotics - now started on doxycycline per pulmonology continue HFNC and NRB continue po prednisone for now pepcid 20mg bid s/p IVIG 09/16 and 09/18 repeat inflammatory markers: Ddimer 31104, CTA negative for PE, but shows w orsening of multifocal airspace disease pulmonology following Chest pain. Troponin elevated, EKG changes noted repeat troponin Consult cardiology Left sided rib pain. possibly MSK from coughing seems reproducible pain management Hyponatremia sodium up and down monitor thrombocytopenia platelets trending down follow cbc elevated LFTs. trending down likely due to viral infection history of CLL pt reports he is in remission gout continue allopurinol hyperlipidemia statin on hold - if LFTs improved, restart full code dvt pptx, lovenox Attending; Dr. Curry <Marichuy Rivera NP - Last Filed: 09/24/21 15:16> 66-year-old male past medical history of CLL who presents to the hospital with shortness of breath found to be hypoxic secondary to COVID-19 pneumonia. Patient states he initially tested positive for COVID 3 weeks ago (other notes state 6 weeks). Fully vaccinated (moderna) + has received booster Acute hypoxic respiratory failure r/t prolonged COVID.? Tachypneic, desaturates with movement. s/p treatment with broad spec IV antibiotics - now started on doxycycline per pulmonology continue HFNC and NRB continue po prednisone for now pepcid 20mg bid s/p IVIG 09/16 and 09/18 repeat inflammatory markers: Ddimer 48350, CTA negative for PE, but shows worsening of multifocal airspace disease pulmonology following Chest pain. Troponin elevated, EKG changes noted repeat troponin Consult cardiology Left sided rib pain. possibly MSK from coughing seems reproducible pain management Hyponatremia sodium up and down monitor thrombocytopenia platelets trending down follow cbc elevated LFTs. trending down likely due to viral infection history of CLL pt reports he is in remission gout continue allopurinol hyperlipidemia statin on hold - if LFTs improved, restart full code dvt pptx, lety Attending; Dr. Curry Attending Attestation: DOS: 09/24/21 Patient seen and examined. Case discussed with the mid-level provider. Agree with the assessment and plan as documented above. <Terell Curry MD - Last Filed: 09/25/21 16:08> Subjective Subjective Date of Service: 09/24/21 <Marichuy Rivera NP - Last Filed: 09/24/21 15:16> 09/25/21 <Terell Curry MD - Last Filed: 09/25/21 16:08> Review of Systems Follow up covid 19 some sob with exertion chest pain/left rib pain <Marichuy Rivera NP - Last Filed: 09/24/21 15:16> Physical Exam Vital Signs: Vital Signs: Last Vital Signs Temp 98 F 09/24/21 06:56 Pulse 93 09/24/21 06:56 Resp 18 09/24/21 07:39 BP 136/68 09/24/21 06:56 Pulse Ox 90 L 09/24/21 06:56 Oxygen Flow Rate 2 09/06/21 02:32 Body Mass Index 26.6 <Marichuy Rivera NP - Last Filed: 09/24/21 15:16> Appearing in no acute distress lungs normal expansion high flow and NRB heart regular rate rhythm, clear S1, S2 positive bowel sounds, abdomen is soft, nontender neuro patient is alert x3, no focal deficits <Marichuy Rivera NP - Last Filed: 09/24/21 15:16> Objective Data Current Medications Acetaminophen (Acetaminophen 325 Mg Tablet) 650 mg PO Q6H PRN PRN Reason: Pain, Mild (Pain Scale 1-3) Last Admin: 09/23/21 08:47 Dose: 650 mg Documented by: Allopurinol (Allopurinol 300 Mg Tablet) 300 mg PO DAILY [facility] Last Admin: 09/23/21 08:47 Dose: 300 mg Documented by: Docusate Sodium (Docusate Sodium 100 Mg Capsule) 100 mg PO DAILY PRN PRN Reason: Constipation Doxycycline Hyclate (Doxycycline Hyclate 100 Mg Tablet) 100 mg PO Q12H [facility] Last Admin: 09/23/21 22:47 Dose: 100 mg Documented by: Enoxaparin Sodium (Enoxaparin Sodium 40 Mg/0.4 Ml Syringe) 40 mg SUBCUT Q24H [facility] Last Admin: 09/23/21 15:43 Dose: 40 mg Documented by: Famotidine (Famotidine 20 Mg Tablet) 20 mg PO BID [facility] Last Admin: 09/23/21 20:19 Dose: 20 mg Documented by: Morphine Sulfate (Morphine Sulfate 2 Mg/Ml Cartridge) 2 mg IVPUSH Q4H PRN; Protocol PRN Reason: pain Last Admin: 09/24/21 08:11 Dose: 2 mg Documented by: Ondansetron HCl (Ondansetron Hcl 4 Mg/2 Ml Vial) 4 mg IVPUSH Q8H PRN PRN Reason: Nausea and Vomiting Pharmacy Consult (Consult Rx Perform Med Rec) 1 each MISCELLANE ONCE PRN PRN Reason: Consult order Prednisone (Prednisone 20 Mg Tablet) 40 mg PO DAILY [facility] Last Admin: 09/23/21 08:47 Dose: 40 mg Documented by: Sodium Chloride (0.9 % Sodium Chloride Flush 3 Ml Syringe) 3 ml IVFLUSH QSHIFT [facility] Last Admin: 09/23/21 22:53 Dose: 3 ml Documented by: <Marichuy Rivera NP - Last Filed: 09/24/21 15:16> Labs CBC & Chem 7: : 09/25/21 06:38 09/25/21 06:38 <Marichuy Rivera NP - Last Filed: 09/24/21 15:16> Labs: Laboratory Results - last 24 hr 10/25/21 10/26/21 10/26/21 06:35 10:02 10:02 D-Dimer 87361 Total Bilirubin 1.0 Direct Bilirubin 0.5 AST 52 H ALT 129 H Alkaline Phosphatase 170 H C-React Prot High Sens >10.0 H Total Protein 5.2 L Albumin 2.6 L <Marichuy Rivera NP - Last Filed: 09/24/21 15:16> Microbiology Microbiology Results: Microbiology 09/05/21 18:43 Blood - Venous Blood Culture - Final No growth after 5 days. 09/05/21 18:43 Blood - Venous Blood Culture - Final No growth after 5 days. <Marichuy Rivera NP - Last Filed: 09/24/21 15:16> Quality Stroke Does the patient have a stroke diagnosis?: No <Marichuy Rivera NP - Last Filed: 09/24/21 15:16> VTE Prior VTE?: No <Marichuy Rivera NP - Last Filed: 09/24/21 15:16> VTE Risk Level:: Medical - moderate - high <Marichuy Rivera NP - Last Filed: 09/24/21 15:16> VTE Device Contraindication: Treatment Not Indicated <Marichuy Rivera NP - Last Filed: 09/24/21 15:16> VTE Drug Contraindication: N/A - Med Ordered <Marichuy Rivera NP - Last Filed: 09/24/21 15:16>
[2021-09-24 09:21] LABS: Venous Blood Gas Refer to POC result
[2021-09-24 09:23] LABS: Hematocrit 31.9 % (42-52); Mean Corpuscular HGB Conc 34.5 g/dl (31.0-36.0); Mean Corpuscular Hemoglobin 31.4 pg (27.0-33.0); Mean Corpuscular Volume 91.1 fL (80-98); Mean Platelet Volume 11.9 fL (9.4-12.4); Platelet Count 124 X10*3/uL (160-400); Red Cell Distribution Width 14.2 % (11.0-16.0); White Blood Count 9.5 X10*3/uL (4.8-10.8)
[2021-09-24 09:23] LABS: VBG Base Excess 3.9 mmol/L; VBG HCO3 27 mmol/L (22-26); VBG pCO2 39 mmHg; VBG pH 7.45 (7.32-7.43); VBG pO2 45 mmHg
[2021-09-24 09:32] LABS: Anion Gap 12 (12-20); Blood Urea Nitrogen 22 mg/dL (9-16); Carbon Dioxide 25 mmol/L (22-29); Chloride 99 mmol/L (96-108); Creatinine Clr Calc Pharmacy 88.1; Estimated Glomerular Filt Rate > 60; Glucose Random 274 mg/dL (60-115); Potassium 4.3 mmol/L (3.3-5.1); Sodium 132 mmol/L (135-145)
[2021-09-24] MEDS: Famotidine 20 MG TABLET PO ×2 (09:38→22:20)
[2021-09-24] MEDS: predniSONE 20 MG TABLET 40 MG PO (09:39)
[2021-09-24] MEDS: allopurinoL 300 MG TABLET PO (09:39)
[2021-09-24] MEDS: 0.9 % Sodium Chloride Flush 3 ML SYRINGE IVFLUSH ×3 (09:42→22:21)
[2021-09-24 10:18] LABS: Troponin-I High Sensitivity 89.4 ng/L (<3.5-35.0)
--- NOTE | 2021-09-24 13:11 | P.CNHO_ITS ---
Subjective - Subjective Chief complaint: Shortness of breath Patient: new to practice Consult date: 09/24/21 Requesting Physician: Marichuy Rivera NP Primary Care Provider: Mabel Alvarez NP HPI - Consult Narrative Reason for consult: Patient with CLL and COVID 19 infection Narrative: Gerry Guevara is a 66 year old male history of CLL who is admitted for COVID-19 pneumonia. He came to the hospital on September 05 with hypoxemia and not doing well. He states that 2 weeks prior to that he was tested for COVID-19 at an outpatient facility and found to be positive. He was doing okay for some time but later his symptoms of fever and shortness of breath seemed to worsen. He was found to have low oxygen and therefore came to the ED. He had a CT angiogram which revealed multifocal airspace opacities and large mediastinal lymph nodes that were felt to be reactive. Patient was admitted for further management. Her broad-spectrum antibiotics including doxycycline and prednisone for his treatment so far. He remains on non-rebreather and is quite tachypneic with low oxygen levels. He has an extremely elevated D-dimer. He was given IVIG on 09/16 and 09/18 for hypogammaglobulinemia. Patient states that he was diagnosed with CLL a few years back and was under the care of Dr. Glynn at [facility]. He has been in remission for several months. He received treatment with venetoclax and obinutuzumab. He had a recent scan and they raise the possibility of possible Hodgkin's lymphoma but tests were inconclusive. He last saw Dr. Glynn 3 months ago. He received COVID-19 vaccination including booster dose. Review of Systems - Constitutional Reports as per HPI, Reports anorexia, Reports fever(s), Reports malaise, Reports poor appetite - Respiratory Reports dyspnea - Neurologic Reports no additional neurologic complaints PMFSH Medical History: Medical History (Last Updated 09/16/21 @ 16:43 by Byron Rivera MD) CLL (chronic lymphocytic leukemia) COVID-19 Gout Hyperlipidemia Hypogammaglobulinemia Family history: reviewed and not pertinent Surgical History: Surgical History (Last Reviewed 09/10/21 @ 10:03 by Hamlet Banuelos MD) No pertinent past surgical history Social History: Social History (Last Reviewed 09/10/21 @ 10:03 by Hamlet Banuelos MD) Living Situation History: Household Members: Spouse Household Members: Children Household Members Other:: & daughter Housing: House Do you presently have visiting nurse or other home services: No Tobacco History: Patient Tobacco Use Status: Never used Tobacco Occupation Assessmet: Current occupational status: disabled Home Medications and Allergies Current Medications: Current Medications Acetaminophen (Acetaminophen 325 Mg Tablet) 650 mg PO Q6H PRN PRN Reason: Pain, Mild (Pain Scale 1-3) Last Admin: 09/23/21 08:47 Dose: 650 mg Documented by: Allopurinol (Allopurinol 300 Mg Tablet) 300 mg PO DAILY [facility] Last Admin: 09/24/21 09:39 Dose: 300 mg Documented by: Docusate Sodium (Docusate Sodium 100 Mg Capsule) 100 mg PO DAILY PRN PRN Reason: Constipation Doxycycline Hyclate (Doxycycline Hyclate 100 Mg Tablet) 100 mg PO Q12H [facility] Last Admin: 09/24/21 09:39 Dose: 100 mg Documented by: Enoxaparin Sodium (Enoxaparin Sodium 40 Mg/0.4 Ml Syringe) 40 mg SUBCUT Q24H [facility] Last Admin: 09/23/21 15:43 Dose: 40 mg Documented by: Famotidine (Famotidine 20 Mg Tablet) 20 mg PO BID [facility] Last Admin: 09/24/21 09:38 Dose: 20 mg Documented by: Morphine Sulfate (Morphine Sulfate 2 Mg/Ml Cartridge) 2 mg IVPUSH Q4H PRN; Protocol PRN Reason: pain Last Admin: 09/24/21 08:11 Dose: 2 mg Documented by: Ondansetron HCl (Ondansetron Hcl 4 Mg/2 Ml Vial) 4 mg IVPUSH Q8H PRN PRN Reason: Nausea and Vomiting Pharmacy Consult (Consult Rx Perform Med Rec) 1 each MISCELLANE ONCE PRN PRN Reason: Consult order Prednisone (Prednisone 20 Mg Tablet) 40 mg PO DAILY [facility] Last Admin: 09/24/21 09:39 Dose: 40 mg Documented by: Sodium Chloride (0.9 % Sodium Chloride Flush 3 Ml Syringe) 3 ml IVFLUSH QSHIFT [facility] Last Admin: 09/24/21 09:42 Dose: 3 ml Documented by: Home Medications Medication Instructions Recorded Confirmed Type allopurinol 300 mg tablet 1 tab PO DAILY 09/05/21 09/05/21 History rosuvastatin 40 mg tablet 1 tab PO DAILY 09/05/21 09/05/21 History Allergies Allergy/AdvReac Type Severity Reaction Status Date / Time oxacillin Allergy Unknown Unknown Verified 09/05/21 18:16 Physical Exam Vital signs: Vital Signs Temp 96 F L 09/24/21 11:09 Pulse 111 H 09/24/21 11:09 Resp 20 09/24/21 11:09 BP 111/66 09/24/21 11:09 Pulse Ox 94 09/24/21 11:09 Intake & Output 09/23/21 09/24/21 09/24/21 18:59 06:59 18:59 Intake Total 960 / 1460 500 / 1460 Output Total 1200 / 1900 700 / 1900 100 / 100 Balance -240 / -440 -200 / -440 -100 / -100 Urine Output (Average ml/kg/hr) 1.30 0.76 0.11 Intake: Intake, Oral Amount 960 / 1460 500 / 1460 Output: Output, Urine Amount 1200 / 1900 700 / 1900 100 / 100 Other: Breakfast % Eaten 100% Lunch % Eaten 100% Dinner % Eaten 50% Number of Bowel Movements 1 Urine Urinal Urinal Urinal Urine Color Concentrated Yellow Hockley Stool Bedside Commode Stool Amount Large Stool Color Dark Brown Stool Consistency Semi Formed Weight 77.111 kg - Constitutional Present: moderate distress, chronically ill appearing Comments: Moderately ill appearing gentleman. He is quite tachypneic but is able to talk in full sentences. - Routine HEENT Exam Head: Present: normal inspection Eye: Present: PERRL - Routine Neck Exam Absent: lymphadenopathy - Routine Respiratory Exam Present: accessory muscle use, respiratory distress - Routine Cardiovascular Exam Cardiovascular: Present: RRR, S1, S2 Hem/Onc Consult Result - Labs CBC & Chem 7: 09/24/21 09:11 09/24/21 09:11 Labs: Short CBC 09/24/21 Range/Units 09:11 WBC 9.5 (4.8-10.8) X10*3/uL Hgb 11.0 L (14.0-18.0) g/dl Hct 31.9 L (42-52) % Plt Count 124 L D (160-400) X10*3/uL BMP 09/24/21 09:11 Sodium 132 L Potassium 4.3 Chloride 99 Carbon Dioxide 25 BUN 22 H Creatinine 0.76 Calcium 8.0 L Assessment and Plan Patient Active problem list reviewed?: Yes (1) CLL (chronic lymphocytic leukemia) Status: Chronic Assessment and plan: 1. This is a 66-year-old gentleman with acute hypoxic respiratory failure secondary to COVID-19 infection. He has a history of CLL, he was treated at [facility] under the care of Dr. Coleman. His treatment consisted of obinutuzumab with venetoclax, this is several months ago and apparently he has been in remission. On more recent imaging he was told that he may have lymphoma, possibly Hodgkin's lymphoma but this was not confirmed. He last saw Dr. Coleman 3 months ago. Patients with underlying CLL have decreased immunity and inadequate response to vaccinations. Hypogammaglobulinemia is common and patients are at increased risk of both bacterial and viral infections. As per retrospective data in treatment of COVID-19 infections in CLL patients, data suggests improved outcomes with early treatment with remdesivir and convalescent patient plasma. Prednisone/steroids is generally associated with inferior outcomes. Other factors associated with inferior outcome is age above 75, male sex, prior treatment for CLL and hypogammaglobulinemia. I will enclose the article from the Journal-blood, titled COVID-19 in patients with CLL-improved survival outcome and updates on management strategies in the chart for your review. I thank you very much for this consultation. - Time Spent With Patient Time Spent with Patient (in minutes): 35
[2021-09-24] MEDS: Enoxaparin Sodium 40 MG/0.4 ML SYRINGE SUBCUT (15:08)
[2021-09-24 15:48] LABS: Troponin-I High Sensitivity 59.8 ng/L (<3.5-35.0)
--- NOTE | 2021-09-24 17:50 | P.PNPL_ITS ---
Subjective Subjective Date of Service: 09/25/21 Principal diagnosis: COVID PNEUMINA Interval history: 66-year-old gentleman hospitalized with subacute hypoxemia secondary to recent COVID-19, still with significant of O2 requirements. Objective Data Labs CBC & Chem 7: 09/25/21 06:38 09/25/21 06:38 Labs: Laboratory Results - last 24 hr 09/24/21 09/24/21 09/24/21 09:11 09:11 09:11 WBC 9.5 RBC 3.50 L Hgb 11.0 L Hct 31.9 L MCV 91.1 MCH 31.4 MCHC 34.5 RDW 14.2 Plt Count 124 L D MPV 11.9 Absolute Nucleated RBC 0.000 Nucleated RBC % (auto) 0.0 VBG pH VBG pCO2 VBG pO2 VBG HCO3 VBG O2 Saturation VBG Base Excess Sodium 132 L Potassium 4.3 Chloride 99 Carbon Dioxide 25 Anion Gap 12 BUN 22 H Creatinine 0.76 Estim Creat Clear Calc 88.1 Estimated GFR > 60 Random Glucose 274 H D Calcium 8.0 L Troponin I High Sens 89.4 H* D 09/24/21 09/24/21 09:17 15:00 WBC RBC Hgb Hct MCV MCH MCHC RDW Plt Count MPV Absolute Nucleated RBC Nucleated RBC % (auto) VBG pH 7.45 H VBG pCO2 39 VBG pO2 45 VBG HCO3 27 H VBG O2 Saturation 70.0 VBG Base Excess 3.9 Sodium Potassium Chloride Carbon Dioxide Anion Gap BUN Creatinine Estim Creat Clear Calc Estimated GFR Random Glucose Calcium Troponin I High Sens 59.8 H* Microbiology Microbiology Results: Microbiology 09/05/21 18:43 Blood - Venous Blood Culture - Final No growth after 5 days. 09/05/21 18:43 Blood - Venous Blood Culture - Final No growth after 5 days. Review of Systems Cardiovascular: Denies chest pain and Reports dyspnea Respiratory: Denies cough, Denies excessive phlegm production and Reports dy spnea Physical Exam Vital Signs: Vital Signs: Last Vital Signs Temp 96.9 F 09/24/21 15:12 Pulse 94 09/24/21 15:12 Resp 20 09/24/21 15:12 BP 111/55 L 09/24/21 15:12 Pulse Ox 90 L 09/24/21 15:12 Oxygen Flow Rate 2 09/06/21 02:32 Body Mass Index 26.6 Const: General: no acute distress, alert and awake Eyes: Sclerae: sclerae normal EOM: EOMs intact bilaterally Neck: Neck: Yes no lymphadenopathy, Yes trachea midline and Yes supple Resp: Effort & Inspection: normal respiratory effort and no respiratory distress Auscultation: crackles (Bibasilar) Cardio: Rate: tachycardic Rhythm: regular rhythm Heart sounds: no gallop s, no murmurs and no rubs GI: Palpation (GI): Soft to palpation and Other GI palpation findings present ( Nontender) Auscultation: normal bowel sounds Extrem: General: Yes no pedal edema, No clubbing and No cyanosis Procedures Date of Service Date of Service: 09/24/21 Assessment and Plan Assessment and plan (1) Post-COVID syndrome: Status: Acute (2) Acute respiratory failure with hypoxia: Status: Acute Assessment and Plan: Impression: 66-year-old gentleman with underlying history of CLL hospitalized with subacute hypoxemia secondary to recent COVID-19, now with prolonged recovery. Recommendation: Agree with further titration his supplemental oxygen. Patient is incremental, but very slow improvement. Would suggest physical therapy to prevent deconditioning and increase activity tolerance. Time Spent With Patient Time: Total time spent is greater than 50% in coordination of care (as documented) at patient's floor/unit and/or counseling patient: Time with patient: 15 - 24 minutes Progress Note: Quality Stroke Does the patient have a stroke diagnosis?: No
[2021-09-24 23:45] LABS: Troponin-I High Sensitivity 57.2 ng/L (<3.5-35.0)
[2021-09-25] VITALS (12 sets, daily range): BP systolic 110–122; BP diastolic 62–69; PULSE 75–91; RESP 18–28; TEMP 36.1–37.1; O2SAT 94–100
[2021-09-25] MEDS: Morphine Sulfate 2 MG/ML CARTRIDGE IVPUSH ×3 (01:38→22:07)
[2021-09-25 06:53] LABS: Hematocrit 28.8 % (42-52); Hemoglobin 9.9 g/dl (14.0-18.0); Mean Corpuscular HGB Conc 34.4 g/dl (31.0-36.0); Mean Corpuscular Hemoglobin 31.3 pg (27.0-33.0); Mean Corpuscular Volume 91.1 fL (80-98); Mean Platelet Volume 11.9 fL (9.4-12.4); Platelet Count 101 X10*3/uL (160-400); Red Blood Count 3.16 X10*6/uL (4.60-5.80); Red Cell Distribution Width 14.3 % (11.0-16.0); White Blood Count 7.1 X10*3/uL (4.8-10.8)
[2021-09-25 07:10] LABS: Anion Gap 10 (12-20); Blood Urea Nitrogen 24 mg/dL (9-16); Calcium 8.1 mg/dL (8.4-10.2); Carbon Dioxide 32 mmol/L (22-29); Chloride 99 mmol/L (96-108); Creatinine Clr Calc Pharmacy 101.5; Estimated Glomerular Filt Rate > 60; Glucose Random 109 mg/dL (60-115); Potassium 4.9 mmol/L (3.3-5.1); Sodium 136 mmol/L (135-145)
--- NOTE | 2021-09-25 08:31 | MHC.CM.PN ---
dc plan is home c home o2 vs. str d/t high o2 demands and potential fdc process of weaning of o2. cm to cont. to to follow.
[2021-09-25] MEDS: predniSONE 20 MG TABLET 40 MG PO (08:47)
[2021-09-25] MEDS: Famotidine 20 MG TABLET PO ×2 (08:47→22:07)
[2021-09-25] MEDS: allopurinoL 300 MG TABLET PO (08:47)
[2021-09-25] MEDS: 0.9 % Sodium Chloride Flush 3 ML SYRINGE IVFLUSH ×3 (08:48→22:08)
--- NOTE | 2021-09-25 11:24 | PM.CNCAR ---
History of Present Illness History of Present Illness Date of Service: 09/25/21 Requesting physician: Marichuy Rivera Chief complaint: CP, COVID 19 Narrative: 66-year-old gentleman who has background history of CLL who has been admitted at [facility] with COVID-19 pneumonia. He has right-sided sharp chest pain which is worse with moving his torso and coughing. He has mildly abnormal troponin level and we were asked to assess him. He previously had CT pulmonary angiogram to rule out PE because his D-dimer was significantly elevated. He did not have any pulmonary embolism. He has been on high flow oxygen at this point. He is saying his oxygen demand is still high and overall he feels stable. He is eating and is saying that he has good appetite. [facility] Past Medical History Medical History (Updated 09/25/21 @ 11:27 by Stu Du MD) CLL (chronic lymphocytic leukemia) COVID-19 Gout Hyperlipidemia Hypogammaglobulinemia Family History Family history: reviewed and not pertinent Surgical History Surgical History No pertinent past surgical history Social History Social History Household Members: Spouse and Children Household Members Other:: & daughter Housing: House Do you presently have visiting nurse or other home services: No Patient Tobacco Use Status: Never used Tobacco Current occupational status: disabled Meds Allergies Allergy/AdvReac Type Severity Reaction Status Date / Time oxacillin Allergy Unknown Unknown Verified 09/05/21 18:16 Active Medications: Current Medications Acetaminophen (Acetaminophen 325 Mg Tablet) 650 mg PO Q6H PRN PRN Reason: Pain, Mild (Pain Scale 1-3) Last Admin: 09/23/21 08:47 Dose: 650 mg Documented by: Allopurinol (Allopurinol 300 Mg Tablet) 300 mg PO DAILY [facility] Last Admin: 09/25/21 08:47 Dose: 300 mg Documented by: Docusate Sodium (Docusate Sodium 100 Mg Capsule) 100 mg PO DAILY PRN PRN Reason: Constipation Doxycycline Hyclate (Doxycycline Hyclate 100 Mg Tablet) 100 mg PO Q12H [facility] Last Admin: 09/25/21 10:09 Dose: 100 mg Documented by: Enoxaparin Sodium (Enoxaparin Sodium 40 Mg/0.4 Ml Syringe) 40 mg SUBCUT Q24H [facility] Last Admin: 09/24/21 15:08 Dose: 40 mg Documented by: Famotidine (Famotidine 20 Mg Tablet) 20 mg PO BID [facility] Last Admin: 09/25/21 08:47 Dose: 20 mg Documented by: Morphine Sulfate (Morphine Sulfate 2 Mg/Ml Cartridge) 2 mg IVPUSH Q4H PRN; Protocol PRN Reason: pain Last Admin: 09/25/21 09:35 Dose: 2 mg Documented by: Ondansetron HCl (Ondansetron Hcl 4 Mg/2 Ml Vial) 4 mg IVPUSH Q8H PRN PRN Reason: Nausea and Vomiting Pharmacy Consult (Consult Rx Perform Med Rec) 1 each MISCELLANE ONCE PRN PRN Reason: Consult order Prednisone (Prednisone 20 Mg Tablet) 40 mg PO DAILY [facility] Last Admin: 09/25/21 08:47 Dose: 40 mg Documented by: Sodium Chloride (0.9 % Sodium Chloride Flush 3 Ml Syringe) 3 ml IVFLUSH QSHIFT [facility] Last Admin: 09/25/21 08:48 Dose: 3 ml Documented by: Home Medications Medication Instructions Recorded Confirmed Last Taken Type allopurinol 300 mg tablet 1 tab PO DAILY 09/05/21 09/05/21 09/04/21 History rosuvastatin 40 mg tablet 1 tab PO DAILY 09/05/21 09/05/21 09/04/21 History Physical Exam Vital Signs: Vital Signs: Last Vital Signs Temp 97.5 F 09/25/21 11:14 Pulse 85 09/25/21 11:14 Resp 20 09/25/21 11:14 BP 110/62 09/25/21 11:14 Pulse Ox 97 09/25/21 11:14 Oxygen Flow Rate 2 09/06/21 02:32 Body Mass Index 26.6 GENERAL APPEARANCE: On high-flow oxygen by nasal cannula. In no distress. NECK: no jugular venous distention. SKIN: no suspicious lesions, warm and dry. HEART: no murmurs, regular rate and rhythm. LUNGS: clear to auscultation anteriorly. ABDOMEN: soft, nontender. EXTREMITIES: no edema. PERIPHERAL PULSES: equal. NEUROLOGIC: No gross deficits, AAO X 3 Results Labs and Meds Result diagrams: 09/25/21 06:38 09/25/21 06:38 Lab results: Laboratory Results - last 24 hr 09/24/21 09/24/21 09/25/21 15:00 22:52 06:38 WBC 7.1 RBC 3.16 L Hgb 9.9 L Hct 28.8 L MCV 91.1 MCH 31.3 MCHC 34.4 RDW 14.3 Plt Count 101 L MPV 11.9 Absolute Nucleated RBC 0.000 Nucleated RBC % (auto) 0.0 Sodium Potassium Chloride Carbon Dioxide Anion Gap BUN Creatinine Estim Creat Clear Calc Estimated GFR Random Glucose Calcium Troponin I High Sens 59.8 H* 57.2 H* 09/25/21 06:38 WBC RBC Hgb Hct MCV MCH MCHC RDW Plt Count MPV Absolute Nucleated RBC Nucleated RBC % (auto) Sodium 136 Potassium 4.9 Chloride 99 Carbon Dioxide 32 H Anion Gap 10 L BUN 24 H Creatinine 0.66 Estim Creat Clear Calc 101.5 Estimated GFR > 60 Random Glucose 109 D Calcium 8.1 L Troponin I High Sens Assessment and Plan (1) Rib pain: Status: Acute (2) Chest pain: Status: Acute (3) Elevated troponin: Status: Acute Very pleasant 66 gentleman who is admitted with COVID-19 infection and has been on treatment and high flow nasal cannula. He is currently saturating 97% on 50 liters/minute. His troponins were checked and were 89, 59 and 57. He was complaining of sharp chest pain on the right side which is somewhat reproducible and also worse with moving his torso is likely musculoskeletal in origin. He had CT pulmonary angiogram which did not show any pulmonary embolism. Troponin levels are very mildly elevated and likely due to demand supply mismatch at this stage. Does not need further workup right now. Please continue supportive care for COVID-19 pneumonia. We are signing off for now Thank you for allowing me to participate in the care of your patient. Please feel free to contact me if you have any questions. Procedures Date of Service Date of Service: 09/25/21
--- NOTE | 2021-09-25 13:23 | P.PNIM_ITS ---
Subjective Subjective Date of Service: 09/25/21 <TAMRA Toro - Last Filed: 09/25/21 13:34> 09/25/21 <Terell Curry MD - Last Filed: 09/25/21 16:26> Interval History: Seen and examined this morning Full up for COVID-19/post COVID syndrome Still requiring high-flow oxygen reporting right sided chest pain primarily with moving his upper body <TAMRA Toro - Last Filed: 09/25/21 13:34> Review of Systems Review of Systems: Yes all other systems are reviewed and are negative <TAMRA Toro - Last Filed: 09/25/21 13:34> Constitutional Constitutional: Denies chills and Denies fever(s) <TAMRA Toro - Last Filed: 09/25/21 13:34> Cardiovascular Cardiovascular: Reports chest pain <TAMRA Toro - Last Filed: 09/25/21 13:34> Gastrointestinal Gastrointestinal: Denies abdominal pain <TAMRA Toro - Last Filed: 09/25/21 13:34> Physical Exam Vital Signs: Vital Signs: Last Vital Signs Temp 97.5 F 09/25/21 11:14 Pulse 85 09/25/21 11:14 Resp 18 09/25/21 11:55 BP 110/62 09/25/21 11:14 Pulse Ox 97 09/25/21 11:14 Oxygen Flow Rate 2 09/06/21 02:32 Body Mass Index 26.6 <TAMRA Toro - Last Filed: 09/25/21 13:34> Const: Other: appears more tired <TAMRA Toro - Last Filed: 09/25/21 13:34> General: alert and awake <TAMRA Toro - Last Filed: 09/25/21 13:34> Nutritional Appearance: well nourished <TAMRA Toro - Last Filed: 09/25/21 13:34> Orientation/consciousness: patient oriented x3 <TAMRA Toro - Last Filed: 09/25/21 13:34> HENMT: Head: Yes normocephalic and Yes atraumatic <TAMRA Toro - Last Filed: 09/25/21 13:34> Eyes: Sclerae: sclerae normal <TAMRA Toro - Last Filed: 09/25 13:34> Pupils: Equal, round and reactive pupils present <TAMRA Toro - Last Filed: 09/25/21 13:34> Chest: Chest palpation & inspection: normal inspection of the chest <TAMRA Toro - Last Filed: 09/25/21 13:34> Resp: Other: course breath sounds <TAMRA Toro - Last Filed: 09/25/21 13:34> Effort & Inspection: tachypneic <TAMRA Toro - Last Filed: 09/25/21 13:34> Auscultation: diminished lung sounds <TAMRA Toro - Last Filed: 09/25/21 13:34> Cardio: Rate: regular rate <TAMRA Toro - Last Filed: 09/25/21 13:34> Rhythm: regular rhythm <TAMRA Toro - Last Filed: 09/25/21 13:34> Heart sounds: S1 normal heart sound present and S2 normal heart sound present <TAMRA Toro - Last Filed: 09/25/21 13:34> GI: Palpation (GI): Soft to palpation and nontender <TAMRA Toro - Last Filed: 09/25/21 13:34> Neuro: General: patient oriented x3 <TAMRA Toro - Last Filed: 09/25/21 13:34> Cranial nerves: Yes CN's II-XII intact bilaterally, Yes Equal, round and re active pupils present and Yes Bilaterally intact EOM present <TAMRA Toro - Last Filed: 09/25/21 13:34> Extrem: Other: no leg edema <TAMRA Toro - Last Filed: 09/25/21 13:34> Objective Data Active Medications Acetaminophen (Acetaminophen 325 Mg Tablet) 650 mg PO Q6H PRN PRN Reason: Pain, Mild (Pain Scale 1-3) Last Admin: 09/23/21 08:47 Dose: 650 mg Documented by: ALVARO Allopurinol (Allopurinol 300 Mg Tablet) 300 mg PO DAILY [facility] Last Admin: 09/25/21 08:47 Dose: 300 mg Documented by: MANOJ Docusate Sodium (Docusate Sodium 100 Mg Capsule) 100 mg PO DAILY PRN PRN Reason: Constipation Doxycycline Hyclate (Doxycycline Hyclate 100 Mg Tablet) 100 mg PO Q12H [facility] Last Admin: 09/25/21 10:09 Dose: 100 mg Documented by: MANOJ Enoxaparin Sodium (Enoxaparin Sodium 40 Mg/0.4 Ml Syringe) 40 mg SUBCUT Q24H [facility] Last Admin: 09/24/21 15:08 Dose: 40 mg Documented by: MANOJ Famotidine (Famotidine 20 Mg Tablet) 20 mg PO BID [facility] Last Admin: 09/25/21 08:47 Dose: 20 mg Documented by: MANOJ Morphine Sulfate (Morphine Sulfate 2 Mg/Ml Cartridge) 2 mg IVPUSH Q4H PRN; Protocol PRN Reason: pain Last Admin: 09/25/21 09:35 Dose: 2 mg Documented by: MANOJ Ondansetron HCl (Ondansetron Hcl 4 Mg/2 Ml Vial) 4 mg IVPUSH Q8H PRN PRN Reason: Nausea and Vomiting Pharmacy Consult (Consult Rx Perform Med Rec) 1 each MISCELLANE ONCE PRN PRN Reason: Consult order Prednisone (Prednisone 20 Mg Tablet) 40 mg PO DAILY [facility] Last Admin: 09/25/21 08:47 Dose: 40 mg Documented by: MANOJ Sodium Chloride (0.9 % Sodium Chloride Flush 3 Ml Syringe) 3 ml IVFLUSH QSHIFT [facility] Last Admin: 09/25/21 08:48 Dose: 3 ml Documented by: MANOJ <TAMRA Toro - Last Filed: 09/25/21 13:34> Labs CBC & Chem 7: : 09/25/21 06:38 09/25/21 06:38 <TAMRA Toro - Last Filed: 09/25/21 13:34> Labs: Laboratory Results - last 24 hr 09/24/21 09/24/21 09/25/21 15:00 22:52 06:38 MCV 91.1 MCH 31.3 MCHC 34.4 RDW 14.3 Plt Count 101 L MPV 11.9 Absolute Nucleated RBC 0.000 Nucleated RBC % (auto) 0.0 Anion Gap Estim Creat Clear Calc Estimated GFR Random Glucose Calcium Troponin I High Sens 59.8 H* 57.2 H* 09/25/21 06:38 MCV MCH MCHC RDW Plt Count MPV Absolute Nucleated RBC Nucleated RBC % (auto) Anion Gap 10 L Estim Creat Clear Calc 101.5 Estimated GFR > 60 Random Glucose 109 D Calcium 8.1 L Troponin I High Sens <TAMRA Toro - Last Filed: 09/25/21 13:34> Microbiology Microbiology Results: Microbiology 09/24/21 14:49 Gram Stain - Final Sputum - Expectorated Sputum Culture - Preliminary Culture in progress. 09/23/21 21:26 Blood Culture - Preliminary Blood - Venous No growth after 24 hours. 09/23/21 21:21 Blood Culture - Preliminary Blood - Venous No growth after 24 hours. <TAMRA Toro - Last Filed: 09/25/21 13:34> Assessment and Plan (1) Thrombocytopenia: Status: Acute <TAMRA Toro - Last Filed: 09/25/21 13:34> (2) CLL (chronic lymphocytic leukemia): Status: Chronic <TAMRA Toro - Last Filed: 09/25/21 13:34> (3) Post-COVID syndrome: Status: Acute <TAMRA Toro - Last Filed: 09/25/21 13:34> Assessment and Plan: 66-year-old male past medical history of CLL who presents to the hospital with shortness of breath found to be hypoxic secondary to COVID-19 pneumonia. Patient states he initially tested positive for COVID 3 weeks ago (other notes state 6 weeks). Fully vaccinated (moderna) + has received booster Acute hypoxic respiratory failure r/t prolonged COVID.? Tachypneic, desaturates with movement. s/p treatment with broad spec IV antibiotics - now started on doxycycline per pulmonology continue HFNC and NRB continue po prednisone for now pepcid 20mg bid s/p IVIG 09/16 and 09/18 repeat inflammatory markers: Ddimer 33636, CTA negative for PE, but shows wor sening of multifocal airspace disease pulmonology following Chest pain trops flat, likely r/t oxygen demands Seen by cardiology, no further workup required at this time Left sided rib pain. possibly musculoskeletal pain management Hyponatremia sodium up and down monitor thrombocytopenia platelets trending down follow cbc elevated LFTs. 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 Discharged from PT. Recommend to re-consult when closer to discharge full code dvt lety malone Attending; Dr. Curry <TAMRA Toro - Last Filed: 09/25/21 13:34> 66-year-old male past medical history of CLL who presents to the hospital with shortness of breath found to be hypoxic secondary to COVID-19 pneumonia. Patient states he initially tested positive for COVID 3 weeks ago (other notes state 6 weeks). Fully vaccinated (moderna) + has received booster Acute hypoxic respiratory failure r/t prolonged COVID.? Tachypneic, desaturates with movement. s/p treatment with broad spec IV antibiotics - now started on doxycycline per pulmonology continue HFNC and NRB continue po prednisone for now pepcid 20mg bid s/p IVIG 09/16 and 09/18 repeat inflammatory markers: Ddimer 80267, CTA negative for PE, but shows worsening of multifocal airspace disease pulmonology following Chest pain trops flat, likely r/t oxygen demands Seen by cardiology, no further workup required at this time Left sided rib pain. possibly musculoskeletal pain management Hyponatremia sodium up and down monitor thrombocytopenia platelets trending down follow cbc elevated LFTs. 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 Discharged from PT. Recommend to re-consult when closer to discharge full code dvt lety malone Attending; Dr. Curry Attending Attestation: Patient seen and examined. Case discussed with the mid-level provider. Agree with the assessment and plan as documented above. <Terell Curry MD - Last Filed: 09/25/21 16:26> Quality Stroke Does the patient have a stroke diagnosis?: No <TAMRA Toro - Last Filed: 09/25/21 13:34> VTE Prior VTE?: No <TAMRA Toro - Last Filed: 09/25/21 13:34> VTE Risk Level:: Medical - moderate - high <TAMRA Toro - Last Filed: 09/25/21 13:34> VTE Device Contraindication: Treatment Not Indicated <TAMRA Toro - Last Filed: 09/25/21 13:34> VTE Drug Contraindication: N/A - Med Ordered <TAMRA Toro - Last Filed: 09/25/21 13:34>
[2021-09-25] MEDS: Enoxaparin Sodium 40 MG/0.4 ML SYRINGE SUBCUT (15:47)
[2021-09-26] VITALS (14 sets, daily range): BP systolic 105–125; BP diastolic 57–74; PULSE 74–115; RESP 18–22; TEMP 36.1–37; O2SAT 88–100
[2021-09-26 06:58] LABS: Anion Gap 11 (12-20); Blood Urea Nitrogen 23 mg/dL (9-16); Carbon Dioxide 30 mmol/L (22-29); Chloride 102 mmol/L (96-108); Creatinine Clr Calc Pharmacy 106.3; Estimated Glomerular Filt Rate > 60; Glucose Random 103 mg/dL (60-115); Potassium 4.5 mmol/L (3.3-5.1); Sodium 138 mmol/L (135-145)
[2021-09-26] MEDS: 0.9 % Sodium Chloride Flush 3 ML SYRINGE IVFLUSH ×3 (09:19→20:50)
[2021-09-26] MEDS: Famotidine 20 MG TABLET PO ×2 (09:19→20:50)
[2021-09-26] MEDS: predniSONE 20 MG TABLET PO (09:19)
[2021-09-26] MEDS: allopurinoL 300 MG TABLET PO (09:19)
[2021-09-26] MEDS: Cyclobenzaprine HCl 5 MG TABLET PO ×3 (11:02→23:59)
[2021-09-26] MEDS: Morphine Sulfate 2 MG/ML CARTRIDGE IVPUSH (12:17)
[2021-09-26] MEDS: Enoxaparin Sodium 40 MG/0.4 ML SYRINGE SUBCUT (12:17)
--- NOTE | 2021-09-26 13:52 | HO.PM.IMPN ---
Subjective Subjective Date of Service: 09/26/21 Interval History: Seen and examined this morning follow up for covid 19/respiratory failure having muscle spasms right side chest Review of Systems Review of Systems: Yes all other systems are reviewed and are negative Constitutional Constitutional: Denies chills and Denies fever(s) Respiratory Respiratory: Denies cough Gastrointestinal Gastrointestinal: Denies abdominal pain Physical Exam Vital Signs: Vital Signs: Last Vital Signs Temp 98.2 F 09/26/21 11:32 Pulse 90 09/26/21 13:28 Resp 20 09/26/21 11:32 BP 112/66 09/26/21 13:28 Pulse Ox 95 09/26/21 13:28 Oxygen Flow Rate 2 09/06/21 02:32 Body Mass Index 26.6 Const: General: alert and awake Nutritional Appearance: well nourished Orientation/consciousness: patient oriented x3 HENMT: Head: Yes normocephalic and Yes atraumatic Eyes: Sclerae: sclerae normal Pupils: Equal, round and reactive pupils present Chest: Other: tenderness to palpation right lateral chest wall Resp: Other: course breath sounds Effort & Inspection: tachypneic Auscultation: diminished lung sounds Cardio: Rate: regular rate Rhythm: regular rhythm Heart sounds: S1 normal heart sound present and S2 normal heart sound present GI: Palpation (GI): Soft to palpation and nontender Neuro: General: patient oriented x3 Cranial nerves: Yes CN's II-XII intact bilaterally, Yes Equal, round and reactive pupils present and Yes Bilaterally intact EOM present Objective Data Active Medications Acetaminophen (Acetaminophen 325 Mg Tablet) 650 mg PO Q6H PRN PRN Reason: Pain, Mild (Pain Scale 1-3) Last Admin: 09/23/21 08:47 Dose: 650 mg Documented by: ALVARO Allopurinol (Allopurinol 300 Mg Tablet) 300 mg PO DAILY [facility] Last Admin: 09/26/21 09:19 Dose: 300 mg Documented by: JOSÉ MANUEL Docusate Sodium (Docusate Sodium 100 Mg Capsule) 100 mg PO DAILY PRN PRN Reason: Constipation Enoxaparin Sodium (Enoxaparin Sodium 40 Mg/0.4 Ml Syringe) 40 mg SUBCUT Q24H [facility] Last Admin: 09/26/21 12:17 Dose: 40 mg Documented by: ALLEGRA Famotidine (Famotidine 20 Mg Tablet) 20 mg PO BID [facility] Last Admin: 09/26/21 09:19 Dose: 20 mg Documented by: JOSÉ MANUEL Morphine Sulfate (Morphine Sulfate 2 Mg/Ml Cartridge) 2 mg IVPUSH Q4H PRN; Protocol PRN Reason: pain Last Admin: 09/26/21 12:17 Dose: 2 mg Documented by: ALLEGRA Ondansetron HCl (Ondansetron Hcl 4 Mg/2 Ml Vial) 4 mg IVPUSH Q8H PRN PRN Reason: Nausea and Vomiting Pharmacy Consult (Consult Rx Perform Med Rec) 1 each MISCELLANE ONCE PRN PRN Reason: Consult order Prednisone (Prednisone 20 Mg Tablet) 20 mg PO DAILY [facility] Last Admin: 09/26/21 09:19 Dose: 20 mg Documented by: JOSÉ MANUEL Sodium Chloride (0.9 % Sodium Chloride Flush 3 Ml Syringe) 3 ml IVFLUSH QSHIFT [facility] Last Admin: 09/26/21 09:19 Dose: 3 ml Documented by: JOSÉ MANUEL Labs CBC & Chem 7: 09/25/21 06:38 09/26/21 06:31 Labs: Laboratory Results - last 24 hr 09/26/21 06:31 Anion Gap 11 L Estim Creat Clear Calc 106.3 Estimated GFR > 60 Random Glucose 103 Calcium 8.0 L Microbiology Microbiology Results: Microbiology 09/24/21 14:49 Gram Stain - Final Sputum - Expectorated Sputum Culture - Preliminary 09/23/21 21:26 Blood Culture - Preliminary Blood - Venous No growth after 48 hours. 09/23/21 21:21 Blood Culture - Preliminary Blood - Venous No growth after 48 hours. Assessment and Plan (1) Post-COVID syndrome: Status: Acute (2) Acute respiratory failure with hypoxia: Status: Acute Assessment and Plan: 66-year-old male past medical history of CLL who presents to the hospital with shortness of breath found to be hypoxic secondary to COVID-19 pneumonia. Patient states he initially tested positive for COVID 3 weeks ago (other notes state 6 weeks). Fully vaccinated (moderna) + has received booster Acute hypoxic respiratory failure r/t prolonged COVID.? desaturates with movement but overall oxygen requirement improving slowly s/p treatment with broad spec IV antibiotics & course of doxycycline continue HFNC and NRB wean po prednisone pepcid 20mg bid s/p IVIG 09/16 and 09/18 repeat inflammatory markers: Ddimer 27219, CTA negative for PE, but shows worsening of multifocal airspace disease pulmonology following Chest pain trops flat, likely r/t oxygen demands Seen by cardiology, no further workup required at this time Left sided rib pain. possibly musculoskeletal pain management Hyponatremia sodium up and down monitor thrombocytopenia platelets trending down follow cbc elevated LFTs. 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 full code dvt johnx, lety Attending; Dr. Curry Quality Stroke Does the patient have a stroke diagnosis?: No VTE Prior VTE?: No VTE Risk Level:: Medical - moderate - high VTE Device Contraindication: Treatment Not Indicated VTE Drug Contraindication: N/A - Med Ordered
[2021-09-27] VITALS (13 sets, daily range): BP systolic 100–118; BP diastolic 55–73; PULSE 73–109; RESP 15–22; TEMP 36.5–37.1; O2SAT 90–96
[2021-09-27] MEDS: Morphine Sulfate 2 MG/ML CARTRIDGE IVPUSH ×3 (03:30→21:22)
[2021-09-27] MEDS: predniSONE 20 MG TABLET PO (09:43)
[2021-09-27] MEDS: allopurinoL 300 MG TABLET PO (09:43)
[2021-09-27] MEDS: 0.9 % Sodium Chloride Flush 3 ML SYRINGE IVFLUSH ×3 (09:43→21:22)
[2021-09-27] MEDS: Famotidine 20 MG TABLET PO ×2 (09:43→21:22)
[2021-09-27] MEDS: Cyclobenzaprine HCl 5 MG TABLET PO ×2 (09:43→18:14)
--- NOTE | 2021-09-27 10:54 | PM.IMPN ---
Progress Note: A&P (1) Acute respiratory failure with hypoxia: Status: Acute <Marichuy Rivera NP - Last Filed: 09/27/21 10:59> (2) COVID-19: Status: Acute <Marichuy Rivera NP - Last Filed: 09/27/21 10:59> Assessment and Plan: 66-year-old male past medical history of CLL who presents to the hospital with shortness of breath found to be hypoxic secondary to COVID-19 pneumonia. Patient states he initially tested positive for COVID 3 weeks ago (other notes state 6 weeks). Fully vaccinated (moderna) + has received booster Acute hypoxic respiratory failure r/t prolonged COVID.?? desaturates with movement but overall oxygen requirement improving slowly s/p treatment with broad spec IV antibiotics & course of doxycycline continue HFNC 45L, 40% and NRB as needed wean po prednisone pepcid 20mg bid s/p IVIG 09/16 and 09/18 pulmonology and hematology following Chest pain trops flat, likely r/t oxygen demands Seen by cardiology, no further workup required at this time Left sided rib pain. possibly musculoskeletal pain management Hyponatremia sodium up and down monitor thrombocytopenia platelets trending down follow cbc elevated LFTs. 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 full code dvt pptx, malathix Attending; Dr. Butts <Marichuy Rivera NP - Last Filed: 09/27/21 10:59> 66-year-old male past medical history of CLL who presents to the hospital with shortness of breath found to be hypoxic secondary to COVID-19 pneumonia. Patient states he initially tested positive for COVID 3 weeks ago (other notes state 6 weeks). Fully vaccinated (moderna) + has received booster Acute hypoxic respiratory failure r/t prolonged COVID.?? desaturates with movement but overall oxygen requirement improving slowly s/p treatment with broad spec IV antibiotics & course of doxycycline continue HFNC 45L, 40% and NRB as needed wean po prednisone pepcid 20mg bid s/p IVIG 09/16 and 09/18 pulmonology and hematology following Chest pain trops flat, likely r/t oxygen demands Seen by cardiology, no further workup required at this time Left sided rib pain. possibly musculoskeletal pain management Hyponatremia sodium up and down monitor thrombocytopenia platelets trending down follow cbc elevated LFTs. 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 full code dvt pptx, lovenox Attending; Dr. Butts I saw and evaluated the patient and discussed the care with [employer] Marichuy Rivera, I agree with the findings and plan as documented in the note above. Estuardo Butts MD ? <Juan Butts MD - Last Filed: 09/27/21 16:49> Subjective Subjective Date of Service: 09/27/21 <Marichuy Rivera NP - Last Filed: 09/27/21 10:59> 09/27/21 <Juan Butts MD - Last Filed: 09/27/21 16:49> Review of Systems Follow up covid 19 feels better gets more sob with walking and activity <Marichuy Rivera NP - Last Filed: 09/27/21 10:59> Physical Exam Vital Signs: Vital Signs: Last Vital Signs Temp 98.7 F 09/27/21 07:58 Pulse 84 09/27/21 07:58 Resp 16 09/27/21 08:00 BP 105/65 09/27/21 07:58 Pulse Ox 95 09/27/21 07:58 Oxygen Flow Rate 2 09/06/21 02:32 Body Mass Index 26.6 <Marichuy Rivera NP - Last Filed: 09/27/21 10:59> Appearing in no acute distress lungs normal expansion heart regular rate rhythm, clear S1, S2 positive bowel sounds, abdomen is soft, nontender neuro patient is alert x3, no focal deficits <Marichuy Rivera NP - Last Filed: 09/27/21 10:59> Objective Data Current Medications Acetaminophen (Acetaminophen 325 Mg Tablet) 650 mg PO Q6H PRN PRN Reason: Pain, Mild (Pain Scale 1-3) Last Admin: 09/23/21 08:47 Dose: 650 mg Documented by: Allopurinol (Allopurinol 300 Mg Tablet) 300 mg PO DAILY [facility] Last Admin: 09/27/21 09:43 Dose: 300 mg Documented by: Cyclobenzaprine HCl (Cyclobenzaprine Hcl 5 Mg Tablet) 5 mg PO TID PRN PRN Reason: Muscle Spasm Stop: 09/28/21 16:11 Last Admin: 09/27/21 09:43 Dose: 5 mg Documented by: Docusate Sodium (Docusate Sodium 100 Mg Capsule) 100 mg PO DAILY PRN PRN Reason: Constipation Enoxaparin Sodium (Enoxaparin Sodium 40 Mg/0.4 Ml Syringe) 40 mg SUBCUT Q24H [facility] Last Admin: 09/26/21 12:17 Dose: 40 mg Documented by: Famotidine (Famotidine 20 Mg Tablet) 20 mg PO BID [facility] Last Admin: 09/27/21 09:43 Dose: 20 mg Documented by: Morphine Sulfate (Morphine Sulfate 2 Mg/Ml Cartridge) 2 mg IVPUSH Q4H PRN; Protocol PRN Reason: pain Last Admin: 09/27/21 10:06 Dose: 2 mg Documented by: Ondansetron HCl (Ondansetron Hcl 4 Mg/2 Ml Vial) 4 mg IVPUSH Q8H PRN PRN Reason: Nausea and Vomiting Pharmacy Consult (Consult Rx Perform Med Rec) 1 each MISCELLANE ONCE PRN PRN Reason: Consult order Prednisone (Prednisone 20 Mg Tablet) 20 mg PO DAILY [facility] Last Admin: 09/27/21 09:43 Dose: 20 mg Documented by: Sodium Chloride (0.9 % Sodium Chloride Flush 3 Ml Syringe) 3 ml IVFLUSH QSHIFT [facility] Last Admin: 09/27/21 09:43 Dose: 3 ml Documented by: <Marichuy Rivera NP - Last Filed: 09/27/21 10:59> Labs CBC & Chem 7: : 09/25/21 06:38 09/26/21 06:31 <Marichuy Rivera NP - Last Filed: 09/27/21 10:59> Microbiology Microbiology Results: Microbiology 09/24/21 14:49 Sputum - Expectorated Gram Stain - Final 09/24/21 14:49 Sputum - Expectorated Sputum Culture - Preliminary 09/23/21 21:26 Blood - Venous Blood Culture - Preliminary No growth after 48 hours. 09/23/21 21:21 Blood - Venous Blood Culture - Preliminary No growth after 48 hours. 09/05/21 18:43 Blood - Venous Blood Culture - Final No growth after 5 days. 09/05/21 18:43 Blood - Venous Blood Culture - Final No growth after 5 days. <Marichuy Rivera NP - Last Filed: 09/27/21 10:59> Quality Stroke Does the patient have a stroke diagnosis?: No <Marichuy Rivera NP - Last Filed: 09/27/21 10:59> VTE Prior VTE?: No <Marichuy Rivera NP - Last Filed: 09/27/21 10:59> VTE Risk Level:: Medical - moderate - high <Marichuy Rivera NP - Last Filed: 09/27/21 10:59> VTE Device Contraindication: Treatment Not Indicated <Marichuy Rivera NP - Last Filed: 09/27/21 10:59> VTE Drug Contraindication: N/A - Med Ordered <Marichuy Rivera NP - Last Filed: 09/27/21 10:59>
[2021-09-27] MEDS: LORazepam 2 MG/ML VIAL 0.5 MG IVPUSH (12:29)
[2021-09-27] MEDS: Enoxaparin Sodium 40 MG/0.4 ML SYRINGE SUBCUT (15:16)
[2021-09-28] VITALS (11 sets, daily range): BP systolic 96–119; BP diastolic 56–67; PULSE 61–103; RESP 18–22; TEMP 36.1–36.8; O2SAT 90–100
[2021-09-28] MEDS: predniSONE 20 MG TABLET PO (10:17)
[2021-09-28] MEDS: Famotidine 20 MG TABLET PO ×2 (10:18→21:39)
[2021-09-28] MEDS: allopurinoL 300 MG TABLET PO (10:18)
[2021-09-28] MEDS: 0.9 % Sodium Chloride Flush 3 ML SYRINGE IVFLUSH ×2 (10:18→21:40)
[2021-09-28] MEDS: Cyclobenzaprine HCl 5 MG TABLET PO ×2 (10:19→21:39)
--- NOTE | 2021-09-28 13:15 | P.PNIM_ITS ---
Progress Note: A&P (1) Acute respiratory failure with hypoxia: Status: Acute <Marichuy Rivera NP - Last Filed: 09/28/21 13:20> (2) COVID-19: Status: Acute <Marichuy Rivera NP - Last Filed: 09/28/21 13:20> Assessment and Plan: 66-year-old male past medical history of CLL who presents to the hospital with shortness of breath found to be hypoxic secondary to COVID-19 pneumonia. Patient states he initially tested positive for COVID 3 weeks ago (other notes state 6 weeks). Fully vaccinated (moderna) + has received booster Acute hypoxic respiratory failure r/t prolonged COVID.?? desaturates with movement but overall oxygen requirement improving slowly s/p treatment with broad spec IV antibiotics & course of doxycycline continue HFNC 45L, 40% and NRB as needed wean po prednisone pepcid 20mg bid s/p IVIG 09/16 and 09/18 pulmonology and hematology following Chest pain trops flat, likely r/t oxygen demands Seen by cardiology, no further workup required at this time Left sided rib pain. possibly musculoskeletal pain management Hyponatremia sodium up and down monitor thrombocytopenia platelets trending down follow cbc elevated LFTs. 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 full code dvt pptx, lovemerix Attending; Dr. Lovell <Marichuy Rivera NP - Last Filed: 09/28/21 13:20> 66-year-old male past medical history of CLL who presents to the hospital with shortness of breath found to be hypoxic secondary to COVID-19 pneumonia. Patient states he initially tested positive for COVID 3 weeks ago (other notes state 6 weeks). Fully vaccinated (moderna) + has received booster Acute hypoxic respiratory failure r/t prolonged COVID.?? desaturates with movement but overall oxygen requirement improving slowly s/p treatment with broad spec IV antibiotics & course of doxycycline continue HFNC 45L, 40% and NRB as needed wean po prednisone pepcid 20mg bid s/p IVIG 09/16 and 09/18 pulmonology and hematology following Chest pain trops flat, likely r/t oxygen demands Seen by cardiology, no further workup required at this time Left sided rib pain. possibly musculoskeletal pain management Hyponatremia sodium up and down monitor thrombocytopenia platelets trending down follow cbc elevated LFTs. 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 full code dvt pptx, lovenox Attending; Dr. Lovell I saw/examined pt, discussed finding, a/p with [employer] and I agree with above <Juan Lovell MD - Last Filed: 10/01/21 15:03> Subjective Subjective Date of Service: 09/28/21 <Marichuy Rivera NP - Last Filed: 09/28/21 13:20> 10/01/21 <Juan Lovell MD - Last Filed: 10/01/21 15:03> Review of Systems Follow up covid 19 still with high flow feeling about the same as yesterday mild sob with movement <Marichuy Rivera NP - Last Filed: 09/28/21 13:20> Physical Exam Vital Signs: Vital Signs: Last Vital Signs Temp 98.1 F 09/28/21 11:25 Pulse 103 H 09/28/21 11:25 Resp 20 09/28/21 11:43 BP 113/66 09/28/21 11:25 Pulse Ox 90 L 09/28/21 11:25 Oxygen Flow Rate 2 09/06/21 02:32 Body Mass Index 26.6 <Marichuy Rivera NP - Last Filed: 09/28/21 13:20> Appearing in no acute distress lungs normal expansion heart regular rate rhythm, clear S1, S2 positive bowel sounds, abdomen is soft, nontender neuro patient is alert x3, no focal deficits <Marichuy Rivera NP - Last Filed: 09/28/21 13:20> Objective Data Current Medications Acetaminophen (Acetaminophen 325 Mg Tablet) 650 mg PO Q6H PRN PRN Reason: Pain, Mild (Pain Scale 1-3) Last Admin: 09/23/21 08:47 Dose: 650 mg Documented by: Allopurinol (Allopurinol 300 Mg Tablet) 300 mg PO DAILY [facility] Last Admin: 09/28/21 10:18 Dose: 300 mg Documented by: Cyclobenzaprine HCl (Cyclobenzaprine Hcl 5 Mg Tablet) 5 mg PO TID PRN PRN Reason: Muscle Spasm Stop: 09/28/21 16:11 Last Admin: 09/28/21 10:19 Dose: 5 mg Documented by: Docusate Sodium (Docusate Sodium 100 Mg Capsule) 100 mg PO DAILY PRN PRN Reason: Constipation Enoxaparin Sodium (Enoxaparin Sodium 40 Mg/0.4 Ml Syringe) 40 mg SUBCUT Q24H [facility] Last Admin: 09/27/21 15:16 Dose: 40 mg Documented by: Famotidine (Famotidine 20 Mg Tablet) 20 mg PO BID [facility] Last Admin: 09/28/21 10:18 Dose: 20 mg Documented by: Ondansetron HCl (Ondansetron Hcl 4 Mg/2 Ml Vial) 4 mg IVPUSH Q8H PRN PRN Reason: Nausea and Vomiting Pharmacy Consult (Consult Rx Perform Med Rec) 1 each MISCELLANE ONCE PRN PRN Reason: Consult order Prednisone (Prednisone 20 Mg Tablet) 20 mg PO DAILY [facility] Last Admin: 09/28/21 10:17 Dose: 20 mg Documented by: Sodium Chloride (0.9 % Sodium Chloride Flush 3 Ml Syringe) 3 ml IVFLUSH QSHIFT [facility] Last Admin: 09/28/21 10:18 Dose: 3 ml Documented by: <Marichuy Rivera NP - Last Filed: 09/28/21 13:20> Labs CBC & Chem 7: : 09/30/21 08:30 09/30/21 08:30 <Marichuy Rivera NP - Last Filed: 09/28/21 13:20> Microbiology Microbiology Results: Microbiology 09/24/21 14:49 Sputum - Expectorated Gram Stain - Final 09/24/21 14:49 Sputum - Expectorated Sputum Culture - Final 09/23/21 21:26 Blood - Venous Blood Culture - Preliminary No growth after 48 hours. 09/23/21 21:21 Blood - Venous Blood Culture - Preliminary No growth after 48 hours. 09/05/21 18:43 Blood - Venous Blood Culture - Final No growth after 5 days. 09/05/21 18:43 Blood - Venous Blood Culture - Final No growth after 5 days. <Marichuy Rivera NP - Last Filed: 09/28/21 13:20> Quality Stroke Does the patient have a stroke diagnosis?: No <Marichuy Rivera NP - Last Filed: 09/28/21 13:20> VTE Prior VTE?: No <Marichuy Rivera NP - Last Filed: 09/28/21 13:20> VTE Risk Level:: Medical - moderate - high <Marichuy Rivera NP - Last Filed: 09/28/21 13:20> VTE Device Contraindication: Treatment Not Indicated <Marichuy Rivera NP - Last Filed: 09/28/21 13:20> VTE Drug Contraindication: N/A - Med Ordered <Marichuy Rivera NP - Last Filed: 09/28/21 13:20>
[2021-09-28] MEDS: Enoxaparin Sodium 40 MG/0.4 ML SYRINGE SUBCUT (14:25)
[2021-09-29] VITALS (16 sets, daily range): BP systolic 105–141; BP diastolic 61–88; PULSE 78–120; RESP 18–25; TEMP 36.3–37.4; O2SAT 92–98
[2021-09-29] MEDS: 0.9 % Sodium Chloride Flush 3 ML SYRINGE IVFLUSH ×3 (08:29→20:40)
[2021-09-29] MEDS: Famotidine 20 MG TABLET PO ×2 (08:30→20:40)
[2021-09-29] MEDS: predniSONE 20 MG TABLET PO (08:30)
[2021-09-29] MEDS: allopurinoL 300 MG TABLET PO (08:30)
[2021-09-29] MEDS: Cyclobenzaprine HCl 5 MG TABLET PO ×2 (09:31→15:03)
--- NOTE | 2021-09-29 09:35 | MHC.CM.PN ---
dc plan is home c home o2 vs. str d/t high o2 demands and potential correction process of weaning of o2. cm to cont. to to follow.
--- NOTE | 2021-09-29 10:06 | P.PNIM_ITS ---
Progress Note: A&P (1) Rib pain: Status: Acute (2) Thrombocytopenia: Status: Acute (3) CLL (chronic lymphocytic leukemia): Status: Chronic (4) Post-COVID syndrome: Status: Acute (5) Acute respiratory failure with hypoxia: Status: Acute Assessment and Plan: 66-year-old male past medical history of CLL who presents to the hospital with shortness of breath found to be hypoxic secondary to COVID-19 pneumonia. Patient states he initially tested positive for COVID 3 weeks ago (other notes state 6 weeks). Fully vaccinated (moderna) + has received booster Acute hypoxic respiratory failure r/t prolonged COVID.?? desaturates with movement but overall oxygen requirement improving slowly s/p treatment with broad spec IV antibiotics & course of doxycycline continue HFNC 38L, 40% and NRB as needed wean po prednisone pepcid 20mg bid s/p IVIG 09/16 and 09/18 pulmonology and hematology following Left sided rib pain. possibly musculoskeletal pain management add lidocaine patch Chest pain trops flat, likely r/t oxygen demands Seen by cardiology, no further workup required at this time thrombocytopenia. stable follow cbc elevated LFTs. trending down likely due to viral infection history of CLL pt reports he is in remission gout continue allopurinol hyperlipidemia statin on hold - if LFTs improved, restart full code dvt pptx, malathix Attending; Dr. Saucedo Subjective Subjective Date of Service: 09/29/21 Review of Systems Follow up covid 19 still with rib pain, worse with cough OOB to chair Physical Exam Vital Signs: Vital Signs: Last Vital Signs Temp 99.4 F 09/29/21 07:49 Pulse 102 H 09/29/21 07:49 Resp 20 09/29/21 08:04 BP 108/61 09/29/21 07:49 Pulse Ox 98 09/29/21 07:49 Oxygen Flow Rate 2 09/06/21 02:32 Body Mass Index 26.6 Appearing in no acute distress lung sounds normal expansion. High flow on heart regular rate rhythm, clear S1, S2 positive bowel sounds, abdomen is soft, nontender neuro patient is alert x3, no focal deficits Objective Data Current Medications Acetaminophen (Acetaminophen 325 Mg Tablet) 650 mg PO Q6H PRN PRN Reason: Pain, Mild (Pain Scale 1-3) Last Admin: 09/23/21 08:47 Dose: 650 mg Documented by: Allopurinol (Allopurinol 300 Mg Tablet) 300 mg PO DAILY [facility] Last Admin: 09/29/21 08:30 Dose: 300 mg Documented by: Cyclobenzaprine HCl (Cyclobenzaprine Hcl 5 Mg Tablet) 5 mg PO TID PRN PRN Reason: pain Last Admin: 09/29/21 09:31 Dose: 5 mg Documented by: Docusate Sodium (Docusate Sodium 100 Mg Capsule) 100 mg PO DAILY PRN PRN Reason: Constipation Enoxaparin Sodium (Enoxaparin Sodium 40 Mg/0.4 Ml Syringe) 40 mg SUBCUT Q24H [facility] Last Admin: 09/28/21 14:25 Dose: 40 mg Documented by: Famotidine (Famotidine 20 Mg Tablet) 20 mg PO BID [facility] Last Admin: 09/29/21 08:30 Dose: 20 mg Documented by: Morphine Sulfate (Morphine Sulfate 2 Mg/Ml Cartridge) 2 mg IVPUSH Q4H PRN; Protocol PRN Reason: Pain, Mild (Pain Scale 1-3) Ondansetron HCl (Ondansetron Hcl 4 Mg/2 Ml Vial) 4 mg IVPUSH Q8H PRN PRN Reason: Nausea and Vomiting Pharmacy Consult (Consult Rx Perform Med Rec) 1 each MISCELLANE ONCE PRN PRN Reason: Consult order Prednisone (Prednisone 20 Mg Tablet) 20 mg PO DAILY [facility] Last Admin: 09/29/21 08:30 Dose: 20 mg Documented by: Sodium Chloride (0.9 % Sodium Chloride Flush 3 Ml Syringe) 3 ml IVFLUSH QSHIFT [facility] Last Admin: 09/29/21 08:29 Dose: 3 ml Documented by: Labs CBC & Chem 7: 09/25/21 06:38 09/26/21 06:31 Microbiology Microbiology Results: Microbiology 09/23/21 21:26 Blood - Venous Blood Culture - Final No growth after 5 days. 09/23/21 21:21 Blood - Venous Blood Culture - Final No growth after 5 days. 09/24/21 14:49 Sputum - Expectorated Gram Stain - Final 09/24/21 14:49 Sputum - Expectorated Sputum Culture - Final 09/05/21 18:43 Blood - Venous Blood Culture - Final No growth after 5 days. 09/05/21 18:43 Blood - Venous Blood Culture - Final No growth after 5 days. Quality Stroke Does the patient have a stroke diagnosis?: No VTE Prior VTE?: No VTE Risk Level:: Medical - moderate - high VTE Device Contraindication: Treatment Not Indicated VTE Drug Contraindication: N/A - Med Ordered
[2021-09-29] MEDS: Morphine Sulfate 2 MG/ML CARTRIDGE IVPUSH ×2 (10:32→14:59)
[2021-09-29] MEDS: Enoxaparin Sodium 40 MG/0.4 ML SYRINGE SUBCUT (13:43)
--- NOTE | 2021-09-29 17:20 | PC.NURSE ---
PRN MEDICATIONS RE-ORDERED BY [employer]ER FOR PAIN/SPASMS. SEE EMAR. BM ON COMMODE TODAY.
[2021-09-30] VITALS (9 sets, daily range): BP systolic 109–128; BP diastolic 64–73; PULSE 110–128; RESP 19–28; TEMP 36.2–37.6; O2SAT 86–98
[2021-09-30] MEDS: Morphine Sulfate 2 MG/ML CARTRIDGE IVPUSH ×2 (00:05→04:43)
[2021-09-30] MEDS: Cyclobenzaprine HCl 5 MG TABLET PO ×3 (00:05→20:48)
[2021-09-30] MEDS: Benzonatate 100 MG CAPSULE PO ×3 (00:33→22:17)
[2021-09-30] MEDS: Famotidine 20 MG TABLET PO ×2 (08:22→20:48)
[2021-09-30] MEDS: allopurinoL 300 MG TABLET PO (08:22)
[2021-09-30] MEDS: predniSONE 20 MG TABLET PO (08:22)
[2021-09-30] MEDS: 0.9 % Sodium Chloride Flush 3 ML SYRINGE IVFLUSH ×3 (08:22→20:48)
[2021-09-30 09:04] LABS: Hematocrit 31.9 % (42.0-52.0); Hemoglobin 10.5 g/dl (14.0-18.0); Mean Corpuscular HGB Conc 32.9 g/dl (31.0-36.0); Mean Corpuscular Hemoglobin 30.4 pg (27.0-33.0); Mean Corpuscular Volume 92.5 fL (80.0-98.0); Mean Platelet Volume 11.1 fL (9.4-12.4); Platelet Count 185 X10*3/uL (160-400); Red Blood Count 3.45 X10*6/uL (4.60-5.80); Red Cell Distribution Width 15.8 % (11.0-16.0); White Blood Count 13.8 X10*3/uL (4.8-10.8)
[2021-09-30 09:32] LABS: Anion Gap 13 (12-20); Blood Urea Nitrogen 21 mg/dL (9-16); Calcium 8.4 mg/dL (8.4-10.2); Carbon Dioxide 30 mmol/L (22-29); Chloride 98 mmol/L (96-108); Creatinine Clr Calc Pharmacy 90.5; Estimated Glomerular Filt Rate > 60; Glucose Random 130 mg/dL (60-115); Potassium 4.5 mmol/L (3.3-5.1); Sodium 136 mmol/L (135-145)
[2021-09-30] MEDS: LORazepam 0.5 MG TABLET PO (10:42)
--- NOTE | 2021-09-30 11:07 | P.PNIM_ITS ---
Progress Note: A&P (1) Chest pain: Status: Acute (2) Acute respiratory failure with hypoxia: Status: Acute (3) Anxiety: Status: Acute (4) Rib pain: Status: Acute (5) CLL (chronic lymphocytic leukemia): Status: Chronic Assessment and Plan: 66-year-old male past medical history of CLL who presents to the hospital with shortness of breath found to be hypoxic secondary to COVID-19 pneumonia. Patient states he initially tested positive for COVID 3 weeks ago (other notes state 6 weeks). Fully vaccinated (moderna) + has received booster Acute hypoxic respiratory failure r/t prolonged COVID. improving s/p treatment with broad spec IV antibiotics & course of doxycycline Off High flow, now on 5-6 liters NC wean po prednisone pepcid 20mg bid s/p IVIG 09/16 and 09/18 pulmonology and hematology following Anxiety add lorazepam as needed Left sided rib pain. possibly musculoskeletal pain management add lidocaine patch Chest pain trops flat, likely r/t oxygen demands Seen by cardiology, no further workup required at this time thrombocytopenia. stable follow cbc elevated LFTs. trending down likely due to viral infection history of CLL pt reports he is in remission gout continue allopurinol hyperlipidemia statin on hold - if LFTs improved, restart full code dvt pptx, lovenox Attending; Dr. Saucedo Subjective Subjective Date of Service: 09/30/21 Review of Systems Follow up covid 19 feeling better more anxiety today still with rib pain with coughing Physical Exam Vital Signs: Vital Signs: Last Vital Signs Temp 98.1 F 09/30/21 07:51 Pulse 112 H 09/30/21 10:49 Resp 25 H 09/30/21 08:04 BP 109/68 09/30/21 10:49 Pulse Ox 92 09/30/21 10:49 Oxygen Flow Rate 2 09/06/21 02:32 Body Mass Index 26.6 Objective Data Current Medications Acetaminophen (Acetaminophen 325 Mg Tablet) 650 mg PO Q6H PRN PRN Reason: Pain, Mild (Pain Scale 1-3) Last Admin: 09/23/21 08:47 Dose: 650 mg Documented by: Allopurinol (Allopurinol 300 Mg Tablet) 300 mg PO DAILY [facility] Last Admin: 09/30/21 08:22 Dose: 300 mg Documented by: Benzonatate (Benzonatate 100 Mg Capsule) 100 mg PO TID PRN PRN Reason: Cough Last Admin: 09/30/21 08:22 Dose: 100 mg Documented by: Cyclobenzaprine HCl (Cyclobenzaprine Hcl 5 Mg Tablet) 5 mg PO TID PRN PRN Reason: pain Last Admin: 09/30/21 10:42 Dose: 5 mg Documented by: Docusate Sodium (Docusate Sodium 100 Mg Capsule) 100 mg PO DAILY PRN PRN Reason: Constipation Enoxaparin Sodium (Enoxaparin Sodium 40 Mg/0.4 Ml Syringe) 40 mg SUBCUT Q24H [facility]PL[facility] Last Admin: 09/29/21 13:43 Dose: 40 mg Documented by: Famotidine (Famotidine 20 Mg Tablet) 20 mg PO BID [facility] Last Admin: 09/30/21 08:22 Dose: 20 mg Documented by: Lorazepam (Lorazepam 0.5 Mg Tablet) 0.5 mg PO Q8H PRN PRN Reason: anxiety Last Admin: 09/30/21 10:42 Dose: 0.5 mg Documented by: Morphine Sulfate (Morphine Sulfate 2 Mg/Ml Cartridge) 2 mg IVPUSH Q4H PRN; Protocol PRN Reason: Pain, Mild (Pain Scale 1-3) Last Admin: 09/30/21 04:43 Dose: 2 mg Documented by: Ondansetron HCl (Ondansetron Hcl 4 Mg/2 Ml Vial) 4 mg IVPUSH Q8H PRN PRN Reason: Nausea and Vomiting Pharmacy Consult (Consult Rx Perform Med Rec) 1 each MISCELLANE ONCE PRN PRN Reason: Consult order Prednisone (Prednisone 20 Mg Tablet) 20 mg PO DAILY [facility] Last Admin: 09/30/21 08:22 Dose: 20 mg Documented by: Sodium Chloride (0.9 % Sodium Chloride Flush 3 Ml Syringe) 3 ml IVFLUSH QSHIFT REPLACED [facility] Last Admin: 09/30/21 08:22 Dose: 3 ml Documented by: Labs CBC & Chem 7: 09/30/21 08:30 09/30/21 08:30 Labs: Laboratory Results - last 24 hr 09/30/21 09/30/21 08:30 08:30 MCV 92.5 MCH 30.4 MCHC 32.9 RDW 15.8 Plt Count 185 MPV 11.1 Absolute Nucleated RBC 0.000 Nucleated RBC % (auto) 0.0 Anion Gap 13 Estim Creat Clear Calc 90.5 Estimated GFR > 60 Random Glucose 130 H Calcium 8.4 Microbiology Microbiology Results: Microbiology 09/23/21 21:26 Blood - Venous Blood Culture - Final No growth after 5 days. 09/23/21 21:21 Blood - Venous Blood Culture - Final No growth after 5 days. 09/24/21 14:49 Sputum - Expectorated Gram Stain - Final 09/24/21 14:49 Sputum - Expectorated Sputum Culture - Final 09/05/21 18:43 Blood - Venous Blood Culture - Final No growth after 5 days. 09/05/21 18:43 Blood - Venous Blood Culture - Final No growth after 5 days. Quality Stroke Does the patient have a stroke diagnosis?: No VTE Prior VTE?: No VTE Risk Level:: Medical - moderate - high VTE Device Contraindication: Treatment Not Indicated VTE Drug Contraindication: N/A - Med Ordered
--- NOTE | 2021-09-30 12:34 | PC.NURSE ---
Skin/wound assessemnt completed. Patient has a stage 2 to left buttock. Triad applied covered with foam dressing. No other skin issues noted at this time.
[2021-09-30] MEDS: Enoxaparin Sodium 40 MG/0.4 ML SYRINGE SUBCUT (14:17)
[2021-10-01] VITALS (8 sets, daily range): BP systolic 99–123; BP diastolic 59–79; PULSE 80–117; RESP 18–20; TEMP 36.7–39; O2SAT 91–96
[2021-10-01] MEDS: Morphine Sulfate 2 MG/ML CARTRIDGE IVPUSH (03:25)
[2021-10-01] MEDS: Famotidine 20 MG TABLET PO ×2 (08:44→20:47)
[2021-10-01] MEDS: predniSONE 20 MG TABLET PO (08:44)
[2021-10-01] MEDS: 0.9 % Sodium Chloride Flush 3 ML SYRINGE IVFLUSH ×3 (08:44→20:47)
[2021-10-01] MEDS: allopurinoL 300 MG TABLET PO (08:44)
[2021-10-01] MEDS: Cyclobenzaprine HCl 5 MG TABLET PO ×2 (08:44→20:47)
[2021-10-01] MEDS: Benzonatate 100 MG CAPSULE PO ×2 (09:54→23:30)
--- NOTE | 2021-10-01 12:17 | MHC.CM.PN ---
dc plan is now for patient to go to [facility] as he is ready to dc per m.d. rounding. refs. have been made. bed search in progress. cm to cont. to follow.
[2021-10-01] MEDS: Enoxaparin Sodium 40 MG/0.4 ML SYRINGE SUBCUT (14:37)
--- NOTE | 2021-10-01 15:03 | P.PNIM_ITS ---
Subjective Subjective Date of Service: 10/01/21 Interval History: f/u covid, resp failure..prolonged stay, signficant desat with exertion Review of Systems Follow up covid 19 feeling better more anxiety today still with rib pain with coughing Physical Exam Vital Signs: Vital Signs: Last Vital Signs Temp 98.5 F 10/01/21 11:39 Pulse 112 H 10/01/21 11:39 Resp 20 10/01/21 11:39 BP 106/59 L 10/01/21 11:39 Pulse Ox 96 10/01/21 11:39 Oxygen Flow Rate 2 09/06/21 02:32 Body Mass Index 26.6 Const: Other: General: AO X 3, no acute distress Resp: talks in full sentences CVS: S1,S2,RRR GI: +BS, NT, no distention Skin: No rash Neuro: motor grossly intact Psych: appropriate affect Objective Data Active Medications Acetaminophen (Acetaminophen 325 Mg Tablet) 650 mg PO Q6H PRN PRN Reason: Pain, Mild (Pain Scale 1-3) Last Admin: 09/23/21 08:47 Dose: 650 mg Documented by: ALVARO Allopurinol (Allopurinol 300 Mg Tablet) 300 mg PO DAILY [facility] Last Admin: 10/01/21 08:44 Dose: 300 mg Documented by: TRACEY Benzonatate (Benzonatate 100 Mg Capsule) 100 mg PO TID PRN PRN Reason: Cough Last Admin: 10/01/21 09:54 Dose: 100 mg Documented by: TRACEY Cyclobenzaprine HCl (Cyclobenzaprine Hcl 5 Mg Tablet) 5 mg PO TID PRN PRN Reason: pain Last Admin: 10/01/21 08:44 Dose: 5 mg Documented by: TRACEY Docusate Sodium (Docusate Sodium 100 Mg Capsule) 100 mg PO DAILY PRN PRN Reason: Constipation Enoxaparin Sodium (Enoxaparin Sodium 40 Mg/0.4 Ml Syringe) 40 mg SUBCUT Q24H [facility] Last Admin: 10/01/21 14:37 Dose: 40 mg Documented by: TRACEY Famotidine (Famotidine 20 Mg Tablet) 20 mg PO BID [facility] Last Admin: 10/01/21 08:44 Dose: 20 mg Documented by: TRACEY Lorazepam (Lorazepam 0.5 Mg Tablet) 0.5 mg PO Q8H PRN PRN Reason: anxiety Last Admin: 09/30/21 10:42 Dose: 0.5 mg Documented by: TRACEY Morphine Sulfate (Morphine Sulfate 2 Mg/Ml Cartridge) 2 mg IVPUSH Q4H PRN; Protocol PRN Reason: Pain, Mild (Pain Scale 1-3) Last Admin: 10/01/21 03:25 Dose: 2 mg Documented by: KHALIF Ondansetron HCl (Ondansetron Hcl 4 Mg/2 Ml Vial) 4 mg IVPUSH Q8H PRN PRN Reason: Nausea and Vomiting Pharmacy Consult (Consult Rx Perform Med Rec) 1 each MISCELLANE ONCE PRN PRN Reason: Consult order Prednisone (Prednisone 20 Mg Tablet) 20 mg PO DAILY [facility] Last Admin: 10/01/21 08:44 Dose: 20 mg Documented by: TRACEY Sodium Chloride (0.9 % Sodium Chloride Flush 3 Ml Syringe) 3 ml IVFLUSH QSHIFT [facility] Last Admin: 10/01/21 08:44 Dose: 3 ml Documented by: TRACEY Labs CBC & Chem 7: 09/30/21 08:30 09/30/21 08:30 Assessment and Plan (1) COVID-19: Status: Acute Assessment and Plan: 66-year-old male past medical history of CLL who presents to the hospital with shortness of breath found to be hypoxic secondary to COVID-19 pneumonia. Patient states he initially tested positive for COVID 3 weeks ago (other notes state 6 weeks). Fully vaccinated (moderna) + has received booster Acute hypoxic respiratory failure r/t prolonged COVID. now making progresss s/p treatment with broad spec IV antibiotics & course of doxycycline Off High flow, now on 5-6 liters NC wean po prednisone pepcid 20mg bid s/p IVIG 09/16 and 09/18 pulmonology and hematology following -being considered for rehab if can O2 below 8, presently decreased to 5 recheck covid today Anxiety add lorazepam as needed Left sided rib pain. possibly musculoskeletal pain management add lidocaine patch Chest pain trops flat, likely r/t oxygen demands Seen by cardiology, no further workup required at this time thrombocytopenia. stable follow cbc elevated LFTs. trending down likely due to viral infection history of CLL pt reports he is in remission gout continue allopurinol hyperlipidemia statin on hold - if LFTs improved, restart full code dvt pptx, lovenox possible dc tomorrow Quality Stroke Does the patient have a stroke diagnosis?: No VTE Prior VTE?: No VTE Risk Level:: Medical - moderate - high VTE Device Contraindication: Treatment Not Indicated VTE Drug Contraindication: N/A - Med Ordered
[2021-10-01 16:03] LABS: COVID-19 Test Positive (Negative)
[2021-10-01] MEDS: Acetaminophen 325 MG TABLET 650 MG PO (23:30)
[2021-10-02] VITALS (7 sets, daily range): BP systolic 106–122; BP diastolic 59–64; PULSE 106–117; RESP 18–20; TEMP 36.4–37.3; O2SAT 93–96
[2021-10-02] MEDS: Benzonatate 100 MG CAPSULE PO ×3 (06:17→22:35)
[2021-10-02] MEDS: Cyclobenzaprine HCl 5 MG TABLET PO ×2 (06:17→22:35)
[2021-10-02] MEDS: Morphine Sulfate 2 MG/ML CARTRIDGE IVPUSH (06:21)
[2021-10-02] MEDS: 0.9 % Sodium Chloride Flush 3 ML SYRINGE IVFLUSH ×3 (07:51→19:53)
[2021-10-02] MEDS: Famotidine 20 MG TABLET PO ×2 (07:51→19:53)
[2021-10-02] MEDS: allopurinoL 300 MG TABLET PO (07:51)
[2021-10-02] MEDS: predniSONE 20 MG TABLET PO (07:51)
[2021-10-02 10:14] LABS: Hematocrit 26.1 % (42.0-52.0); Hemoglobin 8.9 g/dl (14.0-18.0); Mean Corpuscular HGB Conc 34.1 g/dl (31.0-36.0); Mean Corpuscular Hemoglobin 31.2 pg (27.0-33.0); Mean Corpuscular Volume 91.6 fL (80.0-98.0); Mean Platelet Volume 10.4 fL (9.4-12.4); Platelet Count 181 X10*3/uL (160-400); Red Blood Count 2.85 X10*6/uL (4.60-5.80); Red Cell Distribution Width 15.9 % (11.0-16.0); White Blood Count 11.8 X10*3/uL (4.8-10.8)
[2021-10-02 10:41] LABS: Alanine Aminotransferase 114 U/L (0-40); Albumin Level 2.8 g/dL (3.5-5.0); Alkaline Phosphatase 167 U/L (39-117); Anion Gap 13 (12-20); Aspartate Amino Transferase 95 U/L (5-37); Bilirubin Total 1.4 mg/dL (0.0-1.0); Blood Urea Nitrogen 21 mg/dL (9-16); C Reactive Protein 23.33 mg/dL (< or = 0.50); Calcium 8.2 mg/dL (8.4-10.2); Carbon Dioxide 29 mmol/L (22-29); Chloride 96 mmol/L (96-108); Estimated Glomerular Filt Rate > 60; Glucose Random 216 mg/dL (60-115); Potassium 4.5 mmol/L (3.3-5.1); Sodium 133 mmol/L (135-145); Total Protein 5.2 g/dL (6.5-8.0)
--- NOTE | 2021-10-02 10:55 | P.PNIM_ITS ---
Subjective Subjective Date of Service: 10/02/21 Interval History: f/u covid, resp failure..prolonged stay, still with sob, cough, tmax of 102 overnigt, now normal, still covid + as of yesterday, persistently high CRP, delcine in H/H no source of bleeding, Overall O2 sat is better Review of Systems +fever cough +sob Physical Exam Vital Signs: Vital Signs: Last Vital Signs Temp 98.4 F 10/02/21 08:00 Pulse 113 H 10/02/21 08:00 Resp 20 10/02/21 08:00 BP 122/64 10/02/21 08:00 Pulse Ox 93 10/02/21 08:00 Oxygen Flow Rate 2 09/06/21 02:32 Body Mass Index 26.6 Const: Other: General: AO X 3, no acute distress Resp: talks in full sentences CVS: S1,S2,RRR, tachy GI: +BS, NT, no distention Skin: No rash Neuro: motor grossly intact Psych: appropriate affect Objective Data Active Medications Acetaminophen (Acetaminophen 325 Mg Tablet) 650 mg PO Q6H PRN PRN Reason: Pain, Mild (Pain Scale 1-3) Last Admin: 10/01/21 23:30 Dose: 650 mg Documented by: KHALIF Allopurinol (Allopurinol 300 Mg Tablet) 300 mg PO DAILY [facility] Last Admin: 10/02/21 07:51 Dose: 300 mg Documented by: LEONARDA Benzonatate (Benzonatate 100 Mg Capsule) 100 mg PO TID PRN PRN Reason: Cough Last Admin: 10/02/21 06:17 Dose: 100 mg Documented by: KHALIF Cyclobenzaprine HCl (Cyclobenzaprine Hcl 5 Mg Tablet) 5 mg PO TID PRN PRN Reason: pain Last Admin: 10/02/21 06:17 Dose: 5 mg Documented by: KHALIF Docusate Sodium (Docusate Sodium 100 Mg Capsule) 100 mg PO DAILY PRN PRN Reason: Constipation Enoxaparin Sodium (Enoxaparin Sodium 40 Mg/0.4 Ml Syringe) 40 mg SUBCUT Q24H [facility] Last Admin: 10/01/21 14:37 Dose: 40 mg Documented by: DOBROB Famotidine (Famotidine 20 Mg Tablet) 20 mg PO BID [facility] Last Admin: 10/02/21 07:51 Dose: 20 mg Documented by: LEONARDA Lorazepam (Lorazepam 0.5 Mg Tablet) 0.5 mg PO Q8H PRN PRN Reason: anxiety Last Admin: 09/30/21 10:42 Dose: 0.5 mg Documented by: TRACEY Morphine Sulfate (Morphine Sulfate 2 Mg/Ml Cartridge) 2 mg IVPUSH Q4H PRN; Protocol PRN Reason: Pain, Mild (Pain Scale 1-3) Last Admin: 10/02/21 06:21 Dose: 2 mg Documented by: KHALIF Ondansetron HCl (Ondansetron Hcl 4 Mg/2 Ml Vial) 4 mg IVPUSH Q8H PRN PRN Reason: Nausea and Vomiting Pharmacy Consult (Consult Rx Perform Med Rec) 1 each MISCELLANE ONCE PRN PRN Reason: Consult order Prednisone (Prednisone 20 Mg Tablet) 20 mg PO DAILY [facility] Last Admin: 10/02/21 07:51 Dose: 20 mg Documented by: LEONARDA Sodium Chloride (0.9 % Sodium Chloride Flush 3 Ml Syringe) 3 ml IVFLUSH QSHIFT [facility] Last Admin: 10/02/21 07:51 Dose: 3 ml Documented by: LEONARDA Labs CBC & Chem 7: 10/02/21 09:55 10/02/21 09:55 Labs: Laboratory Results - last 24 hr 10/01/21 10/02/21 10/02/21 15:01 09:55 09:55 MCV 91.6 MCH 31.2 MCHC 34.1 RDW 15.9 Plt Count 181 MPV 10.4 Absolute Nucleated RBC 0.000 Nucleated RBC % (auto) 0.0 Anion Gap 13 Estim Creat Clear Calc 93.0 Estimated GFR > 60 Random Glucose 216 H D Calcium 8.2 L Total Bilirubin 1.4 H Direct Bilirubin 1.0 H AST 95 H ALT 114 H Alkaline Phosphatase 167 H C-Reactive Protein 23.33 H Total Protein 5.2 L Albumin 2.8 L COVID-19 ([facility]IDA) Positive A COVID-19 Clin Com See Note Assessment and Plan (1) COVID-19: Status: Acute Assessment and Plan: hosp d27 66-year-old male past medical history of CLL admitted with acute hypoxic respiratory failure d/t COVID-19 pneumonia with prolonged hospitalization with peristent syndrome and still + covid for covid, and apparently tested positive with covid 3 to 6 weeks prior to admission and fully vacccinated with Moderna vaccine and a booster Acute hypoxic respiratory failure r/t prolonged COVID symptoms--. now making progresss but slowly, suprise that he is still positive for covid, not sure what that mean, inflamatory markers still high s/p treatment with broad spec IV antibiotics & course of doxycycline has been on rounds of steroid Off High flow, now on 5-6 liters NC wean po prednisone pepcid 20mg bid s/p IVIG 09/16 and 09/18 pulmonology and hematology following -being considered for rehab if can O2 below 8, presently decreased to 5 recheck covid today -temp of 101 overnight, get CXR, UA Anxiety--Lorazepam Left sided rib pain. possibly musculoskeletal pain management add lidocaine patch Chest pain trops flat, likely r/t oxygen demands Seen by cardiology, no further workup required at this time thrombocytopenia. stable follow cbc elevated LFTs. trending down likely due to viral infection history of CLL pt reports he is in remission gout continue allopurinol hyperlipidemia statin on hold - if LFTs improved, restart Anemia, H/H drop, no sigh bleeding, monitor full code dvt pptx, lovenox possible dc tomorrow Quality Stroke Does the patient have a stroke diagnosis?: No VTE Prior VTE?: No VTE Risk Level:: Medical - moderate - high VTE Device Contraindication: Treatment Not Indicated VTE Drug Contraindication: N/A - Med Ordered
[2021-10-02 11:23] LABS: Procalcitonin 0.53 ng/mL
--- NOTE | 2021-10-02 12:57 | MHC.CM.PN ---
Par ROUNDS discussion, Patient is not yet medically cleared for dc (Tachy, Fever, Coughing). STR is the goal for dc and CM will follow for possible need to adjust the dc plan.
[2021-10-02] MEDS: Enoxaparin Sodium 40 MG/0.4 ML SYRINGE SUBCUT (15:34)
[2021-10-03] VITALS (11 sets, daily range): BP systolic 101–136; BP diastolic 45–73; PULSE 92–134; RESP 15–24; TEMP 36.8–37.4; O2SAT 89–99; BMI 26.6
[2021-10-03] MEDS: Morphine Sulfate 2 MG/ML CARTRIDGE IVPUSH ×2 (00:15→04:20)
[2021-10-03] MEDS: guaiFENesin DM 100/10/5 ML 5 ML SYRUP PO ×4 (01:14→20:23)
[2021-10-03] MEDS: Benzonatate 100 MG CAPSULE 200 MG PO ×4 (01:15→23:04)
[2021-10-03] MEDS: Famotidine 20 MG TABLET PO ×2 (08:18→20:23)
[2021-10-03] MEDS: predniSONE 20 MG TABLET PO (08:18)
[2021-10-03] MEDS: 0.9 % Sodium Chloride Flush 3 ML SYRINGE IVFLUSH ×3 (08:19→20:23)
[2021-10-03] MEDS: allopurinoL 300 MG TABLET PO (08:19)
[2021-10-03] MEDS: Cyclobenzaprine HCl 5 MG TABLET PO ×3 (08:19→23:46)
--- NOTE | 2021-10-03 10:16 | P.PNIM_ITS ---
Subjective Subjective Date of Service: 10/03/21 Interval History: f/u covid, resp failure..prolonged stay, still with sob, cough, tmax of 102 overnigt, now normal, still covid + as of yesterday, persistently high CRP, delcine in H/H no source of bleeding, Overall O2 sat is better Review of Systems no sob lots of cough Physical Exam Vital Signs: Vital Signs: Last Vital Signs Temp 98.9 F 10/03/21 07:44 Pulse 121 H 10/03/21 09:51 Resp 24 H 10/03/21 07:44 BP 106/62 10/03/21 09:51 Pulse Ox 93 10/03/21 09:51 Oxygen Flow Rate 2 09/06/21 02:32 Body Mass Index 26.6 Const: Other: General: AO X 3, no acute distress Resp: talks in full sentences CVS: S1,S2,RRR, tachy GI: +BS, NT, no distention Skin: No rash Neuro: motor grossly intact Psych: appropriate affect Objective Data Active Medications Acetaminophen (Acetaminophen 325 Mg Tablet) 650 mg PO Q6H PRN PRN Reason: Pain, Mild (Pain Scale 1-3) Last Admin: 10/01/21 23:30 Dose: 650 mg Documented by: KHALIF Allopurinol (Allopurinol 300 Mg Tablet) 300 mg PO DAILY [facility] Last Admin: 10/03/21 08:19 Dose: 300 mg Documented by: LEONARDA Benzonatate (Benzonatate 100 Mg Capsule) 100 mg PO TID PRN PRN Reason: Cough Last Admin: 10/02/21 22:35 Dose: 100 mg Documented by: PIONA Benzonatate (Benzonatate 100 Mg Capsule) 200 mg PO TID PRN PRN Reason: Cough Last Admin: 10/03/21 09:47 Dose: 200 mg Documented by: LEONARDA Cyclobenzaprine HCl (Cyclobenzaprine Hcl 5 Mg Tablet) 5 mg PO TID PRN PRN Reason: pain Last Admin: 10/03/21 08:19 Dose: 5 mg Documented by: LEONARDA Docusate Sodium (Docusate Sodium 100 Mg Capsule) 100 mg PO DAILY PRN PRN Reason: Constipation Enoxaparin Sodium (Enoxaparin Sodium 40 Mg/0.4 Ml Syringe) 40 mg SUBCUT Q24H [facility] Last Admin: 10/02/21 15:34 Dose: 40 mg Documented by: LEONARDA Famotidine (Famotidine 20 Mg Tablet) 20 mg PO BID [facility] Last Admin: 10/03/21 08:18 Dose: 20 mg Documented by: LEONARDA Guaifenesin/Dextromethorphan (Guaifenesin Dm 100/10/5 Ml 5 Ml Syrup) 5 ml PO Q6H [facility] Last Admin: 10/03/21 08:18 Dose: 5 ml Documented by: LEONARDA Lorazepam (Lorazepam 0.5 Mg Tablet) 0.5 mg PO Q8H PRN PRN Reason: anxiety Last Admin: 09/30/21 10:42 Dose: 0.5 mg Documented by: TRACEY Morphine Sulfate (Morphine Sulfate 2 Mg/Ml Cartridge) 2 mg IVPUSH Q4H PRN; Protocol PRN Reason: Pain, Mild (Pain Scale 1-3) Last Admin: 10/03/21 04:20 Dose: 2 mg Documented by: CATRINA Ondansetron HCl (Ondansetron Hcl 4 Mg/2 Ml Vial) 4 mg IVPUSH Q8H PRN PRN Reason: Nausea and Vomiting Pharmacy Consult (Consult Rx Perform Med Rec) 1 each MISCELLANE ONCE PRN PRN Reason: Consult order Prednisone (Prednisone 20 Mg Tablet) 20 mg PO DAILY [facility] Last Admin: 10/03/21 08:18 Dose: 20 mg Documented by: LEONARDA Sodium Chloride (0.9 % Sodium Chloride Flush 3 Ml Syringe) 3 ml IVFLUSH QSHIFT [facility] Last Admin: 10/03/21 08:19 Dose: 3 ml Documented by: LEONARDA Labs CBC & Chem 7: 10/02/21 09:55 10/02/21 09:55 Labs: Laboratory Results - last 24 hr 10/02/21 10/02/21 09:55 09:55 Anion Gap 13 Estim Creat Clear Calc 93.0 Estimated GFR > 60 Random Glucose 216 H D Calcium 8.2 L Total Bilirubin 1.4 H Direct Bilirubin 1.0 H AST 95 H ALT 114 H Alkaline Phosphatase 167 H C-Reactive Protein 23.33 H Total Protein 5.2 L Albumin 2.8 L Procalcitonin 0.53 Assessment and Plan (1) COVID-19: Status: Acute Assessment and Plan: hosp d28 66-year-old male past medical history of CLL admitted with acute hypoxic respiratory failure d/t COVID-19 pneumonia with prolonged hospitalization with peristent syndrome and still + covid for covid, and apparently tested positive with covid 3 to 6 weeks prior to admission and fully vacccinated with Moderna vaccine and a booster Acute hypoxic respiratory failure r/t prolonged COVID symptoms--. now making progresss but slowly, suprise that he is still positive for covid, not sure what that mean, inflamatory markers still high s/p treatment with broad spec IV antibiotics & course of doxycycline has been on rounds of steroid Off High flow, now on 5-6 liters NC wean po prednisone pepcid 20mg bid s/p IVIG 09/16 and 09/18 pulmonology and hematology following -being considered for rehab if can O2 below 8, presently decreased to 5 recheck covid today -One time temp yesterday, resolved, O2 sat remains stable on 5 to 6 liters CXR 10/02 no finding, likely post covid changes, will ask pulmonology if anything else can be done, tested postive again for covid 10/01, could be false positive, will get PCR Anxiety--Lorazepam Left sided rib pain. possibly musculoskeletal pain management add lidocaine patch Chest pain trops flat, likely r/t oxygen demands Seen by cardiology, no further workup required at this time thrombocytopenia. stable follow cbc elevated LFTs. trending down likely due to viral infection history of CLL pt reports he is in remission gout continue allopurinol hyperlipidemia statin on hold - if LFTs improved, restart Anemia, H/H drop, no sigh bleeding, monitor full code dvt pptx, lovenox possible dc tomorrow Quality Stroke Does the patient have a stroke diagnosis?: No VTE Prior VTE?: No VTE Risk Level:: Medical - moderate - high VTE Device Contraindication: Treatment Not Indicated VTE Drug Contraindication: N/A - Med Ordered
[2021-10-03] MEDS: Enoxaparin Sodium 40 MG/0.4 ML SYRINGE SUBCUT (15:46)
[2021-10-04] VITALS (7 sets, daily range): BP systolic 97–121; BP diastolic 56–74; PULSE 89–136; RESP 20–25; TEMP 36.1–38.8; O2SAT 90–96
[2021-10-04] MEDS: Acetaminophen 325 MG TABLET 650 MG PO (01:26)
[2021-10-04] MEDS: guaiFENesin DM 100/10/5 ML 5 ML SYRUP PO ×3 (01:26→13:51)
[2021-10-04] MEDS: LORazepam 0.5 MG TABLET PO ×2 (01:27→23:24)
--- NOTE | 2021-10-04 05:24 | MHC.PIE ---
p - pt stach on monitor upper 120's - sustained at rest. on nsg check, temp 101.8 oral. pt anxious - i - notified Dr. Dawson - ativan 0.5mg po, tylenol 650mg po & robitussin DM po administered with eventual decrease in hr to low 100's sinus tach. clarified ok to give s/p flexaril 5mg po given previously for bronchospastic cough with effect. e - will continue to monitor
[2021-10-04] MEDS: predniSONE 20 MG TABLET PO (09:08)
[2021-10-04] MEDS: Ascorbic Acid 500 MG TABLET PO (09:08)
[2021-10-04] MEDS: Zinc Sulfate 220 MG CAPSULE PO (09:08)
[2021-10-04] MEDS: Famotidine 20 MG TABLET PO ×2 (09:08→20:35)
[2021-10-04] MEDS: allopurinoL 300 MG TABLET PO (09:08)
[2021-10-04] MEDS: 0.9 % Sodium Chloride Flush 3 ML SYRINGE IVFLUSH ×3 (09:08→20:36)
[2021-10-04] MEDS: Benzonatate 100 MG CAPSULE 200 MG PO ×2 (10:49→18:08)
[2021-10-04] MEDS: Enoxaparin Sodium 40 MG/0.4 ML SYRINGE SUBCUT (13:51)
--- NOTE | 2021-10-04 17:18 | P.PNIM_ITS ---
Subjective Subjective Date of Service: 10/04/21 Interval History: Being followed for hypoxic respiratory failure due to COVID, patient complaining of persistent cough occasionally bring up phlegm, persistent shortness of breath, noted to have fever of 101.8,no other acute issues overnight. No fevers this morning. Review of Systems General no headache,no dizziness, no chills. CVS no chest pain, no palpitation. Respiratory persistent cough Gastrointestinal no nausea, no vomiting, no abdominal pain Review of Systems: Yes all other systems are reviewed and are negative Physical Exam Vital Signs: Vital Signs: Last Vital Signs Temp 96.9 F 10/04/21 15:13 Pulse 111 H 10/04/21 15:13 Resp 20 10/04/21 15:13 BP 109/57 L 10/04/21 15:13 Pulse Ox 90 L 10/04/21 15:13 Oxygen Flow Rate 2 09/06/21 02:32 Body Mass Index 26.6 General: Ax O X 3, no acute distress Neck no JVD Resp: Coarse bilateral breath sounds no crackles no wheeze, no respiratory distress talking in full sentences CVS: S1,S2,RRR, tachy GI: +BS, NT, no distention Skin: No rash Neuro:? motor grossly intact Psych: appropriate affect Objective Data Active Medications Acetaminophen (Acetaminophen 325 Mg Tablet) 650 mg PO Q6H PRN PRN Reason: Pain, Mild (Pain Scale 1-3) Last Admin: 10/04/21 01:26 Dose: 650 mg Documented by: KARTHIK Allopurinol (Allopurinol 300 Mg Tablet) 300 mg PO DAILY [facility] Last Admin: 10/04/21 09:08 Dose: 300 mg Documented by: KIKA Ascorbic Acid (Ascorbic Acid 500 Mg Tablet) 500 mg PO DAILY [facility] Last Admin: 10/04/21 09:08 Dose: 500 mg Documented by: KIKA Benzonatate (Benzonatate 100 Mg Capsule) 100 mg PO TID PRN PRN Reason: Cough Last Admin: 10/02/21 22:35 Dose: 100 mg Documented by: CATRINA Benzonatate (Benzonatate 100 Mg Capsule) 200 mg PO TID PRN PRN Reason: Cough Last Admin: 10/04/21 10:49 Dose: 200 mg Documented by: KIKA Cyclobenzaprine HCl (Cyclobenzaprine Hcl 5 Mg Tablet) 5 mg PO TID PRN PRN Reason: pain Last Admin: 10/03/21 23:46 Dose: 5 mg Documented by: KARTHIK Docusate Sodium (Docusate Sodium 100 Mg Capsule) 100 mg PO DAILY PRN PRN Reason: Constipation Enoxaparin Sodium (Enoxaparin Sodium 40 Mg/0.4 Ml Syringe) 40 mg SUBCUT Q24H [facility] Last Admin: 10/04/21 13:51 Dose: 40 mg Documented by: KIKA Famotidine (Famotidine 20 Mg Tablet) 20 mg PO BID [facility] Last Admin: 10/04/21 09:08 Dose: 20 mg Documented by: KIKA Guaifenesin/Codeine Phosphate (Guaifen/Codeine Sf 200/20/10ml 10 Ml Liquid) 5 ml PO Q6H [facility] Lorazepam (Lorazepam 0.5 Mg Tablet) 0.5 mg PO Q8H PRN PRN Reason: anxiety Last Admin: 10/04/21 01:27 Dose: 0.5 mg Documented by: KARTHIK Ondansetron HCl (Ondansetron Hcl 4 Mg/2 Ml Vial) 4 mg IVPUSH Q8H PRN PRN Reason: Nausea and Vomiting Pharmacy Consult (Consult Rx Perform Med Rec) 1 each MISCELLANE ONCE PRN PRN Reason: Consult order Prednisone (Prednisone 20 Mg Tablet) 20 mg PO DAILY [facility] Last Admin: 10/04/21 09:08 Dose: 20 mg Documented by: KIKA Sodium Chloride (0.9 % Sodium Chloride Flush 3 Ml Syringe) 3 ml IVFLUSH QSHIFT [facility] Last Admin: 10/04/21 13:51 Dose: 3 ml Documented by: KIKA Zinc Sulfate (Zinc Sulfate 220 Mg Capsule) 220 mg PO DAILY [facility] Last Admin: 10/04/21 09:08 Dose: 220 mg Documented by: KIKA Labs CBC & Chem 7: 10/02/21 09:55 10/02/21 09:55 Assessment and Plan (1) CLL (chronic lymphocytic leukemia): Status: Chronic (2) Hypogammaglobulinemia: Status: Acute (3) Acute respiratory failure with hypoxia: Status: Acute Assessment and Plan: hosp d 29 66-year-old male past medical history of CLL admitted with acute hypoxic respiratory failure d/t? COVID-19 pneumonia with prolonged hospitalization with peristent syndrome and still + covid for covid, and apparently tested positive with covid 3 to 6 weeks prior to admission and fully vacccinated with Moderna vaccine and a booster Acute hypoxic respiratory failure r/t prolonged COVID symptoms--. now making progresss but slowly, still positive for covid 10/01, inflamatory markers still high s/p treatment with broad spec IV antibiotics & course of doxycycline Off High flow, now on 9 liters NC s/p IVIG 09/16 and 09/18 Will gradually wean po prednisone currently on 20 mg pepcid 20mg bid Seen by pulmonology and hematology following being considered for rehab if O2 below 8, Noted to have fever at night, CXR 10/02 no new finding, check urinalysis Will reconsult pulmonology Will add Robitussin with codeine for persistent cough continue as needed benzonatate Anxiety--continue Lorazepam Left sided rib pain. possibly musculoskeletal pain management/ lidocaine patch Chest pain trops flat, likely r/t oxygen demands Seen by cardiology, no further workup required at this time thrombocytopenia. stable follow cbc elevated LFTs. trending down likely due to viral infection history of CLL pt reports he is in remission gout continue allopurinol hyperlipidemia statin on hold - if LFTs improved, restart Anemia, hematocrit 26 will repeat labs at a.m., no active bleed noted likely due to acute infection full code dvt pptx, lovenox possible dc tomorrow Quality Stroke Does the patient have a stroke diagnosis?: No VTE Prior VTE?: No VTE Risk Level:: Medical - moderate - high VTE Device Contraindication: Treatment Not Indicated VTE Drug Contraindication: N/A - Med Ordered
--- NOTE | 2021-10-04 17:36 | PC.NURSE ---
Patient oob to recliner all day. PRN tessalon given for bronchospastic cough. to bedside with nursing home assistant administrator permission and gowned up. Patient happy with visit. On 10L Raza satting low 90s, occasional NRB use especially with activity. Will pass to oncoming RN.
[2021-10-04] MEDS: Cyclobenzaprine HCl 5 MG TABLET PO (20:34)
[2021-10-04] MEDS: guaiFEN/Codeine SF 200/20/10ML 10 ML LIQUID 5 ML PO (20:35)
[2021-10-04] MEDS: Benzonatate 100 MG CAPSULE PO (20:35)
[2021-10-05] MEDS: Acetaminophen 325 MG TABLET 650 MG PO (01:16)
[2021-10-05 01:26] LABS: RBC Urine 0 /HPF (0); Squamous Epithelial Cell Urine TRACE /LPF; WBC Urine 0-2 /HPF (0-4)
[2021-10-05 01:27] LABS: Calcium Oxalate Crystals Urine TRACE /LPF; Mucus Urine TRACE /LPF
[2021-10-05 01:58] LABS: Appearance Urine CLEAR; Color Urine DK YELLOW; Glucose Urine UA 500 MG/DL (NEG); Leukocyte Esterase Urine NEG (NEG); Nitrite Urine NEG (NEG); UACC Culture Trigger NO; Urine Blood NEG (NEG); Urine Ketones NEG (NEG); Urine Protein 2+ MG/DL (NEG-TRACE)
[2021-10-05 03:12] VITALS: BP 106/58; PULSE 129; RESP 20; TEMP 36.3; O2SAT 92
--- NOTE | 2021-10-05 03:21 | PC.NURSE ---
stat blood cultures and stat lactic acid ordered. Phlebotomy & pt notified.
--- NOTE | 2021-10-05 04:11 | PC.NURSE ---
helper animal laboratory in room - by [id number] - blood cultures & lactic completed - pt tolerated well.
[2021-10-05 04:22] LABS: Hematocrit 24.9 % (42.0-52.0); Hemoglobin 8.3 g/dl (14.0-18.0); Mean Corpuscular HGB Conc 33.3 g/dl (31.0-36.0); Mean Corpuscular Hemoglobin 30.4 pg (27.0-33.0); Mean Corpuscular Volume 91.2 fL (80.0-98.0); Mean Platelet Volume 10.4 fL (9.4-12.4); Platelet Count 203 X10*3/uL (160-400); Red Blood Count 2.73 X10*6/uL (4.60-5.80); Red Cell Distribution Width 15.9 % (11.0-16.0); White Blood Count 13.9 X10*3/uL (4.8-10.8)
[2021-10-05 04:33] LABS: Lactic Acid 1.3 mmol/L (0.5-2.0)
[2021-10-05 04:43] LABS: Alanine Aminotransferase 156 U/L (0-40); Albumin Level 2.6 g/dL (3.5-5.0); Alkaline Phosphatase 221 U/L (39-117); Anion Gap 14 (12-20); Aspartate Amino Transferase 135 U/L (5-37); Bilirubin Direct 0.6 mg/dL (0.0-0.5); Bilirubin Total 1.2 mg/dL (0.0-1.0); Blood Urea Nitrogen 18 mg/dL (9-16); Calcium 7.9 mg/dL (8.4-10.2); Carbon Dioxide 26 mmol/L (22-29); Chloride 95 mmol/L (96-108); Creatinine Clr Calc Pharmacy 101.5; Estimated Glomerular Filt Rate > 60; Glucose Random 136 mg/dL (60-115); Potassium 4.2 mmol/L (3.3-5.1); Sodium 131 mmol/L (135-145); Total Protein 5.1 g/dL (6.5-8.0)
[2021-10-05 05:35] LABS: Band Neutrophils Percent 4 % (3-5); Eosinophils Absolute Manual 0.3 X10*3/uL (0.0-0.4); Eosinophils Percent Manual 2 % (0-4); Lymphocytes Absolute Manual 0.6 X10*3/uL (1.2-4.9); Lymphocytes Percent Manual 4 % (20-40); Monocytes Absolute Manual 0.4 X10*3/uL (0.1-1.2); Monocytes Percent Manual 3 % (2-11); Neutrophils Absolute Manual 12.6 X10*3/uL (2.0-8.3); Neutrophils Percent Manual 87 % (45-73); RBC Morphology NORMAL
[2021-10-05 05:36] LABS: Acanthocytes 1+ (0-2) /OIF; Basophilic Stippling 1+ (0-2) /OIF; Ovalocytes 1+ (5-14) /OIF; Platelet Estimate NORMAL (NORMAL); Platelet Morphology Comment NORMAL; Polychromasia 1+ (0-2) /OIF; Tear Drop Cells 1+ (0-2) /OIF; Toxic Vacuolation PRESENT
[2021-10-05 08:00] VITALS: BP 124/70; PULSE 125; RESP 27; TEMP 38.1; O2SAT 97
[2021-10-05] MEDS: 0.9 % Sodium Chloride Flush 3 ML SYRINGE IVFLUSH ×2 (08:31→16:19)
[2021-10-05] MEDS: Zinc Sulfate 220 MG CAPSULE PO (08:32)
[2021-10-05] MEDS: predniSONE 20 MG TABLET PO (08:32)
[2021-10-05] MEDS: Famotidine 20 MG TABLET PO ×2 (08:32→20:44)
[2021-10-05] MEDS: Ascorbic Acid 500 MG TABLET PO (08:32)
[2021-10-05] MEDS: guaiFEN/Codeine SF 200/20/10ML 10 ML LIQUID 5 ML PO ×4 (08:32→20:43)
[2021-10-05] MEDS: allopurinoL 300 MG TABLET PO (08:32)
[2021-10-05 12:00] VITALS: BP 100/66; PULSE 99; RESP 27; TEMP 36.6; O2SAT 99
[2021-10-05] MEDS: Enoxaparin Sodium 40 MG/0.4 ML SYRINGE SUBCUT (14:09)
--- NOTE | 2021-10-05 14:35 | PC.NURSE ---
Remains COVID (+) on precautions. 8L Raza NC, patient able to maintain SpO2 above 90% Does desat with extensive coughing and/or movement but recovers well. Robitussin+Codeine helping with cough. Flexeril given x1 this morning with good effect. OOB to chair this afternoon. SR/ST on the monitor. Visitor granted for this afternoon, in room at the bedside.
[2021-10-05 15:09] VITALS: BP 100/52; PULSE 100; RESP 20; TEMP 36.7; O2SAT 90
--- NOTE | 2021-10-05 15:14 | P.PNIM_ITS ---
Subjective Subjective Date of Service: 10/05/21 Interval History: Being followed for hypoxic respiratory failure feeling better this morning slept well, less cough currently on 8 L of oxygen finger oximetry 97-99% Review of Systems General no headache,no dizziness, no chills.? CVS no chest pain, no palpitation.? Respiratory less cough Gastrointestinal no nausea, no vomiting, no abdominal pain Review of Systems: Yes all other systems are reviewed and are negative Physical Exam Vital Signs: Vital Signs: Last Vital Signs Temp 98.0 F 10/05/21 15:09 Pulse 100 10/05/21 15:09 Resp 20 10/05/21 15:09 BP 100/52 L 10/05/21 15:09 Pulse Ox 90 L 10/05/21 15:09 Oxygen Flow Rate 2 09/06/21 02:32 Body Mass Index 26.6 ?General: Ax O X 3 , no acute distres s Neck no JVD Resp :? Inspiratory scrap crusher ckles, no wheeze, no respiratory dis tress talking in f ull sentences CVS: S1,S2,RRR, tachy GI: +BS, NT, no di stention Skin: No rash Extremities n o edema Neuro:? mo tor grossly intact Psych: appropriat e affect Objective Data Active Medications Acetaminophen (Acetaminophen 325 Mg Tablet) 650 mg PO Q6H PRN PRN Reason: Pain, Mild (Pain Scale 1-3) Last Admin: 10/05/21 01:16 EST Dose: 650 mg Documented by: KARTHIK Allopurinol (Allopurinol 300 Mg Tablet) 300 mg PO DAILY [facility] Last Admin: 10/05/21 08:32 Dose: 300 mg Documented by: ALAN Ascorbic Acid (Ascorbic Acid 500 Mg Tablet) 500 mg PO DAILY [facility] Last Admin: 10/05/21 08:32 Dose: 500 mg Documented by: ALAN Benzonatate (Benzonatate 100 Mg Capsule) 100 mg PO TID PRN PRN Reason: Cough Last Admin: 10/04/21 20:35 Dose: 100 mg Documented by: KARTHIK Benzonatate (Benzonatate 100 Mg Capsule) 200 mg PO TID PRN PRN Reason: Cough Last Admin: 10/04/21 18:08 Dose: 200 mg Documented by: KIKA Cyclobenzaprine HCl (Cyclobenzaprine Hcl 5 Mg Tablet) 5 mg PO TID PRN PRN Reason: pain Last Admin: 10/04/21 20:34 Dose: 5 mg Documented by: KARTHIK Docusate Sodium (Docusate Sodium 100 Mg Capsule) 100 mg PO DAILY PRN PRN Reason: Constipation Enoxaparin Sodium (Enoxaparin Sodium 40 Mg/0.4 Ml Syringe) 40 mg SUBCUT Q24H [facility] Last Admin: 10/05/21 14:09 Dose: 40 mg Documented by: ALAN Famotidine (Famotidine 20 Mg Tablet) 20 mg PO BID [facility] Last Admin: 10/05/21 08:32 Dose: 20 mg Documented by: ALAN Guaifenesin/Codeine Phosphate (Guaifen/Codeine Sf 200/20/10ml 10 Ml Liquid) 5 ml PO QID [facility] Last Admin: 10/05/21 14:09 Dose: 5 ml Documented by: ALAN Lorazepam (Lorazepam 0.5 Mg Tablet) 0.5 mg PO Q8H PRN PRN Reason: anxiety Last Admin: 10/04/21 23:24 Dose: 0.5 mg Documented by: KARTHIK Ondansetron HCl (Ondansetron Hcl 4 Mg/2 Ml Vial) 4 mg IVPUSH Q8H PRN PRN Reason: Nausea and Vomiting Pharmacy Consult (Consult Rx Perform Med Rec) 1 each MISCELLANE ONCE PRN PRN Reason: Consult order Prednisone (Prednisone 20 Mg Tablet) 20 mg PO DAILY [facility] Last Admin: 10/05/21 08:32 Dose: 20 mg Documented by: ALAN Sodium Chloride (0.9 % Sodium Chloride Flush 3 Ml Syringe) 3 ml IVFLUSH QSHIFT [facility] Last Admin: 10/05/21 08:31 Dose: 3 ml Documented by: ALAN Zinc Sulfate (Zinc Sulfate 220 Mg Capsule) 220 mg PO DAILY [facility] Last Admin: 10/05/21 08:32 Dose: 220 mg Documented by: ALAN Labs CBC & Chem 7: 10/05/21 04:14 10/05/21 04:14 Labs: Laboratory Results - last 24 hr 10/05/21 10/05/21 10/05/21 01:40 EST 04:14 04:14 MCV 91.2 MCH 30.4 MCHC 33.3 RDW 15.9 Plt Count 203 MPV 10.4 Immature Gran % (Auto) Cancelled Neut % (Auto) Cancelled Lymph % (Auto) Cancelled [place] % (Auto) Cancelled Eos % (Auto) Cancelled Baso % (Auto) Cancelled Lymph # (Auto) Cancelled [place] # (Auto) Cancelled Eos # (Auto) Cancelled Baso # (Auto) Cancelled Abs Immat Gran (auto) Cancelled Absolute Neuts (auto) Cancelled Absolute Nucleated RBC 0.000 Nucleated RBC % (auto) 0.0 Neutrophils % (Manual) 87 H Band Neutrophils % 4 Lymphocytes % (Manual) 4 L Monocytes % (Manual) 3 Eosinophils % (Manual) 2 Abs Neuts (Manual) 12.6 H Lymphocytes # (Manual) 0.6 L Monocytes # (Manual) 0.4 Eosinophils # (Manual) 0.3 Toxic Vacuolation PRESENT Platelet Estimate NORMAL Plt Morphology Comment NORMAL RBC Morphology NORMAL Polychromasia 1+ (0-2) Basophilic Stippling 1+ (0-2) Tear Drop Cells 1+ (0-2) Ovalocytes 1+ (5-14) Acanthocytes (Spur) 1+ (0-2) Anion Gap 14 Estim Creat Clear Calc 101.5 Estimated GFR > 60 Random Glucose 136 H D Lactic Acid Calcium 7.9 L Total Bilirubin 1.2 H Direct Bilirubin 0.6 H AST 135 H ALT 156 H Alkaline Phosphatase 221 H D Total Protein 5.1 L Albumin 2.6 L Urine Color DK YELLOW Urine Appearance CLEAR Urine pH 6.[address] 1.020 Urine Protein 2+ H Urine Glucose (UA) 500 H Urine Ketones NEG Urine Blood NEG Urine Nitrite NEG Ur Leukocyte Esterase NEG Urine RBC 0 Urine WBC 0-2 Ur Squamous Epith Cells TRACE Calcium Oxalate Crystal TRACE Urine Bacteria NONE Urine Mucus TRACE 10/05/21 04:14 MCV MCH MCHC RDW Plt Count MPV Immature Gran % (Auto) Neut % (Auto) Lymph % (Auto) Treg[place] % (Auto) Eos % (Auto) Baso % (Auto) Lymph # (Auto) Trego # (Auto) Eos # (Auto) Baso # (Auto) Abs Immat Gran (auto) Absolute Neuts (auto) Absolute Nucleated RBC Nucleated RBC % (auto) Neutrophils % (Manual) Band Neutrophils % Lymphocytes % (Manual) Monocytes % (Manual) Eosinophils % (Manual) Abs Neuts (Manual) Lymphocytes # (Manual) Monocytes # (Manual) Eosinophils # (Manual) Toxic Vacuolation Platelet Estimate Plt Morphology Comment RBC Morphology Polychromasia Basophilic Stippling Tear Drop Cells Ovalocytes Acanthocytes (Spur) Anion Gap Estim Creat Clear Calc Estimated GFR Random Glucose Lactic Acid 1.3 Calcium Total Bilirubin Direct Bilirubin AST ALT Alkaline Phosphatase Total Protein Albumin Urine Color Urine Appearance Urine pH Ur Specific [address] [place] Urine Protein Urine Glucose (UA) Urine Ketones Urine Blood Urine Nitrite Ur Leukocyte Esterase Urine RBC Urine WBC Ur Squamous Epith Cells Calcium Oxalate Crystal Urine Bacteria Urine Mucus Assessment and Plan (1) COVID-19: Status: Acute (2) Abnormal LFTs: Status: Acute (3) Multifocal pneumonia: Status: Acute (4) Acute respiratory failure with hypoxia: Status: Acute (5) CLL (chronic lymphocytic leukemia): Status: Chronic Assessment and Plan: hosp d [age]-year-old male past medical history of CLL admitted with acute hypoxic respiratory failure d/t? COVID-19 pneumonia with prolonged hospitalization with peristent syndrome and still + covid for covid, and apparently tested positive with covid 3 to 6 weeks prior to admission and fully vacccinated with Moderna vaccine and a booster Acute hypoxic respiratory failure r/t prolonged COVID symptoms--. now making progresss but slowly,? still positive for covid 10/01, inflamatory markers still high s/p treatment with broad spec IV antibiotics & course of doxycycline Off High flow, now on 8 liters NC, oxygenating 97 99% s/p IVIG 09/16 and 09/18 Will gradually wean po prednisone currently on 20 mg, continue pepcid 20mg bid Seen by pulmonology and hematology being considered for rehab if? O2 trended down below 5 Noted to have fever at night, CXR 10/02 no new finding, UA unremarkable, otherwise feeling better with less cough and shortness of breath when wean oxygen to 7 L Will reconsult pulmonology and oncology Dr. Dawson to review CBC and LFTs Continue Robitussin with codeine for persistent cough continue as needed benzonatate Anxiety--continue Lorazepam Left sided rib pain. possibly musculoskeletal due to coughing improving Continue pain management/ lidocaine patch Chest pain trops flat, likely r/t oxygen demands Seen by cardiology, no further workup required at this time thrombocytopenia. stable follow cbc elevated LFTs. trending down likely due to viral infection history of CLL pt reports he is in remission being followed at [facility] is due for follow-up gout continue allopurinol hyperlipidemia statin on hold - if LFTs improved, restart Normocytic Anemia, hematocrit 25 will repeat labs at a.m., no active bleed noted likely due to acute infection, will check stool guaiac full code dvt pptx, lovenox Quality Stroke Does the patient have a stroke diagnosis?: No VTE Prior VTE?: No VTE Risk Level:: Medical - moderate - high VTE Device Contraindication: Treatment Not Indicated VTE Drug Contraindication: N/A - Med Ordered
[2021-10-05 19:28] VITALS: BP 103/59; PULSE 102; RESP 20; TEMP 36.6; O2SAT 98
[2021-10-05] MEDS: Benzonatate 100 MG CAPSULE 200 MG PO (20:49)
[2021-10-05] MEDS: Cyclobenzaprine HCl 5 MG TABLET PO (20:49)
[2021-10-06] VITALS (7 sets, daily range): BP systolic 94–139; BP diastolic 53–76; PULSE 92–123; RESP 16–20; TEMP 34.1–37.3; O2SAT 8–100
[2021-10-06] MEDS: 0.9 % Sodium Chloride Flush 3 ML SYRINGE IVFLUSH ×4 (00:35→20:15)
[2021-10-06] MEDS: Acetaminophen 325 MG TABLET 650 MG PO (00:53)
[2021-10-06] MEDS: Cyclobenzaprine HCl 5 MG TABLET PO (04:03)
[2021-10-06] MEDS: Ascorbic Acid 500 MG TABLET PO (08:01)
[2021-10-06] MEDS: allopurinoL 300 MG TABLET PO (08:01)
[2021-10-06] MEDS: guaiFEN/Codeine SF 200/20/10ML 10 ML LIQUID 5 ML PO ×4 (08:02→20:15)
[2021-10-06] MEDS: Famotidine 20 MG TABLET PO ×2 (08:02→20:15)
[2021-10-06] MEDS: predniSONE 20 MG TABLET PO (08:02)
[2021-10-06] MEDS: Zinc Sulfate 220 MG CAPSULE PO (08:02)
[2021-10-06] MEDS: oxyCODONE HCl Immed Release 5 MG TABLET PO ×2 (09:39→17:44)
[2021-10-06 10:09] LABS: Adenovirus PCR Not Detected (Not Detect.); Bordetella parapertussis PCR Not Detected (Not Detect.); Bordetella pertussis PCR Not Detected (Not Detect.); Chlamydia pneumoniae PCR Not Detected (Not Detect.); Coronavirus 229E PCR Not Detected (Not Detect.); Coronavirus HKU1 PCR Not Detected (Not Detect.); Coronavirus NL63 PCR Not Detected (Not Detect.); Coronavirus OC43 PCR Not Detected (Not Detect.); Human metapneumovirus PCR Not Detected (Not Detect.); Influenza A PCR Not Detected (Not Detect.); Influenza B PCR Not Detected (Not Detect.); Mycoplasma pneumoniae PCR Not Detected (Not Detect.); Parainfluenza 1 PCR Not Detected (Not Detect.); Parainfluenza 2 PCR Not Detected (Not Detect.); Parainfluenza 3 PCR Not Detected (Not Detect.); Parainfluenza 4 PCR Not Detected (Not Detect.); RSV PCR Not Detected (Not Detect.); Rhino/Enterovirus PCR Not Detected (Not Detect.)
[2021-10-06 12:31] LABS: SARS-CoV-2 PCR Detected (Not Detect.)
--- NOTE | 2021-10-06 13:27 | P.PNIM_ITS ---
Subjective Subjective Date of Service: 10/06/21 Interval History: F/u on acute hypoxic respiratory failure, oxygen requirement has gone up so slightly from 7 to 8, and another temp overnight Review of Systems General no headache,no dizziness, no chills, fever at night? CVS no chest pain, no palpitation.? Respiratory less cough Gastrointestinal no nausea, no vomiting, no abdominal pain Review of Systems: Yes all other systems are reviewed and are negative Physical Exam Vital Signs: Vital Signs: Last Vital Signs Temp 97 F 10/06/21 11:35 Pulse 115 H 10/06/21 11:35 Resp 18 10/06/21 11:35 BP 94/53 L 10/06/21 11:35 Pulse Ox 99 10/06/21 11:35 Oxygen Flow Rate 2 09/06/21 02:32 Body Mass Index 26.6 Const: Other: General: AO X 3, no acute distress Resp: talks in full sentences CVS: S1,S2,RRR, tachy GI: +BS, NT, no distention Skin: No rash Neuro: motor grossly intact Psych: appropriate affect Objective Data Active Medications Acetaminophen (Acetaminophen 325 Mg Tablet) 650 mg PO Q6H PRN PRN Reason: Pain, Mild (Pain Scale 1-3) Last Admin: 10/06/21 00:53 Dose: 650 mg Documented by: KEDAR Allopurinol (Allopurinol 300 Mg Tablet) 300 mg PO DAILY [facility] Last Admin: 10/06/21 08:01 Dose: 300 mg Documented by: ALVARO Ascorbic Acid (Ascorbic Acid 500 Mg Tablet) 500 mg PO DAILY [facility] Last Admin: 10/06/21 08:01 Dose: 500 mg Documented by: ALVARO Benzonatate (Benzonatate 100 Mg Capsule) 100 mg PO TID PRN PRN Reason: Cough Last Admin: 10/04/21 20:35 Dose: 100 mg Documented by: KARTHIK Benzonatate (Benzonatate 100 Mg Capsule) 200 mg PO TID PRN PRN Reason: Cough Last Admin: 10/05/21 20:49 Dose: 200 mg Documented by: IMAN Cyclobenzaprine HCl (Cyclobenzaprine Hcl 5 Mg Tablet) 5 mg PO TID PRN PRN Reason: pain Last Admin: 10/06/21 04:03 Dose: 5 mg Documented by: KEDAR Docusate Sodium (Docusate Sodium 100 Mg Capsule) 100 mg PO DAILY PRN PRN Reason: Constipation Enoxaparin Sodium (Enoxaparin Sodium 40 Mg/0.4 Ml Syringe) 40 mg SUBCUT Q24H [facility] Last Admin: 10/05/21 14:09 Dose: 40 mg Documented by: ALAN Famotidine (Famotidine 20 Mg Tablet) 20 mg PO BID [facility] Last Admin: 10/06/21 08:02 Dose: 20 mg Documented by: ALVARO Guaifenesin/Codeine Phosphate (Guaifen/Codeine Sf 200/20/10ml 10 Ml Liquid) 5 ml PO QID [facility] Last Admin: 10/06/21 08:02 Dose: 5 ml Documented by: ALVARO Lorazepam (Lorazepam 0.5 Mg Tablet) 0.5 mg PO Q8H PRN PRN Reason: anxiety Last Admin: 10/04/21 23:24 Dose: 0.5 mg Documented by: KARTHIK Ondansetron HCl (Ondansetron Hcl 4 Mg/2 Ml Vial) 4 mg IVPUSH Q8H PRN PRN Reason: Nausea and Vomiting Oxycodone HCl (Oxycodone Hcl Immed Release 5 Mg Tablet) 5 mg PO Q4H PRN PRN Reason: Pain, Severe (Pain Scale 7-10) Last Admin: 10/06/21 09:39 Dose: 5 mg Documented by: ALVARO Pharmacy Consult (Consult Rx Perform Med Rec) 1 each MISCELLANE ONCE PRN PRN Reason: Consult order Prednisone (Prednisone 20 Mg Tablet) 20 mg PO DAILY [facility] Last Admin: 10/06/21 08:02 Dose: 20 mg Documented by: ALVARO Sodium Chloride (0.9 % Sodium Chloride Flush 3 Ml Syringe) 3 ml IVFLUSH QSHIFT [facility] Last Admin: 10/06/21 08:05 Dose: 3 ml Documented by: ALVARO Zinc Sulfate (Zinc Sulfate 220 Mg Capsule) 220 mg PO DAILY [facility] Last Admin: 10/06/21 08:02 Dose: 220 mg Documented by: ALVARO Labs CBC & Chem 7: 10/05/21 04:14 10/05/21 04:14 Labs: Laboratory Results - last 24 hr 10/06/21 09:41 Respiratory Panel Dey See Note Adenovirus (Rapid PCR) Not Detected B.pert (TEM-PCR) Not Detected B.parapertussis DNA PCR Not Detected C. pneumoniae DNA (PCR) Not Detected Coronavirus OC43 (PCR) Not Detected Coronavirus HKU1 (PCR) Not Detected Coronavirus 229E (PCR) Not Detected Coronavirus NL63 (PCR) Not Detected Human Metapneumovir PCR Not Detected Influenza A (RT-PCR) Not Detected Influenza B (RT-PCR) Not Detected M. pneumoniae (PCR) Not Detected Parainfluenza 1 (PCR) Not Detected Parainfluenza 2 (PCR) Not Detected Parainfluenza 3 (PCR) Not Detected Parainfluenza 4 (PCR) Not Detected RSV (PCR) Not Detected Entero/Rhino (PCR) Not Detected SARS-CoV-2 RNA (RT-PCR) Detected A Microbiology Microbiology Results: Microbiology 10/05/21 04:16 Blood Culture - Preliminary Blood - Venous No growth after 24 hours. 10/05/21 03:59 Blood Culture - Preliminary Blood - Venous No growth after 24 hours. Assessment and Plan (1) COVID-19: Status: Acute (2) Abnormal LFTs: Status: Acute (3) Multifocal pneumonia: Status: Acute (4) Acute respiratory failure with hypoxia: Status: Acute (5) CLL (chronic lymphocytic leukemia): Status: Chronic Assessment and Plan: hosp d [age]-year-old male past medical history of CLL admitted with acute hypoxic respiratory failure d/t? COVID-19 pneumonia with prolonged hospitalization with peristent syndrome and still + covid for covid, and apparently tested positive with covid 3 to 6 weeks prior to admission and fully vacccinated with Moderna vaccine and a booster, gram negative michela bacteremia 10/06 Gram negative michela bacteremia--source unclear possible urine, start Levaquin--pen allergy, check urine Acute hypoxic respiratory failure r/t prolonged COVID symptoms--. now making progresss but slowly,? still positive for covid 10/05 (PCR), inflamatory markers still high s/p treatment with broad spec IV antibiotics & course of doxycycline Off High flow, now on 8 liters NC, oxygenating 97 99% s/p IVIG 09/16 and 09/18 Will gradually wean po prednisone currently on 20 mg, continue pepcid 20mg bid Seen by pulmonology and hematology being considered for rehab if? O2 trended down below 5 Noted to have fever at night, CXR 10/02 no new finding, UA unremarkable, otherwise feeling better with less cough and shortness of breath when wean oxygen to 7 L Will reconsult pulmonology and oncology Dr. Dawson to review CBC and LFTs Continue Robitussin with codeine for persistent cough continue as needed benzonatate Anxiety--continue Lorazepam Left sided rib pain. possibly musculoskeletal due to coughing improving Continue pain management/ lidocaine patch Chest pain trops flat, likely r/t oxygen demands Seen by cardiology, no further workup required at this time thrombocytopenia. stable follow cbc elevated LFTs. trending down likely due to viral infection history of CLL pt reports he is in remission being followed at [facility] is due for follow-up gout continue allopurinol hyperlipidemia statin on hold - if LFTs improved, restart Normocytic Anemia, hematocrit 25 will repeat labs at a.m., no active bleed noted likely due to acute infection, will check stool guaiac full code dvt pptx, lovenox Quality Stroke Does the patient have a stroke diagnosis?: No VTE Prior VTE?: No VTE Risk Level:: Medical - moderate - high VTE Device Contraindication: Treatment Not Indicated VTE Drug Contraindication: N/A - Med Ordered
--- NOTE | 2021-10-06 13:37 | MHC.CLN ---
F/U PO 75/100% DIET RX: REGULAR-APPROPRIATE PT RECEIVING NUTRITION SUPPLEMENT TO INCREASE KCALS STAGE 2 LEFT BUTTOCK RESOLVED DRY AND INTACT PER NSG
[2021-10-06] MEDS: Enoxaparin Sodium 40 MG/0.4 ML SYRINGE SUBCUT (14:28)
[2021-10-06] MEDS: levoFLOXacin/D5W 750 MG/150 ML PIGGYBACK 100 MG IV (18:12)
[2021-10-06] MEDS: Benzonatate 100 MG CAPSULE 200 MG PO (20:14)
[2021-10-07] VITALS (8 sets, daily range): BP systolic 102–130; BP diastolic 58–65; PULSE 102–122; RESP 16–20; TEMP 36.4–37.1; O2SAT 93–100
[2021-10-07] MEDS: Acetaminophen 325 MG TABLET 650 MG PO (00:09)
[2021-10-07] MEDS: Zinc Sulfate 220 MG CAPSULE PO (08:52)
[2021-10-07] MEDS: allopurinoL 300 MG TABLET PO (08:52)
[2021-10-07] MEDS: predniSONE 20 MG TABLET PO (08:52)
[2021-10-07] MEDS: Famotidine 20 MG TABLET PO ×2 (08:52→20:01)
[2021-10-07] MEDS: guaiFEN/Codeine SF 200/20/10ML 10 ML LIQUID 5 ML PO ×4 (08:52→20:01)
[2021-10-07] MEDS: Ascorbic Acid 500 MG TABLET PO (08:52)
[2021-10-07] MEDS: oxyCODONE HCl Immed Release 5 MG TABLET PO (08:54)
[2021-10-07] MEDS: 0.9 % Sodium Chloride Flush 3 ML SYRINGE IVFLUSH ×3 (08:58→20:01)
--- NOTE | 2021-10-07 12:44 | HO.PM.IMPN ---
Subjective Subjective Date of Service: 10/08/21 Interval History: F/u on acute hypoxic respiratory failure, oxygen requirement has gone up so slightly from 7 to 8, started on Levaquin overnight for gram negative bacteremia, no more fever Review of Systems no fever persitent cough sob Physical Exam Vital Signs: Vital Signs: Last Vital Signs Temp 98.4 F 10/07/21 07:43 Pulse 112 H 10/07/21 11:38 Resp 18 10/07/21 11:38 BP 113/62 10/07/21 11:38 Pulse Ox 100 10/07/21 11:38 Oxygen Flow Rate 2 09/06/21 02:32 Body Mass Index 26.6 Const: Other: General: AO X 3, no acute distress Resp: talks in full sentences CVS: S1,S2,RRR, tachy GI: +BS, NT, no distention Skin: No rash Neuro: motor grossly intact Psych: appropriate affect Objective Data Active Medications Acetaminophen (Acetaminophen 325 Mg Tablet) 650 mg PO Q6H PRN PRN Reason: Pain, Mild (Pain Scale 1-3) Last Admin: 10/07/21 00:09 Dose: 650 mg Documented by: KEDAR Allopurinol (Allopurinol 300 Mg Tablet) 300 mg PO DAILY [facility] Last Admin: 10/07/21 08:52 Dose: 300 mg Documented by: ALVARO Ascorbic Acid (Ascorbic Acid 500 Mg Tablet) 500 mg PO DAILY [facility] Last Admin: 10/07/21 08:52 Dose: 500 mg Documented by: ALVARO Benzonatate (Benzonatate 100 Mg Capsule) 100 mg PO TID PRN PRN Reason: Cough Last Admin: 10/04/21 20:35 Dose: 100 mg Documented by: KARTHIK Benzonatate (Benzonatate 100 Mg Capsule) 200 mg PO TID PRN PRN Reason: Cough Last Admin: 10/06/21 20:14 Dose: 200 mg Documented by: PETAR Cyclobenzaprine HCl (Cyclobenzaprine Hcl 5 Mg Tablet) 5 mg PO TID PRN PRN Reason: pain Last Admin: 10/06/21 04:03 Dose: 5 mg Documented by: KEDAR Docusate Sodium (Docusate Sodium 100 Mg Capsule) 100 mg PO DAILY PRN PRN Reason: Constipation Enoxaparin Sodium (Enoxaparin Sodium 40 Mg/0.4 Ml Syringe) 40 mg SUBCUT Q24H [facility] Last Admin: 10/06/21 14:28 Dose: 40 mg Documented by: ALVARO Famotidine (Famotidine 20 Mg Tablet) 20 mg PO BID [facility] Last Admin: 10/07/21 08:52 Dose: 20 mg Documented by: ALVARO Guaifenesin/Codeine Phosphate (Guaifen/Codeine Sf 200/20/10ml 10 Ml Liquid) 5 ml PO QID [facility] Last Admin: 10/07/21 08:52 Dose: 5 ml Documented by: ALVARO Levofloxacin (Levaquin) 750 mg in 150 mls @ 100 mls/hr IV Q24H [facility] Last Infusion: 10/06/21 20:06 Dose: 0 mls/hr Documented by: PETAR Lorazepam (Lorazepam 0.5 Mg Tablet) 0.5 mg PO Q8H PRN PRN Reason: anxiety Last Admin: 10/04/21 23:24 Dose: 0.5 mg Documented by: KARTHIK Ondansetron HCl (Ondansetron Hcl 4 Mg/2 Ml Vial) 4 mg IVPUSH Q8H PRN PRN Reason: Nausea and Vomiting Oxycodone HCl (Oxycodone Hcl Immed Release 5 Mg Tablet) 5 mg PO Q4H PRN PRN Reason: Pain, Severe (Pain Scale 7-10) Last Admin: 10/07/21 08:54 Dose: 5 mg Documented by: AVLARO Pharmacy Consult (Consult Rx Perform Med Rec) 1 each MISCELLANE ONCE PRN PRN Reason: Consult order Prednisone (Prednisone 20 Mg Tablet) 20 mg PO DAILY [facility] Last Admin: 10/07/21 08:52 Dose: 20 mg Documented by: ALVARO Sodium Chloride (0.9 % Sodium Chloride Flush 3 Ml Syringe) 3 ml IVFLUSH QSHIFT [facility] Last Admin: 10/07/21 08:58 Dose: 3 ml Documented by: ALVARO Zinc Sulfate (Zinc Sulfate 220 Mg Capsule) 220 mg PO DAILY [facility] Last Admin: 10/07/21 08:52 Dose: 220 mg Documented by: ALVARO Labs CBC & Chem 7: 10/05/21 04:14 10/05/21 04:14 Microbiology Microbiology Results: Microbiology 10/05/21 04:16 Blood Culture - Preliminary Blood - Venous Gram negative michela 10/05/21 03:59 Blood Culture - Preliminary Blood - Venous Gram negative michela Assessment and Plan (1) COVID-19: Status: Acute (2) Abnormal LFTs: Status: Acute (3) Multifocal pneumonia: Status: Acute (4) Acute respiratory failure with hypoxia: Status: Acute (5) CLL (chronic lymphocytic leukemia): Status: Chronic Assessment and Plan: hosp d [age]-year-old male past medical history of CLL admitted with acute hypoxic respiratory failure d/t? COVID-19 pneumonia with prolonged hospitalization with peristent syndrome and still + covid for covid, and apparently tested positive with covid 3 to 6 weeks prior to admission and fully vacccinated with Moderna vaccine and a booster, gram negative michela bacteremia 10/06 Gram negative michela bacteremia--source unclear possible urine, start Levaquin--pen allergy, awaiting on ID consult, no sensitivity yet Acute hypoxic respiratory failure r/t prolonged COVID symptoms--. now making progresss but slowly,? still positive for covid 10/05 (PCR), inflamatory markers still high s/p treatment with broad spec IV antibiotics & course of doxycycline Off High flow, now on 8 liters NC, oxygenating 97 99% s/p IVIG 09/16 and 09/18 Will gradually wean po prednisone currently on 20 mg, continue pepcid 20mg bid Seen by pulmonology and hematology being considered for rehab if? O2 trended down below 5 Noted to have fever at night, CXR 10/02 no new finding, UA unremarkable, otherwise feeling better with less cough and shortness of breath when wean oxygen to 7 L REconsult pulmonology Continue Robitussin with codeine for persistent cough continue as needed benzonatate Anxiety--continue Lorazepam Left sided rib pain. possibly musculoskeletal due to coughing improving Continue pain management/ lidocaine patch Chest pain trops flat, likely r/t oxygen demands Seen by cardiology, no further workup required at this time thrombocytopenia. stable follow cbc elevated LFTs. trending down likely due to viral infection history of CLL pt reports he is in remission being followed at [facility] is due for follow-up gout continue allopurinol hyperlipidemia statin on hold - if LFTs improved, restart Normocytic Anemia, hematocrit 25 will repeat labs at a.m., no active bleed noted likely due to acute infection, will check stool guaiac full code dvt pptx, lovenox discussed with Quality Stroke Does the patient have a stroke diagnosis?: No VTE Prior VTE?: No VTE Risk Level:: Medical - moderate - high VTE Device Contraindication: Treatment Not Indicated VTE Drug Contraindication: N/A - Med Ordered
[2021-10-07] MEDS: Enoxaparin Sodium 40 MG/0.4 ML SYRINGE SUBCUT (13:31)
--- NOTE | 2021-10-07 14:31 | MHC.CM.PN ---
Male 66 Covid+ No discharge today. Patient is bacteremic. DP is STR vs home with services. The patient will be weaned from oxygen. His would like him to come home if oxygen requirement permits. CM notified facilities that the discharge remains on hold today.
[2021-10-07] MEDS: iohexoL 350 MG/ML 100 ML INFUS..BTL IV (17:25)
[2021-10-07] MEDS: levoFLOXacin/D5W 750 MG/150 ML PIGGYBACK 100 MG IV (18:07)
[2021-10-08] VITALS (7 sets, daily range): BP systolic 99–118; BP diastolic 52–61; PULSE 90–122; RESP 19–22; TEMP 36.1–37.3; O2SAT 91–98
[2021-10-08] MEDS: Benzonatate 100 MG CAPSULE 200 MG PO ×2 (04:13→13:11)
[2021-10-08] MEDS: Acetaminophen 325 MG TABLET 650 MG PO (04:13)
--- NOTE | 2021-10-08 08:39 | MHC.CM.PN ---
Male 66 Covid+ No discharge today. Patient oxygen requirment increased to13L overnight. DP STR via BLS. Updated information sent to the facilities that are following.
--- NOTE | 2021-10-08 12:14 | PM.PNPUL ---
Subjective Subjective Date of Service: 10/08/21 Principal diagnosis: COVID PNEUMINA Interval history: The patient was seen on exam. The patient is having increasing oxygen requirements. He is expectorating very thick green mucus consistent with Pseudomonas. He also had Pseudomonas bacteremia. Currently on Levaquin. They are going to some appears to be pansensitive which is reassuring. Initially talked about double covering, but now that we have the sensitivities which is increased dose of Levaquin. Objective Data Labs CBC & Chem 7: 10/05/21 04:14 10/05/21 04:14 Microbiology Microbiology Results: Microbiology 10/05/21 04:16 Blood - Venous Blood Culture - Final Pseudomonas aeruginosa 10/05/21 03:59 Blood - Venous Blood Culture - Final Pseudomonas aeruginosa 09/23/21 21:26 Blood - Venous Blood Culture - Final No growth after 5 days. 09/23/21 21:21 Blood - Venous Blood Culture - Final No growth after 5 days. 09/24/21 14:49 Sputum - Expectorated Gram Stain - Final 09/24/21 14:49 Sputum - Expectorated Sputum Culture - Final 09/05/21 18:43 Blood - Venous Blood Culture - Final No growth after 5 days. 09/05/21 18:43 Blood - Venous Blood Culture - Final No growth after 5 days. Review of Systems Review of Systems Yes all other systems are reviewed and are negative Constitutional: Reports fatigue and Reports lethargy Eyes: Reports no additional eye complaints Reports system reviewed and no additional complaints, except as documented Cardiovascular: Denies chest pain, Denies irregular heart rhythm, Denies leg edema, Reports dyspnea and Reports dyspnea on exertion Respiratory: Reports change in phlegm color, Reports chest congestion, Reports cough, Denies hemoptysis, Reports excessive phlegm production, Reports dyspnea and Reports dyspnea on exertion Gastrointestinal: Reports nausea Genitourinary: Reports no additional male genitourinary complaints Musculoskeletal: Reports muscle weakness Skin/Breast: Reports system reviewed and no additional complaints, except as docu Reports system reviewed and no additional complaints, except as documented Psychiatric: Reports no additional psychiatric complaints Endocrine: Reports fatigue Physical Exam Vital Signs: Vital Signs: Last Vital Signs Temp 98.6 F 10/08/21 07:49 Pulse 118 H 10/08/21 07:49 Resp 20 10/08/21 07:49 BP 115/61 10/08/21 07:49 Pulse Ox 91 L 10/08/21 07:49 Oxygen Flow Rate 2 09/06/21 02:32 Body Mass Index 26.6 Const: General: alert Neck: Neck: Yes normal visual inspection, Yes full ROM and Yes no lymphadenopathy Chest: Chest palpation & inspection: normal inspection of the chest Resp: Auscultation: diminished lung sounds Cardio: Rate: regular rate Rhythm: regular rhythm Heart sounds: S1 normal heart sound present and S2 normal heart sound present GI: Palpation (GI): Soft to palpation and nontender Auscultation: normal bowel sounds Procedures Date of Service Date of Service: 10/08/21 Assessment and Plan Assessment and plan (1) Pseudomonal pneumonia: Status: Acute (2) COVID-19: Status: Acute (3) Multifocal pneumonia: Problem details: Bilateral multi focal pneumonitis, secondary to COVID pneumonia. Repeat CT scan on 09/12, show somewhat more prominent bilateral Alveolar/ Interstitial opacities, I think these represent, slight worsening of the COVID pneumonitis, and not essentially any bacterial pneumonia. TX : Continue IV Solu-Medrol 40 mg q 8 hrs Patient is on vancomycin and cefepime , I suggest that we can DC vancomycin, continue cefepime I am over the weekend and then consider discontinuing this agent also. I added famotidine 20 mg b.i.d. empirically. Status: Acute (4) Hypogammaglobulinemia: Status: Acute (5) CLL (chronic lymphocytic leukemia): Status: Chronic Assessment and Plan: Agree with Levaquin 750mg IV q24 hours CPT with flutter valve Recheck covid19 antibodies recheck Igg levels Consider mucomyst nebs bID x 3 dasys guarded condition Time Spent With Patient Time: Total time spent is greater than 50% in coordination of care (as documented) at patient's floor/unit and/or counseling patient: Time with patient: 15 - 24 minutes Progress Note: Quality Stroke Does the patient have a stroke diagnosis?: No
[2021-10-08] MEDS: predniSONE 20 MG TABLET PO (12:38)
[2021-10-08] MEDS: Famotidine 20 MG TABLET PO ×2 (12:38→19:59)
[2021-10-08] MEDS: guaiFEN/Codeine SF 200/20/10ML 10 ML LIQUID 5 ML PO ×3 (12:38→19:59)
[2021-10-08] MEDS: allopurinoL 300 MG TABLET PO (12:39)
[2021-10-08] MEDS: 0.9 % Sodium Chloride Flush 3 ML SYRINGE IVFLUSH ×3 (12:39→19:59)
[2021-10-08] MEDS: Ascorbic Acid 500 MG TABLET PO (12:39)
[2021-10-08] MEDS: Zinc Sulfate 220 MG CAPSULE PO (12:39)
[2021-10-08] MEDS: Enoxaparin Sodium 40 MG/0.4 ML SYRINGE SUBCUT (12:40)
--- NOTE | 2021-10-08 13:57 | HO.PM.IMPN ---
Subjective Subjective Date of Service: 10/08/21 Interval History: F/u on acute hypoxic respiratory failure, oxygen requirement has gone up to 11, no fever , Blood culture is growing Peudomonas, sensitive to Levaquin Review of Systems no fever persitent cough sob Physical Exam Vital Signs: Vital Signs: Last Vital Signs Temp 99.0 F 10/08/21 12:00 Pulse 121 H 10/08/21 12:00 Resp 19 10/08/21 12:00 BP 100/55 L 10/08/21 12:00 Pulse Ox 97 10/08/21 12:00 Oxygen Flow Rate 2 09/06/21 02:32 Body Mass Index 26.6 Const: Other: General: AO X 3, no acute distress Resp: talks in full sentences CVS: S1,S2,RRR, tachy GI: +BS, NT, no distention Skin: No rash Neuro: motor grossly intact Psych: appropriate affect Objective Data Active Medications Acetaminophen (Acetaminophen 325 Mg Tablet) 650 mg PO Q6H PRN PRN Reason: Pain, Mild (Pain Scale 1-3) Last Admin: 10/08/21 04:13 Dose: 650 mg Documented by: BETO Allopurinol (Allopurinol 300 Mg Tablet) 300 mg PO DAILY [facility] Last Admin: 10/08/21 12:39 Dose: 300 mg Documented by: CORRINA Ascorbic Acid (Ascorbic Acid 500 Mg Tablet) 500 mg PO DAILY [facility] Last Admin: 10/08/21 12:39 Dose: 500 mg Documented by: CORRINA Benzonatate (Benzonatate 100 Mg Capsule) 100 mg PO TID PRN PRN Reason: Cough Last Admin: 10/04/21 20:35 Dose: 100 mg Documented by: KARTHIK Benzonatate (Benzonatate 100 Mg Capsule) 200 mg PO TID PRN PRN Reason: Cough Last Admin: 10/08/21 13:11 Dose: 200 mg Documented by: CORRINA Cyclobenzaprine HCl (Cyclobenzaprine Hcl 5 Mg Tablet) 5 mg PO TID PRN PRN Reason: pain Last Admin: 10/06/21 04:03 Dose: 5 mg Documented by: KEDAR Docusate Sodium (Docusate Sodium 100 Mg Capsule) 100 mg PO DAILY PRN PRN Reason: Constipation Enoxaparin Sodium (Enoxaparin Sodium 40 Mg/0.4 Ml Syringe) 40 mg SUBCUT Q24H [facility] Last Admin: 10/08/21 12:40 Dose: 40 mg Documented by: CORRINA Famotidine (Famotidine 20 Mg Tablet) 20 mg PO BID [facility] Last Admin: 10/08/21 12:38 Dose: 20 mg Documented by: CORRINA Guaifenesin/Codeine Phosphate (Guaifen/Codeine Sf 200/20/10ml 10 Ml Liquid) 5 ml PO QID [facility] Last Admin: 10/08/21 12:38 Dose: 5 ml Documented by: CORRINA Levofloxacin (Levaquin) 750 mg in 150 mls @ 100 mls/hr IV Q24H [facility] Last Infusion: 10/07/21 20:08 Dose: 0 mls/hr Documented by: BETO Lorazepam (Lorazepam 0.5 Mg Tablet) 0.5 mg PO Q8H PRN PRN Reason: anxiety Last Admin: 10/04/21 23:24 Dose: 0.5 mg Documented by: KARTHIK Ondansetron HCl (Ondansetron Hcl 4 Mg/2 Ml Vial) 4 mg IVPUSH Q8H PRN PRN Reason: Nausea and Vomiting Oxycodone HCl (Oxycodone Hcl Immed Release 5 Mg Tablet) 5 mg PO Q4H PRN PRN Reason: Pain, Severe (Pain Scale 7-10) Last Admin: 10/07/21 08:54 Dose: 5 mg Documented by: ALVARO Pharmacy Consult (Consult Rx Perform Med Rec) 1 each MISCELLANE ONCE PRN PRN Reason: Consult order Prednisone (Prednisone 20 Mg Tablet) 20 mg PO DAILY [facility] Last Admin: 10/08/21 12:38 Dose: 20 mg Documented by: CORRINA Sodium Chloride (0.9 % Sodium Chloride Flush 3 Ml Syringe) 3 ml IVFLUSH QSHIFT [facility] Last Admin: 10/08/21 12:39 Dose: 3 ml Documented by: CORRINA Zinc Sulfate (Zinc Sulfate 220 Mg Capsule) 220 mg PO DAILY [facility] Last Admin: 10/08/21 12:39 Dose: 220 mg Documented by: CORRINA Labs CBC & Chem 7: 10/05/21 04:14 10/05/21 04:14 Microbiology Microbiology Results: Microbiology 10/05/21 04:16 Blood Culture - Final Blood - Venous Pseudomonas aeruginosa 10/05/21 03:59 Blood Culture - Final Blood - Venous Pseudomonas aeruginosa Assessment and Plan (1) Pseudomonal pneumonia: Status: Acute Assessment and Plan: hosp d [age]-year-old male past medical history of CLL admitted with acute hypoxic respiratory failure d/t? COVID-19 pneumonia with prolonged hospitalization with peristent syndrome and still + covid for covid, and apparently tested positive with covid 3 to 6 weeks prior to admission and fully vacccinated with Moderna vaccine and a booster, gram negative michela bacteremia 10/06 Pseudomonas bacteremia likely from pneumonia. Continue Levaquin since it is sensitive. Acute hypoxic respiratory failure r/t prolonged COVID symptoms--. now making progresss but slowly,? still positive for covid 10/05 (PCR), inflamatory markers still high s/p treatment with broad spec IV antibiotics & course of doxycycline Off High flow, now on 8 liters NC, oxygenating 97 99% s/p IVIG 09/16 and 09/18 Will gradually wean po prednisone currently on 20 mg, continue pepcid 20mg bid Seen by pulmonology and hematology being considered for rehab if? O2 trended down below 5 Noted to have fever at night, CXR 10/02 no new finding, UA unremarkable, otherwise feeling better with less cough and shortness of breath when wean oxygen to 7 L REconsult pulmonology--to recheck covid and covid igG, total IGG level Continue Robitussin with codeine for persistent cough continue as needed benzonatate Anxiety--continue Lorazepam Left sided rib pain. likely from cough, seems better Continue pain management/ lidocaine patch Chest pain trops flat, likely r/t oxygen demands Seen by cardiology, no further workup required at this time thrombocytopenia. stable follow cbc elevated LFTs. trending down likely due to viral infection history of CLL pt reports he is in remission being followed at [facility] is due for follow-up soon gout continue allopurinol hyperlipidemia statin on hold - if LFTs improved, restart Normocytic Anemia, hematocrit 25 will repeat labs at a.m., no active bleed noted likely due to acute infection, will check stool guaiac full code dvt pptx, lovenox discussed with Quality Stroke Does the patient have a stroke diagnosis?: No VTE Prior VTE?: No VTE Risk Level:: Medical - moderate - high VTE Device Contraindication: Treatment Not Indicated VTE Drug Contraindication: N/A - Med Ordered
[2021-10-08] MEDS: levoFLOXacin/D5W 750 MG/150 ML PIGGYBACK 100 MG IV (17:56)
[2021-10-08 18:23] LABS: ABG Base Excess 5.1 mmol/L; ABG HCO3 29 mmol/L (22-26); ABG pCO2 43 mmHg (32-45); ABG pH 7.44 (7.35-7.45); ABG pO2 93 mmHg (83-108)
[2021-10-08 18:27] LABS: ABG Refer to POC result
[2021-10-09] VITALS (7 sets, daily range): BP systolic 103–115; BP diastolic 54–63; PULSE 88–114; RESP 20–22; TEMP 35.5–36.2; O2SAT 94–100
[2021-10-09] MEDS: Benzonatate 100 MG CAPSULE 200 MG PO (06:24)
[2021-10-09] MEDS: Ascorbic Acid 500 MG TABLET PO (08:50)
[2021-10-09] MEDS: allopurinoL 300 MG TABLET PO (08:50)
[2021-10-09] MEDS: Zinc Sulfate 220 MG CAPSULE PO (08:50)
[2021-10-09] MEDS: predniSONE 20 MG TABLET PO (08:50)
[2021-10-09] MEDS: guaiFEN/Codeine SF 200/20/10ML 10 ML LIQUID 5 ML PO ×3 (08:51→17:34)
[2021-10-09] MEDS: 0.9 % Sodium Chloride Flush 3 ML SYRINGE IVFLUSH ×3 (08:51→22:31)
[2021-10-09] MEDS: Famotidine 20 MG TABLET PO ×2 (08:51→22:25)
[2021-10-09] MEDS: Acetaminophen 325 MG TABLET 650 MG PO (10:44)
--- NOTE | 2021-10-09 13:45 | HO.PM.IMPN ---
Subjective Subjective Date of Service: 10/09/21 Interval History: F/u on acute hypoxic respiratory failure, oxygen requirement is stable at 11, he has persistent cough and causing insomnia. There has not been anymore fever Review of Systems no fever persitent cough sob Physical Exam Vital Signs: Vital Signs: Last Vital Signs Temp 96 F L 10/09/21 11:24 Pulse 114 H 10/09/21 11:24 Resp 22 H 10/09/21 11:24 BP 103/54 L 10/09/21 11:24 Pulse Ox 99 10/09/21 11:24 Oxygen Flow Rate 2 09/06/21 02:32 Body Mass Index 26.6 Const: Other: General: AO X 3, no acute distress Resp: talks in full sentences, lungs some rhonchi good air movment on auscultation CVS: S1,S2,RRR, tachy GI: +BS, NT, no distention Skin: No rash Neuro: motor grossly intact Psych: appropriate affect Objective Data Active Medications Acetaminophen (Acetaminophen 325 Mg Tablet) 650 mg PO Q6H PRN PRN Reason: Pain, Mild (Pain Scale 1-3) Last Admin: 10/09/21 10:44 Dose: 650 mg Documented by: ALLEGRA Allopurinol (Allopurinol 300 Mg Tablet) 300 mg PO DAILY [facility] Last Admin: 10/09/21 08:50 Dose: 300 mg Documented by: ALLEGRA Ascorbic Acid (Ascorbic Acid 500 Mg Tablet) 500 mg PO DAILY [facility] Last Admin: 10/09/21 08:50 Dose: 500 mg Documented by: ALLEGRA Benzonatate (Benzonatate 100 Mg Capsule) 100 mg PO TID PRN PRN Reason: Cough Last Admin: 10/04/21 20:35 Dose: 100 mg Documented by: KARTHIK Benzonatate (Benzonatate 100 Mg Capsule) 200 mg PO TID PRN PRN Reason: Cough Last Admin: 10/09/21 06:24 Dose: 200 mg Documented by: BETO Cyclobenzaprine HCl (Cyclobenzaprine Hcl 5 Mg Tablet) 5 mg PO TID PRN PRN Reason: pain Last Admin: 10/06/21 04:03 Dose: 5 mg Documented by: KEDAR Docusate Sodium (Docusate Sodium 100 Mg Capsule) 100 mg PO DAILY PRN PRN Reason: Constipation Enoxaparin Sodium (Enoxaparin Sodium 40 Mg/0.4 Ml Syringe) 40 mg SUBCUT Q24H [facility] Last Admin: 10/08/21 12:40 Dose: 40 mg Documented by: CORRINA Famotidine (Famotidine 20 Mg Tablet) 20 mg PO BID [facility] Last Admin: 10/09/21 08:51 Dose: 20 mg Documented by: ALLEGRA Guaifenesin/Codeine Phosphate (Guaifen/Codeine Sf 200/20/10ml 10 Ml Liquid) 5 ml PO QID [facility] Last Admin: 10/09/21 08:51 Dose: 5 ml Documented by: ALLEGRA Levofloxacin (Levaquin) 750 mg in 150 mls @ 100 mls/hr IV Q24H [facility] Last Infusion: 10/08/21 20:08 Dose: 0 mls/hr Documented by: BETO Lorazepam (Lorazepam 0.5 Mg Tablet) 0.5 mg PO Q8H PRN PRN Reason: anxiety Last Admin: 10/04/21 23:24 Dose: 0.5 mg Documented by: KARTHIK Ondansetron HCl (Ondansetron Hcl 4 Mg/2 Ml Vial) 4 mg IVPUSH Q8H PRN PRN Reason: Nausea and Vomiting Oxycodone HCl (Oxycodone Hcl Immed Release 5 Mg Tablet) 5 mg PO Q4H PRN PRN Reason: Pain, Severe (Pain Scale 7-10) Last Admin: 10/07/21 08:54 Dose: 5 mg Documented by: ALVARO Pharmacy Consult (Consult Rx Perform Med Rec) 1 each MISCELLANE ONCE PRN PRN Reason: Consult order Prednisone (Prednisone 20 Mg Tablet) 20 mg PO DAILY [facility] Last Admin: 10/09/21 08:50 Dose: 20 mg Documented by: ALLEGRA Sodium Chloride (0.9 % Sodium Chloride Flush 3 Ml Syringe) 3 ml IVFLUSH QSHIFT [facility] Last Admin: 10/09/21 08:51 Dose: 3 ml Documented by: ALLEGRA Zinc Sulfate (Zinc Sulfate 220 Mg Capsule) 220 mg PO DAILY [facility] Last Admin: 10/09/21 08:50 Dose: 220 mg Documented by: ALLEGRA Labs CBC & Chem 7: 10/05/21 04:14 10/05/21 04:14 Labs: Laboratory Results - last 24 hr 10/08/21 18:17 O2 Saturation 97.0 ABG pH at Pt Temp 7.44 ABG pCO2 at Pt Temp 43 ABG pO2 at Pt Temp 93 ABG HCO3 29 H ABG Base Excess (Actual) 5.1 Assessment and Plan (1) Pseudomonal pneumonia: Status: Acute (2) COVID-19: Status: Acute Assessment and Plan: hosp d [age]-year-old male past medical history of CLL admitted with acute hypoxic respiratory failure d/t? COVID-19 pneumonia with prolonged hospitalization with peristent syndrome and still + covid for covid, and apparently tested positive with covid 3 to 6 weeks prior to admission and fully vacccinated with Moderna vaccine and a booster, gram negative michela bacteremia 10/06 Pseudomonas bacteremia likely from pneumonia. Continue Levaquin, repeat cultures tomorrow Acute hypoxic respiratory failure r/t prolonged COVID symptoms--. now making progresss but slowly,? still positive for covid 10/05 (PCR), inflamatory markers still high s/p treatment with broad spec IV antibiotics & course of doxycycline Off High flow, now on 8 liters NC, oxygenating 97 99% s/p IVIG 09/16 and 09/18 Will gradually wean po prednisone currently on 20 mg, continue pepcid 20mg bid Seen by pulmonology and hematology being considered for rehab if? O2 trended down below 5 Noted to have fever at night, CXR 10/02 no new finding, UA unremarkable, otherwise feeling better with less cough and shortness of breath when wean oxygen to 7 L REconsult pulmonology--to recheck covid and covid igG, total IGG level Continue Robitussin with codeine for persistent cough continue as needed benzonatate Anxiety--continue Lorazepam Left sided rib pain. likely from cough, seems better Continue pain management/ lidocaine patch Chest pain trops flat, likely r/t oxygen demands Seen by cardiology, no further workup required at this time thrombocytopenia. stable follow cbc elevated LFTs. trending down likely due to viral infection history of CLL pt reports he is in remission being followed at [facility] is due for follow-up soon gout continue allopurinol hyperlipidemia statin on hold - if LFTs improved, restart Normocytic Anemia, check labs today full code dvt pptx, lovenox discussed with Quality Stroke Does the patient have a stroke diagnosis?: No VTE Prior VTE?: No VTE Risk Level:: Medical - moderate - high VTE Device Contraindication: Treatment Not Indicated VTE Drug Contraindication: N/A - Med Ordered
[2021-10-09] MEDS: Enoxaparin Sodium 40 MG/0.4 ML SYRINGE SUBCUT (14:09)
--- NOTE | 2021-10-09 14:13 | PC.NURSE ---
os decreased by RT to 9L high flow from 11L 98% at present
[2021-10-09 14:28] LABS: Hematocrit 25.3 % (42.0-52.0); Hemoglobin 8.1 g/dl (14.0-18.0); Mean Corpuscular Hemoglobin 29.3 pg (27.0-33.0); Mean Corpuscular Volume 91.7 fL (80.0-98.0); Platelet Count 211 X10*3/uL (160-400); Red Blood Count 2.76 X10*6/uL (4.60-5.80); Red Cell Distribution Width 16.6 % (11.0-16.0); White Blood Count 18.1 X10*3/uL (4.8-10.8)
[2021-10-09 14:57] LABS: COVID-19 Test Positive (Negative); IDNOW Serial# 08D9AD1C
[2021-10-09 15:06] LABS: Alanine Aminotransferase 101 U/L (0-40); Albumin Level 2.4 g/dL (3.5-5.0); Alkaline Phosphatase 198 U/L (39-117); Anion Gap 13 (12-20); Aspartate Amino Transferase 100 U/L (5-37); Bilirubin Direct 0.4 mg/dL (0.0-0.5); Bilirubin Total 0.6 mg/dL (0.0-1.0); Blood Urea Nitrogen 25 mg/dL (9-16); C Reactive Protein 21.61 mg/dL (< or = 0.50); Calcium 8.4 mg/dL (8.4-10.2); Carbon Dioxide 29 mmol/L (22-29); Chloride 93 mmol/L (96-108); Creatinine Clr Calc Pharmacy 98.5; Estimated Glomerular Filt Rate > 60; Glucose Random 335 mg/dL (60-115); Potassium 4.6 mmol/L (3.3-5.1); Sodium 130 mmol/L (135-145); Total Protein 4.6 g/dL (6.5-8.0)
[2021-10-09] MEDS: levoFLOXacin/D5W 750 MG/150 ML PIGGYBACK 100 MG IV (17:33)
[2021-10-09] MEDS: Benzonatate 100 MG CAPSULE PO (22:30)
[2021-10-09] MEDS: oxyCODONE HCl Immed Release 5 MG TABLET PO (22:31)
[2021-10-09 23:11] LABS: Immunoglobulin G Subclass 1 227 mg/dL (382-929); Immunoglobulin G Subclass 2 113 mg/dL (241-700); Immunoglobulin G Subclass 3 14 mg/dL (22-178); Immunoglobulin G Subclass 4 6.7 mg/dL (4-86); Immunoglobulin G Total 397 mg/dL (600-1540)
[2021-10-10] VITALS (7 sets, daily range): BP systolic 97–114; BP diastolic 50–58; PULSE 88–129; RESP 16–24; TEMP 36.1–37.3; O2SAT 92–99
--- NOTE | 2021-10-10 | ECG_ITS ---
Test Reason : TACHYCARDIA Blood Pressure : / mmHG Vent. Rate : 119 BPM Atrial Rate : 119 BPM P-R Int : 132 ms QRS Dur : 076 ms QT Int : 310 ms P-R-T Axes : 009 051 023 degrees QTc Int : 436 ms Sinus tachycardia Otherwise normal ECG When compared with ECG of 24-SEP-2021 22:41, No significant change was found Heart rate has increased Referred By: Carlo Gore Electronically Signed By:DANIELLE ORTA MD
[2021-10-10] MEDS: iohexoL 350 MG/ML 100 ML INFUS..BTL 65 ML IV (06:49)
--- NOTE | 2021-10-10 07:08 | PC.NURSE ---
Elevated HR 120's to 130's, ST - O2sat staying mid to high 90's on [address] Gore made aware - Not currently on any cardiac meds or home medications for HR. EKG, PO Lopressor, CTA. Down for CT at approx 0630 - back to room on 11li dutta. report given to Chioma DASILVA.
[2021-10-10] MEDS: Zinc Sulfate 220 MG CAPSULE PO (08:48)
[2021-10-10] MEDS: predniSONE 20 MG TABLET PO (08:48)
[2021-10-10] MEDS: Famotidine 20 MG TABLET PO ×2 (08:48→20:37)
[2021-10-10] MEDS: allopurinoL 300 MG TABLET PO (08:49)
[2021-10-10] MEDS: 0.9 % Sodium Chloride Flush 3 ML SYRINGE IVFLUSH ×3 (08:49→20:37)
[2021-10-10] MEDS: Ascorbic Acid 500 MG TABLET PO (08:49)
[2021-10-10] MEDS: Lactated Ringers 1,000 ML 100 ML IVCONT ×2 (08:49→20:39)
--- NOTE | 2021-10-10 09:07 | HO.PM.IMPN ---
Subjective Subjective Date of Service: 10/10/21 Interval History: F/u on acute hypoxic respiratory failure, oxygen requirement is slightly better at 9 liters, yet now with persistent tachycardia, HR in 130s, CT chest this morning shows no PE, yet shows cavitary pneumonia concerning for septic embolic Review of Systems no fever persitent cough sob Physical Exam Vital Signs: Vital Signs: Last Vital Signs Temp 99.1 F 10/10/21 08:00 Pulse 129 H 10/10/21 08:00 Resp 24 H 10/10/21 08:00 BP 114/57 L 10/10/21 08:00 Pulse Ox 94 10/10/21 08:00 Oxygen Flow Rate 2 09/06/21 02:32 Body Mass Index 26.6 Const: Other: General: AO X 3, frail, looks tired, voice is low Resp: talks in low voice, rhonchi throughout, no wheezes, no leg edema CVS: S1,S2,RRR, tachy GI: +BS, NT, no distention Skin: No rash Neuro: motor grossly intact Psych: depressed affect Objective Data Active Medications Acetaminophen (Acetaminophen 325 Mg Tablet) 650 mg PO Q6H PRN PRN Reason: Pain, Mild (Pain Scale 1-3) Last Admin: 10/09/21 10:44 Dose: 650 mg Documented by: ALLEGRA Allopurinol (Allopurinol 300 Mg Tablet) 300 mg PO DAILY [facility] Last Admin: 10/10/21 08:49 Dose: 300 mg Documented by: SIDRA Ascorbic Acid (Ascorbic Acid 500 Mg Tablet) 500 mg PO DAILY [facility] Last Admin: 10/10/21 08:49 Dose: 500 mg Documented by: SIDRA Benzonatate (Benzonatate 100 Mg Capsule) 100 mg PO TID PRN PRN Reason: Cough Last Admin: 10/09/21 22:30 Dose: 100 mg Documented by: ANNI Benzonatate (Benzonatate 100 Mg Capsule) 200 mg PO TID PRN PRN Reason: Cough Last Admin: 10/09/21 06:24 Dose: 200 mg Documented by: BETO Cyclobenzaprine HCl (Cyclobenzaprine Hcl 5 Mg Tablet) 5 mg PO TID PRN PRN Reason: pain Last Admin: 10/06/21 04:03 Dose: 5 mg Documented by: KEDAR Docusate Sodium (Docusate Sodium 100 Mg Capsule) 100 mg PO DAILY PRN PRN Reason: Constipation Enoxaparin Sodium (Enoxaparin Sodium 40 Mg/0.4 Ml Syringe) 40 mg SUBCUT Q24H [facility] Last Admin: 10/09/21 14:09 Dose: 40 mg Documented by: ALLEGRA Famotidine (Famotidine 20 Mg Tablet) 20 mg PO BID [facility] Last Admin: 10/10/21 08:48 Dose: 20 mg Documented by: SIDRA Levofloxacin (Levaquin) 750 mg in 150 mls @ 100 mls/hr IV Q24H [facility] Last Infusion: 10/09/21 19:25 Dose: 0 mls/hr Documented by: ANNI Lactated Ringer's (Lr) 1,000 mls @ 100 mls/hr IVCONT .Q10H [facility] Last Admin: 10/10/21 08:49 Dose: 100 mls/hr Documented by: SIDRA Ondansetron HCl (Ondansetron Hcl 4 Mg/2 Ml Vial) 4 mg IVPUSH Q8H PRN PRN Reason: Nausea and Vomiting Oxycodone HCl (Oxycodone Hcl Immed Release 5 Mg Tablet) 5 mg PO Q4H PRN PRN Reason: Pain, Severe (Pain Scale 7-10) Last Admin: 10/09/21 22:31 Dose: 5 mg Documented by: ANNI Pharmacy Consult (Consult Rx Perform Med Rec) 1 each MISCELLANE ONCE PRN PRN Reason: Consult order Prednisone (Prednisone 20 Mg Tablet) 20 mg PO DAILY [facility] Last Admin: 10/10/21 08:48 Dose: 20 mg Documented by: SIDRA Sodium Chloride (0.9 % Sodium Chloride Flush 3 Ml Syringe) 3 ml IVFLUSH QSHIFT [facility] Last Admin: 10/10/21 08:49 Dose: 3 ml Documented by: SIDRA Zinc Sulfate (Zinc Sulfate 220 Mg Capsule) 220 mg PO DAILY [facility] Last Admin: 10/10/21 08:48 Dose: 220 mg Documented by: SIDRA Labs CBC & Chem 7: 10/09/21 14:16 10/09/21 14:16 Labs: Laboratory Results - last 24 hr 10/08/21 10/09/21 10/09/21 12:49 14:16 14:16 MCV 91.7 MCH 29.3 MCHC 32.0 RDW 16.6 H Plt Count 211 MPV 11.0 Absolute Nucleated RBC 0.000 Nucleated RBC % (auto) 0.0 Anion Gap 13 Estim Creat Clear Calc 98.5 Estimated GFR > 60 Random Glucose 335 H D Calcium 8.4 D Total Bilirubin 0.6 Direct Bilirubin 0.4 AST 100 H ALT 101 H Alkaline Phosphatase 198 H C-Reactive Protein 21.61 H Total Protein 4.6 L Albumin 2.4 L IgG Total 397 L IgG Subclass 1 227 L IgG Subclass 2 113 L IgG Subclass 3 14 L IgG Subclass 4 6.7 COVID-19 ([facility]IDA) COVID-19 Clin Com 10/09/21 14:27 MCV MCH MCHC RDW Plt Count MPV Absolute Nucleated RBC Nucleated RBC % (auto) Anion Gap Estim Creat Clear Calc Estimated GFR Random Glucose Calcium Total Bilirubin Direct Bilirubin AST ALT Alkaline Phosphatase C-Reactive Protein Total Protein Albumin IgG Total IgG Subclass 1 IgG Subclass 2 IgG Subclass 3 IgG Subclass 4 COVID-19 (DAVIDA) Positive A COVID-19 Clin Com See Note Assessment and Plan (1) Pseudomonal pneumonia: Status: Acute (2) Post-COVID syndrome: Status: Acute (3) Sepsis: Status: Acute Assessment and Plan: hosp d [age]-year-old male past medical history of CLL admitted with acute hypoxic respiratory failure d/t? COVID-19 pneumonia with prolonged hospitalization with peristent syndrome and still + covid for covid, and apparently tested positive with covid 3 to 6 weeks prior to admission and fully vacccinated with Moderna vaccine and a booster, gram negative michela bacteremia 10/06 #Sepsis from pneumonia, bacteremia #Pseudomonas bacteremia likely from pneumonia -continue Levaquin D5 (sensitiv) -TTE to r/o vegetation -Discuss with ID -Pulmonology considering bronchoscopy #Acute hypoxic respiratory failure r/t prolonged post COVID symptoms -s/p treatment with broad spec IV antibiotics -Off High flow, now on 8-12 liters NC, oxygenating 94 to 98 -s/p IVIG 09/16 and 09/18, considering given another given low IGG level now -wean prednisone, continue pepcid 20mg bid -being follow by Pulmonology and Hematology -Will likely need rehab but not yet ready for that -most recent covid of 10/09 was still positive #Sinus tachycardia--likely related to sepsis, with underlying lung pathology -hydrate to see if improves if not consider BB, CCB and cardiology evaluation #Anxiety--continue Lorazepam #Left sided rib pain. likely from cough, seems better Continue pain management/ lidocaine patch #Chest pain--flat trops, no ischemia, no further w/u per card #thrombocytopenia. resolved. #elevated LFTs. trending down likely due to viral infection #history of CLL pt reports he is in remission being followed at [facility] is due for follow-up soon #gout continue allopurinol #hyperlipidemia--resolved. #Anemia--likely of chronic disease and related to CLL history full code dvt pptx, lovenox discussed with Quality Stroke Does the patient have a stroke diagnosis?: No VTE Prior VTE?: No VTE Risk Level:: Medical - moderate - high VTE Device Contraindication: Treatment Not Indicated VTE Drug Contraindication: N/A - Med Ordered
--- NOTE | 2021-10-10 09:59 | PM.PNPUL ---
Subjective Subjective Date of Service: 10/10/21 Principal diagnosis: COVID PNEUMINA Interval history: The patient was seen on exam. He continues to have a hard time with his breathing. Continues to be on 10 L nasal cannula. He did have a CT scan of the chest demonstrating significant cavitary pneumonias primarily in the periphery suggesting hematogenous spreading. His blood cultures have been positive for Pseudomonas. He is currently able when 750 mg and is tolerating that dose. The patient also had an IgG level recheck after the infusion and is only in the 300s. Therefore, the patient needs to receive additional IVIG therapy. We did talk about bronchoscopy. He appears to be very frail and at this point not sure with the bronchoscopy is going to provide. Will treated for fungal infections apparently in view of the cavitary disease which could be technical sales representatives of aspergillus. Objective Data Labs CBC & Chem 7: 10/09/21 14:16 10/09/21 14:16 Labs: Laboratory Results - last 24 hr 10/08/21 10/09/21 10/09/21 12:49 14:16 14:16 WBC 18.1 H RBC 2.76 L Hgb 8.1 L Hct 25.3 L MCV 91.7 MCH 29.3 MCHC 32.0 RDW 16.6 H Plt Count 211 MPV 11.0 Absolute Nucleated RBC 0.000 Nucleated RBC % (auto) 0.0 Sodium 130 L Potassium 4.6 Chloride 93 L Carbon Dioxide 29 Anion Gap 13 BUN 25 H Creatinine 0.68 Estim Creat Clear Calc 98.5 Estimated GFR > 60 Random Glucose 335 H D Calcium 8.4 D Total Bilirubin 0.6 Direct Bilirubin 0.4 AST 100 H ALT 101 H Alkaline Phosphatase 198 H C-Reactive Protein 21.61 H Total Protein 4.6 L Albumin 2.4 L IgG Total 397 L IgG Subclass 1 227 L IgG Subclass 2 113 L IgG Subclass 3 14 L IgG Subclass 4 6.7 COVID-19 (DAVIDA) COVID-19 Clin Com 10/09/21 14:27 WBC RBC Hgb Hct MCV MCH MCHC RDW Plt Count MPV Absolute Nucleated RBC Nucleated RBC % (auto) Sodium Potassium Chloride Carbon Dioxide Anion Gap BUN Creatinine Estim Creat Clear Calc Estimated GFR Random Glucose Calcium Total Bilirubin Direct Bilirubin AST ALT Alkaline Phosphatase C-Reactive Protein Total Protein Albumin IgG Total IgG Subclass 1 IgG Subclass 2 IgG Subclass 3 IgG Subclass 4 COVID-19 (DAVIDA) Positive A COVID-19 Clin Com See Note Microbiology Microbiology Results: Microbiology 10/05/21 04:16 Blood - Venous Blood Culture - Final Pseudomonas aeruginosa 10/05/21 03:59 Blood - Venous Blood Culture - Final Pseudomonas aeruginosa 09/23/21 21:26 Blood - Venous Blood Culture - Final No growth after 5 days. 09/23/21 21:21 Blood - Venous Blood Culture - Final No growth after 5 days. 09/24/21 14:49 Sputum - Expectorated Gram Stain - Final 09/24/21 14:49 Sputum - Expectorated Sputum Culture - Final 09/05/21 18:43 Blood - Venous Blood Culture - Final No growth after 5 days. 09/05/21 18:43 Blood - Venous Blood Culture - Final No growth after 5 days. Review of Systems Review of Systems Yes all other systems are reviewed and are negative Constitutional: Reports fatigue and Reports lethargy Eyes: Reports no additional eye complaints Reports system reviewed and no additional complaints, except as documented Cardiovascular: Denies chest pain, Denies irregular heart rhythm, Denies leg edema, Reports dyspnea and Reports dyspnea on exertion Respiratory: Reports change in phlegm color, Reports chest congestion, Reports cough, Denies hemoptysis, Reports excessive phlegm production, Reports dyspnea and Reports dyspnea on exertion Gastrointestinal: Reports nausea Genitourinary: Reports no additional male genitourinary complaints Musculoskeletal: Reports muscle weakness Skin/Breast: Reports system reviewed and no additional complaints, except as docu Reports system reviewed and no additional complaints, except as documented Psychiatric: Reports no additional psychiatric complaints Endocrine: Reports fatigue Physical Exam Vital Signs: Vital Signs: Last Vital Signs Temp 99.1 F 10/10/21 08:00 Pulse 129 H 10/10/21 08:00 Resp 24 H 10/10/21 08:00 BP 114/57 L 10/10/21 08:00 Pulse Ox 94 10/10/21 08:00 Oxygen Flow Rate 2 09/06/21 02:32 Body Mass Index 26.6 Const: General: alert, in distress mild and ill appearing Neck: Neck: Yes normal visual inspection, Yes full ROM and Yes no lymphadenopathy Chest: Chest palpation & inspection: normal inspection of the chest Resp: Auscultation: diminished lung sounds Cardio: Rate: regular rate Rhythm: regular rhythm Heart sounds: S1 normal heart sound present and S2 normal heart sound present GI: Palpation (GI): Soft to palpation and nontender Auscultation: normal bowel sounds Skin: General skin exam: rashes and/or lesions noted Procedures Date of Service Date of Service: 10/10/21 Assessment and Plan Assessment and plan (1) Pseudomonal pneumonia: Status: Acute (2) Cavitary pneumonia: Status: Acute (3) CLL (chronic lymphocytic leukemia): Status: Chronic (4) COVID-19: Status: Acute Assessment and Plan: Continue Levofloxacin Start voriconazole (needs to be approved by ID) requesting fungal isolated cultures Please administer 40gm IVIG today Consider bronchosocopy if no better. But he is very frail and risk for respiratory decompensation with bronchoscopy Guarded Time Spent With Patient Time: Total time spent is greater than 50% in coordination of care (as documented) at patient's floor/unit and/or counseling patient: Time with patient: 25 - 35 minutes Progress Note: Quality Stroke Does the patient have a stroke diagnosis?: No
[2021-10-10] MEDS: Enoxaparin Sodium 40 MG/0.4 ML SYRINGE SUBCUT (13:58)
--- NOTE | 2021-10-10 16:29 | MHC.CM.PN ---
DP STR. Patient is not ready for dc. Pt needs oxygen at high dose. He will transport via BLS at DC.
[2021-10-10] MEDS: levoFLOXacin/D5W 750 MG/150 ML PIGGYBACK 100 MG IV (16:59)
[2021-10-11] VITALS (8 sets, daily range): BP systolic 103–145; BP diastolic 54–76; PULSE 78–134; RESP 20–25; TEMP 36.6–40.5; O2SAT 93–100
--- NOTE | 2021-10-11 04:22 | PC.NURSE ---
Addendum entered by Cindi Rojo RN 10/11/21 05:39: Rectal temp 104.9. Hospitalist notified, ordered morphine, labs and xray. Morphine and tylenol given. Will continue to monitor. Original Note: Pt started at 5L NC during beginning of shift. Pt sats started dropping to low 80s, then low 70s. Had to titrate up to 15L NC dutta. Pt sats still 70s/80s. Respiratory at bedside, placed NRB on top of NC. Pt now satting 95-100%. Pt shivering, tachycardic in the 140s. Temp 97.8. No complaints. Hospitalist notified. Will continue to monitor.
[2021-10-11] MEDS: Morphine Sulfate 2 MG/ML CARTRIDGE 1 MG IVPUSH (05:03)
[2021-10-11] MEDS: Benzonatate 100 MG CAPSULE 200 MG PO ×2 (05:04→22:33)
[2021-10-11] MEDS: Acetaminophen 325 MG TABLET 650 MG PO ×3 (05:04→22:33)
[2021-10-11 05:51] LABS: B Type Natriuretic Peptide 53 pg/mL (<100)
[2021-10-11] MEDS: Lactated Ringers 1,000 ML 100 ML IVCONT (06:32)
[2021-10-11] MEDS: Famotidine 20 MG TABLET PO ×2 (08:47→22:33)
[2021-10-11] MEDS: Ascorbic Acid 500 MG TABLET PO (08:47)
[2021-10-11] MEDS: predniSONE 20 MG TABLET PO (08:47)
[2021-10-11] MEDS: allopurinoL 300 MG TABLET PO (08:47)
[2021-10-11] MEDS: 0.9 % Sodium Chloride Flush 3 ML SYRINGE IVFLUSH (08:48)
[2021-10-11] MEDS: Zinc Sulfate 220 MG CAPSULE PO (08:48)
[2021-10-11 11:31] LABS: Appearance Urine CLEAR; Color Urine YELLOW; Glucose Urine UA NEG (NEG); Leukocyte Esterase Urine NEG (NEG); Nitrite Urine NEG (NEG); Specific Gravity - Urine 1.025 (1.005-1.025); Urine Blood NEG (NEG); Urine Ketones NEG (NEG); Urine Protein TRACE MG/DL (NEG-TRACE)
[2021-10-11] MEDS: Enoxaparin Sodium 40 MG/0.4 ML SYRINGE SUBCUT (13:57)
--- NOTE | 2021-10-11 14:32 | P.PNIM_ITS ---
Subjective Subjective Date of Service: 10/11/21 Interval History: F/u on acute hypoxic respiratory failure, patient wass back to 12 liters ovenight but is doing better, additionally had a temp of 104, cultures done, no more fever, presently on 5 liters and satting 94, Review of Systems no fever persitent cough sob Physical Exam Vital Signs: Vital Signs: Last Vital Signs Temp 100.1 F 10/11/21 12:00 Pulse 78 10/11/21 12:00 Resp 25 H 10/11/21 12:00 BP 145/76 H 10/11/21 12:00 Pulse Ox 95 10/11/21 12:00 Const: Other: General: AO X 3, frail, looks tired, voice is low Resp: talks in low voice, rhonchi throughout, no wheezes, no leg edema CVS: S1,S2,RRR, tachy GI: +BS, NT, no distention Skin: No rash Neuro: motor grossly intact Psych: depressed affect Objective Data Active Medications Acetaminophen (Acetaminophen 325 Mg Tablet) 650 mg PO Q6H PRN PRN Reason: Pain, Mild (Pain Scale 1-3) Last Admin: 10/11/21 05:04 Dose: 650 mg Documented by: SAMIR Allopurinol (Allopurinol 300 Mg Tablet) 300 mg PO DAILY [facility] Last Admin: 10/11/21 08:47 Dose: 300 mg Documented by: KATLYN Ascorbic Acid (Ascorbic Acid 500 Mg Tablet) 500 mg PO DAILY [facility] Last Admin: 10/11/21 08:47 Dose: 500 mg Documented by: KATLYN Benzonatate (Benzonatate 100 Mg Capsule) 100 mg PO TID PRN PRN Reason: Cough Last Admin: 10/09/21 22:30 Dose: 100 mg Documented by: ANNI Benzonatate (Benzonatate 100 Mg Capsule) 200 mg PO TID PRN PRN Reason: Cough Last Admin: 10/11/21 05:04 Dose: 200 mg Documented by: SAMIR Cyclobenzaprine HCl (Cyclobenzaprine Hcl 5 Mg Tablet) 5 mg PO TID PRN PRN Reason: pain Last Admin: 10/06/21 04:03 Dose: 5 mg Documented by: KEDAR Docusate Sodium (Docusate Sodium 100 Mg Capsule) 100 mg PO DAILY PRN PRN Reason: Constipation Enoxaparin Sodium (Enoxaparin Sodium 40 Mg/0.4 Ml Syringe) 40 mg SUBCUT Q24H [facility] Last Admin: 10/11/21 13:57 Dose: 40 mg Documented by: KATLYN Famotidine (Famotidine 20 Mg Tablet) 20 mg PO BID [facility] Last Admin: 10/11/21 08:47 Dose: 20 mg Documented by: KATLYN Levofloxacin (Levaquin) 750 mg in 150 mls @ 100 mls/hr IV Q24H [facility] Last Infusion: 10/10/21 18:30 Dose: 0 mls/hr Documented by: SIDRA Lactated Ringer's (Lr) 1,000 mls @ 100 mls/hr IVCONT .Q10H [facility] Last Admin: 10/11/21 06:32 Dose: 100 mls/hr Documented by: SAMIR Ondansetron HCl (Ondansetron Hcl 4 Mg/2 Ml Vial) 4 mg IVPUSH Q8H PRN PRN Reason: Nausea and Vomiting Pharmacy Consult (Consult Rx Perform Med Rec) 1 each MISCELLANE ONCE PRN PRN Reason: Consult order Prednisone (Prednisone 20 Mg Tablet) 20 mg PO DAILY [facility] Last Admin: 10/11/21 08:47 Dose: 20 mg Documented by: KATLYN Sodium Chloride (0.9 % Sodium Chloride Flush 3 Ml Syringe) 3 ml IVFLUSH QSHIFT [facility] Last Admin: 10/11/21 13:57 Dose: Not Given Documented by: KATLYN Non-Admin Reason: IV Running Zinc Sulfate (Zinc Sulfate 220 Mg Capsule) 220 mg PO DAILY [facility] Last Admin: 10/11/21 08:48 Dose: 220 mg Documented by: KATLYN Labs CBC & Chem 7: 10/09/21 14:16 10/09/21 14:16 Labs: Laboratory Results - last 24 hr 10/11/21 10/11/21 05:24 10:46 B-Natriuretic Peptide 53 Urine Color YELLOW Urine Appearance CLEAR Urine pH 6.0 Ur Specific [place] 1.025 Urine Protein TRACE Urine Glucose (UA) NEG Urine Ketones NEG Urine Blood NEG Urine Nitrite NEG Ur Leukocyte Esterase NEG Assessment and Plan (1) Post covid-19 condition, unspecified: Status: Acute (2) Cavitary pneumonia: Status: Acute Assessment and Plan: hosp d [age]-year-old male past medical history of CLL admitted with acute hypoxic respiratory failure d/t? COVID-19 pneumonia with prolonged hospitalization with peristent syndrome and still + covid for covid, and apparently tested positive with covid 3 to 6 weeks prior to admission and fully vacccinated with Moderna vaccine and a booster, gram negative michela bacteremia 10/06 #Sepsis from pneumonia, bacteremia #Pseudomonas bacteremia likely from pneumonia -continue Levaquin D6 (sensitiv), add vanco if persistent fever will add vancomycin -TTE to r/o vegetation -Discuss with ID -Pulmonology considering bronchoscopy #Acute hypoxic respiratory failure r/t prolonged post COVID symptoms -s/p treatment with broad spec IV antibiotics -Off High flow, now on 8-12 liters NC, oxygenating 94 to 98 -s/p IVIG 09/16 and 09/18, a third dose today 10/11 -wean prednisone, continue pepcid 20mg bid -being follow by Pulmonology and Hematology -Will likely need rehab but not yet ready for that -most recent covid of 10/09 was still positive #Sinus tachycardia--likely related to sepsis, with underlying lung pathology -hydrate to see if improves if not consider BB, CCB and cardiology evaluation #Anxiety--continue Lorazepam #Left sided rib pain. likely from cough, seems better Continue pain management/ lidocaine patch #Chest pain--flat trops, no ischemia, no further w/u per card #thrombocytopenia. resolved. #elevated LFTs. trending down likely due to viral infection #history of CLL pt reports he is in remission being followed at [facility] is due for follow-up soon #gout continue allopurinol #hyperlipidemia--resolved. #Anemia--likely of chronic disease and related to CLL history full code dvt pptx, lovenox discussed with Quality Stroke Does the patient have a stroke diagnosis?: No VTE Prior VTE?: No VTE Risk Level:: Medical - moderate - high VTE Device Contraindication: Treatment Not Indicated VTE Drug Contraindication: N/A - Med Ordered
[2021-10-11] MEDS: diphenhydrAMINE HCL 50 MG/ML VIAL 12.5 MG IVPUSH (15:50)
[2021-10-11] MEDS: Immun Glob G(IgG)/Gly/IGA Ov50 200 ML IV ×2 (15:50→22:32)
[2021-10-11] MEDS: levoFLOXacin/D5W 750 MG/150 ML PIGGYBACK 100 MG IV (17:00)
[2021-10-11] MEDS: Benzonatate 100 MG CAPSULE PO (17:00)
[2021-10-12] VITALS (11 sets, daily range): BP systolic 106–149; BP diastolic 53–70; PULSE 85–138; RESP 19–28; TEMP 35.9–40.6; O2SAT 72–100
[2021-10-12] MEDS: Morphine Sulfate 2 MG/ML CARTRIDGE 1 MG IVPUSH ×2 (02:29→10:32)
[2021-10-12] MEDS: vancomycin HCL 1,000 MG in 0.9 % Sodium Chloride 250 ML 270 MG IV (03:47)
[2021-10-12] MEDS: Acetaminophen 325 MG TABLET 650 MG PO ×2 (05:11→21:05)
[2021-10-12 07:34] LABS: Creatinine Clr Calc Pharmacy 111.6; Estimated Glomerular Filt Rate > 60
--- NOTE | 2021-10-12 08:18 | PHA.PROG ---
Admission Date/Time: September 05, 2021 23:01 Indication: Sepsis from pneumonia Weight in k.111 kg Adjusted body weight in K.5 kg [place] body weight in K.1 kg Obesity Dosing Indication % IBW: No Serum Creatinine - Last 168 Hours 10/09/21 10/12/21 14:16 06:58 Creatinine 0.68 0.60 Estimated CrCl and GFR - Last 168 Hours 10/09/21 10/12/21 14:16 06:58 Estim Creat Clear Calc 98.5 111.6 Estimated GFR > 60 > 60 Vancomycin Loading Dose: N/A - 1000 mg given (13mg/kg) will give 750 mg in 8hr to create a load Current Vancomycin Dosing Regimen: 750 mg Q12H Date and Time for next Vancomycin Level to be drawn: 10/13 @ 1000 Vancomycin Trough 3.9 mcg/mL (10.0-20.0) L 09/13/21 07:52 Pharmacist Comments on Vancomycin Plan: Vancomycin 1000 mg given at 0347. Will start maintenance dose in 8 hours so patient become therapeutic sooner. Maintenance dose vancomycin 750 mg Q12H to be start 10/12 @ 1100. Expected AUC of 462 with a trough of 15.2 Trough to be drawn before 4th dose om 10/13 @ 1000 Pharmacy will monitor renal function daily an adjust if appropriate. Twila Sigala, Ariel Vancomycin dosing will take advantage of [employer] as a clinical decision support tool that uses Bayesian modeling to calculate individual patient's pharmacokinetic parameters and forecast the patient's drug concentration time course with the target goal AUC 24 range of 400 - 600 mg/L/hr.
--- NOTE | 2021-10-12 08:25 | PC.NURSE ---
Overnight patient began tremoring, desated to 70s on 5L NC, became tachypneic RR 28, and tachycardic HR 140s. Rectal temp was 105.0. Pt alert and oriented, feels SOB, denies any pain, states he feels too hot . made aware. Pt had similar episode the night before. This RN placed pt on NRB, gave PRN Morphine for SOB, PRN Tylenol and placed ice packs on pt for fever. ordered IV Vanco. A second IV was obtained and first dose of IV Vanco was given. At 0630 pt had improved rectal temp of 102.7, HR decreased to 110s , and RR 22. Was able to remove NRB and place pt on 7L NC sating 92%. Pt has tele monitor with continuous O2 monitoring in place. and oncoming RN made aware.
[2021-10-12] MEDS: allopurinoL 300 MG TABLET PO (10:08)
[2021-10-12] MEDS: predniSONE 10 MG TABLET PO (10:08)
[2021-10-12] MEDS: Famotidine 20 MG TABLET PO ×2 (10:08→21:06)
[2021-10-12] MEDS: Zinc Sulfate 220 MG CAPSULE PO (10:08)
[2021-10-12] MEDS: Ascorbic Acid 500 MG TABLET PO (10:09)
[2021-10-12] MEDS: 0.9 % Sodium Chloride Flush 3 ML SYRINGE IVFLUSH ×3 (10:09→21:06)
[2021-10-12] MEDS: vancomycin HCL 750 MG in 0.9 % Sodium Chloride 250 ML 265 MG IV ×2 (10:10→23:53)
--- NOTE | 2021-10-12 10:45 | P.PNIM_ITS ---
Subjective Subjective Date of Service: 10/13/21 Interval History: F/u on acute hypoxic respiratory failure, patient was doing well in the afternoon yesterday, yet overnight hard hard time and was back on NRB, and had a temp of 105 and started on Vancomycin Review of Systems no fever persitent cough sob Physical Exam Vital Signs: Vital Signs: Last Vital Signs Temp 98.1 F 10/12/21 08:00 Pulse 112 H 10/12/21 08:00 Resp 20 10/12/21 08:00 BP 106/53 L 10/12/21 08:00 Pulse Ox 100 10/12/21 08:00 Oxygen Flow Rate 2 09/06/21 02:32 Body Mass Index 26.6 Const: Other: General: AO X 3, frail looking, no acute distress, looks more comfortable than overnight description, I will adjust Resp: talks in low voice, rhonchi throughout, no wheezes, no leg edema CVS: S1,S2,RRR, tachy GI: +BS, NT, no distention Skin: No rash Neuro: motor grossly intact Psych: depressed affect Objective Data Active Medications Acetaminophen (Acetaminophen 325 Mg Tablet) 650 mg PO Q6H PRN PRN Reason: Pain, Mild (Pain Scale 1-3) Last Admin: 10/12/21 05:11 Dose: 650 mg Documented by: ASHLEY Allopurinol (Allopurinol 300 Mg Tablet) 300 mg PO DAILY [facility] Last Admin: 10/12/21 10:08 Dose: 300 mg Documented by: MANOJ Ascorbic Acid (Ascorbic Acid 500 Mg Tablet) 500 mg PO DAILY [facility] Last Admin: 10/12/21 10:09 Dose: 500 mg Documented by: MANOJ Benzonatate (Benzonatate 100 Mg Capsule) 100 mg PO TID PRN PRN Reason: Cough Last Admin: 10/11/21 17:00 Dose: 100 mg Documented by: KATLYN Benzonatate (Benzonatate 100 Mg Capsule) 200 mg PO TID PRN PRN Reason: Cough Last Admin: 10/11/21 22:33 Dose: 200 mg Documented by: ASHLEY Cyclobenzaprine HCl (Cyclobenzaprine Hcl 5 Mg Tablet) 5 mg PO TID PRN PRN Reason: pain Last Admin: 10/06/21 04:03 Dose: 5 mg Documented by: HO.BREDE Docusate Sodium (Docusate Sodium 100 Mg Capsule) 100 mg PO DAILY PRN PRN Reason: Constipation Enoxaparin Sodium (Enoxaparin Sodium 40 Mg/0.4 Ml Syringe) 40 mg SUBCUT Q24H [facility] Last Admin: 10/11/21 13:57 Dose: 40 mg Documented by: KATLYN Famotidine (Famotidine 20 Mg Tablet) 20 mg PO BID [facility] Last Admin: 10/12/21 10:08 Dose: 20 mg Documented by: MANOJ Levofloxacin (Levaquin) 750 mg in 150 mls @ 100 mls/hr IV Q24H [facility] Last Infusion: 10/11/21 20:54 Dose: 0 mls/hr Documented by: ASHLEY Lactated Ringer's (Lr) 1,000 mls @ 100 mls/hr IVCONT .Q10H [facility] Last Admin: 10/12/21 04:06 Dose: Not Given Documented by: ASHLEY Non-Admin Reason: Paused per Comments: Per nursing report, IVF is paused per Vancomycin HCl 750 mg/ Sodium (Chloride) 265 mls @ 265 mls/hr IV Q12H [facility] Last Admin: 10/12/21 10:10 Dose: 265 mls/hr Documented by: MANOJ Morphine Sulfate (Morphine Sulfate 2 Mg/Ml Cartridge) 1 mg IVPUSH Q4H PRN; Protocol PRN Reason: Shortness of Breath Last Admin: 10/12/21 10:32 Dose: 1 mg Documented by: MANOJ Ondansetron HCl (Ondansetron Hcl 4 Mg/2 Ml Vial) 4 mg IVPUSH Q8H PRN PRN Reason: Nausea and Vomiting Pharmacy Consult (Consult Rx Perform Med Rec) 1 each MISCELLANE ONCE PRN PRN Reason: Consult order Pharmacy Consult (Consult Rx Vancomycin Dosing) 1 each MISCELLANE DAILY PRN PRN Reason: Consult order Prednisone (Prednisone 10 Mg Tablet) 10 mg PO DAILY [facility] Last Admin: 10/12/21 10:08 Dose: 10 mg Documented by: MANOJ Sodium Chloride (0.9 % Sodium Chloride Flush 3 Ml Syringe) 3 ml IVFLUSH QSHIFT [facility] Last Admin: 10/12/21 10:09 Dose: 3 ml Documented by: MANOJ Zinc Sulfate (Zinc Sulfate 220 Mg Capsule) 220 mg PO DAILY [facility] Last Admin: 10/12/21 10:08 Dose: 220 mg Documented by: MANOJ Labs CBC & Chem 7: 10/09/21 14:16 10/13/21 06:30 Labs: Laboratory Results - last 24 hr 10/11/21 10/12/21 10:46 06:58 Estim Creat Clear Calc 111.6 Estimated GFR > 60 Urine Color YELLOW Urine Appearance CLEAR Urine pH 6.0 Ur Specific [place] 1.025 Urine Protein TRACE Urine Glucose (UA) NEG Urine Ketones NEG Urine Blood NEG Urine Nitrite NEG Ur Leukocyte Esterase NEG Microbiology Microbiology Results: Microbiology 10/11/21 05:23 Blood Culture - Preliminary Blood - Venous No growth after 24 hours. 10/11/21 05:23 Blood Culture - Preliminary Blood - Venous No growth after 24 hours. Assessment and Plan (1) Cavitary pneumonia: Status: Acute (2) Post covid-19 condition, unspecified: Status: Acute (3) Pseudomonal pneumonia: Status: Acute Assessment and Plan: hosp d [age]-year-old male past medical history of CLL admitted with acute hypoxic re spiratory failure d/t? COVID-19 pneumonia with prolonged hospitalization with peristent syndrome and still + covid for covid, and apparently tested positive with covid 3 to 6 weeks prior to admission and fully vacccinated with Moderna vaccine and a booster, gram negative michela bacteremia 10/06 #Sepsis from pneumonia, bacteremia #Pseudomonas bacteremia likely from pneumonia -continue Levaquin D7 (sensitiv), Vancomycin added today 10/12 d/t fever -TTE to r/o vegetation -Reconsult ID -Pulmonology considering bronchoscopy #Acute hypoxic respiratory failure r/t prolonged post COVID symptoms -s/p treatment with broad spec IV antibiotics -Off High flow, now on 8-12 liters NC, oxygenating 94 to 98 -s/p IVIG 09/16 and 09/18, a third dose today 10/11 -wean prednisone, continue pepcid 20mg bid -being follow by Pulmonology and Hematology -Will likely need rehab but not yet ready for that -most recent covid of 10/09 was still positive #Sinus tachycardia--likely related to sepsis, and likely dedhydration this improved with IVF #Anxiety--continue Lorazepam #Left sided rib pain. likely from cough, seems better Continue pain management/ lidocaine patch #Chest pain--flat trops, no ischemia, no further w/u per card #thrombocytopenia. resolved. #elevated LFTs. trending down likely due to viral infection #history of CLL pt reports he is in remission being followed at [facility] is due for follow-up soon #gout continue allopurinol #hyperlipidemia--resolved. #Anemia--likely of chronic disease and related to CLL history full code dvt pptx, lovenox discussed with Quality Stroke Does the patient have a stroke diagnosis?: No VTE Prior VTE?: No VTE Risk Level:: Medical - moderate - high VTE Device Contraindication: Treatment Not Indicated VTE Drug Contraindication: N/A - Med Ordered
[2021-10-12] MEDS: Lactated Ringers 1,000 ML 100 ML IVCONT (14:42)
[2021-10-12] MEDS: levoFLOXacin/D5W 750 MG/150 ML PIGGYBACK 100 MG IV (17:24)
[2021-10-12] MEDS: Enoxaparin Sodium 40 MG/0.4 ML SYRINGE SUBCUT (17:30)
[2021-10-12] MEDS: Benzonatate 100 MG CAPSULE 200 MG PO ×2 (17:57→23:54)
[2021-10-12] MEDS: Cyclobenzaprine HCl 5 MG TABLET PO (21:06)
[2021-10-13] VITALS (10 sets, daily range): BP systolic 107–134; BP diastolic 55–74; PULSE 94–115; RESP 17–28; TEMP 36.1–38.9; O2SAT 93–100
--- NOTE | 2021-10-13 | CA_ITS ---
Transthoracic Echocardiogram Patient (Last, First, Middle): Gerry Guevara, Gender: Male Date of : 1955 Age: 66 Procedure Date: 10/13/2021 Procedure Type: Transthoracic [place] [facility] [place]: 170.18 cm Weight: 77.11 kg BSA: 1.89 m2 Heart Rate: bpm BP: 114 / 57 mmHg Watch Commander: LUIS Referring MD: Juan Lovell MD Symptoms: Septic emboli, bacteremia Study Quality: Fair ECG Rhythm: Sinus Conclusions: - Normal left ventricular size and systolic function. - Diastolic function is normal for age. - Normal right ventricular cavity size and systolic function. - Mild to moderate pulmonary hypertension is present. Findings Left Ventricle Normal left ventricular size and systolic function. The visually estimated ejection fraction is between 55-60%. Regional wall motion abnormalities can not be excluded due to suboptimal endocardial definition. Diastolic function is normal for age. Right Ventricle Normal right ventricular cavity size and systolic function. Atria The left atrium is normal in size. Aortic Valve The aortic valve was not well visualized. There is no aortic valve stenosis. There is no aortic valve regurgitation. Mitral Valve Likely normal mitral valve structure and function. There is no mitral valve regurgitation. There is no mitral valve stenosis. Pulmonic Valve The pulmonic valve was not well visualized. Tricuspid Valve Normal tricuspid valve structure and function. There is mild tricuspid valve regurgitation. Normal right atrial pressure. Mild to moderate pulmonary hypertension is present. Great Vessels All visible segments of the aorta are normal in size. Venous The inferior vena cava is normal in size and collapses greater than 50% with inspiration. Pericardium/Pleural There is no evidence of pericardial effusion. Prior Study Comparison No prior study available for comparison. Measurements 2D Linear Measurements IVSd: 1.05 0.6-0.9/0.6-1.0 cm LVIDd: 3.98 3.9-5.3/4.2-5.9 cm LVIDd Index: 2.11 2.4-3.2/2.2-3.1 cm/m2 LVIDs: 2.96 2.0-3.6 cm LVPWd: 1.10 0.7-1.1 cm Ao Root: 3.40 2.1-3.5 cm LA Diam: 3.80 2.7-3.8/3.0-4.0 cm LAIDs Index: 2.01 1.5-2.3 cm/m2 LV Mass: 173.99 67-162/88-224 g LV Mass Index: 92.06 43-95/49-115 g/m2 LVOT Diam: 2.10 3.0+(-)1.3 cm Mitral Valve MV Pk E: 0.55 MV PK A: 0.74 MV Decel Time: 148.00 E/A: 0.70 E'Lateral: 8.27 E'Medial: 6.31 E/E' Med: 8.70 E/E' Lat: 6.60 PHT: 43.00 MVA PHT: 5.12 Decel [place]: 3.71 Aortic Valve AoV Pk [place]: 1.08 AoV Mn [place]aka: 0.71 AoV VTI: 0.23 AoV Pk Grad: 5.00 Aov Mn Grad: 3.00 ARUNA Cont.VTI: 2.71 LVOT LVOT Pk [place]: 0.90 LVOT Mn [place]aka: 0.54 LVOT VTI: 0.18 LVOT Pk Grad: 3.00 LVOT Mn Grad: 2.00 LVOT Diam: 2.10 LVOT Area: 3.46 Diastolic Function MV Pk E: 0.55 MV Pk A: 0.74 E/A: 0.70 E'Medial: 6.31 E/E' Med: 8.70 E' Laterial: 8.27 E/E' Lat: 6.60 Tricuspid Valve TR Pk [place]aka: 3.33 TR Pk Grad: 44.00 RVSP: 47.00 Great Vessels Aorta Ao Root-2D: 3.40 2.0-3.7 cm Ao Asc: 3.20 2.1-3.4 cm Pulmonary Valve PV Pk Shaka: 0.86 Peak PV Grad: 3.00 Updated in Other Vendor System with Status of Final Stu Du MD electronically signed on 10/14/2021 4:22:21 PM with status of Final
[2021-10-13] MEDS: Lactated Ringers 1,000 ML 100 ML IVCONT (01:48)
[2021-10-13 07:20] LABS: Creatinine Clr Calc Pharmacy 113.5; Estimated Glomerular Filt Rate > 60
[2021-10-13] MEDS: predniSONE 10 MG TABLET PO (07:32)
[2021-10-13] MEDS: allopurinoL 300 MG TABLET PO (07:32)
[2021-10-13] MEDS: Famotidine 20 MG TABLET PO ×2 (07:32→21:00)
[2021-10-13] MEDS: Zinc Sulfate 220 MG CAPSULE PO (07:32)
[2021-10-13] MEDS: Ascorbic Acid 500 MG TABLET PO (07:32)
[2021-10-13] MEDS: 0.9 % Sodium Chloride Flush 3 ML SYRINGE IVFLUSH ×3 (07:32→21:01)
[2021-10-13] MEDS: Acetaminophen 325 MG TABLET 650 MG PO ×2 (07:52→23:34)
[2021-10-13] MEDS: Benzonatate 100 MG CAPSULE 200 MG PO ×3 (07:52→23:34)
--- NOTE | 2021-10-13 08:25 | MHC.CM.PN ---
Male 66 DX Covid+ No DC today. Patient continues to spike temps. The need for supplemental oxygen has increased to 14L. DP STR via BLS. He has a few facilities following for discharge.
[2021-10-13] MEDS: vancomycin HCL 1,000 MG in 0.9 % Sodium Chloride 250 ML 270 MG IV ×2 (11:04→23:36)
--- NOTE | 2021-10-13 11:53 | HO.PM.IMPN ---
Subjective Subjective Date of Service: 10/13/21 Interval History: F/u on acute hypoxic respiratory failure, he's been more hypoxic again and is presently on NRB and nascal canula, no more fever but persistent cough Review of Systems no fever persitent cough sob Physical Exam Vital Signs: Vital Signs: Last Vital Signs Temp 98.8 F 10/13/21 11:11 Pulse 115 H 10/13/21 11:33 Resp 28 H 10/13/21 07:56 BP 107/59 L 10/13/21 11:33 Pulse Ox 93 10/13/21 07:43 Oxygen Flow Rate 2 09/06/21 02:32 Body Mass Index 26.6 Const: Other: General: AO X 3, frail looking, no acute distress, looks more comfortable than overnight description, I will adjust Resp: talks in low voice, rhonchi throughout, no wheezes, no leg edema CVS: S1,S2,RRR, tachy GI: +BS, NT, no distention Skin: No rash Neuro: motor grossly intact Psych: depressed affect Objective Data Active Medications Acetaminophen (Acetaminophen 325 Mg Tablet) 650 mg PO Q6H PRN PRN Reason: Pain, Mild (Pain Scale 1-3) Last Admin: 10/13/21 07:52 Dose: 650 mg Documented by: EAD Allopurinol (Allopurinol 300 Mg Tablet) 300 mg PO DAILY [facility] Last Admin: 10/13/21 07:32 Dose: 300 mg Documented by: EDA Ascorbic Acid (Ascorbic Acid 500 Mg Tablet) 500 mg PO DAILY [facility] Last Admin: 10/13/21 07:32 Dose: 500 mg Documented by: EDA Benzonatate (Benzonatate 100 Mg Capsule) 100 mg PO TID PRN PRN Reason: Cough Last Admin: 10/11/21 17:00 Dose: 100 mg Documented by: KATLYN Benzonatate (Benzonatate 100 Mg Capsule) 200 mg PO TID PRN PRN Reason: Cough Last Admin: 10/13/21 07:52 Dose: 200 mg Documented by: EDA Cyclobenzaprine HCl (Cyclobenzaprine Hcl 5 Mg Tablet) 5 mg PO TID PRN PRN Reason: pain Last Admin: 10/12/21 21:06 Dose: 5 mg Documented by: KARTHIK Docusate Sodium (Docusate Sodium 100 Mg Capsule) 100 mg PO DAILY PRN PRN Reason: Constipation Enoxaparin Sodium (Enoxaparin Sodium 40 Mg/0.4 Ml Syringe) 40 mg SUBCUT Q24H [facility] Last Admin: 10/12/21 17:30 Dose: 40 mg Documented by: MANOJ Famotidine (Famotidine 20 Mg Tablet) 20 mg PO BID [facility] Last Admin: 10/13/21 07:32 Dose: 20 mg Documented by: EDA Levofloxacin (Levaquin) 750 mg in 150 mls @ 100 mls/hr IV Q24H [facility] Last Infusion: 10/12/21 19:00 Dose: 0 mls/hr Documented by: KARTHIK Vancomycin HCl 1,000 mg/ (Sodium Chloride) 270 mls @ 270 mls/hr IV Q12H [facility] Last Admin: 10/13/21 11:04 Dose: 270 mls/hr Documented by: EDA Morphine Sulfate (Morphine Sulfate 2 Mg/Ml Cartridge) 1 mg IVPUSH Q4H PRN; Protocol PRN Reason: Shortness of Breath Last Admin: 10/12/21 10:32 Dose: 1 mg Documented by: MANOJ Ondansetron HCl (Ondansetron Hcl 4 Mg/2 Ml Vial) 4 mg IVPUSH Q8H PRN PRN Reason: Nausea and Vomiting Pharmacy Consult (Consult Rx Perform Med Rec) 1 each MISCELLANE ONCE PRN PRN Reason: Consult order Pharmacy Consult (Consult Rx Vancomycin Dosing) 1 each MISCELLANE DAILY PRN PRN Reason: Consult order Prednisone (Prednisone 10 Mg Tablet) 10 mg PO DAILY [facility] Last Admin: 10/13/21 07:32 Dose: 10 mg Documented by: EDA Sodium Chloride (0.9 % Sodium Chloride Flush 3 Ml Syringe) 3 ml IVFLUSH QSHIFT [facility] Last Admin: 10/13/21 07:32 Dose: 3 ml Documented by: EDA Zinc Sulfate (Zinc Sulfate 220 Mg Capsule) 220 mg PO DAILY [facility] Last Admin: 10/13/21 07:32 Dose: 220 mg Documented by: EDA Labs CBC & Chem 7: 10/09/21 14:16 10/13/21 06:30 Labs: Laboratory Results - last 24 hr 10/13/21 10/13/21 06:30 10:08 Estim Creat Clear Calc 113.5 Estimated GFR > 60 Vancomycin Trough 6.0 L Microbiology Microbiology Results: Microbiology 10/11/21 05:23 Blood Culture - Preliminary Blood - Venous No growth after 48 hours. 10/11/21 05:23 Blood Culture - Preliminary Blood - Venous No growth after 48 hours. Assessment and Plan (1) Post covid-19 condition, unspecified: Status: Acute (2) Pseudomonal pneumonia: Status: Acute Assessment and Plan: hosp d [age]-year-old male past medical history of CLL admitted with acute hypoxic respiratory failure d/t? COVID-19 pneumonia with prolonged hospitalization with peristent syndrome and still + covid for covid, and apparently tested positive with covid 3 to 6 weeks prior to admission and fully vacccinated with Moderna vaccine and a booster, gram negative michela bacteremia 10/06 #Sepsis from pneumonia, bacteremia #Pseudomonas bacteremia likely from pneumonia -continue Levaquin D8 (sensitiv), Vancomycin added today 10/12 d/t fever--cultures so far negative -TTE to r/o vegetation -ID following -Pulmonology considering bronchoscopy #Acute hypoxic respiratory failure r/t prolonged post COVID symptoms -s/p treatment with broad spec IV antibiotics -Off High flow, now on 8-12 liters NC, oxygenating 94 to 98 -s/p IVIG 09/16 and 09/18, a third dose today 10/11 -wean prednisone, continue pepcid 20mg bid -being follow by Pulmonology and Hematology -Will likely need rehab but not yet ready for that -most recent covid of 10/09 was still positive #Sinus tachycardia--likely related to sepsis, and likely dedhydration this improved with IVF #Anxiety--continue Lorazepam #Left sided rib pain. likely from cough, seems better Continue pain management/ lidocaine patch #Chest pain--flat trops, no ischemia, no further w/u per card #thrombocytopenia. resolved. #elevated LFTs. trending down likely due to viral infection #history of CLL pt reports he is in remission being followed at [facility] is due for follow-up soon #gout continue allopurinol #hyperlipidemia--resolved. #Anemia--likely of chronic disease and related to CLL history full code dvt pptx, lovenox Updating on regular basis, last time today Quality Stroke Does the patient have a stroke diagnosis?: No VTE Prior VTE?: No VTE Risk Level:: Medical - moderate - high VTE Device Contraindication: Treatment Not Indicated VTE Drug Contraindication: N/A - Med Ordered
--- NOTE | 2021-10-13 12:49 | MHC.CDI.CONC ---
CDI Concurrent Query Documentation Clarification: PHYSICIAN'S DOCUMENTATION REQUEST Date of Query: 10/13/21 1249 Patient Name: Gerry Guevara Admit Date: 09/05/21 Dear Doctor, A review of the medical record indicates additional documentation may be needed. Please review below and update the documentation accordingly. Clinical Indicators: Risk Factors/Clinical Indicators/Treatments Wound assessment 10/03 - Pressure Injury Stage 2 left buttock. Increased nutrition risk due to pressure injury. Ensure supplements. Barrier cream. Frail looking, prolonged hospitalization. Please clarify based on the above if: Pressure ulcer Stage II left buttock Pressure Injury Stage II left buttock Other, etc. Unable to determine Use of terms such as suspected, likely, concern for, or probable (associated with a specific diagnosis that is being evaluated, monitored, or treated as if it exists) are acceptable and can be coded in the inpatient setting, when documented at the time of discharge. Thank you, Sharon Jasso [facility], CDIS Extension: [phone] Please use your independent medical judgment in providing your response. THIS QUERY IS PART OF THE PERMANENT MEDICAL RECORD Provider Response: Other Other Diagnosis: pressure ulcer left butocks
[2021-10-13] MEDS: Enoxaparin Sodium 40 MG/0.4 ML SYRINGE SUBCUT (13:51)
[2021-10-13] MEDS: Morphine Sulfate 2 MG/ML CARTRIDGE 1 MG IVPUSH (16:55)
[2021-10-13] MEDS: Cyclobenzaprine HCl 5 MG TABLET PO (23:35)
[2021-10-14] VITALS (8 sets, daily range): BP systolic 101–117; BP diastolic 54–60; PULSE 84–118; RESP 16–26; TEMP 36.1–37.1; O2SAT 97–100
--- NOTE | 2021-10-14 01:11 | PC.NURSE ---
pt c/o sob , sat 96% on 5L n/c new iv start #20 rh 1st stick - tolerated well. Lw iv removed - wouldn't flush. medicated with solumedrol iv as ordered with some relief and call to [facility] for rx. breo ellipta unavailable, pharmacy closed. notified Dr. Dawson & prn UDN ordered & given. melatonin 6mg po given for sleep.
[2021-10-14] MEDS: Morphine Sulfate 2 MG/ML CARTRIDGE 1 MG IVPUSH (02:10)
[2021-10-14 07:55] LABS: Creatinine Clr Calc Pharmacy 128.8; Estimated Glomerular Filt Rate > 60
[2021-10-14] MEDS: 0.9 % Sodium Chloride Flush 3 ML SYRINGE IVFLUSH ×2 (10:10→16:33)
[2021-10-14] MEDS: levoFLOXacin/D5W 750 MG/150 ML PIGGYBACK 100 MG IV (10:10)
[2021-10-14] MEDS: Benzonatate 100 MG CAPSULE PO (10:10)
[2021-10-14] MEDS: Ascorbic Acid 500 MG TABLET PO (10:11)
[2021-10-14] MEDS: Zinc Sulfate 220 MG CAPSULE PO (10:11)
[2021-10-14] MEDS: Famotidine 20 MG TABLET PO ×2 (10:11→23:32)
[2021-10-14] MEDS: allopurinoL 300 MG TABLET PO (10:11)
[2021-10-14] MEDS: predniSONE 10 MG TABLET PO (10:11)
[2021-10-14 11:37] LABS: Basophils Percent Auto 0.1 % (0-2); Hematocrit 24.7 % (42.0-52.0); Hemoglobin 7.8 g/dl (14.0-18.0); Imm Gran Abs Auto 0.14 X10*3/uL (0.00-0.03); Imm Gran Pct Auto 0.8 % (0.0-0.4); Lymphocytes Absolute Auto 0.4 X10*3/uL (1.2-4.9); MANUAL DIFF FLAG SCAN; Mean Corpuscular HGB Conc 31.6 g/dl (31.0-36.0); Mean Corpuscular Hemoglobin 29.4 pg (27.0-33.0); Mean Corpuscular Volume 93.2 fL (80.0-98.0); Monocytes Absolute Auto 0.2 X10*3/uL (0.1-1.2); Monocytes Percent Auto 1.2 % (2-11); Neutrophils Absolute Auto 17.4 x10*3/uL (2.0-8.3); Neutrophils Percent Auto 95.9 % (45-73); Platelet Count 152 X10*3/uL (160-400); Red Blood Count 2.65 X10*6/uL (4.60-5.80); Red Cell Distribution Width 16.8 % (11.0-16.0); SCAN SMEAR FLAG 1; White Blood Count 18.1 X10*3/uL (4.8-10.8)
[2021-10-14 11:39] LABS: VBG Base Excess 9.6 mmol/L; VBG HCO3 36 mmol/L (22-26); VBG pCO2 60 mmHg; VBG pH 7.38 (7.32-7.43); VBG pO2 29 mmHg
[2021-10-14 11:40] LABS: Venous Blood Gas Refer to POC result
[2021-10-14] MEDS: Enoxaparin Sodium 40 MG/0.4 ML SYRINGE SUBCUT (12:24)
[2021-10-14] MEDS: guaiFEN/Codeine SF 200/20/10ML 10 ML LIQUID PO (12:24)
[2021-10-14 12:25] LABS: SLIDE REVIEW VERIFIED
[2021-10-14] MEDS: vancomycin HCL 1,000 MG in 0.9 % Sodium Chloride 250 ML 270 MG IV (12:25)
[2021-10-14 12:53] LABS: B Type Natriuretic Peptide 62 pg/mL (<100)
[2021-10-14 13:10] LABS: Anion Gap 11 (12-20); Blood Urea Nitrogen 16 mg/dL (9-16); Calcium 8.3 mg/dL (8.4-10.2); Carbon Dioxide 33 mmol/L (22-29); Chloride 97 mmol/L (96-108); Creatinine Clr Calc Pharmacy 113.5; Estimated Glomerular Filt Rate > 60; Glucose Random 243 mg/dL (60-115); Potassium 3.8 mmol/L (3.3-5.1); Sodium 137 mmol/L (135-145)
--- NOTE | 2021-10-14 13:18 | PM.IDPN ---
Subjective Subjective Date of Service: 10/14/21 Critical Care Time (minutes): 15 Comment: he has no complaints Objective Data Labs CBC & Chem 7: 10/14/21 11:21 10/14/21 11:23 Labs: Laboratory Results - last 24 hr 10/14/21 10/14/21 10/14/21 05:50 11:21 11:23 WBC 18.1 H RBC 2.65 L Hgb 7.8 L Hct 24.7 L MCV 93.2 MCH 29.4 MCHC 31.6 RDW 16.8 H Plt Count 152 L D MPV 11.0 Immature Gran % (Auto) 0.8 H Neut % (Auto) 95.9 H Lymph % (Auto) 2.0 L [place] % (Auto) 1.2 L Eos % (Auto) 0.0 Baso % (Auto) 0.1 Lymph # (Auto) 0.4 L [place] # (Auto) 0.2 Eos # (Auto) 0.0 Baso # (Auto) 0.0 Abs Immat Gran (auto) 0.14 H Absolute Neuts (auto) 17.4 H Absolute Nucleated RBC 0.000 Nucleated RBC % (auto) 0.0 Smear Tech's Comments VERIFIED VBG pH VBG pCO2 VBG pO2 VBG HCO3 VBG O2 Saturation VBG Base Excess Sodium 137 Potassium 3.8 Chloride 97 Carbon Dioxide 33 H Anion Gap 11 L BUN 16 Creatinine 0.52 0.59 Estim Creat Clear Calc 128.8 113.5 Estimated GFR > 60 > 60 Random Glucose 243 H Calcium 8.3 L B-Natriuretic Peptide 10/14/21 10/14/21 11:23 11:33 WBC RBC Hgb Hct MCV MCH MCHC RDW Plt Count MPV Immature Gran % (Auto) Neut % (Auto) Lymph % (Auto) [place] % (Auto) Eos % (Auto) Baso % (Auto) Lymph # (Auto) [place] # (Auto) Eos # (Auto) Baso # (Auto) Abs Immat Gran (auto) Absolute Neuts (auto) Absolute Nucleated RBC Nucleated RBC % (auto) Smear Tech's Comments VBG pH 7.38 VBG pCO2 60 VBG pO2 29 VBG HCO3 36 H VBG O2 Saturation 37.0 VBG Base Excess 9.6 Sodium Potassium Chloride Carbon Dioxide Anion Gap BUN Creatinine Estim Creat Clear Calc Estimated GFR Random Glucose Calcium B-Natriuretic Peptide 62 Microbiology Microbiology Results: Microbiology 11/13/21 05:23 Blood - Venous Blood Culture - Preliminary No growth after 48 hours. 10/11/21 05:23 Blood - Venous Blood Culture - Preliminary No growth after 48 hours. 10/05/21 04:16 Blood - Venous Blood Culture - Final Pseudomonas aeruginosa 10/05/21 03:59 Blood - Venous Blood Culture - Final Pseudomonas aeruginosa 09/23/21 21:26 Blood - Venous Blood Culture - Final No growth after 5 days. 09/23/21 21:21 Blood - Venous Blood Culture - Final No growth after 5 days. 09/24/21 14:49 Sputum - Expectorated Gram Stain - Final 09/24/21 14:49 Sputum - Expectorated Sputum Culture - Final 09/05/21 18:43 Blood - Venous Blood Culture - Final No growth after 5 days. 09/05/21 18:43 Blood - Venous Blood Culture - Final No growth after 5 days. Physical Exam Vital Signs: Vital Signs: Last Vital Signs Temp 97.5 F 10/14/21 11:14 Pulse 117 H 10/14/21 11:14 Resp 26 H 10/14/21 11:14 BP 117/60 10/14/21 11:14 Pulse Ox 97 10/14/21 11:14 Oxygen Flow Rate 2 09/06/21 02:32 Body Mass Index 26.6 Const: General: cooperative Eyes: General: appearance normal, both eyes and all related structures Resp: Effort & Inspection: normal respiratory effort Cardio: Rate: regular rate Rhythm: regular rhythm GI: Palpation (GI): Soft to palpation and nontender Extrem: General: Yes normal to inspection Assessment and Plan Assessment and plan (1) Post covid-19 condition, unspecified: Problem details: He has been still feeling ill Pseudomonas Would give Levaquin 14 days ,finish 10/19 Voriconazole for 14 days ?occult aspergillosis lung post COVID Stop Vancomycin tomorrow if blood cultures negative (empiric,started yesterday) Status: Acute (2) Cavitary pneumonia: Status: Acute (3) Sepsis: Status: Acute Time Spent With Patient Time: Total time spent is greater than 50% in coordination of care (as documented) at patient's floor/unit and/or counseling patient: Time with patient: 15 - 24 minutes
--- NOTE | 2021-10-14 15:09 | PM.PNPUL ---
Subjective Subjective Date of Service: 10/14/21 Principal diagnosis: COVID PNEUMINA Interval history: 66-year-old gentleman with prolonged hospitalization secondary to subacute hypoxemia after recent COVID-19 infection, recovering very slowly, still with significant FiO2 requirements. Objective Data Labs CBC & Chem 7: 10/14/21 11:21 10/14/21 11:23 Labs: Laboratory Results - last 24 hr 10/14/21 10/14/21 10/14/21 05:50 11:21 11:23 WBC 18.1 H RBC 2.65 L Hgb 7.8 L Hct 24.7 L MCV 93.2 MCH 29.4 MCHC 31.6 RDW 16.8 H Plt Count 152 L D MPV 11.0 Immature Gran % (Auto) 0.8 H Neut % (Auto) 95.9 H Lymph % (Auto) 2.[address] [place] % (Auto) 1.2 L Eos % (Auto) 0.0 Baso % (Auto) 0.1 Lymph # (Auto) 0.[address] [place] # (Auto) 0.2 Eos # (Auto) 0.0 Baso # (Auto) 0.0 Abs Immat Gran (auto) 0.14 H Absolute Neuts (auto) 17.4 H Absolute Nucleated RBC 0.000 Nucleated RBC % (auto) 0.0 Smear Tech's Comments VERIFIED VBG pH VBG pCO2 VBG pO2 VBG HCO3 VBG O2 Saturation VBG Base Excess Sodium 137 Potassium 3.8 Chloride 97 Carbon Dioxide 33 H Anion Gap 11 L BUN 16 Creatinine 0.52 0.59 Estim Creat Clear Calc 128.8 113.5 Estimated GFR > 60 > 60 Random Glucose 243 H Calcium 8.3 L B-Natriuretic Peptide 10/14/21 10/14/21 11:23 11:33 WBC RBC Hgb Hct MCV MCH MCHC RDW Plt Count MPV Immature Gran % (Auto) Neut % (Auto) Lymph % (Auto) [place] % (Auto) Eos % (Auto) Baso % (Auto) Lymph # (Auto) [place] # (Auto) Eos # (Auto) Baso # (Auto) Abs Immat Gran (auto) Absolute Neuts (auto) Absolute Nucleated RBC Nucleated RBC % (auto) Smear Tech's Comments VBG pH 7.38 VBG pCO2 60 VBG pO2 29 VBG HCO3 36 H VBG O2 Saturation 37.0 VBG Base Excess 9.6 Sodium Potassium Chloride Carbon Dioxide Anion Gap BUN Creatinine Estim Creat Clear Calc Estimated GFR Random Glucose Calcium B-Natriuretic Peptide 62 Microbiology Microbiology Results: Microbiology 10/11/21 05:23 Blood - Venous Blood Culture - Preliminary No growth after 48 hours. 10/11/21 05:23 Blood - Venous Blood Culture - Preliminary No growth after 48 hours. 10/05/21 04:16 Blood - Venous Blood Culture - Final Pseudomonas aeruginosa 10/05/21 03:59 Blood - Venous Blood Culture - Final Pseudomonas aeruginosa 09/23/21 21:26 Blood - Venous Blood Culture - Final No growth after 5 days. 09/23/21 21:21 Blood - Venous Blood Culture - Final No growth after 5 days. 09/24/21 14:49 Sputum - Expectorated Gram Stain - Final 09/24/21 14:49 Sputum - Expectorated Sputum Culture - Final 09/05/21 18:43 Blood - Venous Blood Culture - Final No growth after 5 days. 09/05/21 18:43 Blood - Venous Blood Culture - Final No growth after 5 days. Review of Systems Cardiovascular: Denies chest pain at rest, Denies chest pain with activity and Reports dyspnea Respiratory: Reports cough, Reports dyspnea and Reports other (Greenish phlegm production) Physical Exam Vital Signs: Vital Signs: Last Vital Signs Temp 97.5 F 10/14/21 11:14 Pulse 117 H 10/14/21 11:14 Resp 26 H 10/14/21 11:14 BP 117/60 10/14/21 11:14 Pulse Ox 97 10/14/21 11:14 Oxygen Flow Rate 2 09/06/21 02:32 Body Mass Index 26.6 Const: General: no acute distress, alert, awake and ill appearing Nutritional Appearance: malnourished Eyes: Sclerae: sclerae normal EOM: EOMs intact bilaterally Neck: Neck: Yes no lymphadenopathy, Yes trachea midline and Yes supple Resp: Effort & Inspection: normal respiratory effort and no respiratory distress Auscultation: crackles (Diffuse bilateral) Cardio: Rate: regular rate Rhythm: regular rhythm Heart sounds: no gallops, no murmurs and no rubs GI: Palpation (GI): Soft to palpation and Other GI palpation findings present ( Nontender) Auscultation: normal bowel sounds Extrem: General: Yes no pedal edema, No clubbing and No cyanosis Procedures Date of Service Date of Service: 10/14/21 Assessment and Plan Assessment and plan (1) Post covid-19 condition, unspecified: Status: Acute (2) Cavitary pneumonia: Status: Acute (3) Acute respiratory failure with hypoxia: Status: Acute Assessment and Plan: Impression: 66-year-old gentleman with subacute prolonged hypoxemia after COVID-19 with very slow recovery. Significant deconditioning and protein calorie malnutrition. Possible opportunistic fungal superinfection. Recommendation: Beta-D glucan is pending, if elevated, agree with voriconazole as per ID recommendation. Continue to titrate down FiO2. Continue aggressive physical therapy. Continue protein supplementation. Time Spent With Patient Time: Total time spent is greater than 50% in coordination of care (as documented) at patient's floor/unit and/or counseling patient: Time with patient: 25 - 35 minutes Progress Note: Quality Stroke Does the patient have a stroke diagnosis?: No
[2021-10-14 15:47] LABS: Phosphorus 2.2 mg/dL (2.7-4.5)
--- NOTE | 2021-10-14 16:59 | HO.PM.IMPN ---
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 CVS regular rate rhythm, Respiratory lungs bilateral crackles, no respiratory distress, no wheeze, no use of accessory muscles Gastrointestinal abdomen soft, nontender, bowel sounds audible,no guarding , no rigidity. Extremities no edema. Neuro nonfocal Skin no rash Appropriate affect and insight Objective Data Active Medications Acetaminophen (Acetaminophen 325 Mg Tablet) 650 mg PO Q6H PRN PRN Reason: Pain, Mild (Pain Scale 1-3) Last Admin: 10/13/21 23:34 Dose: 650 mg Documented by: KARTHIK Allopurinol (Allopurinol 300 Mg Tablet) 300 mg PO DAILY [facility] Last Admin: 10/14/21 10:11 Dose: 300 mg Documented by: JOSÉ MANUEL Ascorbic Acid (Ascorbic Acid 500 Mg Tablet) 500 mg PO DAILY [facility] Last Admin: 10/14/21 10:11 Dose: 500 mg Documented by: JOSÉ MANUEL Benzonatate (Benzonatate 100 Mg Capsule) 100 mg PO TID PRN PRN Reason: Cough Last Admin: 10/14/21 10:10 Dose: 100 mg Documented by: TOMMYOIC Benzonatate (Benzonatate 100 Mg Capsule) 200 mg PO TID PRN PRN Reason: Cough Last Admin: 10/13/21 23:34 Dose: 200 mg Documented by: KARTHIK Cyclobenzaprine HCl (Cyclobenzaprine Hcl 5 Mg Tablet) 5 mg PO TID PRN PRN Reason: pain Last Admin: 10/13/21 23:35 Dose: 5 mg Documented by: KARTHIK Docusate Sodium (Docusate Sodium 100 Mg Capsule) 100 mg PO DAILY PRN PRN Reason: Constipation Enoxaparin Sodium (Enoxaparin Sodium 40 Mg/0.4 Ml Syringe) 40 mg SUBCUT Q24H [facility] Last Admin: 10/14/21 12:24 Dose: 40 mg Documented by: JOSÉ MANUEL Famotidine (Famotidine 20 Mg Tablet) 20 mg PO BID [facility] Last Admin: 10/14/21 10:11 Dose: 20 mg Documented by: JOSÉ MANUEL Guaifenesin (Guaifenesin La 600 Mg Tab.Er.12h) 600 mg PO BID [facility] Guaifenesin/Codeine Phosphate (Guaifen/Codeine Sf 200/20/10ml 10 Ml Liquid) 10 ml PO Q6H PRN PRN Reason: Cough Last Admin: 10/14/21 12:24 Dose: 10 ml Documented by: JOSÉ MANUEL Vancomycin HCl 1,000 mg/ (Sodium Chloride) 270 mls @ 270 mls/hr IV Q12H [facility] Last Infusion: 10/14/21 14:46 Dose: 0 mls/hr Documented by: JOSÉ MANUEL Levofloxacin (Levaquin) 750 mg in 150 mls @ 100 mls/hr IV Q24H [facility] Last Infusion: 10/14/21 12:42 Dose: 0 mls/hr Documented by: JOSÉ MANUEL Morphine Sulfate (Morphine Sulfate 2 Mg/Ml Cartridge) 1 mg IVPUSH Q4H PRN; Protocol PRN Reason: Shortness of Breath Last Admin: 10/14/21 02:10 Dose: 1 mg Documented by: KARTHIK Ondansetron HCl (Ondansetron Hcl 4 Mg/2 Ml Vial) 4 mg IVPUSH Q8H PRN PRN Reason: Nausea and Vomiting Pharmacy Consult (Consult Rx Perform Med Rec) 1 each MISCELLANE ONCE PRN PRN Reason: Consult order Pharmacy Consult (Consult Rx Vancomycin Dosing) 1 each MISCELLANE DAILY PRN PRN Reason: Consult order Sodium Chloride (0.9 % Sodium Chloride Flush 3 Ml Syringe) 3 ml IVFLUSH QSHIFT [facility] Last Admin: 10/14/21 16:33 Dose: 3 ml Documented by: JOSÉ MANUEL Voriconazole (Voriconazole 200 Mg Tablet) 200 mg PO Q12H [facility] Last Admin: 10/14/21 12:24 Dose: 200 mg Documented by: JOSÉ MANUEL Zinc Sulfate (Zinc Sulfate 220 Mg Capsule) 220 mg PO DAILY [facility] Last Admin: 10/14/21 10:11 Dose: 220 mg Documented by: JOSÉ MANUEL Labs CBC & Chem 7: 10/14/21 11:21 10/14/21 11:23 Labs: Laboratory Results - last 24 hr 10/14/21 10/14/21 10/14/21 05:50 11:21 11:23 MCV 93.2 MCH 29.4 MCHC 31.6 RDW 16.8 H Plt Count 152 L D MPV 11.0 Immature Gran % (Auto) 0.8 H Neut % (Auto) 95.9 H Lymph % (Auto) 2.0 L Elk % (Auto) 1.2 L Eos % (Auto) 0.0 Baso % (Auto) 0.1 Lymph # (Auto) 0.4 L Elk # (Auto) 0.2 Eos # (Auto) 0.0 Baso # (Auto) 0.0 Abs Immat Gran (auto) 0.14 H Absolute Neuts (auto) 17.4 H Absolute Nucleated RBC 0.000 Nucleated RBC % (auto) 0.0 Smear Tech's Comments VERIFIED VBG pH VBG pCO2 VBG pO2 VBG HCO3 VBG O2 Saturation VBG Base Excess Anion Gap 11 L Estim Creat Clear Calc 128.8 113.5 Estimated GFR > 60 > 60 Random Glucose 243 H Calcium 8.3 L Phosphorus 2.2 L B-Natriuretic Peptide 10/14/21 10/14/21 11:23 11:33 MCV MCH MCHC RDW Plt Count MPV Immature Gran % (Auto) Neut % (Auto) Lymph % (Auto) Elk % (Auto) Eos % (Auto) Baso % (Auto) Lymph # (Auto) Elk # (Auto) Eos # (Auto) Baso # (Auto) Abs Immat Gran (auto) Absolute Neuts (auto) Absolute Nucleated RBC Nucleated RBC % (auto) Smear Tech's Comments VBG pH 7.38 VBG pCO2 60 VBG pO2 29 VBG HCO3 36 H VBG O2 Saturation 37.0 VBG Base Excess 9.6 Anion Gap Estim Creat Clear Calc Estimated GFR Random Glucose Calcium Phosphorus B-Natriuretic Peptide 62 Assessment and Plan (1) Post covid-19 condition, unspecified: Status: Acute (2) Cavitary pneumonia: Status: Acute (3) Pseudomonal pneumonia: Status: Acute (4) Acute respiratory failure with hypoxia: Status: Acute Assessment and Plan: 66-year-old gentleman with subacute prolonged hypoxemia after COVID-19 with very slow recovery.? Significant deconditioning and protein calorie malnutrition.? Possible opportunistic fungal superinfection. Recommendation:? Beta-D glucan is pending, if elevated, agree with voriconazole as per ID recommendation.? Continue to titrate down FiO2.? Continue aggressive physical therapy.? Continue protein supplementation. He has been still feeling ill Pseudomonas 66-year-old male past medical history of CLL admitted with acute hypoxic respiratory failure d/t? COVID-19 pneumonia with prolonged hospitalization with peristent syndrome and still + covid for covid, and apparently tested positive with covid 3 to 6 weeks prior to admission and fully vacccinated with Moderna vaccine and a booster, gram negative michela bacteremia 10/06 #Sepsis from cavitary pneumonia, Pseudomonas bacteremia Persistent cough with sputum production no fevers, elevated WBC likely due to steroid continue Levaquin D08/12 (sensitiv), Vancomycin added on 10/12 d/t fever Will order TTE to r/o vegetation Patient seen by Dr. Lux, she recommend Levaquin for 14 days ending on 10/19 and Voriconazole for 14 days ?occult aspergillosis lung post COVID, she recommend to stop vancomycin if blood culture remains negative by tomorrow Case discussed with Dr. Orozco from pulmonology, he ordered Beta-D glucan reports pending, he recommend to titrate down FiO2., DC prednisone aggressive physical therapy and protein supplementation. Will add golf illness in [place] and as needed cough syrup with codeine, added Ensure t.i.d. #Acute hypoxic respiratory failure r/t prolonged post COVID symptoms -s/p treatment with broad spec IV antibiotics -Off High flow, now on -? liters NC, and non-rebreather, oxygenating 94 to 98 -s/p IVIG 09/16 and 09/18,? a third dose 10/11 CTA chest showed no PE continue pepcid 20mg bid most recent covid of 10/09 was still positive #Sinus tachycardia--likely related to sepsis, and likely dehydration, check echo #Anxiety--continue Lorazepam #Left sided rib pain. likely from cough,Continue pain management/ lidocaine patch #Chest pain--flat trops, no ischemia, no further w/u per card #thrombocytopenia. resolved. #elevated LFTs. trending down likely due to viral infection #history of CLL pt reports he is in remission being followed at [facility] is due for follow-up soon #gout continue allopurinol #hyperlipidemia--resolved. #Anemia--likely of chronic disease and related to CLL history full code dvt pptx, lovenox Quality Stroke Does the patient have a stroke diagnosis?: No VTE Prior VTE?: No VTE Risk Level:: Medical - moderate - high VTE Device Contraindication: Treatment Not Indicated VTE Drug Contraindication: N/A - Med Ordered
[2021-10-14 22:33] LABS: Vancomycin Trough 9.2 mcg/mL (10.0-20.0)
[2021-10-14] MEDS: guaiFENesin LA 600 MG TAB.ER.12H PO (23:32)
[2021-10-14] MEDS: vancomycin HCL 1,500 MG in 0.9 % Sodium Chloride 500 ML 333.33 MG IV (23:32)
[2021-10-15] VITALS (9 sets, daily range): BP systolic 97–141; BP diastolic 54–66; PULSE 98–115; RESP 16–20; TEMP 36.3–37.3; O2SAT 88–100
[2021-10-15] MEDS: guaiFEN/Codeine SF 200/20/10ML 10 ML LIQUID PO (01:30)
[2021-10-15] MEDS: 0.9 % Sodium Chloride Flush 3 ML SYRINGE IVFLUSH ×3 (01:32→15:39)
[2021-10-15 07:08] LABS: Creatinine Clr Calc Pharmacy 128.8; Estimated Glomerular Filt Rate > 60
[2021-10-15] MEDS: levoFLOXacin/D5W 750 MG/150 ML PIGGYBACK 100 MG IV (09:09)
[2021-10-15] MEDS: guaiFENesin LA 600 MG TAB.ER.12H PO ×2 (09:10→23:08)
[2021-10-15] MEDS: Zinc Sulfate 220 MG CAPSULE PO (09:10)
[2021-10-15] MEDS: Ascorbic Acid 500 MG TABLET PO (09:10)
[2021-10-15] MEDS: allopurinoL 300 MG TABLET PO (09:10)
[2021-10-15] MEDS: Famotidine 20 MG TABLET PO ×2 (09:10→23:08)
--- NOTE | 2021-10-15 12:30 | MHC.CM.PN ---
Per ROUNDS discussion, Patient is not yet medically cleared for dc(2 IV ABT and Antifungal). STR is the goal for dc and CM will follow for possible need to adjust the dc plan.
[2021-10-15] MEDS: vancomycin HCL 1,500 MG in 0.9 % Sodium Chloride 500 ML 333.33 MG IV (12:31)
--- NOTE | 2021-10-15 13:08 | MHC.CLN ---
Addendum entered by Pallavi Dempsey, LOWELL 10/15/21 13:59: AGREE WITH PROVIDER'S ASSESSMENT BELOW Original Note: F/U DIET RX: REGULAR-APPROPRIATE PO INTAKE VARIABLE DOCUMENTED 25% X 1 MEAL, 50-100% ALL OTHER MEALS 10/12-10/14 NSG REPORTS WOUND IS STAGE 1.5 - PREVIOUSLY STAGE II AND HEALING WELL PT IS RECEIVING ENSURE PLUS SUPPLEMENT TID TO PROVIDE 1050 KCALS AND 48 GRAMS PROTEIN CONTINUE TO MONITOR PO INTAKE
[2021-10-15] MEDS: Cyclobenzaprine HCl 5 MG TABLET PO (15:39)
[2021-10-15] MEDS: Morphine Sulfate 2 MG/ML CARTRIDGE 1 MG IVPUSH (15:39)
[2021-10-15] MEDS: Enoxaparin Sodium 40 MG/0.4 ML SYRINGE SUBCUT (15:40)
--- NOTE | 2021-10-15 16:25 | P.PNIM_ITS ---
Subjective Subjective Date of Service: 10/15/21 Interval History: Being followed for post COVID syndrome, patient feeling better this morning less cough and sputum production, oxygenation is stable 100% on 100% non-rebreather , no other acute issues overnight no fevers no chills, at bedside. 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 Neck? supple no JVD. CVS? regular rate rhythm, Resp iratory lungs bila teral crackles, no respiratory distr ess, no wheeze, no use of accessory muscles Gastrointe stinal abdomen sof t, nontender, huma l sounds audible,n o guarding , no ri gidity. Extremitie s no? edema. Neuro nonfocal Skin no rash Appropriate a ffect and insight Objective Data Active Medications Acetaminophen (Acetaminophen 325 Mg Tablet) 650 mg PO Q6H PRN PRN Reason: Pain, Mild (Pain Scale 1-3) Last Admin: 10/13/21 23:34 Dose: 650 mg Documented by: KARTHIK Allopurinol (Allopurinol 300 Mg Tablet) 300 mg PO DAILY [facility] Last Admin: 10/15/21 09:10 Dose: 300 mg Documented by: EDA Ascorbic Acid (Ascorbic Acid 500 Mg Tablet) 500 mg PO DAILY [facility] Last Admin: 10/15/21 09:10 Dose: 500 mg Documented by: EDA Cyclobenzaprine HCl (Cyclobenzaprine Hcl 5 Mg Tablet) 5 mg PO TID PRN PRN Reason: pain Last Admin: 10/15/21 15:39 Dose: 5 mg Documented by: EDA Docusate Sodium (Docusate Sodium 100 Mg Capsule) 100 mg PO DAILY PRN PRN Reason: Constipation Enoxaparin Sodium (Enoxaparin Sodium 40 Mg/0.4 Ml Syringe) 40 mg SUBCUT Q24H [facility] Last Admin: 10/15/21 15:40 Dose: 40 mg Documented by: EDA Famotidine (Famotidine 20 Mg Tablet) 20 mg PO BID [facility] Last Admin: 10/15/21 09:10 Dose: 20 mg Documented by: EDA Guaifenesin (Guaifenesin La 600 Mg Tab.Er.12h) 600 mg PO BID [facility] Last Admin: 10/15/21 09:10 Dose: 600 mg Documented by: EDA Guaifenesin/Codeine Phosphate (Guaifen/Codeine Sf 200/20/10ml 10 Ml Liquid) 10 ml PO Q6H PRN PRN Reason: Cough Last Admin: 10/15/21 01:30 Dose: 10 ml Documented by: LUIZA Levofloxacin (Levaquin) 750 mg in 150 mls @ 100 mls/hr IV Q24H [facility] Last Infusion: 10/15/21 12:39 Dose: 0 mls/hr Documented by: EDA Vancomycin HCl 1,500 mg/ (Sodium Chloride) 500 mls @ 333.333 mls/hr IV Q12H [facility] Last Infusion: 10/15/21 14:36 Dose: 0 mls/hr Documented by: EDA Morphine Sulfate (Morphine Sulfate 2 Mg/Ml Cartridge) 1 mg IVPUSH Q4H PRN; Protocol PRN Reason: Shortness of Breath Last Admin: 10/15/21 15:39 Dose: 1 mg Documented by: EDA Ondansetron HCl (Ondansetron Hcl 4 Mg/2 Ml Vial) 4 mg IVPUSH Q8H PRN PRN Reason: Nausea and Vomiting Pharmacy Consult (Consult Rx Perform Med Rec) 1 each MISCELLANE ONCE PRN PRN Reason: Consult order Pharmacy Consult (Consult Rx Vancomycin Dosing) 1 each MISCELLANE DAILY PRN PRN Reason: Consult order Sodium Chloride (0.9 % Sodium Chloride Flush 3 Ml Syringe) 3 ml IVFLUSH QSHIFT [facility] Last Admin: 10/15/21 15:39 Dose: 3 ml Documented by: EDA Voriconazole (Voriconazole 200 Mg Tablet) 200 mg PO Q12H [facility] Last Admin: 10/15/21 12:32 Dose: 200 mg Documented by: EDA Zinc Sulfate (Zinc Sulfate 220 Mg Capsule) 220 mg PO DAILY [facility] Last Admin: 10/15/21 09:10 Dose: 220 mg Documented by: EDA Labs CBC & Chem 7: 10/14/21 11:21 10/15/21 06:24 Labs: Laboratory Results - last 24 hr 10/14/21 10/15/21 22:04 06:24 Estim Creat Clear Calc 128.8 Estimated GFR > 60 Vancomycin Trough 9.2 L Assessment and Plan (1) Post covid-19 condition, unspecified: Status: Acute (2) Cavitary pneumonia: Status: Acute (3) Pseudomonal pneumonia: Status: Acute (4) Anxiety: Status: Acute Assessment and Plan: 66-year-old gentleman with subacute prolonged hypoxemia after COVID-19 with very slow recovery.? Significant deconditioning and protein calorie malnutrition.? Possible opportunistic fungal superinfection. Recommendation:? Beta-D glucan is pending, if elevated, agree with voriconazole as per ID recommendation.? Continue to titrate down FiO2.? Continue aggressive physical therapy.? Continue protein supplementation. He has been still feeling ill Pseudomonas 66-year-old male past medical history of CLL admitted with acute hypoxic re spiratory failure d/t? COVID-19 pneumonia with prolonged hospitalization with peristent syndrome and still + covid for covid, and apparently tested positive with covid 3 to 6 weeks prior to admission and fully vacccinated with Moderna vaccine and a booster, gram negative michela bacteremia 10/06 #Sepsis from cavitary pneumonia, Pseudomonas bacteremia ?Patient clinically looks better this morning with less cough and shortness of breath,no fevers, elevated WBC likely due to steroid ?continue Levaquin D1 (sensitiv), will DC vancomycin since blood cultures negative, added on 10/12 d/t fever ?Follow echocardiogram ?Patient seen by Dr. Lux, she recommend Levaquin for 14 days ending on 10/19 and Voriconazole for 14 days ?occult aspergillosis lung post COVID, ?Follow Beta-D glucan reports pending Continue Ensure supplements, cough expectorant and physical therapy #Acute hypoxic respiratory failure r/t prolonged post COVID symptoms -s/p treatment with broad spec IV antibiotics -Off High flow, now on non-rebreather, oxygenating 98 % will further wean down oxygen -s/p IVIG 09/16 and 09/18,? a third dose 10/11 ? CTA chest showed no PE ? continue pepcid 20mg bid ? most recent covid of 10/09 was still positive #Sinus tachycardia--likely related to sepsis, and likely dehydration, echo report pending #Anxiety--continue Lorazepam #Left sided rib pain. likely from cough,Continue pain management/ lidocaine patch #Chest pain--flat trops, no ischemia, no further w/u per card #thrombocytopenia. resolved. #elevated LFTs. trending down likely due to viral infection #history of CLL pt reports he is in remission being followed at [facility] is due for follow-up soon #gout continue allopurinol #hyperlipidemia--resolved. #Anemia--likely of chronic disease and related to CLL history full code dvt lety malone spoke with patient's at bedside and informed her regarding patient's current clinical condition and progress. Quality Stroke Does the patient have a stroke diagnosis?: No VTE Prior VTE?: No VTE Risk Level:: Medical - moderate - high VTE Device Contraindication: Treatment Not Indicated VTE Drug Contraindication: N/A - Med Ordered
[2021-10-15] MEDS: vancomycin HCL 1,500 MG in 0.9 % Sodium Chloride 500 ML 333.3 MG IV (23:08)
[2021-10-16] VITALS (18 sets, daily range): BP systolic 103–129; BP diastolic 50–68; PULSE 102–134; RESP 15–28; TEMP 36.8–38.3; O2SAT 90–99
[2021-10-16] MEDS: Zinc Sulfate 220 MG CAPSULE PO (08:42)
[2021-10-16] MEDS: allopurinoL 300 MG TABLET PO (08:42)
[2021-10-16] MEDS: Famotidine 20 MG TABLET PO (08:42)
[2021-10-16] MEDS: Sodium,Potassium Phosphates POWD.PACK 2 PACKET PO (08:42)
[2021-10-16] MEDS: Ascorbic Acid 500 MG TABLET PO (08:42)
[2021-10-16] MEDS: 0.9 % Sodium Chloride Flush 3 ML SYRINGE IVFLUSH (08:43)
[2021-10-16] MEDS: guaiFEN/Codeine SF 200/20/10ML 10 ML LIQUID PO (08:43)
[2021-10-16] MEDS: Morphine Sulfate 2 MG/ML CARTRIDGE 1 MG IVPUSH (08:43)
[2021-10-16] MEDS: guaiFENesin LA 600 MG TAB.ER.12H PO (08:43)
--- NOTE | 2021-10-16 08:43 | P.CDIC_ITS ---
CDI Concurrent Query Documentation Clarification: PHYSICIAN'S DOCUMENTATION REQUEST Date of Query: 10/16/21 0845 Patient Name: Gerry Guevara Admit Date: 09/05/21 Dear Doctor, A review of the medical record indicates additional documentation may be needed. Please review below and update the documentation accordingly. Clinical Indicators: Risk Factors/Clinical Indicators/Treatments PN: 10/15 - severe deconditioning, chronically ill appearing, protein calorie malnutrition. Albumin 2.4 protein supplements. ASPEN Criteria* Acute Illness Chronic Illness Clinical Characteristic Non-Severe (2 or more criteria present) Severe (2 or more criteria present) Non-Severe (2 or more criteria present) Severe (2 or more criteria present) Energy Intake <75% for >7 days <=50% for >=5 days <75% for >=1 month <=75% for >=1 month Weight Loss 1 week 1 ? 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 Thank you, Sharon Jasso [facility], CDIS Extension: [phone] Please use your independent medical judgment in providing your response. THIS QUERY IS PART OF THE PERMANENT MEDICAL RECORD Provider Response: Other Other Diagnosis: not present
[2021-10-16] MEDS: levoFLOXacin/D5W 750 MG/150 ML PIGGYBACK 100 MG IV (09:08)
[2021-10-16 09:48] LABS: Creatinine Clr Calc Pharmacy 119.6; Estimated Glomerular Filt Rate > 60
[2021-10-16 09:55] LABS: Vancomycin Trough 16.7 mcg/mL (10.0-20.0)
--- NOTE | 2021-10-16 10:39 | P.CDIC_ITS ---
CDI Concurrent Query Documentation Clarification: PHYSICIAN'S DOCUMENTATION REQUEST Date of Query: 10/16/21 1040 Patient Name: Gerry Guevara Admit Date: 09/05/21 Dear Doctor, A review of the medical record indicates additional documentation may be indicated. Please review below and update the documentation accordingly. Clinical Indicators: Risk Factors/Clinical Indicators/Treatments Wound assessment - 10/03 - Pressure Injury Stage 2 left buttock. Increased nutrition risk due to pressure injury. Ensure supplements. Barrier cream. Fail looking, prolonged hospitalization. Based on the above, could you please provide, in the Progress Notes, further information regarding the ulcer/wound: * Location of the ulcer/wound/injury, including laterality * Venous stasis ulcer * Arterial (ischemic) ulcer * Pressure (decubitus) ulcer * If a pressure ulcer, please also include the stage* of the ulcer: * Stage 1 - Skin intact, non-blanchable redness * Stage 2 - Partial thickness loss of dermis, includes intact or open blister * Stage 3 - Full thickness tissue not including bone, tendon, or muscle * Stage 4 - Full thickness tissue loss, including exposed bones, tendon, or muscle * Unstageable * Unable to determine *Source: National Pressure Ulcer Advisory Panel (NPUAP) Use of terms such as suspected, likely, concern for, or probable (associated with a specific diagnosis that is being evaluated, monitored, or treated as if it exists) are acceptable and can be coded in the inpatient setting, when documented at the time of discharge. Thank you, Sharon Jasso [facility], CDIS Extension: [phone] Please use your independent medical judgment in providing your response. THIS QUERY IS PART OF THE PERMANENT MEDICAL RECORD Provider Response: Other Other Diagnosis: stage 2 left buttock pressure injury
--- NOTE | 2021-10-16 10:39 | MHC.CDI.CONC ---
CDI Concurrent Query Documentation Clarification: PHYSICIAN'S DOCUMENTATION REQUEST Date of Query: 10/16/21 1040 Patient Name: Gerry Guevara Admit Date: 09/05/21 Dear Doctor, A review of the medical record indicates additional documentation may be indicated. Please review below and update the documentation accordingly. Clinical Indicators: Risk Factors/Clinical Indicators/Treatments Wound assessment - 10/03 - Pressure Injury Stage 2 left buttock. Increased nutrition risk due to pressure injury. Ensure supplements. Barrier cream. Fail looking, prolonged hospitalization. Based on the above, could you please provide, in the Progress Notes, further information regarding the ulcer/wound: Location of the ulcer/wound/injury, including laterality Venous stasis ulcer Arterial (ischemic) ulcer Pressure (decubitus) ulcer If a pressure ulcer, please also include the stage* of the ulcer: Stage 1 - Skin intact, non-blanchable redness Stage 2 - Partial thickness loss of dermis, includes intact or open blister Stage 3 - Full thickness tissue not including bone, tendon, or muscle Stage 4 - Full thickness tissue loss, including exposed bones, tendon, or muscle Unstageable Unable to determine *Source: National Pressure Ulcer Advisory Panel (NPUAP) Use of terms such as suspected, likely, concern for, or probable (associated with a specific diagnosis that is being evaluated, monitored, or treated as if it exists) are acceptable and can be coded in the inpatient setting, when documented at the time of discharge. Thank you, Sharon Jasso [facility], CDIS Extension: [phone] Please use your independent medical judgment in providing your response. THIS QUERY IS PART OF THE PERMANENT MEDICAL RECORD Provider Response: Other Other Diagnosis: stage 2 left buttock pressure injury
--- NOTE | 2021-10-16 10:51 | PC.NURSE ---
Skin/wound assessment completed. Patient has a healing stage 2 to left buttock, redness to buttocks. Triad applied to pressure injury covered with foam dressing. No other skin issues noted at this time.
[2021-10-16] MEDS: vancomycin HCL 1,500 MG in 0.9 % Sodium Chloride 500 ML 333.33 MG IV (12:47)
[2021-10-16] MEDS: Enoxaparin Sodium 40 MG/0.4 ML SYRINGE SUBCUT (14:48)
[2021-10-16 16:34] LABS: ABG Base Excess 17.4 mmol/L; ABG HCO3 46 mmol/L (22-26); ABG pH 7.28 (7.35-7.45); ABG pO2 73 mmHg (83-108)
[2021-10-16 16:35] LABS: ABG Refer to POC result
[2021-10-16 16:56] LABS: ABG pCO2 99 mmHg (32-45)
--- NOTE | 2021-10-16 17:12 | P.PNIM_ITS ---
Subjective Subjective Date of Service: 10/18/21 Interval History: Patient this morning was awake alert still on 100% non- rebreather, did not offer says complain of shortness of breath, did complain of cough with less sputum but later in the afternoon was vague and somnolent, noted to have finger oximetry 90% on 100% non-rebreather therefore ABGs were ordered. Review of Systems General no headache no dizziness no fever chills. CVS no chest pain, no palpitation. Respiratory cough productive of sputum, no respiratory distress Gastrointestinal no nausea no vomiting, no abdominal pain Review of Systems: Yes all other systems are reviewed and are negative Physical Exam Vital Signs: Vital Signs: Last Vital Signs Temp 99 F 10/16/21 15:56 Pulse 110 H 10/16/21 15:56 Resp 18 10/16/21 15:56 BP 108/58 L 10/16/21 15:56 Pulse Ox 90 L 10/16/21 15:56 Oxygen Flow Rate 2 09/06/21 02:32 Body Mass Index 26.6 General awake alert x3, at a.m. later in the afternoon became more somnolent,vague, frail / ill-appearing? Neck? supple no?JVD. CVS? regular?rate rhythm, Respiratory lungs bilateral crackles, no?respiratory distress, no wheeze, no?use of accessory muscles Gastrointestinal abdomen soft, nontender, bowel sounds audible,no guarding , no rigidity. Extremities mild pitting edema both lower extremities and left arm Neuro?nonfocal Skin no rash Objective Data Active Medications Acetaminophen (Acetaminophen 325 Mg Tablet) 650 mg PO Q6H PRN PRN Reason: Pain, Mild (Pain Scale 1-3) Last Admin: 10/13/21 23:34 Dose: 650 mg Documented by: KARTHIK Allopurinol (Allopurinol 300 Mg Tablet) 300 mg PO DAILY [facility] Last Admin: 10/16/21 08:42 Dose: 300 mg Documented by: JOSE GUADALUPE Ascorbic Acid (Ascorbic Acid 500 Mg Tablet) 500 mg PO DAILY [facility] Last Admin: 10/16/21 08:42 Dose: 500 mg Documented by: JOSE GUADALUPE Cyclobenzaprine HCl (Cyclobenzaprine Hcl 5 Mg Tablet) 5 mg PO TID PRN PRN Reason: pain Last Admin: 10/15/21 15:39 Dose: 5 mg Documented by: EDA Docusate Sodium (Docusate Sodium 100 Mg Capsule) 100 mg PO DAILY PRN PRN Reason: Constipation Enoxaparin Sodium (Enoxaparin Sodium 40 Mg/0.4 Ml Syringe) 40 mg SUBCUT Q24H [facility] Last Admin: 10/16/21 14:48 Dose: 40 mg Documented by: JOSE GUADALUPE Famotidine (Famotidine 20 Mg Tablet) 20 mg PO BID [facility] Last Admin: 10/16/21 08:42 Dose: 20 mg Documented by: JOSE GUADALUPE Guaifenesin (Guaifenesin La 600 Mg Tab.Er.12h) 600 mg PO BID [facility] Last Admin: 10/16/21 08:43 Dose: 600 mg Documented by: JOSE GUADALUPE Guaifenesin/Codeine Phosphate (Guaifen/Codeine Sf 200/20/10ml 10 Ml Liquid) 10 ml PO Q6H PRN PRN Reason: Cough Last Admin: 10/16/21 08:43 Dose: 10 ml Documented by: JOSE GUADALUPE Levofloxacin (Levaquin) 750 mg in 150 mls @ 100 mls/hr IV Q24H [facility] Last Infusion: 10/16/21 11:49 Dose: 0 mls/hr Documented by: JOSE GUADALUPE Morphine Sulfate (Morphine Sulfate 2 Mg/Ml Cartridge) 1 mg IVPUSH Q4H PRN; Protocol PRN Reason: Shortness of Breath Last Admin: 10/16/21 08:43 Dose: 1 mg Documented by: JOSE GUADALUPE Ondansetron HCl (Ondansetron Hcl 4 Mg/2 Ml Vial) 4 mg IVPUSH Q8H PRN PRN Reason: Nausea and Vomiting Pharmacy Consult (Consult Rx Perform Med Rec) 1 each MISCELLANE ONCE PRN PRN Reason: Consult order Pharmacy Consult (Consult Rx Vancomycin Dosing) 1 each MISCELLANE DAILY PRN PRN Reason: Consult order Sodium Chloride (0.9 % Sodium Chloride Flush 3 Ml Syringe) 3 ml IVFLUSH QSHIFT [facility] Last Admin: 10/16/21 08:43 Dose: 3 ml Documented by: JOSE GUADALUPE Voriconazole (Voriconazole 200 Mg Tablet) 200 mg PO Q12H [facility] Last Admin: 10/16/21 14:49 Dose: 200 mg Documented by: JOSE GUADALUPE Zinc Sulfate (Zinc Sulfate 220 Mg Capsule) 220 mg PO DAILY [facility] Last Admin: 10/16/21 08:42 Dose: 220 mg Documented by: JOSE GUADALUPE Labs CBC & Chem 7: 10/17/21 05:12 10/17/21 05:12 Labs: Laboratory Results - last 24 hr 10/16/21 10/16/21 10/16/21 09:15 09:15 16:26 O2 Saturation 92.0 ABG pH at Pt Temp 7.28 L ABG pCO2 at Pt Temp 99 H* ABG pO2 at Pt Temp 73 L ABG HCO3 46 H ABG Base Excess (Actual) 17.4 Estim Creat Clear Calc 119.6 Estimated GFR > 60 Vancomycin Trough 16.7 Microbiology Microbiology Results: Microbiology 10/11/21 05:23 Blood Culture - Final Blood - Venous No growth after 5 days. 10/11/21 05:23 Blood Culture - Final Blood - Venous No growth after 5 days. Assessment and Plan (1) Post covid-19 condition, unspecified: Status: Acute (2) Cavitary pneumonia: Status: Acute (3) Pseudomonal pneumonia: Status: Acute (4) Anxiety: Status: Acute (5) Tachycardia: Status: Acute Assessment and Plan: 66-year-old male past medical history of CLL admitted with acute hypoxic respiratory failure d/t? COVID-19 pneumonia with prolonged hospitalization with peristent syndrome and still + covid for covid, and apparently tested positive with covid 3 to 6 weeks prior to admission and fully vacccinated with Moderna vaccine and a booster, gram negative michela bacteremia 10/06 #Cardiac arrest due to acute respiratory failure related to prolonged post COVID symptoms/ cavitary pneumonia, Pseudomonas bacteremia ?Patient noted to be lethargic somnolent ,vague this afternoon on high-flow oxygen and nasal cannula therefore ABGs obtained prior to result of ABGs Code Blue was called since RN noted patient was desaturating monitor showed asystole patient was noted to be blue. 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 occult aspergillosis lung post COVID, on Ensure supplements, and cough expectorant ?Follow Beta-D glucan reports pending s/p IVIG 09/16 and 09/18,? a third dose 10/11 ? CTA chest showed no PE ? most recent covid of 10/09 was still positive #history of CLL as per patient he is in remission need outpatient follow-up with [facility]field full code dvt pptx, on lovenox called back spoke with her and updated her regarding patient's current clinical condition /intubation and his transfer to ICU all of her questions answered. Quality Stroke Does the patient have a stroke diagnosis?: No VTE Prior VTE?: No VTE Risk Level:: Medical - moderate - high VTE Device Contraindication: Treatment Not Indicated VTE Drug Contraindication: N/A - Med Ordered
[2021-10-16 18:00] LABS: Hematocrit 22.1 % (42.0-52.0); Mean Corpuscular HGB Conc 29.4 g/dl (31.0-36.0); Mean Corpuscular Hemoglobin 28.6 pg (27.0-33.0); Mean Corpuscular Volume 97.4 fL (80.0-98.0); Mean Platelet Volume 11.5 fL (9.4-12.4); NRBC Pct Auto 0.1 /100WBC (0.0-0.2); Platelet Count 241 X10*3/uL (160-400); Red Blood Count 2.27 X10*6/uL (4.60-5.80); Red Cell Distribution Width 17.5 % (11.0-16.0)
[2021-10-16] MEDS: propofoL 1,000 MG/100 ML VIAL 9.25 MG IVCONT (18:00)
[2021-10-16] MEDS: Albumin Human 25 % 100 ML IV ×2 (18:00→18:44)
[2021-10-16] MEDS: Ketamine HCl/NS 50 MG/5 ML SYRINGE 100 MG IVPUSH (18:02)
[2021-10-16 18:03] LABS: White Blood Count 30.9 X10*3/uL (4.8-10.8)
[2021-10-16 18:03] LABS: ABG Base Excess 11.7 mmol/L; ABG HCO3 40 mmol/L (22-26); ABG pCO2 79 mmHg (32-45); ABG pCO2 TC 81 mmHg (32-45); ABG pH TC 7.29 (7.35-7.45); ABG pO2 64 mmHg (83-108); ABG pO2 TC 67 (83-108)
[2021-10-16 18:04] LABS: Hemoglobin 6.5 g/dl (14.0-18.0)
[2021-10-16 18:06] LABS: VBG Base Excess 10.4 mmol/L; VBG HCO3 37 mmol/L (22-26); VBG pCO2 65 mmHg; VBG pH 7.36 (7.32-7.43); VBG pO2 70 mmHg
[2021-10-16 18:07] LABS: Alanine Aminotransferase 45 U/L (0-40); Alkaline Phosphatase 156 U/L (39-117); Anion Gap 14 (12-20); Aspartate Amino Transferase 73 U/L (5-37); Bilirubin Total 0.4 mg/dL (0.0-1.0); Blood Urea Nitrogen 18 mg/dL (9-16); Calcium 7.5 mg/dL (8.4-10.2); Carbon Dioxide 34 mmol/L (22-29); Chloride 97 mmol/L (96-108); Creatinine Clr Calc Pharmacy 98.5; Estimated Glomerular Filt Rate > 60; Glucose Random 251 mg/dL (60-115); Potassium 3.3 mmol/L (3.3-5.1); Sodium 142 mmol/L (135-145); Total Protein 4.1 g/dL (6.5-8.0)
[2021-10-16 18:10] LABS: Troponin-I High Sensitivity 30.2 ng/L (<3.5-35.0)
[2021-10-16 18:22] LABS: Lactic Acid 5.6 mmol/L (0.5-2.0)
[2021-10-16] MEDS: Ketamine HCl/NS 50 MG/5 ML SYRINGE IVPUSH (18:30)
[2021-10-16] MEDS: propofoL 200 MG/20 ML VIAL 20 MG IVPUSH (18:31)
[2021-10-16] MEDS: Ketamine HCl 500 MG in 0.9 % Sodium Chloride 250 ML 19.66 MG IVCONT (18:33)
--- NOTE | 2021-10-16 18:33 | W.PM.CCHP ---
Procedures Date of Service Date of Service: 10/16/21 Central Line Placement Right IJ: Central Line Comments: Right internal jugular triple-lumen central venous catheter emergently placed under ultrasound guidance and usual sterile conditions or with no immediate complications. Line position verified on chest x-ray.
[2021-10-16 18:34] LABS: Band Neutrophils Percent 8 % (3-5); Lymphocytes Absolute Manual 0.3 X10*3/uL (1.2-4.9); Lymphocytes Percent Manual 1 % (20-40); Monocytes Absolute Manual 0.6 X10*3/uL (0.1-1.2); Monocytes Percent Manual 2 % (2-11); Neutrophils Percent Manual 89 % (45-73)
[2021-10-16 18:39] LABS: RBC Morphology NOTED
[2021-10-16 18:41] LABS: Large Platelet PRESENT; Microcytosis 1+ (5-14) /OIF; Platelet Estimate NORMAL (NORMAL); Platelet Morphology Comment NOTED
[2021-10-16 18:42] LABS: Ovalocytes 1+ (5-14) /OIF
[2021-10-16 18:43] LABS: Stomatocytes 1+ (5-14) /OIF
[2021-10-16 18:44] LABS: Hypochromasia 2+ (15-30) /OIF; Toxic Granulation PRESENT; Toxic Vacuolation PRESENT
--- NOTE | 2021-10-16 18:46 | PM.CCPN ---
Subjective Subjective Date of Service: 10/16/21 Interval History: 66-year-old gentleman with underlying history of CLL prolonged hospitalization secondary to subacute hypoxemia after recent COVID-19 infection, failure to thrive, recovering very slowly, still with significant FiO2 requirements. At approximately 5:00 p.m. patient with PEA cardiac arrest, possibly secondary to aspiration, with CPR started right away. Patient with return of spontaneous circulation after 2 rounds of epinephrine, intubated during the CPR, transferred to intensive care unit. Copious amount of secretions on in-line suctioning thereafter. requiring placement of central venous access for vasopressor support. No elevation in troponin post CPR. Critical Care Time (minutes): 90 Physical Exam Vital Signs: Vital Signs: Last Vital Signs Temp 99 F 10/16/21 15:56 Pulse 110 H 10/16/21 15:56 Resp 18 10/16/21 15:56 BP 108/58 L 10/16/21 15:56 Pulse Ox 90 L 10/16/21 15:56 Oxygen Flow Rate 2 09/06/21 02:32 Body Mass Index 26.6 Const: General: no acute distress and other ( sedated on the vent) Nutritional Appearance: malnourished Eyes: Sclerae: sclerae normal EOM: EOMs intact bilaterally Neck: Neck: Yes no lymphadenopathy, Yes trachea midline and Yes supple Resp: Auscultation: crackles ( diffuse bilateral) Cardio: Rate: tachycardic Rhythm: regular rhythm Heart sounds: no gallops, no murmurs and no rubs GI: Palpation (GI): Soft to palpation and Other GI palpation findings present ( Nontender) Auscultation: normal bowel sounds Extrem: General: Yes no pedal edema, No clubbing and No cyanosis Objective Data Labs CBC & Chem 7: 10/16/21 17:40 10/16/21 17:40 Labs: Laboratory Results - last 24 hr 10/16/21 10/16/21 10/16/21 09:15 09:15 16:26 WBC RBC Hgb Hct MCV MCH MCHC RDW Plt Count MPV Immature Gran % (Auto) Neut % (Auto) Lymph % (Auto) Jackson % (Auto) Eos % (Auto) Baso % (Auto) Lymph # (Auto) Jackson # (Auto) Eos # (Auto) Baso # (Auto) Abs Immat Gran (auto) Absolute Neuts (auto) Absolute Nucleated RBC Nucleated RBC % (auto) Neutrophils % (Manual) Band Neutrophils % Lymphocytes % (Manual) Monocytes % (Manual) Abs Neuts (Manual) Lymphocytes # (Manual) Monocytes # (Manual) Toxic Granulation Toxic Vacuolation Platelet Estimate Large Platelets Plt Morphology Comment RBC Morphology Hypochromasia Microcytosis Ovalocytes Stomatocytes O2 Saturation 92.0 ABG pH at Pt Temp 7.28 L ABG pH (Temp Correct) ABG pCO2 at Pt Temp 99 H* ABG pCO2 (Temp Corrct ABG pO2 at Pt Temp 73 L ABG pO2 (Temp Correct ABG HCO3 46 H ABG Base Excess (Actual) 17.4 VBG pH VBG pCO2 VBG pO2 VBG HCO3 VBG O2 Saturation VBG Base Excess Sodium Potassium Chloride Carbon Dioxide Anion Gap BUN Creatinine 0.56 Estim Creat Clear Calc 119.6 Estimated GFR > 60 Random Glucose Lactic Acid Calcium Total Bilirubin AST ALT Alkaline Phosphatase Troponin I High Sens Total Protein Albumin Vancomycin Trough 16.7 Blood Type Crossmatch 10/16/21 10/16/21 10/16/21 17:40 17:40 17:40 WBC 30.9 H* RBC 2.27 L Hgb 6.5 L* Hct 22.1 L MCV 97.4 MCH 28.6 MCHC 29.4 L RDW 17.5 H Plt Count 241 D MPV 11.5 Immature Gran % (Auto) Cancelled Neut % (Auto) Cancelled Lymph % (Auto) Cancelled Jackson % (Auto) Cancelled Eos % (Auto) Cancelled Baso % (Auto) Cancelled Lymph # (Auto) Cancelled Jackson # (Auto) Cancelled Eos # (Auto) Cancelled Baso # (Auto) Cancelled Abs Immat Gran (auto) Cancelled Absolute Neuts (auto) Cancelled Absolute Nucleated RBC 0.040 H Nucleated RBC % (auto) 0.1 Neutrophils % (Manual) 89 H Band Neutrophils % 8 H Lymphocytes % (Manual) 1 L Monocytes % (Manual) 2 Abs Neuts (Manual) 30.0 H Lymphocytes # (Manual) 0.3 L Monocytes # (Manual) 0.6 Toxic Granulation PRESENT Toxic Vacuolation PRESENT Platelet Estimate NORMAL Large Platelets PRESENT Plt Morphology Comment NOTED RBC Morphology NOTED Hypochromasia 2+ (15-30) Microcytosis 1+ (5-14) Ovalocytes 1+ (5-14) Stomatocytes 1+ (5-14) O2 Saturation ABG pH at Pt Temp ABG pH (Temp Correct) ABG pCO2 at Pt Temp ABG pCO2 (Temp Corrct ABG pO2 at Pt Temp ABG pO2 (Temp Correct ABG HCO3 ABG Base Excess (Actual) VBG pH VBG pCO2 VBG pO2 VBG HCO3 VBG O2 Saturation VBG Base Excess Sodium 142 Potassium 3.3 Chloride 97 Carbon Dioxide 34 H Anion Gap 14 BUN 18 H Creatinine 0.68 Estim Creat Clear Calc 98.5 Estimated GFR > 60 Random Glucose 251 H Lactic Acid Calcium 7.5 L D Total Bilirubin 0.4 AST 73 H ALT 45 H Alkaline Phosphatase 156 H D Troponin I High Sens 30.2 Total Protein 4.1 L Albumin 2.0 L Vancomycin Trough Blood Type Crossmatch 10/16/21 10/16/21 10/16/21 17:55 17:56 18:01 WBC RBC Hgb Hct MCV MCH MCHC RDW Plt Count MPV Immature Gran % (Auto) Neut % (Auto) Lymph % (Auto) Jackson % (Auto) Eos % (Auto) Baso % (Auto) Lymph # (Auto) Jackson # (Auto) Eos # (Auto) Baso # (Auto) Abs Immat Gran (auto) Absolute Neuts (auto) Absolute Nucleated RBC Nucleated RBC % (auto) Neutrophils % (Manual) Band Neutrophils % Lymphocytes % (Manual) Monocytes % (Manual) Abs Neuts (Manual) Lymphocytes # (Manual) Monocytes # (Manual) Toxic Granulation Toxic Vacuolation Platelet Estimate Large Platelets Plt Morphology Comment RBC Morphology Hypochromasia Microcytosis Ovalocytes Stomatocytes O2 Saturation 89.0 ABG pH at Pt Temp 7.30 L ABG pH (Temp Correct) 7.29 L ABG pCO2 at Pt Temp 79 H* ABG pCO2 (Temp Corrct 81 H* ABG pO2 at Pt Temp 64 L ABG pO2 (Temp Correct 67 L ABG HCO3 40 H ABG Base Excess (Actual) 11.7 VBG pH 7.36 VBG pCO2 65 VBG pO2 70 VBG HCO3 37 H VBG O2 Saturation 93.0 VBG Base Excess 10.4 Sodium Potassium Chloride Carbon Dioxide Anion Gap BUN Creatinine Estim Creat Clear Calc Estimated GFR Random Glucose Lactic Acid 5.6 H* Calcium Total Bilirubin AST ALT Alkaline Phosphatase Troponin I High Sens Total Protein Albumin Vancomycin Trough Blood Type Crossmatch 10/16/21 18:15 WBC RBC Hgb Hct MCV MCH MCHC RDW Plt Count MPV Immature Gran % (Auto) Neut % (Auto) Lymph % (Auto) Jackson % (Auto) Eos % (Auto) Baso % (Auto) Lymph # (Auto) Jackson # (Auto) Eos # (Auto) Baso # (Auto) Abs Immat Gran (auto) Absolute Neuts (auto) Absolute Nucleated RBC Nucleated RBC % (auto) Neutrophils % (Manual) Band Neutrophils % Lymphocytes % (Manual) Monocytes % (Manual) Abs Neuts (Manual) Lymphocytes # (Manual) Monocytes # (Manual) Toxic Granulation Toxic Vacuolation Platelet Estimate Large Platelets Plt Morphology Comment RBC Morphology Hypochromasia Microcytosis Ovalocytes Stomatocytes O2 Saturation ABG pH at Pt Temp ABG pH (Temp Correct) ABG pCO2 at Pt Temp ABG pCO2 (Temp Corrct ABG pO2 at Pt Temp ABG pO2 (Temp Correct ABG HCO3 ABG Base Excess (Actual) VBG pH VBG pCO2 VBG pO2 VBG HCO3 VBG O2 Saturation VBG Base Excess Sodium Potassium Chloride Carbon Dioxide Anion Gap BUN Creatinine Estim Creat Clear Calc Estimated GFR Random Glucose Lactic Acid Calcium Total Bilirubin AST ALT Alkaline Phosphatase Troponin I High Sens Total Protein Albumin Vancomycin Trough Blood Type A Negative Crossmatch See Detail Microbiology Microbiology Results: Microbiology 10/11/21 05:23 Blood - Venous Blood Culture - Final No growth after 5 days. 10/11/21 05:23 Blood - Venous Blood Culture - Final No growth after 5 days. 10/05/21 04:16 Blood - Venous Blood Culture - Final Pseudomonas aeruginosa 10/05/21 03:59 Blood - Venous Blood Culture - Final Pseudomonas aeruginosa 09/23/21 21:26 Blood - Venous Blood Culture - Final No growth after 5 days. 09/23/21 21:21 Blood - Venous Blood Culture - Final No growth after 5 days. 09/24/21 14:49 Sputum - Expectorated Gram Stain - Final 09/24/21 14:49 Sputum - Expectorated Sputum Culture - Final 09/05/21 18:43 Blood - Venous Blood Culture - Final No growth after 5 days. 09/05/21 18:43 Blood - Venous Blood Culture - Final No growth after 5 days. Progress Note: A&P Assessment and plan (1) Cardiac arrest: Status: Acute (2) Pulmonary aspiration: Status: Acute (3) CLL (chronic lymphocytic leukemia): Status: Chronic (4) Hypogammaglobulinemia: Status: Acute (5) Post-COVID syndrome: Status: Acute (6) Acute respiratory failure with hypoxia: Status: Acute (7) Pancytopenia: Status: Acute Assessment and Plan: Assessment: 66-year-old gentleman with underlying CLL, with prolonged post COVID syndrome, failure to thrive, acute hypoxic respiratory failure with hospital course further complicated by PEA cardiac arrest on 10/16/2021, likely secondary to pulmonary aspiration Plan: Neuro: No acute issues. Cardiac: Shock status post PEA cardiac arrest, likely secondary to pulmonary aspiration with return of spontaneous circulation after 2 rounds of epinephrine. Troponin normal post code. Continue to titrate off vasopressors as tolerated. Pulmonary: Acute hypoxic respiratory failure secondary to prolonged post-COVID syndrome, likely pulmonary aspiration, intubated during the CPR. Continue to titrate off ventilatory support as tolerated. Renal: No acute issues. Endo: No acute issues. GI: No acute issues. ID: Possible Pseudomonas pneumonia, to finish 14 days of Levaquin. Infectious Disease service care appreciated Heme/Onc: underlying CLL with pancytopenia, now with subacute anemia. To transfuse 1 unit of packed red blood cells. Psych: No acute issues. Miscellaneous: No acute issues. Prophylaxis: Pneumatic compression Diet: nothing by mouth Critical care time spent: 90 minutes excluding separately billable procedures Quality Stroke Does the patient have a stroke diagnosis?: No VTE Prior VTE?: No VTE Risk Level:: Medical - moderate - high VTE Device Contraindication: Treatment Not Indicated VTE Drug Contraindication: N/A - Med Ordered
--- NOTE | 2021-10-16 18:57 | PC.NURSE ---
Post code blue on [facility]. Patient arrived to unit at 1715 via stretcher. Sedated with Propofol 20mg IVP & gtt. SBP down to 80's - Started on levophed gtt and maxed to 0.5mcg per Dr Aden. Propofol gtt turned off for hypotension. Ketamine 50mg IVP x3 administered - Ketamine gtt started at 0.5mcg. SBP 140's - levophed titrated down and propofol gtt restarted up to 25mcg. #8.0 ETT 25cm @ lip - AC 20/450/8/100. SPO2 mid 90's. HR 120's sinus. R IJ TLC placed by precision instrument maker. OGT placed. CXR obtained for placement. Labs obtained. Albumin 100cc x2 administered. RBC x1unit ordered and awaiting from blood bank. Family updated by . Handoff given to Juana DASILVA.
[2021-10-16 19:12] LABS: B Type Natriuretic Peptide 320 pg/mL (<100)
[2021-10-16] MEDS: propofoL 1,000 MG/100 ML VIAL 23.13 MG IVCONT (19:41)
[2021-10-16] MEDS: Cisatracurium Besylate 20 MG/10 ML VIAL 10 MG IVPUSH ×2 (19:42→22:08)
[2021-10-16 20:05] LABS: Reflex Lactate? Lactic Acid Added
--- NOTE | 2021-10-16 20:24 | PC.NURSE ---
Decompensation 1457: Went to assess pt and found him to be confused beyond a.m baseline; pt was asking for breakfast; immediately began checking his mentation and he AxOx2. Pt appeared pale and utilizing more accessory muscles; initiates some deep breathing exercise and he stated that he was just tired and had just woken up from a nap. was made aware of and she ordered some labs (ABG's). Within the hour labs were returned and critical; forwarded to MD, critical recorded. 1651: Pt saturations began dropping, sent OPERATIONS/DISPATCH to do a wellness check, after a few minutes pt became bradycardic and dyspenic; While preparing to go medicate pt, the monitors began beeping and AUTOMAT CAR ATTENDANT and I alerted to go to pT's room. He was found to be cyanotic, flaccid and unresponsive, immediately called a CODE and managed to put the patient back in bed with the help of my POD mate RN and OPERATIONS/DISPATCH then began immediate check for pulse and started compression and increased his O2. Pt had no pulse, continued compression and awaited all participants of the CODE per protocol pt belonging was packed and brought to ICU, made family aware. Report given to PRE WAVE ASSEMBLER following
[2021-10-16 20:45] LABS: VBG Base Excess 17.4 mmol/L; VBG HCO3 45 mmol/L (22-26); VBG pCO2 78 mmHg; VBG pH 7.36 (7.32-7.43); VBG pO2 73 mmHg
[2021-10-16 20:47] LABS: Venous Blood Gas Refer to POC result
[2021-10-16 21:01] LABS: ~Lactic Acid-LAB USE ONLY 2.5 mmol/L (0.5-2.0)
[2021-10-16] MEDS: Chlorhexidine Gluc Oral Rinse 15 ML MOUTHWASH BUCCAL (21:17)
[2021-10-16] MEDS: Potassium Chloride/H20 40 MEQ/100 ML PIGGYBACK 100 MEQ IV (21:17)
[2021-10-16] MEDS: Cisatracurium Besylate 100 MG in 0.9 % Sodium Chloride 40 ML IVCONT (22:26)
[2021-10-16 22:41] LABS: Reflex Lactate? 2 Y
[2021-10-16 22:54] LABS: Venous Blood Gas Refer to POC result
--- NOTE | 2021-10-16 22:54 | PC.NURSE ---
Assumed care of pt at 1900. Pt on vent AC settings. Peak pressures high, 56-60. Received nimbex 10 mg IV push X2 and then drip started at 2.5 mcg/kg/min. Suctioning thick ho sputum from ETT and orally. O2 sats 90-93%. Walsh cath inserted without complication. Cloudy urine 225 ml returned immediately and then 25-40 ml/hr since. Monitor shows ST, 110-120's. BP stable on Levophed at 0.5 mcg/kg/min. Good sedation effect on Propofol and ketamine drips. and sister to see pt. They were updated by STEPHANI Bundy.
[2021-10-16 23:12] LABS: Cancel Lactic Acid Canceled
[2021-10-17] VITALS (34 sets, daily range): BP systolic 60–117; BP diastolic 34–66; PULSE 96–127; RESP 20–24; TEMP 34–38.8; O2SAT 76–92
[2021-10-17] MEDS: Acetaminophen Oral Liquid 650 MG/20.3 ML SOLUTION PO (00:41)
[2021-10-17] MEDS: 0.9 % Sodium Chloride Flush 3 ML SYRINGE IVFLUSH (01:02)
[2021-10-17] MEDS: propofoL 1,000 MG/100 ML VIAL 23.13 MG IVCONT ×5 (01:32→17:59)
[2021-10-17] MEDS: Cisatracurium Besylate 100 MG in 0.9 % Sodium Chloride 40 ML 6.94 MG IVCONT ×2 (02:06→09:09)
[2021-10-17] MEDS: Furosemide 40 MG/4 ML VIAL IVPUSH (03:10)
--- NOTE | 2021-10-17 03:32 | PC.NURSE ---
Pt continues on AC vent settings but changes made per resp therapy/Raphael VORTEX OPERATOR. Now on nimbex drip for vent control. Train of four done and 4/4 twitches noted but peak pressures are down to 40's from 60. Levophed drip at 0.6 mcg/kg/min. Map > 65. Monitor shows sinus tachycardia, rate 120's. U/O low 0-20 ml/hr. VORTEX OPERATOR aware of low urine output and Lasix 40 mg IV ordered and given. Pt received one unit LRBC's last night. will recheck Hgb/Hct in am per VORTEX OPERATOR.
--- NOTE | 2021-10-17 04:34 | PC.NURSE ---
Bp dropped with MAP in 50's. Levo up to 0.7 mcg and Vasopressin added at 0.04 units/min. Temp up to 102 core. Cool spongebath given. Due for Tylenol at 0630. Monitor continues ST< 120's. O2 sat 91% on fio2 of 80%.
[2021-10-17 05:22] LABS: VBG Base Excess 5.5 mmol/L; VBG HCO3 34 mmol/L (22-26); VBG pCO2 79 mmHg; VBG pH 7.24 (7.32-7.43); VBG pO2 44 mmHg
[2021-10-17 05:47] LABS: Hematocrit 28.5 % (42.0-52.0); Hemoglobin 8.8 g/dl (14.0-18.0); Mean Corpuscular HGB Conc 30.9 g/dl (31.0-36.0); Mean Corpuscular Hemoglobin 29.4 pg (27.0-33.0); Mean Corpuscular Volume 95.3 fL (80.0-98.0); Mean Platelet Volume 11.1 fL (9.4-12.4); NRBC Pct Auto 0.2 /100WBC (0.0-0.2); Platelet Count 315 X10*3/uL (160-400); Red Blood Count 2.99 X10*6/uL (4.60-5.80); Red Cell Distribution Width 17.3 % (11.0-16.0)
--- NOTE | 2021-10-17 06:15 | PC.NURSE ---
Temp up to 102.2. Cool sponge bath given and pt put on cooling blanket. Bp stable on levo and vasopressin. Good sedation effect from propofol and ketamine. Good vent control from with nimbex. Only 22 ml of urine out after lasix. Monitor continues ST, rate 110's-120.
[2021-10-17 06:25] LABS: Alanine Aminotransferase 36 U/L (0-40); Albumin Level 2.7 g/dL (3.5-5.0); Alkaline Phosphatase 167 U/L (39-117); Anion Gap 15 (12-20); Aspartate Amino Transferase 58 U/L (5-37); Bilirubin Total 2.1 mg/dL (0.0-1.0); Blood Urea Nitrogen 26 mg/dL (9-16); Calcium 7.6 mg/dL (8.4-10.2); Carbon Dioxide 31 mmol/L (22-29); Chloride 101 mmol/L (96-108); Creatinine Clr Calc Pharmacy 60.9; Estimated Glomerular Filt Rate > 60; Glucose Random 165 mg/dL (60-115); Phosphorus 4.3 mg/dL (2.7-4.5); Potassium 4.3 mmol/L (3.3-5.1); Sodium 143 mmol/L (135-145); Total Protein 4.5 g/dL (6.5-8.0)
[2021-10-17 06:39] LABS: WBC ABN SCTR FOR CBC 1
[2021-10-17 06:40] LABS: White Blood Count 34.9 X10*3/uL (4.8-10.8)
[2021-10-17] MEDS: Ketamine HCl 500 MG in 0.9 % Sodium Chloride 250 ML 19.66 MG IVCONT (06:47)
[2021-10-17 06:51] LABS: Venous Blood Gas Refer to POC result
[2021-10-17 07:19] LABS: Band Neutrophils Percent 23 % (3-5); Lymphocytes Absolute Manual 1.7 X10*3/uL (1.2-4.9); Lymphocytes Percent Manual 5 % (20-40); Metamyelocytes Absolute 0.3 X10*3/uL; Metamyelocytes Percent 1 %; Monocytes Absolute Manual 0.3 X10*3/uL (0.1-1.2); Monocytes Percent Manual 1 % (2-11); Neutrophils Absolute Manual 32.5 X10*3/uL (2.0-8.3); Neutrophils Percent Manual 70 % (45-73); Nucleated Red Blood Cells 1 /100WBC (0-0)
[2021-10-17 07:25] LABS: Acanthocytes 1+ (0-2) /OIF; Basophilic Stippling 1+ (0-2) /OIF; Microcytosis 1+ (5-14) /OIF; Ovalocytes 1+ (5-14) /OIF; Platelet Estimate NORMAL (NORMAL); Platelet Morphology Comment NORMAL; Polychromasia 1+ (0-2) /OIF; RBC Morphology NOTED; Tear Drop Cells 1+ (0-2) /OIF
--- NOTE | 2021-10-17 07:36 | PHA.PROG ---
Admission Date/Time: September 05, 2021 23:01 Indication: Sepsis Weight in k.111 kg Adjusted body weight in Kg: [place] body weight in Kg: Obesity Dosing Indication % IBW: Serum Creatinine - Last 168 Hours 10/12/21 10/13/21 10/14/21 06:58 06:30 05:50 Creatinine 0.60 0.59 0.52 10/14/21 10/15/21 10/16/21 11:23 06:24 09:15 Creatinine 0.59 0.52 0.56 10/16/21 10/17/21 17:40 05:12 Creatinine 0.68 1.10 Estimated CrCl and GFR - Last 168 Hours 10/12/21 10/13/21 10/14/21 06:58 06:30 05:50 Estim Creat Clear Calc 111.6 113.5 128.8 Estimated GFR > 60 > 60 > 60 10/14/21 10/15/21 10/16/21 11:23 06:24 09:15 Estim Creat Clear Calc 113.5 128.8 119.6 Estimated GFR > 60 > 60 > 60 10/16/21 10/17/21 17:40 05:12 Estim Creat Clear Calc 98.5 60.9 Estimated GFR > 60 > 60 Vancomycin Loading Dose: Current Vancomycin Dosing Regimen: Changing vancomcyin dosing to 750 mg Q12H due to the change in Scr. The scr went from 0.68 to 1.10 overnight. Vancomycin Monitoring using AUC goal of 400 - 600 range with trough as surrogate marker: this new dosing regimen estimates a AUC of 455 and trough of 14.8. Date and Time for next Vancomycin Level to be drawn: 10/18 @ 0530 Vancomycin Trough 16.7 mcg/mL (10.0-20.0) 10/16/21 09:15 Pharmacist Comments on Vancomycin Plan: Vancomycin dosing will take advantage of [employer] as a clinical decision support tool that uses Bayesian modeling to calculate individual patient's pharmacokinetic parameters and forecast the patient's drug concentration time course with the target goal AUC 24 range of 400 - 600 mg/L/hr.
[2021-10-17] MEDS: vancomycin HCL 750 MG in 0.9 % Sodium Chloride 250 ML 265 MG IV (07:45)
[2021-10-17] MEDS: Chlorhexidine Gluc Oral Rinse 15 ML MOUTHWASH BUCCAL ×2 (08:29→15:31)
[2021-10-17] MEDS: levoFLOXacin/D5W 750 MG/150 ML PIGGYBACK 100 MG IV (08:29)
[2021-10-17] MEDS: Famotidine/PF 20 MG/2 ML VIAL IVPUSH (08:29)
[2021-10-17] MEDS: Albumin Human 25 % 100 ML IV ×2 (08:30→13:47)
--- NOTE | 2021-10-17 11:00 | ECHOL_ITS ---
INDICATIONS: S/P CARDIAC ARREST Conclusions: Normal LV and RV function. LV cavity is D-shaped pointing towards RV pressure and volume overload. Findings: Left ventricle is normal in size and function. The LV wall thickness is mildy increased. The left ventricular ejection fraction is 60-65%. There are no regional wall motion abnormalities. The LV cavity is D shaped in systole and diastole pointing she was right ventricular pressure and volume overload. Diastolic function is indeterminate. Mitral valve is normal in structure and function. Right ventricle is not well visualized. In limited views the RV function appears preserved. PASP is indeterminate. IVC is normal in size and does not collapse with respiration. Patient is intubated so cannot comment about the right atrial pressure. There is no pericardial effusion. HT: 5'9 WT: 145 BSA: 1.8 BP: 109/54 M-MODE/2D MEASUREMENTS: LVd: 3.5 LVs: 2.4 IVSd: 1.2 IVSs: 1.2 EF% 65-70% OTHER: Effusion: Thrombus: Wall Motion: MTDD
--- NOTE | 2021-10-17 11:58 | MHC.CLN ---
Addendum entered by Pallavi Dempsey, LOWELL 10/17/21 17:33: AGREE WITH PROVIDER'S ASSESSMENT BELOW Original Note: F/U PT WAS TRANSFERRED TO ICU FROM IMC PT IS INTUBATED AND SEDATED IF TUBE FEEDING NEEDED: RECOMMEND PROMOTE AT 65 ML/HOUR TO PROVIDE 1560 KCALS (2170 KCALS WITH SEDATION), 90 GRAMS PROTEIN AND 1208 CC FREE WATER FROM FORMULA NSG REPORTS WOUND IS HEALING WELL
[2021-10-17] MEDS: Enoxaparin Sodium 40 MG/0.4 ML SYRINGE SUBCUT (13:47)
--- NOTE | 2021-10-17 15:11 | PC.NURSE ---
Addendum entered by Chioma Mann RN 10/17/21 17:20: Nephro consulted. L IJ Temporary dialysis cath placed by [facility]. Jenny RN at bedside to started first round. Family at bedside. Original Note: Patient on 80% Fio2, Spo2 trending 88-91% beginning of shift. Peak pressures low 60's. Peep decreased from 5 to 3 by him manager. Cooling blanket off and removed at 99.0. Sinus tach 110's, no ectopy. Bedside echo completed - report pending. Continued on pressor support, MAPs maintaining >65. WBC up to 34.9 - BC obtaining. Unable to obtain sputum at this time. Started on Vano 750 BID and continued on Levaquin. Total urine output 25cc - MD aware. Spo2 slowly trending down and Fio2 requirements increasing throughout shift. Currently on 100% Fio2, Spo2 trending 78-83%. MD notified and at bedside. Nimbex turned off by MD. Peep increased to 5 by MD. CXR ordered. Pacer pads applied and lucus at bedside. Current vitals: HR 110, RR 20, BP 104/51, 77% on 100% Fio2. Family updated by .
--- NOTE | 2021-10-17 15:52 | MHC.CM.PN ---
Pt transferred to ICU following cardiac arrest with successful ROS after 2 rounds of CPR. Pt is intubated and on pressor support. Pt has had a very long stay: over 35 days following COVID infection. Pt is a full code at this time - original d/c plans were for a return to home with family support: this seems unlikely - should pt survive his illness, he will need extensive care and rehab services. CM will continue to follow.
--- NOTE | 2021-10-17 16:08 | P.CONNP_ITS ---
History of Present Illness Reason for Consult Consult date: 10/17/21 Reason for consult: SONYA Chief Complaint Chief complaint: CP, COVID 19 History of Present Illness Narrative: 66-year-old gentleman with underlying history of CLL prolonged hospitalization secondary to subacute hypoxemia after recent COVID-19 infection, failure to thrive, recovering very slowly, still with significant FiO2 requirements had PEA cardiac arrest yesterday evening , possibly secondary to aspiration, with CPR started? right away.? Patient with return of spontaneous circulation after 2 rounds of epinephrine, intubated during the CPR, transferred to intensive care unit.? Currently on vasopressor support, oligo anuric with hypervolemia and SONYA. Nephrology has been consulted to assist in his clinical care during his current hospital stay. Review of Systems Review of Systems Yes unobtainable due to endotracheal tube and Unobtainable due to mental condition PMFSH Past Medical History Medical History Cavitary pneumonia CLL (chronic lymphocytic leukemia) COVID-19 Gout Hyperlipidemia Hypogammaglobulinemia Pseudomonal pneumonia Family History Family history: reviewed and not pertinent Surgical History Surgical History No pertinent past surgical history Social History Social History Household Members: Spouse and Children Household Members Other:: & daughter Housing: House Do you presently have visiting nurse or other home services: No Patient Tobacco Use Status: Never used Tobacco Current occupational status: disabled Meds Allergies Allergy/AdvReac Type Severity Reaction Status Date / Time oxacillin Allergy Unknown Unknown Verified 09/05/21 18:16 Active Medications: Current Medications Acetaminophen (Acetaminophen Oral Liquid 650 Mg/20.3 Ml Solution) 650 mg PO Q6H PRN PRN Reason: Fever >101 Last Admin: 10/17/21 00:41 Dose: 650 mg Documented by: Chlorhexidine Gluconate (Chlorhexidine Gluc Oral Rinse 15 Ml Mouthwash) 15 ml BUCCAL TID [facility] Last Admin: 10/17/21 15:31 Dose: 15 ml Documented by: Enoxaparin Sodium (Enoxaparin Sodium 40 Mg/0.4 Ml Syringe) 40 mg SUBCUT Q24H [facility] Last Admin: 10/17/21 13:47 Dose: 40 mg Documented by: Famotidine (Famotidine/Pf 20 Mg/2 Ml Vial) 20 mg IVPUSH DAILY [facility] Last Admin: 10/17/21 08:29 Dose: 20 mg Documented by: Levofloxacin (Levaquin) 750 mg in 150 mls @ 100 mls/hr IV Q24H [facility] Last Infusion: 10/17/21 10:01 Dose: Infused Documented by: Propofol (Diprivan) 1,000 mg in 100 mls @ 0 mls/hr IVCONT .Q0M [facility]; Protocol Last Admin: 10/17/21 13:30 Dose: 50 mcg/kg/min, 23.13 mls/hr Documented by: Norepinephrine Bitartrate (Levophed) 8 mg in 250 mls @ 0 mls/hr IVCONT .Q0M [facility]; Protocol Last Admin: 10/17/21 15:53 Dose: 0.8 mcg/kg/min, 115.67 mls/hr Documented by: Ketamine HCl 500 mg/ Sodium (Chloride) 255 mls @ 19.663 mls/hr IVCONT .[id number] [facility] Last Admin: 10/17/21 06:47 Dose: 0.5 mg/kg/hr, 19.66 mls/hr Documented by: Cisatracurium Besylate 100 mg/ (Sodium Chloride) 50 mls @ 4.627 mls/hr IVCONT .[id number] [facility]; Protocol Last Infusion: 10/17/21 15:10 Dose: 0 mcg/kg/min, 0 mls/hr Documented by: Vasopressin 20 unit/ Sodium (Chloride) 101 mls @ 12.12 mls/hr IVCONT .[id number] [facility] Last Admin: 10/17/21 12:16 Dose: 0.04 unit/min, 12.12 mls/hr Documented by: Vancomycin HCl 750 mg/ Sodium (Chloride) 265 mls @ 265 mls/hr IV Q12H [facility] Last Infusion: 10/17/21 08:57 Dose: Infused Documented by: Albumin Human (Kedbumin 25 %) 100 mls @ 100 mls/hr IV Q6H [facility] Stop: 10/18/21 03:29 Last Infusion: 10/17/21 14:49 Dose: Infused Documented by: Ondansetron HCl (Ondansetron Hcl 4 Mg/2 Ml Vial) 4 mg IVPUSH Q8H PRN PRN Reason: Nausea and Vomiting Pharmacy Consult (Consult Rx Vancomycin Dosing) 1 each MISCELLANE DAILY PRN PRN Reason: Consult order Sodium Chloride (0.9 % Sodium Chloride Flush 3 Ml Syringe) 3 ml IVFLUSH QSHIFT [facility] Last Admin: 10/17/21 15:31 Dose: Not Given Documented by: Home Medications Medication Instructions Recorded Confirmed Last Taken Type allopurinol 300 mg tablet 1 tab PO DAILY 09/05/21 09/05/21 09/04/21 History rosuvastatin 40 mg tablet 1 tab PO DAILY 09/05/21 09/05/21 09/04/21 History Physical Exam Vital Signs: Last Vital Signs Temp 96.3 F L 10/17/21 13:00 Pulse 109 H 10/17/21 15:00 Resp 20 10/17/21 15:00 BP 96/52 L 10/17/21 15:00 Pulse Ox 80 L 10/17/21 15:00 Oxygen Flow Rate 2 09/06/21 02:32 Body Mass Index 26.6 Const Other: Intubated Neck Neck: Yes supple Resp Auscultation: diminished lung sounds Cardio Rate: regular rate GI Palpation (GI): Soft to palpation Neuro Other: Sedated Results Lab Results Result Diagrams: 10/17/21 05:12 10/17/21 05:12 Lab results: Chemistry 10/15/21 10/16/21 10/16/21 06:24 09:15 17:40 Sodium 142 Potassium 3.3 Carbon Dioxide 34 H BUN 18 H Creatinine 0.52 0.56 0.68 Calcium 7.5 L D Phosphorus 10/17/21 05:12 Sodium 143 Potassium 4.3 D Carbon Dioxide 31 H BUN 26 H Creatinine 1.10 Calcium 7.6 L Phosphorus 4.3 Hematology 10/16/21 10/17/21 17:40 05:12 WBC 30.9 H* 34.9 H* Hgb 6.5 L* 8.8 L D Plt Count 241 D 315 D Assessment and Plan (1) SONYA (acute kidney injury): Status: Acute SONYA due to tubular injury Currently profoundly oligo anuric and hypervolemic Shall ultrafiltrate today. No indication for HD now Continue rest of current supportive care Shall closely follow along Procedures Date of Service Date of Service: 10/17/21
--- NOTE | 2021-10-17 17:03 | PM.CCPN ---
Subjective Subjective Date of Service: 10/17/21 Interval History: 66-year-old gentleman with underlying history of CLL prolonged hospitalization secondary to subacute hypoxemia after recent COVID-19 infection, failure to thrive, recovering very slowly, still with significant FiO2 requirements. At approximately 5:00 p.m. patient with PEA cardiac arrest, possibly secondary to aspiration, with CPR started right away. Patient with return of spontaneous circulation after 2 rounds of epinephrine, intubated during the CPR, transferred to intensive care unit. Copious amount of secretions on in-line suctioning thereafter. requiring placement of central venous access for vasopressor support. No elevation in troponin post CPR. Overnight with increasing FiO2 requirements. Now on maximum ventilator support. Also, with development of worsening pulmonary edema secondary to ATN and oliguria. Critical Care Time (minutes): 60 Physical Exam Vital Signs: Vital Signs: Last Vital Signs Temp 96.1 F L 10/17/21 16:00 Pulse 110 H 10/17/21 16:00 Resp 20 10/17/21 16:00 BP 110/53 L 10/17/21 16:00 Pulse Ox 82 L 10/17/21 16:00 Oxygen Flow Rate 2 09/06/21 02:32 Body Mass Index 26.6 Const: General: no acute distress and other ( sedated on the vent) Eyes: Sclerae: sclerae normal EOM: EOMs intact bilaterally Neck: Neck: Yes no lymphadenopathy, Yes trachea midline and Yes supple Resp: Auscultation: crackles ( diffuse bilateral) Cardio: Rate: tachycardic Rhythm: regular rhythm Heart sounds: no gallops, no murmurs and no rubs GI: Palpation (GI): Soft to palpation and Other GI palpation findings present ( Nontender) Auscultation: normal bowel sounds Extrem: General: No clubbing, No cyanosis and Yes pedal edema ( 1+ bilateral) Objective Data Labs CBC & Chem 7: 10/17/21 05:12 10/17/21 05:12 Labs: Laboratory Results - last 24 hr 10/16/21 10/16/21 10/16/21 17:40 17:40 17:40 WBC 30.9 H* RBC 2.27 L Hgb 6.5 L* Hct 22.1 L MCV 97.4 MCH 28.6 MCHC 29.4 L RDW 17.5 H Plt Count 241 D MPV 11.5 Immature Gran % (Auto) Cancelled Neut % (Auto) Cancelled Lymph % (Auto) Cancelled [place] % (Auto) Cancelled Eos % (Auto) Cancelled Baso % (Auto) Cancelled Lymph # (Auto) Cancelled [place] # (Auto) Cancelled Eos # (Auto) Cancelled Baso # (Auto) Cancelled Abs Immat Gran (auto) Cancelled Absolute Neuts (auto) Cancelled Absolute Nucleated RBC 0.040 H Nucleated RBC % (auto) 0.1 Neutrophils % (Manual) 89 H Band Neutrophils % 8 H Lymphocytes % (Manual) 1 L Monocytes % (Manual) 2 Metamyelocytes % Abs Neuts (Manual) 30.0 H Lymphocytes # (Manual) 0.3 L Monocytes # (Manual) 0.6 Metamyelocytes # Nucleated RBCs Toxic Granulation PRESENT Toxic Vacuolation PRESENT Platelet Estimate NORMAL Large Platelets PRESENT Plt Morphology Comment NOTED RBC Morphology NOTED Polychromasia Hypochromasia 2+ (15-30) Basophilic Stippling Microcytosis 1+ (5-14) Tear Drop Cells Ovalocytes 1+ (5-14) Stomatocytes 1+ (5-14) Acanthocytes (Spur) Smear Path Review SEE NOTE O2 Saturation ABG pH at Pt Temp ABG pH (Temp Correct) ABG pCO2 at Pt Temp ABG pCO2 (Temp Corrct ABG pO2 at Pt Temp ABG pO2 (Temp Correct ABG HCO3 ABG Base Excess (Actual) VBG pH VBG pCO2 VBG pO2 VBG HCO3 VBG O2 Saturation VBG Base Excess Sodium 142 Potassium 3.3 Chloride 97 Carbon Dioxide 34 H Anion Gap 14 BUN 18 H Creatinine 0.68 Estim Creat Clear Calc 98.5 Estimated GFR > 60 Random Glucose 251 H Lactic Acid Lactic Acid Fup @ 2Hr Calcium 7.5 L D Phosphorus Magnesium Total Bilirubin 0.4 AST 73 H ALT 45 H Alkaline Phosphatase 156 H D Troponin I High Sens 30.2 B-Natriuretic Peptide 320 H Total Protein 4.1 L Albumin 2.0 L Blood Type Antibody Screen Crossmatch 10/16/21 10/16/21 10/16/21 17:55 17:56 18:01 WBC RBC Hgb Hct MCV MCH MCHC RDW Plt Count MPV Immature Gran % (Auto) Neut % (Auto) Lymph % (Auto) [place] % (Auto) Eos % (Auto) Baso % (Auto) Lymph # (Auto) [place] # (Auto) Eos # (Auto) Baso # (Auto) Abs Immat Gran (auto) Absolute Neuts (auto) Absolute Nucleated RBC Nucleated RBC % (auto) Neutrophils % (Manual) Band Neutrophils % Lymphocytes % (Manual) Monocytes % (Manual) Metamyelocytes % Abs Neuts (Manual) Lymphocytes # (Manual) Monocytes # (Manual) Metamyelocytes # Nucleated RBCs Toxic Granulation Toxic Vacuolation Platelet Estimate Large Platelets Plt Morphology Comment RBC Morphology Polychromasia Hypochromasia Basophilic Stippling Microcytosis Tear Drop Cells Ovalocytes Stomatocytes Acanthocytes (Spur) Smear Path Review O2 Saturation 89.0 ABG pH at Pt Temp 7.30 L ABG pH (Temp Correct) 7.29 L ABG pCO2 at Pt Temp 79 H* ABG pCO2 (Temp Corrct 81 H* ABG pO2 at Pt Temp 64 L ABG pO2 (Temp Correct 67 L ABG HCO3 40 H ABG Base Excess (Actual) 11.7 VBG pH 7.36 VBG pCO2 65 VBG pO2 70 VBG HCO3 37 H VBG O2 Saturation 93.0 VBG Base Excess 10.4 Sodium Potassium Chloride Carbon Dioxide Anion Gap BUN Creatinine Estim Creat Clear Calc Estimated GFR Random Glucose Lactic Acid 5.6 H* Lactic Acid Fup @ 2Hr Calcium Phosphorus Magnesium Total Bilirubin AST ALT Alkaline Phosphatase Troponin I High Sens B-Natriuretic Peptide Total Protein Albumin Blood Type Antibody Screen Crossmatch 10/16/21 10/16/21 10/16/21 18:15 20:37 20:39 WBC RBC Hgb Hct MCV MCH MCHC RDW Plt Count MPV Immature Gran % (Auto) Neut % (Auto) Lymph % (Auto) [place] % (Auto) Eos % (Auto) Baso % (Auto) Lymph # (Auto) [place] # (Auto) Eos # (Auto) Baso # (Auto) Abs Immat Gran (auto) Absolute Neuts (auto) Absolute Nucleated RBC Nucleated RBC % (auto) Neutrophils % (Manual) Band Neutrophils % Lymphocytes % (Manual) Monocytes % (Manual) Metamyelocytes % Abs Neuts (Manual) Lymphocytes # (Manual) Monocytes # (Manual) Metamyelocytes # Nucleated RBCs Toxic Granulation Toxic Vacuolation Platelet Estimate Large Platelets Plt Morphology Comment RBC Morphology Polychromasia Hypochromasia Basophilic Stippling Microcytosis Tear Drop Cells Ovalocytes Stomatocytes Acanthocytes (Spur) Smear Path Review O2 Saturation ABG pH at Pt Temp ABG pH (Temp Correct) ABG pCO2 at Pt Temp ABG pCO2 (Temp Corrct ABG pO2 at Pt Temp ABG pO2 (Temp Correct ABG HCO3 ABG Base Excess (Actual) VBG pH 7.36 VBG pCO2 78 VBG pO2 73 VBG HCO3 45 H VBG O2 Saturation 95.0 VBG Base Excess 17.4 Sodium Potassium Chloride Carbon Dioxide Anion Gap BUN Creatinine Estim Creat Clear Calc Estimated GFR Random Glucose Lactic Acid Lactic Acid Fup @ 2Hr 2.5 H* Calcium Phosphorus Magnesium Total Bilirubin AST ALT Alkaline Phosphatase Troponin I High Sens B-Natriuretic Peptide Total Protein Albumin Blood Type A Negative Antibody Screen NEGATIVE Crossmatch See Detail 10/17/21 10/17/21 10/17/21 05:12 05:12 05:16 WBC 34.9 H* RBC 2.99 L D Hgb 8.8 L D Hct 28.5 L D MCV 95.3 MCH 29.4 MCHC 30.9 L RDW 17.3 H Plt Count 315 D MPV 11.1 Immature Gran % (Auto) Cancelled Neut % (Auto) Cancelled Lymph % (Auto) Cancelled [place] % (Auto) Cancelled Eos % (Auto) Cancelled Baso % (Auto) Cancelled Lymph # (Auto) Cancelled [place] # (Auto) Cancelled Eos # (Auto) Cancelled Baso # (Auto) Cancelled Abs Immat Gran (auto) Cancelled Absolute Neuts (auto) Cancelled Absolute Nucleated RBC 0.060 H Nucleated RBC % (auto) 0.2 Neutrophils % (Manual) 70 Band Neutrophils % 23 H Lymphocytes % (Manual) 5 L Monocytes % (Manual) 1 L Metamyelocytes % 1 Abs Neuts (Manual) 32.5 H Lymphocytes # (Manual) 1.7 Monocytes # (Manual) 0.3 Metamyelocytes # 0.3 Nucleated RBCs 1 H Toxic Granulation Toxic Vacuolation Platelet Estimate NORMAL Large Platelets Plt Morphology Comment NORMAL RBC Morphology NOTED Polychromasia 1+ (0-2) Hypochromasia Basophilic Stippling 1+ (0-2) Microcytosis 1+ (5-14) Tear Drop Cells 1+ (0-2) Ovalocytes 1+ (5-14) Stomatocytes Acanthocytes (Spur) 1+ (0-2) Smear Path Review O2 Saturation ABG pH at Pt Temp ABG pH (Temp Correct) ABG pCO2 at Pt Temp ABG pCO2 (Temp Corrct ABG pO2 at Pt Temp ABG pO2 (Temp Correct ABG HCO3 ABG Base Excess (Actual) VBG pH 7.24 L VBG pCO2 79 VBG pO2 44 VBG HCO3 34 H VBG O2 Saturation 66.0 VBG Base Excess 5.5 Sodium 143 Potassium 4.3 D Chloride 101 Carbon Dioxide 31 H Anion Gap 15 BUN 26 H Creatinine 1.10 Estim Creat Clear Calc 60.9 Estimated GFR > 60 Random Glucose 165 H Lactic Acid Lactic Acid Fup @ 2Hr Calcium 7.6 L Phosphorus 4.3 Magnesium 2.0 Total Bilirubin 2.1 H AST 58 H ALT 36 Alkaline Phosphatase 167 H Troponin I High Sens B-Natriuretic Peptide Total Protein 4.5 L Albumin 2.7 L D Blood Type Antibody Screen Crossmatch Microbiology Microbiology Results: Microbiology 10/11/21 05:23 Blood - Venous Blood Culture - Final No growth after 5 days. 10/11/21 05:23 Blood - Venous Blood Culture - Final No growth after 5 days. 10/05/21 04:16 Blood - Venous Blood Culture - Final Pseudomonas aeruginosa 10/05/21 03:59 Blood - Venous Blood Culture - Final Pseudomonas aeruginosa 09/23/21 21:26 Blood - Venous Blood Culture - Final No growth after 5 days. 09/23/21 21:21 Blood - Venous Blood Culture - Final No growth after 5 days. 09/24/21 14:49 Sputum - Expectorated Gram Stain - Final 09/24/21 14:49 Sputum - Expectorated Sputum Culture - Final 09/05/21 18:43 Blood - Venous Blood Culture - Final No growth after 5 days. 09/05/21 18:43 Blood - Venous Blood Culture - Final No growth after 5 days. Progress Note: A&P Assessment and plan (1) Multiple lung abscesses: Status: Acute (2) SONYA (acute kidney injury): Status: Acute (3) Pulmonary aspiration: Status: Acute (4) Cardiac arrest: Status: Acute (5) Post covid-19 condition, unspecified: Status: Acute (6) Acute respiratory failure with hypoxia: Status: Acute (7) CLL (chronic lymphocytic leukemia): Status: Chronic (8) Hypogammaglobulinemia: Status: Acute (9) Pseudomonal pneumonia: Status: Acute Assessment and Plan: Assessment: 66-year-old gentleman with underlying CLL, with prolonged post COVID syndrome, failure to thrive, acute hypoxic respiratory failure with hospital course further complicated by PEA cardiac arrest on 10/16/2021, likely secondary to pulmonary aspiration Plan: Neuro: No acute issues. Cardiac: Shock status post PEA cardiac arrest, likely secondary to pulmonary aspiration with return of spontaneous circulation after 2 rounds of epinephrine. Troponin normal post code. Continue to titrate off vasopressors as tolerated. Pulmonary: Acute hypoxic respiratory failure secondary to prolonged post-COVID syndrome, likely pulmonary aspiration, intubated during the CPR. Underlying multiple pulmonary abscesses, possible Pseudomonas. Continue to titrate off ventilatory support as tolerated. Now on maximal ventilatory support Secondary to worsening pulmonary edema secondary to ATN. Renal: Acute kidney injury / ATN post cardiac arrest. Nephrology service care appreciated. Oliguric/anuric. hemodialysis catheter followed for ultrafiltration placed. To start on ultrafiltration Endo: No acute issues. GI: No acute issues. ID: Possible Pseudomonas pneumonia /pulmonary abscess, continues on Levaquin. Infectious Disease service care appreciated Heme/Onc: underlying CLL with pancytopenia, now with subacute anemia. To transfuse 1 unit of packed red blood cells. Psych: No acute issues. Miscellaneous: Family requested transfer to [facility]. Family advised that patient is at high-risk for transfer secondary to maximal ventilatory support requirements. Transfer requested, no ICU beds available at [facility]. Prophylaxis: Pneumatic compression Diet: nothing by mouth Critical care time spent: 60 minutes excluding separately billable procedures Quality Stroke Does the patient have a stroke diagnosis?: No VTE Prior VTE?: No VTE Risk Level:: Medical - moderate - high VTE Device Contraindication: Treatment Not Indicated VTE Drug Contraindication: N/A - Med Ordered
--- NOTE | 2021-10-17 17:32 | W.PM.CCHP ---
Procedures Date of Service Date of Service: 10/17/21 Central Line Placement Left IJ: Central Line Comments: Left internal jugular Loi hemodialysis catheter emergently placed for ultrafiltration under ultrasound guidance and usual sterile conditions with no immediate complications. Line position verified on chest x-ray.
--- NOTE | 2021-10-17 17:57 | PM.CCN ---
Critical Care Event Note Summary Date of Service: 10/17/21 Code activated: No Narrative: Overall very poor clinical states discussed with family and decision has been reached to switch code status to do not resuscitate. Code status updated. Critical Care Time (minutes): 0
[2021-10-17] MEDS: Sodium Bicarbonate 8.4% 50 MEQ/50 ML SYRINGE IVPUSH ×2 (18:15→19:35)
[2021-10-17] MEDS: EPINEPHrine 5 MG in Dextrose 5 % 250 ML 47.19 MG IVCONT (19:01)
[2021-10-17] MEDS: EPINEPHrine 5 MG in Dextrose 5 % 250 ML 471.92 MG IVCONT ×3 (19:33→20:53)
[2021-10-17] MEDS: Calcium Chloride 1 GM/10 ML SYRINGE IVPUSH (19:34)
--- NOTE | 2021-10-17 22:18 | P.PNCC_ITS ---
Critical Care Event Note Summary Date of Service: 10/17/21 Code activated: No Narrative: This case had a high probability of a clinically significant, sudden, or life threatening deterioration of this patient's condition which required my full and direct attention, intervention and personal management. Critical Care Time (minutes): 60 Comment: Deterioration of patient's clinical status over the last few hours, including worsening hypoxemia refractory to ventilatory support and emergent dialysis. Family goals of care held earlier during the day, and decision of DNR status was reached. Patient Blood pressure cont to worsen despite of max pressor support. Family was called in.? Patient asystole on monitor.?On my exam- no response to verbal or physical stimuli, no spontaneous respiration, absent heart sounds, pupils are fixed and dilated, no corneal or gag reflex. Official time of 2126. Attending Dr Aden notified. Patient and son, at bedside. Not a medical or surgical instrument maker case. Nursing notified organ donation and was declined.?
--- NOTE | 2021-10-18 04:54 | PC.NURSE ---
received patient at shift report. Skin was noted to be mottled on torso and legs. Pt was anuric and received dialysis. Pt had soft pressures. Maxed out on levophed and epi. No improvement in bp. Pt was also maxed on vent settings. Pt continued to decline, with no response to stimuli. Pt was DNR and QRS continued to widen to asystole. Pt pronounced at 2126.
--- NOTE | 2021-10-18 11:18 | P.DN_ITS ---
Discharge Sum: Prov Provider Primary care physician: Mabel Alvarez NP Consults: 09/10/21 07:34 Consult to Pulmonology Routine Consulting Provider: Hamlet Banuelos Reason for consultation: covid + 6 weeks, ? multifocal pna, not much impro vement Has provider been notified: No 09/23/21 21:09 Consult to Hematology / Oncology Routine Consulting Provider: Naina Dawson Reason for consultation: coivd, cll Has provider been notified: No 09/24/21 15:10 Consult to Cardiology Routine Consulting Provider: Stu Du Reason for consultation: chest pain, elevated troponin, abnormal EKG Has provider been notified: No 10/07/21 08:20 Consult to Infectious Diseases Routine Consulting Provider: Evangelina Lux Reason for consultation: gram negative bacteremia 10/17/21 15:19 Consult to Nephrology Routine Consulting Provider: [facility] Reason for consultation: ATN, pulmonary edema, ultrafiltration Has provider been notified: No Discharge Sum: Diag Contributing Factors (1) Post covid-19 condition, unspecified: (2) Cavitary pneumonia: (3) Pseudomonal pneumonia: (4) Anxiety: (5) Tachycardia: (6) SONYA (acute kidney injury): (7) Multiple lung abscesses: (8) Pulmonary aspiration: (9) Cardiac arrest: (10) CLL (chronic lymphocytic leukemia): (11) Hypogammaglobulinemia: (12) Pancytopenia: (13) Acute respiratory failure with hypoxia: Discharge Sum: Summary Date and Time Date of admission: 09/05/21 23:01 Date of : 10/17/21 Time of : 21:27 Summary Details: 66-year-old gentleman with underlying history of CLL, pancytopenia, hypogammaglobulinemia, prolonged hospitalization secondary to subacute hypoxemia after recent COVID-19 infection, further complicated by multilobar cavitary pneumonia with pulmonary abscesses, and failure to thrive had PEA cardiac arrest on 10/16/2021 likely secondary to an aspiration event. Patient returned spontaneous circulation after 2 rounds of epinephrine and was intubated during the CPR. Patient has been transferred to intensive care unit. Unfortunately, after the cardiac arrest he developed shock requiring high-dose vasopressor support, acute renal failure with anuria, likely secondary to ATN, resulting in worsening pulmonary edema, and refractory hypoxemia despite maximal ventilatory support. Overall very poor clinical state discussed with patient's family on 10/17/2021 and code status changed to do not resuscitate. Emergent ultrafiltration was attempted with some improvement in oxygenation, but worsening cardiac function. Family notified of imminent decline and arrived at the bedside. Patient had another asystolic cardiac arrest with official time of at 21:27. Additional Data Family: at bedside Attending physician: Waqas Aden MD Was code activated?: No Autopsy requested?: No electric power line examiner notified?: No Hospice patient?: No
== END 2021-10-17 21:27 | disposition expired | DRG 208 ==
LOC: HO.ED 21:19 → HO.EDOVER 23:14 → HO.IMC 09-06 04:24 → HO.ICU 10-16 17:22
PROVIDERS: Family Medicine; Hospitalist; Internal Medicine; Internal Medicine Cardiovascular Disease; Nurse Practitioner Acute Care; Physician Assistant Medical; Registered Nurse Community Health; Admitting Provider Internal Medicine; Emergency Provider Emergency Medicine; PCP Nurse Practitioner Family; Visit Provider Internal Medicine Pulmonary Disease
DX: U07.1 COVID-19 (principal); J12.82 Pneumonia due to coronavirus disease 2019; J80 Acute respiratory distress syndrome; J15.1 Pneumonia due to Pseudomonas; A41.52 Sepsis due to Pseudomonas; N17.0 Acute kidney failure with tubular necrosis; C91.11 Chronic lymphocytic leukemia of B-cell type in remission; D61.818 Other pancytopenia; E87.1 Hypo-osmolality and hyponatremia; D80.1 Nonfamilial hypogammaglobulinemia; R57.9 Shock, unspecified; R00.0 Tachycardia, unspecified; L89.322 Pressure ulcer of left buttock, stage 2; D64.9 Anemia, unspecified; F41.9 Anxiety disorder, unspecified; E78.5 Hyperlipidemia, unspecified; M10.9 Gout, unspecified; R07.81 Pleurodynia; I46.9 Cardiac arrest, cause unspecified; Z66 Do not resuscitate; Z79.899 Other long term (current) drug therapy
CPT/HCPCS: 36415; 36600; 71045; 71275; 74177; 76700; 80048; 80053; 80076; 80202; 81001; 81003; 82436; 82565; 82728; 82784; 82803; 83605; 83615; 83735; 83880; 83935; 84100; 84133; 84145; 84300; 84484; 85007; 85025; 85027; 85379; 86140; 86141; 86704; 86706; 86769; 86803; 86850; 86900; 86901; 86923; 87040; 87070; 87077; 87186; 87205; 87340; 87449; 87633; 87635; 87899; 90999; 93005; 93306; 93308; 93970; 94002; 94003; 94640; 94799; 96365; 96366; 96367; 96375; 97110; 97163; 97530; 99284; 99291; J0171; J0456; J0692; J0696; J1100; J1200; J1569; J1650; J1940; J1956; J2060; J2270; J2920; J3370; P9016; P9047; Q9967